=== PATIENT | male | born 1945 | race African-American/Black ===

== ENCOUNTER 2017-05-25 22:52 | Emergency (ER) | payer OTHER ==
[2017-05-25 22:58] VITALS: BMI 34.6
--- NOTE | 2017-05-25 23:25 | PDOC ---
History of Present Illness - General History Source: Patient Exam Limitations: No Limitations - History of Present Illness Initial Comments: 05/26/17 01:00 The patient is a 72 year old male, with significant past medical history of insulin-dependent diabetes mellitus, HLD, HTN, BPH, glaucoma, cataracts, GOUT, who presents today complaining of high blood glucose levels. The patient noticed a change in his blood glucose levels after his doctor switched his insulin from a long lasting (which he was taking for 10 years) to short lasting humalog. Since this change in medication, he becomes very dizzy throughout the day. However, he denies dizziness at this time.His blood glucose is 250 and wants to be under 200 before he is discharged.He denies any pain, abdominal pain , and does not have any other complaints. Denies fever, chills, nausea, vomiting. Allergies: doxazosin, metformin PCP- Dr. Lopez Sales Account Manager: Dr. Estes <Tatum Bell - Last Filed: 05/26/17 01:00> <Leticia Kirkpatrick - Last Filed: 05/26/17 05:34> - General Chief Complaint: Blood Sugar Problem Stated Complaint: BLOOD SUGAR PROBLEM Time Seen by Provider: 05/25/17 23:09 Past History <Tatum Bell - Last Filed: 05/26/17 01:00> - Past Medical History Anemia: No Asthma: No Cancer: No Cardiac Disorders: No COPD: No CHF: No Diabetes: Yes Disorders: Yes (ENLARGED PROSTATE) HTN: Yes Hypercholesterolemia: Yes Thyroid Disease: No - Surgical History Abdominal Surgery: No Appendectomy: No Cardiac Surgery: No Cholecystectomy: No Lung Surgery: No Neurologic Surgery: No Orthopedic Surgery: Yes (TENDON REPAIR LEFT FOREFINGER) - Psycho/Social/Smoking Cessation Hx Suicidal Ideation: No Smoking History: Never smoked Have you smoked in the past 12 months: No Hx Alcohol Use: No Drug/Substance Use Hx: No Substance Use Type: None <Leticia Kirkpatrick - Last Filed: 05/26/17 05:34> - Past Medical History Allergies/Adverse Reactions: Allergies Allergy/AdvReac Type Severity Reaction Status Date / Time doxazosin Allergy Severe Verified 05/26/17 00:17 metformin AdvReac Verified 05/26/17 00:17 Home Medications: Ambulatory Orders Brimonidine Tartrate [Alphagan 0.2% -] 1 drop OU BID 10/19/15 Clonidine HCl [Catapres -] 0.1 tab PO BID 10/19/15 Dorzolamide HCl/Timolol Maleat [Dorzolamide-Timolol Eye Drops] 10 ml OP HS 10/19 Finasteride 5 mg PO DAILY 10/19/15 Insulin NPL/Insulin Lispro [Humalog Mix 50-50 Kwikpen] 0 units SQ DAILY Latanoprost 0.005% Eye Drops [Xalatan 0.005% Eye Drops -] 1 drop OU HS 10/19/15 Mometasone Furoate [Nasonex] 1 - 2 inh NS DAILY 10/19/15 Saxagliptin HCl [Onglyza] 2.5 mg PO DAILY 10/19/15 Tamsulosin HCl [Flomax -] 0.4 mg PO DAILY 10/19/15 Timolol 0.5% [Timoptic 0.5%] 1 drop OU BID 10/19/15 Valsartan 160 mg PO DAILY 10/19/15 Allopurinol 300 mg PO DAILY 10/02/16 Amox-Tr/K Cl [Augmentin - 875Mg Tablet] 1 tab PO BID #20 tablet 10/02/16 Fexofenadine HCl [Anjali Allergy] 180 mg PO DAILY #10 tablet 10/02/16 Linagliptin [Tradjenta] 5 mg PO DAILY 10/02/16 Simvastatin [Zocor -] 40 mg PO HS 10/02/16 Review of Systems - Review of Systems Able to Perform ROS?: Yes Comments:: 05/26/17 01:02 GENERAL/CONSTITUTIONAL: No fever or chills. No weakness. HEAD, EYES, EARS, NOSE AND THROAT: No change in vision. No ear pain or discharge. No sore throat. CARDIOVASCULAR: No chest pain or shortness of breath. RESPIRATORY: No cough, wheezing, or hemoptysis. GASTROINTESTINAL: No nausea, vomiting, diarrhea or constipation. GENITOURINARY: No dysuria, frequency, or change in urination. MUSCULOSKELETAL: No joint or muscle swelling or pain. No neck or back pain. SKIN: No rash NEUROLOGIC: No headache, vertigo, loss of consciousness, or change in strength/ sensation. ENDOCRINE: +high blood glucose. No increased thirst. No abnormal weight change. HEMATOLOGIC/LYMPHATIC: No anemia, easy bleeding, or history of blood clots. ALLERGIC/IMMUNOLOGIC: No hives or skin allergy. <Tatum Bell - Last Filed: 05/26/17 01:00> *Physical Exam - Vital Signs Last Vital Signs Temp Pulse Resp BP Pulse Ox 99.3 F 125 H 18 122/77 98 05/25/17 22:56 05/25/17 22:56 05/25/17 22:56 05/25/17 22:56 05/25/17 23:01 - Physical Exam Comments: 05/26/17 01:02 GENERAL: Awake, alert, and fully oriented, in no acute distress HEAD: No signs of trauma EYES: PERRLA, EOMI, sclera anicteric, conjunctiva clear ENT: Auricles normal inspection, hearing grossly normal, nares patent, oropharynx clear without exudates. Moist mucosa NECK: Normal ROM, supple, no lymphadenopathy, JVD, or masses LUNGS: Breath sounds equal, clear to auscultation bilaterally. No wheezes, and no crackles HEART: Regular rate and rhythm, normal S1 and S2, no murmurs, rubs or gallops ABDOMEN: Soft, nontender, normoactive bowel sounds. No guarding, no rebound. No masses EXTREMITIES: Normal range of motion, no edema. No clubbing or cyanosis. No cords, erythema, or tenderness NEUROLOGICAL: Cranial nerves II through XII grossly intact. Normal speech, normal gait SKIN: Warm, Dry, normal turgor, no rashes or lesions noted. <Tatum Bell - Last Filed: 05/26/17 01:00> - Vital Signs Last Vital Signs Temp Pulse Resp BP Pulse Ox 99.3 F 125 H 18 122/77 98 05/25/17 22:56 05/25/17 22:56 05/25/17 22:56 05/25/17 22:56 05/25/17 23:01 <Leticia Kirkpatrick - Last Filed: 05/26/17 05:34> ED Treatment Course - ADDITIONAL ORDERS Additional order review: Laboratory Results 05/25/17 23:42 POC Glucometer [id number] 05/25/17 23:42 POC Glucometer [id number] - Medications Given in the ED: ED Medications Discontinued Medications Generic Name Dose Route Start Last Admin Trade Name Freq PRCatherine Reason Stop Dose Admin Insulin Human Regular 1 units 05/26/17 00:51 05/26/17 00:56 Novolin R Vial *For Ivpush Or Iv Drip Only* IVPUSH 05/26/17 00:52 1 unit ONCE ONE Administration <Tatum Bell - Last Filed: 05/26/17 01:00> - LABORATORY CBC & Chemistry Diagram: 05/26/17 00:55 05/26/17 00:55 <Leticia Kirkpatrick - Last Filed: 05/26/17 05:34> Medical Decision Making - Medical Decision Making 05/26/17 05:31 Pt comes with higher blood sugars than he is used to. He tells me that he was recently seen at [facility] and the doctors switched his Humumog 50/50 to a different combination of insulin meds, leading him to have poor control of his blood sugar. Pt has no other complaints at this time. 05/26/17 05:33 Pt was treated with a 500 ml of saline as he has ketones in his urine and he was given only 1U of regular insulin, as he wants to resume his usual course of 55Units of humulog in the AM when he gets home and 52Units in the night. <Leticia Kirkpatrick - Last Filed: 05/26/17 05:34> *DC/Admit/Observation/Transfer - Attestations Scribe Attestion: 05/26/17 01:11 Documentation prepared by MARIETTA Gipson, acting as certified medical transcriptionist for Leticia Kirkpatrick MD. <Tatum Bell - Last Filed: 05/26/17 01:00> - Discharge Dispostion Admit: No <Leticia Kirkpatrick - Last Filed: 05/26/17 05:34> Diagnosis at time of Disposition: Diabetes - Discharge Dispostion Disposition: HOME Condition at time of disposition: Stable - Patient Instructions Printed Discharge Instructions: DI for Hyperglycemia -- Adult
[2017-05-26] MEDS ORDERED: INSULIN REGULAR HUMAN 100 UNITS/ML *VIAL IVPUSH ONE (00:51)
[2017-05-26 01:07] LABS: BASOPHIL 0.7 % (0-2.0); EOSINOPHIL 0.7 % (0-4.5); MCH 27.4 pg (25.7-33.7); MCHC 32.6 g/dl (32.0-35.9); MEAN PLT VOLUME 8.5 fl (7.5-11.1); NEUTROPHILS 54.8 % (42.8-82.8); PLATELET COUNT 248 K/MM3 (134-434); RDW 13.6 % (11.9-15.9); WHITE BLOOD COUNT 7.4 K/mm3 (4.0-10.0)
[2017-05-26 01:16] LABS: URINE APPEARANCE CLEAR; URINE BILIRUBIN NEGATIVE (NEGATIVE); URINE BLOOD 1+ (NEGATIVE); URINE COLOR STRAW; URINE GLUCOSE (UA) 3+ (NEGATIVE); URINE KETONE TRACE (NEGATIVE); URINE LEUK ESTERASE NEGATIVE (NEGATIVE); URINE NITRITE NEGATIVE (NEGATIVE); URINE PROTEIN NEGATIVE (NEGATIVE); URINE UROBILINOGEN NEGATIVE mg/dL (0.2-1.0)
[2017-05-26 01:19] LABS: URINE RBC 1 /hpf (0-3); URINE WBC <1 /hpf (3-5)
[2017-05-26 01:23] LABS: INR 1.07 (0.82-1.09); PROTHROMBIN TIME (PATIENT) 11.8 SEC (9.98-11.88)
[2017-05-26 01:44] LABS: ALBUMIN 3.8 g/dl (3.4-5.0); ANION GAP 10 (8-16); BILIRUBIN,TOTAL 0.6 mg/dL (0.2-1.0); CALCIUM 9.6 mg/dL (8.5-10.1); CO2 28 mmol/L (21-32); CREATININE 1.5 mg/dL (0.7-1.3); GLUCOSE,RANDOM 253 mg/dL (74-106); SGOT/AST 19 U/L (15-37); SGPT/ALT 22 U/L (12-78); TOT PROT 7.9 g/dl (6.4-8.2)
[2017-05-26 01:45] LABS: ALK PHOS 79 U/L (45-117)
[2017-05-26] MEDS ORDERED: SODIUM CHLORIDE 0.9% 1000 ML INFUS.BAG IV ONE (02:46)
[2017-05-26 04:23] VITALS: BP 120/78; PULSE 97; TEMP 98.7
== END 2017-05-26 04:33 | disposition home or self-care (01) ==
LOC: JER 22:52
PROC: 3E033VG Introduction of Insulin into Peripheral Vein, Percutaneous Approach (ICD-10-PCS; principal; 2017-05-25)
DX: E11.65 Type 2 diabetes mellitus with hyperglycemia (principal); Z79.4 Long term (current) use of insulin; I10 Essential (primary) hypertension; E78.00 Pure hypercholesterolemia, unspecified; M10.9 Gout, unspecified; N40.0 Benign prostatic hyperplasia without lower urinary tract symptoms
CPT/HCPCS: 36415; 80053; 81003; 81015; 85025; 85610; 99282-25

== ENCOUNTER 2017-11-11 07:13 | Day surgery (SDC) | payer OTHER ==
[2017-11-10 14:55] VITALS: BMI 33.3
[~2017-11-11 07:13] MED LIST: BSS (NA/CA/MG/K) BALANCED SALT SOLUTION OPHTH SOLN 15 ML BOTTLE OD ONE; CHONDROITIN SU A/HYALUR SOD 1 KIT IO ONE; EPINEPHrine/PF 1 MG/1 ML (1:1,000) AMPULE SQ ONE; LIDOCAINE HCL 1% PRESERVATIVE FREE - 30ML VIAL IO ONE; POVIDONE-IODINE 5% OPHTHALMIC PREP 30 ML SOLUTION OD ONE; TETRACAINE 0.5% OPHTH SOLN 2 ML BOTTLE OD ONE; TOBRA 0.3%/DEXAMETH 0.1% OPHTHALMIC SUSP 2.5 ML BTL TP ONE
[2017-11-11] MEDS ORDERED: EPINEPHrine/PF 1 MG/1 ML (1:1,000) AMPULE ONE (07:41)
[2017-11-11] MEDS ORDERED: TETRACAINE 0.5% OPHTH SOLN 2 ML BOTTLE ONE (07:41)
[2017-11-11] MEDS ORDERED: LIDOCAINE HCL/PF 1% SDV 5ML VIAL ONE (07:41)
[2017-11-11] MEDS ORDERED: TOBRA 0.3%/DEXAMETH 0.1% OPHTHALMIC SUSP 2.5 ML BTL ONE (07:41)
[2017-11-11] MEDS ORDERED: BSS (NA/CA/MG/K) BALANCED SALT SOLUTION OPHTH SOLN 15 ML BOTTLE ONE (07:42)
[2017-11-11 07:45] VITALS: TEMP 97.3
[2017-11-11] MEDS: CYCLOPENTOLATE HCL 1% OPHTH SOLN 2 ML BOTTLE OP SCH ×3 (07:55→08:05)
[2017-11-11] MEDS: PHENYLEPHRINE 2.5% OPHTH SOLN 15 ML BOTTLE OP SCH ×3 (07:55→08:05)
[2017-11-11] MEDS: MOXIFLOXACIN HCL 0.5% OPHTHALMIC 3 ML BOTTLE OP SCH ×3 (07:55→08:05)
[2017-11-11] MEDS: TROPICAMIDE 1% OPHTH SOLN 15 ML BOTTLE OP SCH ×3 (07:55→08:05)
[2017-11-11] MEDS ORDERED: MIDAZOLAM HCL 2 MG/2 ML SINGLE DOSE VIAL ONE ×3 (08:41)
--- NOTE | 2017-11-11 08:53 | HP ---
History & Physical Update - History History: No Change - Physical Physical: No Change - Assessment Assessment: No Change - Plan Plan: No Change
[2017-11-11] MEDS ORDERED: TETRACAINE 0.5% OPHTH SOLN 2 ML BOTTLE OD ONE (09:07)
[2017-11-11] MEDS ORDERED: POVIDONE-IODINE 5% OPHTHALMIC PREP 30 ML SOLUTION OD ONE (09:09)
[2017-11-11] MEDS ORDERED: CHONDROITIN SU A/HYALUR SOD 1 KIT IO ONE (09:18)
[2017-11-11] MEDS ORDERED: EPINEPHrine/PF 1 MG/1 ML (1:1,000) AMPULE SQ ONE (09:18)
[2017-11-11] MEDS ORDERED: BSS (NA/CA/MG/K) BALANCED SALT SOLUTION OPHTH SOLN 15 ML BOTTLE OD ONE (09:18)
[2017-11-11] MEDS ORDERED: LIDOCAINE HCL 1% PRESERVATIVE FREE - 30ML VIAL IO ONE (09:18)
[2017-11-11] MEDS ORDERED: ACETYLCHOLINE 1:100 INTRA-OCUL 20 MG/2 ML KIT ONE (09:46)
[2017-11-11] MEDS ORDERED: ACETYLCHOLINE 1:100 INTRA-OCUL 20 MG/2 ML KIT IO ONE (09:50)
[2017-11-11] MEDS ORDERED: TOBRA 0.3%/DEXAMETH 0.1% OPHTHALMIC SUSP 2.5 ML BTL TP ONE (09:53)
[2017-11-11 11:07] VITALS: BP 145/81; PULSE 83
--- NOTE | 2017-11-11 16:53 | OP ---
DATE OF OPERATION: 11/11/2017 SURGEON: Young Nichole MD PREOPERATIVE DIAGNOSIS: Cataract, right eye. OPERATION: Phacoemulsification and intraocular lens implantation, right eye. POSTOPERATIVE DIAGNOSIS: Cataract, right eye. ANESTHESIA: Topical. COMPLICATIONS: None. BLOOD LOSS: None. SPECIMEN: None. BRIEF HISTORY: The patient is a 72-year-old man with a past medical history of diabetes, who presented with decreased vision in the right eye down to 20/70 due to a 2+ nuclear sclerotic lens and a posterior subcapsular cataract. After the risks , benefits, and alternatives to cataract surgery were discussed with the patient including the increased risk due to the poorly dilating pupil, the patient consented to surgery. DESCRIPTION OF PROCEDURE: The patient was brought to the operating room and prepped and draped in the usual sterile fashion, and an eyelid speculum was inserted in the right eye. A paracentesis was made, and the anterior chamber was inflated with nonpreserved lidocaine. This was followed by injection of Viscoat. Due to the poorly dilating pupil, five iris hooks were placed in order to enlarge and stabilize the pupil. This was done without incident. A groove was made in the temporal clear cornea which was tunneled forward with a crescent blade. The anterior chamber was entered with a 2.75 keratome. The cystotome was used to make an incision in the center of the capsule, and a continuous curvilinear capsulorrhexis was created. The lens was hydrodissected until it was found to rotate freely within the capsular bag. Phacoemulsification was then used to remove the lens in its entirety. Irrigation and aspiration were used to remove residual cortical material. The anterior chamber and capsular bag were reinflated with Provisc, and a 22.5-diopter [id number] AcrySof intraocular lens was injected into the capsular bag using the Maryneal injector. The lens was dialed into place using a Sinskey hook. Irrigation and aspiration were used to remove residual Viscoelastic. The wound was stromally hydrated. The five previously placed iris hooks were removed, and Miochol was injected into the eye. The pupil was found to constrict round with no peaking. The wound was found to be watertight, and the eye was at an appropriate pressure. The eyelid speculum was removed from the eye, and TobraDex drops and a clear shield were placed over the right eye. The patient was transferred to the recovery room in stable condition and will follow up tomorrow. Jean Claude [id number] MTDD
== END 2017-11-11 11:07 | disposition home or self-care (01) ==
LOC: JASU-SURG 07:13
PROVIDERS: ATTEND Ophthalmology
PROC: 08RJ3JZ Replacement of Right Lens with Synthetic Substitute, Percutaneous Approach (ICD-10-PCS; principal; 2017-11-11 09:00)
DX: H25.11 Age-related nuclear cataract, right eye (principal)
CPT/HCPCS: 82962

== ENCOUNTER 2018-06-06 12:16 | Emergency (ER) | payer OTHER ==
[2018-06-06 12:32] VITALS: BMI 32.5
--- NOTE | 2018-06-06 12:45 | PDOC ---
History of Present Illness - General Chief Complaint: Rectal Bleed Stated Complaint: RECTAL BLEED Time Seen by Provider: 06/06/18 12:45 History Source: Patient Exam Limitations: No Limitations - History of Present Illness Initial Comments: 06/06/18 13:27 73 year old male with PMH GERD, HTN, HLD, DM, BPH presents to ED today for rectal bleeding. He states after defecating today, without straining and after laxative use, he saw his toilet bowl was bright red. He states he has constipation, and has had one prior episode of rectal bleeding, but had been straining and since laxative use, has not had any other episodes. He denies abdominal pain, nausea, vomiting, diarrhea, weakness, dizziness, lightheadedness , chest pain, shortness of breath, headache, back pain. He denies blood thinner use other than 81 mg ASA daily. He denies iron use, eating beets, nose bleeds, NSAID use, glucocorticoid use, Hx gastric bypass, etoh use. He has never had a colonoscopy before. He states he does not take Omeprazole everyday, only as needed for "indigestion". PCP - Dr. Leon GI - Dr. Luna Allergies - Metformin (upset stomach), doxazosin (chest pain) Past History - Past Medical History Allergies/Adverse Reactions: Allergies Allergy/AdvReac Type Severity Reaction Status Date / Time doxazosin Allergy Severe "CHEST Verified 06/06/18 12:32 PAIN" metformin AdvReac "INDIGESTIO Verified 06/06/18 12:32 N" Home Medications: Ambulatory Orders Brimonidine Tartrate [Alphagan 0.2% -] 1 drop OU BID 10/19/15 Dorzolamide HCl/Timolol Maleat [Dorzolamide-Timolol Eye Drops] 10 ml OP HS 10/19 Finasteride 5 mg PO DAILY 10/19/15 Latanoprost 0.005% Eye Drops [Xalatan 0.005% Eye Drops -] 1 drop OU HS 10/19/15 Tamsulosin HCl [Flomax -] 0.4 mg PO DAILY 10/19/15 Timolol 0.5% [Timoptic 0.5%] 1 drop OU BID 10/19/15 cloNIDine HCL [Catapres -] 0.1 tab PO BID 10/19/15 Linagliptin [Tradjenta] 5 mg PO DAILY 10/02/16 Allopurinol [Zyloprim -] 100 mg PO DAILY 11/10/17 Insulin Lispro Protamin/Lispro [Humalog Mix 50-50 Vial] 50 unit SQ ACHS Insulin Lispro Protamin/Lispro [Humalog Mix 50-50 Vial] 60 unit SQ ACBK Simvastatin 20 mg PO HS 11/10/17 Valsartan/Hydrochlorothiazide [Valsartan-Hctz 320-25 mg Tab] 1 each PO DAILY 06/20 Gabapentin [Neurontin -] 200 mg PO DAILY 06/06/18 Torsemide [Demadex] 20 mg PO DAILY 06/06/18 Anemia: No Asthma: No Cancer: No Cardiac Disorders: No CVA: No COPD: No CHF: No Dementia: No Diabetes: Yes GI Disorders: Yes ("HEARTBURN") Disorders: Yes (ENLARGED PROSTATE) HTN: Yes Hypercholesterolemia: Yes Liver Disease: No Seizures: No Thyroid Disease: No - Surgical History Abdominal Surgery: No Appendectomy: No Cardiac Surgery: No Cholecystectomy: No Lung Surgery: No Neurologic Surgery: No Orthopedic Surgery: Yes (TENDON REPAIR LEFT FOREFINGER) - Suicide/Smoking/Psychosocial Hx Smoking History: Never smoked Have you smoked in the past 12 months: No Hx Alcohol Use: No Drug/Substance Use Hx: No Substance Use Type: None Hx Substance Use Treatment: No Review of Systems - Review of Systems Able to Perform ROS?: Yes Comments:: 06/06/18 13:32 General: denies fever, chills, night sweats, generalized weakness. HEENT: denies sore throat, rhinorrhea, ear pain. Heart: denies chest pain, palpitations, syncope, lower extremity swelling, diaphoresis. Respiratory: denies shortness of breath, cough, sputum production, hematemesis. Abdomen: admits to rectal bleeding. denies abdominal pain, nausea, vomiting, diarrhea, constipation. : denies dysuria, increased urinary frequency, hematuria, urinary incontinence , flank pain. Back: denies back pain, flank pain. Musculoskeletal: denies joint pain, muscle pain, joint swelling. Neurological: denies headache, dizziness, numbness, tingling, weakness. Skin: denies rash, laceration, abrasion. *Physical Exam - Vital Signs Last Vital Signs Temp Pulse Resp BP Pulse Ox 98 F 78 18 131/83 99 06/06/18 12:30 06/06/18 12:30 06/06/18 12:30 06/06/18 12:30 06/06/18 12:30 - Physical Exam Comments: 06/06/18 13:32 Appearance: comfortable. walks unassisted. HEENT: head is normocephalic, atraumatic. EOMI. PERRLA. Neck: supple. Full ROM. Heart: regular rhythm. no murmurs, rubs or gallops. No pericardial friction rub. Lungs: clear to auscultation bilaterally. no crackles, rhonchi or wheezing. no stridor. Abdomen: soft, nontender. hyperactive bowel sounds. no rebound, guarding, masses. Rectal: no external hemorrhoids. Extremities: Peripheral pulses intact and equal. No lower extremity edema. Neurological: Alert. Oriented x3. CN 2-12 grossly intact. Moves all four extremities. Heart Score/ECG Review - ECG Impressions Comment:: 06/06/18 14:43 Rate 71. regular rhythm. left axis. no acute ST changes. ED Treatment Course - LABORATORY CBC & Chemistry Diagram: 06/06/18 17:13 06/06/18 13:18 Medical Decision Making - Medical Decision Making 06/06/18 13:39 73 year old male with PMH GERD, HTN, HLD, DM, BPH presenting for rectal bleeding - red water in toilet bowl today. On ASA 812 mg, denies other blood thinners, iron use, steroid use, NSAID use, beet ingestion, nose bleeds. No abdominal pain, no chest pain, no shortness of breath, no lightheadedness, no fever, no nausea, no vomiting, no diarrhea, no constipation. No external hemorrhoids visualized. Initial Vital Signs Temp Pulse Resp BP Pulse Ox 98 F 78 18 131/83 99 06/06/18 12:30 06/06/18 12:30 06/06/18 12:30 06/06/18 12:30 06/06/18 12:30 Afebrile. No tachycardia. No hypotension. No hypoxia. Pending labs, CXR, stool guiac. 06/06/18 13:42 No anemia on CBC. Stool positive for blood. 06/06/18 13:43 CXR report - congestive changes, fluid in horizontal fissure, possible right base infiltrate, no free air, no pneumothrorax, large heart, unfolded aorta. 06/06/18 15:11 I reassessed the patient, and explained his results and the need for a repeat Hgb at four hours. He has no complaints and agrees with the plan of care. *DC/Admit/Observation/Transfer Diagnosis at time of Disposition: Rectal bleed, Chronic kidney disease - Discharge Dispostion Disposition: HOME Condition at time of disposition: Stable Decision to Admit order: No - Referrals Referrals: Beka Lopez MD [Primary Care Provider] - - Patient Instructions Printed Discharge Instructions: DI for Rectal Bleeding Additional Instructions: You were seen today for rectal bleeding. Your blood work revealed no anemia when you arrived to the Emergency Department. Repeat blood work 5 hours later revealed no change. Your stool testing revealed you have blood in your stool. Your evaluation of your rectal bleeding is not complete, you need to see your director revenue to find the cause of your bleeding. I spoke with Dr. Rodriguez, covering for Dr. Lilly, who states you can make an appointment for next week. Please call your director revenue on Friday to make an appointment, and bring the paperwork given to you today to your appointment. Follow up with your primary care physician within 7 days, and bring the paperwork given to you today with you. Return to the Emergency Department for continued bleeding, lightheadedness, chest pain, shortness of breath, weakness, numbness, loss of consciousness or any other new, worsening or concerning symptoms. - Post Discharge Activity
[2018-06-06 13:35] LABS: BASO % 0.6 % (0-2.0); EOS % 1.4 % (0-4.5); HEMATOCRIT 35.4 % (35.4-49); HEMOGLOBIN 12.2 GM/dL (11.7-16.9); LYMPH % 40.7 % (8-40); MCH 28.5 pg (25.7-33.7); MCHC 34.4 g/dl (32.0-35.9); MEAN PLT VOLUME 7.8 fl (7.5-11.1); MONO % 7.7 % (3.8-10.2); NEUT % 49.6 % (42.8-82.8); PLATELET COUNT 244 K/MM3 (134-434); RBC 4.27 M/mm3 (4.00-5.60); RDW 13.3 % (11.9-15.9); RETICULOCYTES 1.37 % (0.5-1.5); WHITE BLOOD COUNT 6.4 K/mm3 (4.0-10.0)
--- NOTE | 2018-06-06 13:50 | PDOC ---
Attending Attestation - Resident Resident Name: Christine Bush - ED Attending Attestation I have performed the following: I have examined & evaluated the patient, The case was reviewed & discussed with the resident, I agree w/resident's findings & plan, Exceptions are as noted - HPI HPI: 06/06/18 13:48 73y M hx of dm, htn, hl, presents with 1 episode in his toilet after defacating. 1 prior episode of this 1 month ago with straining but non since. Today he had ahard bm, but said it was passed easily, he said it wa s anormal colored stool floating in a pool of blood inthe toilet. he wiped several times using toilet paper and the blood was less each time. pt denies any rectal pain , abd pain, cp, sob, palitations, lightheadedness. Pt follows upith dr Lilly but has never had a colonscopy (was recommended but pt declined). pt on ASA but no other a/c on exam pt well appearing abd soft nontender rectal: no externalhemorroids, brown stool suspect possible hemrroidal bleeding will obtain cbc, cmp, inr, stool guaiac - Physicial Exam PE: 06/06/18 17:53 see above - Medical Decision Making 06/06/18 16:47 labs unremarkble, cbc stable cxr noted for some chgestive changes but pt has no sob, leg swelling or other sypmtoms will obtain repeat CBC if stable will dc with gi fu n ofurther episodes of bleeding here 06/06/18 17:56 repeat hbg sbalel no episodes of bleeding will dc with gi fu for colonscopy return precuations were discussed Heart Score/ECG Review - ECG Impressions Comment:: 06/06/18 18:00 Twelve-lead EKG was performed and reviewed by me. There is normal sinus rhythm with a normal rate. Rate of 71 The axis is normal. The intervals are normal. There is normal R wave progression There are no ST or T wave abnormalities. Impression: Normal twelve-lead EKG
[2018-06-06 14:03] LABS: ALBUMIN 3.8 g/dl (3.4-5.0); ALK PHOS 79 U/L (45-117); ANION GAP 8 (8-16); BILIRUBIN,TOTAL 0.3 mg/dL (0.2-1.0); BLOOD UREA NITROGEN 31 mg/dL (7-18); CALCIUM 9.6 mg/dL (8.5-10.1); CHLORIDE 96 mmol/L (98-107); CO2 33 mmol/L (21-32); CREATININE 1.8 mg/dL (0.7-1.3); GLUCOSE,RANDOM 187 mg/dL (74-106); POTASSIUM 3.5 mmol/L (3.5-5.1); SGOT/AST 26 U/L (15-37); SGPT/ALT 26 U/L (12-78); SODIUM 137 mmol/L (136-145); TOT PROT 7.7 g/dl (6.4-8.2)
[2018-06-06 14:55] LABS: INR 1.03 (0.83-1.09); PROTHROMBIN TIME (PATIENT) 11.6 SEC (9.7-13.0)
[2018-06-06 15:22] VITALS: BP 124/72; PULSE 67; TEMP 98.9
[2018-06-06 17:42] LABS: HEMATOCRIT 35.8 % (35.4-49); HEMOGLOBIN 12.2 GM/dL (11.7-16.9); MCH 28.6 pg (25.7-33.7); MCHC 34.3 g/dl (32.0-35.9); MEAN CELL VOLUME 83.6 fl (80-96); MEAN PLT VOLUME 7.5 fl (7.5-11.1); PLATELET COUNT 255 K/MM3 (134-434); RBC 4.28 M/mm3 (4.00-5.60); RDW 13.1 % (11.9-15.9); WHITE BLOOD COUNT 7.8 K/mm3 (4.0-10.0)
--- NOTE | 2018-06-08 11:51 | EKG ---
Test Reason : Blood Pressure : / mmHG Vent. Rate : 071 BPM Atrial Rate : 071 BPM P-R Int : 156 ms QRS Dur : 102 ms QT Int : 388 ms P-R-T Axes : 045 -04 036 degrees QTc Int : 421 ms NORMAL SINUS RHYTHM NORMAL ECG WHEN COMPARED WITH ECG OF 19-OCT-2015 08:27, NO SIGNIFICANT CHANGE WAS FOUND Confirmed by HUGH GATES MD ([id number]) on 06/08/2018 11:50:51 AM Referred By: Confirmed By:HUGH GATES MD
== END 2018-06-06 18:12 | disposition home or self-care (01) ==
LOC: JER 12:16
DX: K62.5 Hemorrhage of anus and rectum (principal); E11.22 Type 2 diabetes mellitus with diabetic chronic kidney disease; I12.9 Hypertensive chronic kidney disease with stage 1 through stage 4 chronic kidney disease, or unspecified chronic kidney disease; N18.9 Chronic kidney disease, unspecified; Z79.4 Long term (current) use of insulin; R12 Heartburn; I10 Essential (primary) hypertension; E78.00 Pure hypercholesterolemia, unspecified
CPT/HCPCS: 36415; 71046-TC-FY; 80053; 82272; 85025; 85027; 85044; 85610; 86850; 86900; 86901; 93005; 93010; 99284-25

== ENCOUNTER 2019-01-06 12:27 | Emergency (ER) | payer OTHER ==
[2019-01-06 12:47] VITALS: BMI 31.6
--- NOTE | 2019-01-06 13:22 | PDOC ---
History of Present Illness - General Chief Complaint: Pain Stated Complaint: ABD PAIN,BLURRED VISION Time Seen by Provider: 01/06/19 13:21 - History of Present Illness Initial Comments: 01/06/19 13:23 73 year old male, with significant past medical history of insulin-dependent diabetes mellitus, HLD, HTN, BPH, glaucoma, cataracts, GOUT presents to the ED for left eye blurry vision, pain over the left corner of the eye and burning of the left nasal passage for the past 2 weeks. He saw his PCP last week who diagnosed him with sinusitis and prescribed him with cefoxatime which didn't relieve his symptoms. He also said hes been taking pseudoephedrine but doesnt like the side effect. He denies headache, nasal discharge fever, chills, sore throat. Past History - Past Medical History Allergies/Adverse Reactions: Allergies Allergy/AdvReac Type Severity Reaction Status Date / Time doxazosin Allergy Severe "CHEST Verified 01/06/19 12:47 PAIN" metformin AdvReac "INDIGESTIO Verified 01/06/19 12:47 N" Home Medications: Ambulatory Orders Brimonidine Tartrate [Alphagan 0.2% -] 1 drop OU BID 10/19/15 Dorzolamide HCl/Timolol Maleat [Dorzolamide-Timolol Eye Drops] 10 ml OP HS 10/19 Finasteride 5 mg PO DAILY 10/19/15 Latanoprost 0.005% Eye Drops [Xalatan 0.005% Eye Drops -] 1 drop OU HS 10/19/15 Tamsulosin HCl [Flomax -] 0.4 mg PO DAILY 10/19/15 Timolol 0.5% [Timoptic 0.5%] 1 drop OU BID 10/19/15 cloNIDine HCL [Catapres -] 0.1 tab PO BID 10/19/15 Linagliptin [Tradjenta] 5 mg PO DAILY 10/02/16 Allopurinol [Zyloprim -] 100 mg PO DAILY 11/10/17 Insulin Lispro Protamin/Lispro [Humalog Mix 50-50 Vial] 50 unit SQ ACHS Insulin Lispro Protamin/Lispro [Humalog Mix 50-50 Vial] 60 unit SQ ACBK Simvastatin 20 mg PO HS 11/10/17 Valsartan/Hydrochlorothiazide [Valsartan-Hctz 320-25 mg Tab] 1 each PO DAILY 06/20 Gabapentin [Neurontin -] 200 mg PO DAILY 06/06/18 Torsemide [Demadex] 20 mg PO DAILY 06/06/18 Anemia: No Asthma: No Cancer: No Cardiac Disorders: No CVA: No COPD: No CHF: No Dementia: No Diabetes: Yes GI Disorders: Yes ("HEARTBURN") Disorders: Yes (ENLARGED PROSTATE) HTN: Yes Hypercholesterolemia: Yes Liver Disease: No Seizures: No Thyroid Disease: No - Surgical History Abdominal Surgery: No Appendectomy: No Cardiac Surgery: No Cholecystectomy: No Lung Surgery: No Neurologic Surgery: No Orthopedic Surgery: Yes (TENDON REPAIR LEFT FOREFINGER) - Suicide/Smoking/Psychosocial Hx Smoking History: Never smoked Have you smoked in the past 12 months: No Information on smoking cessation initiated: No Hx Alcohol Use: No Drug/Substance Use Hx: No Substance Use Type: None Hx Substance Use Treatment: No Review of Systems - Review of Systems Able to Perform ROS?: Yes Is the patient limited Mauritian proficient: No Constitutional: No: Symptoms Reported HEENTM: Yes: See HPI Respiratory: No: Symptoms reported Cardiac (ROS): No: Symptoms Reported ABD/GI: No: Symptoms Reported : No: Symptoms Reported Musculoskeletal: No: Symptoms Reported Integumentary: No: Symptoms Reported Neurological: No: Symptoms reported All Other Systems: Reviewed and Negative *Physical Exam - Vital Signs Last Vital Signs Temp Pulse Resp BP Pulse Ox 98 F 70 18 154/87 95 01/06/19 12:45 01/06/19 12:45 01/06/19 12:45 01/06/19 12:45 01/06/19 12:45 - Physical Exam General Appearance: Yes: Nourished, Appropriately Dressed. No: Apparent Distress HEENT: positive: Other (arcuate senilis b/l, right beating nystagmus of the left eye on left gaze. Nasal canal drym no drainage or congestion. L eye 20/40,R : 20/30) Respiratory/Chest: positive: Lungs Clear, Normal Breath Sounds. negative: Chest Tender, Respiratory Distress Cardiovascular: positive: Regular Rhythm, Regular Rate, S1, S2 Gastrointestinal/Abdominal: positive: Normal Bowel Sounds, Flat, Soft. negative : Tender Extremity: positive: Normal Capillary Refill, Normal Inspection, Normal Range of Motion Integumentary: positive: Normal Color, Dry, Warm Neurologic: positive: Fully Oriented, Alert, Normal Mood/Affect, Normal Response , Motor Strength 5/5 Moderate Sedation - Procedure Monitoring Vital Signs: Procedure Monitoring Vital Signs Temperature 98 F 01/06/19 12:45 Pulse Rate 70 01/06/19 12:45 Respiratory Rate 18 01/06/19 12:45 Blood Pressure 154/87 01/06/19 12:45 O2 Sat by Pulse Oximetry (%) 95 01/06/19 12:45 Medical Decision Making - Medical Decision Making 01/06/19 14:[address] Sharif, patient's ophtalmologist across the street who will see the patient in his office today. The patient has a vast ophthalmologic history and it would be more prudent to let the patient's ophtalmologist across the street see him immediately. Ok to discharge. *DC/Admit/Observation/Transfer Diagnosis at time of Disposition: Blurry vision, left eye - Discharge Dispostion Disposition: HOME Condition at time of disposition: Good Decision to Admit order: No - Referrals Referrals: Beka Lopez MD [Primary Care Provider] - - Patient Instructions Printed Discharge Instructions: Men's Eyes: How to Prevent Vision Problems Additional Instructions: Please go to Dr. Sharif's office upon discharge as he is expecting you. Come back to the emergency department for any new, worsening or concerning symptom. - Post Discharge Activity
--- NOTE | 2019-01-06 13:48 | PDOC ---
Attending Attestation - HPI HPI: 01/06/19 13:56 The patient is a 73 year old male with a past medical history of glaucoma, cataracts, insulin dependent diabetes, HLD, HTN, and BPH here today for evaluation of blurry vision and facial pain. The patient reports that he has had blurry vision for the past 2 weeks. He also notes pain in the left zygomatic and lacrimal area and notes burning in his left nostril. Patient reports nausea and vomiting since yesterday. Patient denies headache, lightheadedness. Denies fever, chills. Denies chest pain, shortness of breath. Denies diarrhea, abdominal pain. Allergies: doxazosin, metformin PCP: Beka Lopez - Physicial Exam PE: 01/06/19 14:17 GENERAL: The patient is in no acute distress. HEAD: Normal with no signs of trauma. EYES: PERRLA, EOMI, sclera anicteric, conjunctiva clear, extra ocular muscles intact. ENT: Ears normal, nares patent, oropharynx clear without exudates. Moist mucous membranes. NECK: Normal range of motion, supple without lymphadenopathy, JVD, or masses. LUNGS: Breath sounds equal, clear to auscultation bilaterally. No wheezes, and no crackles. HEART:Regular rate and rhythm, normal S1 and S2 without murmur, rub or gallop. ABDOMEN: Soft, nontender, normoactive bowel sounds. No guarding, no rebound. No masses palpable. EXTREMITIES: Normal range of motion, no edema. No clubbing or cyanosis. No erythema, or tenderness. NEUROLOGICAL: Cranial nerves II through XII grossly intact. Normal speech. No focal neurological deficits. MUSCULOSKELETAL: Back non-tender to palpation, no CVA tenderness SKIN: Warm, Dry, normal turgor, no rashes or lesions noted. - Medical Decision Making 01/06/19 13:56 Documentation prepared by MARIETTA Merchant, acting as certified medical technician for Sonia Mas MD. <Fabiano Salazar - Last Filed: 01/06/19 14:17> - Resident Resident Name: Young Avila - ED Attending Attestation I have performed the following: I have examined & evaluated the patient, The case was reviewed & discussed with the resident, I agree w/resident's findings & plan, Exceptions are as noted - Medical Decision Making 01/07/19 14:15 73 yo M presenting with a complaint of left eye visual changes particularly when he looks to the left No trauma No headache Pt has discomfort left face No prior episodes like this visual acquity 20/40 Left eye call placed to patient's tobacco wetter requests that patient be sent over for evaluation (apparently, pt had a prior intraoccular injection) clinical impression: visual changes, initial presentation <Sonia Mas - Last Filed: 01/07/19 14:19>
[2019-01-06 14:42] VITALS: BP 150/64; PULSE 80; TEMP 98.1
== END 2019-01-06 14:40 | disposition home or self-care (01) ==
LOC: JER 12:27
DX: H53.8 Other visual disturbances (principal); E11.9 Type 2 diabetes mellitus without complications; I10 Essential (primary) hypertension; E78.00 Pure hypercholesterolemia, unspecified; N40.0 Benign prostatic hyperplasia without lower urinary tract symptoms; R12 Heartburn
CPT/HCPCS: 99282-25

== ENCOUNTER 2019-02-11 10:14 | Day surgery (SDC) | payer OTHER ==
[2019-02-11 11:53] VITALS: BMI 31.2
[2019-02-11] MEDS ORDERED: ceFAZolin SODIUM 1 GM VIAL IVPB ONE (13:18)
[2019-02-11] MEDS ORDERED: LIDOCAINE HCL 1%, 10 MG/ML (50 mL VIAL) IJ ONE ×2 (13:32)
[2019-02-11] MEDS ORDERED: oxyCODONE HCL 5 MG TABLET PO PRN (14:11)
--- NOTE | 2019-02-11 14:15 | HP ---
Admitting History and Physical - Admission Chief Complaint: left sided headaches, wiht blurry vision. Here for temporal artery biopsy Limitations to Obtaining History: No Limitations - Smoking History Smoking history: Never smoked Have you smoked in the past 12 months: No - Alcohol/Substance Use Hx Alcohol Use: No Home Medications - Allergies Allergies/Adverse Reactions: Allergies Allergy/AdvReac Type Severity Reaction Status Date / Time doxazosin Allergy Severe "CHEST Verified 01/06/19 12:47 PAIN" metformin AdvReac "INDIGESTIO Verified 01/06/19 12:47 N" - Home Medications Home Medications: Ambulatory Orders Brimonidine Tartrate [Alphagan 0.2% -] 1 drop OU BID 10/19/15 Dorzolamide HCl/Timolol Maleat [Dorzolamide-Timolol Eye Drops] 10 ml OP HS 10/19 Finasteride 5 mg PO DAILY 10/19/15 Latanoprost 0.005% Eye Drops [Xalatan 0.005% Eye Drops -] 1 drop OU HS 10/19/15 Tamsulosin HCl [Flomax -] 0.4 mg PO DAILY 10/19/15 Timolol 0.5% [Timoptic 0.5%] 1 drop OU BID 10/19/15 cloNIDine HCL [Catapres -] 0.1 tab PO DAILY 10/19/15 Linagliptin [Tradjenta] 5 mg PO DAILY 10/02/16 Allopurinol [Zyloprim -] 100 mg PO DAILY 11/10/17 Insulin Lispro Protamin/Lispro [Humalog Mix 50-50 Vial] 50 unit SQ ACHS Insulin Lispro Protamin/Lispro [Humalog Mix 50-50 Vial] 60 unit SQ ACBK Simvastatin 20 mg PO HS 11/10/17 Valsartan/Hydrochlorothiazide [Valsartan-Hctz 320-25 mg Tab] 1 each PO DAILY 06/20 Gabapentin [Neurontin -] 200 mg PO PRN PRN 06/06/18 Torsemide [Demadex] 20 mg PO DAILY 06/06/18 Aspirin [ASA -] 1 tab PO DAILY 02/05/19 Bisacodyl [Laxative] 5 mg PO DAILY 02/11/19 Fluticasone Prop 0.05% Nasal [Flonase -] 2 spray NS DAILY 02/11/19 Prednisolone 1% Ophthalmic [Pred Forte 1% -] 1 drop OS BID 02/11/19 Review of Systems - Review of Systems Constitutional: reports: No Symptoms Eyes: reports: No Symptoms HENT: reports: No Symptoms Neck: reports: No Symptoms Cardiovascular: reports: No Symptoms Respiratory: reports: No Symptoms Gastrointestinal: reports: No Symptoms Genitourinary: reports: No Symptoms Musculoskeletal: reports: No Symptoms Integumentary: reports: No Symptoms Neurological: reports: No Symptoms Hematology/Lymphatic: reports: No Symptoms Psychiatric: reports: No Symptoms Physical Examination Constitutional: Yes: Well Nourished, No Distress, Calm Eyes: Yes: WNL, Conjunctiva Clear, EOM Intact HENT: Yes: WNL, Atraumatic, Normocephalic Neck: Yes: WNL, Supple, Trachea Midline Cardiovascular: Yes: WNL, Regular Rate and Rhythm Respiratory: Yes: WNL, Regular, CTA Bilaterally Gastrointestinal: Yes: WNL, Normal Bowel Sounds Musculoskeletal: Yes: WNL Extremities: Yes: WNL Edema: No Integumentary: Yes: WNL Neurological: Yes: WNL, Alert, Oriented ...Motor Strength: WNL Psychiatric: Yes: WNL Problem List - Problems (1) Blurry vision, left eye Assessment/Plan: for Left temporal artery biopsy Code(s): H53.8 - OTHER VISUAL DISTURBANCES (2) Temporal arteritis Code(s): M31.6 - OTHER GIANT CELL ARTERITIS
--- NOTE | 2019-02-11 14:18 | OP ---
Operative Note - Note: Operative Date: 02/11/19 Pre-Operative Diagnosis: Rule out temporal ateritis left side Operation: Left temporal artery biopsy Post-Operative Diagnosis: Same as Pre-op Surgeon: Margarito Singer Anesthesia: Fractional Estimated Blood Loss (mls): 10 Operative Report Dictated: Yes
[2019-02-11 14:32] VITALS: TEMP 98
--- NOTE | 2019-02-11 14:58 | OP ---
DATE OF OPERATION: 02/11/2019 PREOPERATIVE DIAGNOSIS: Rule out left temporal arteritis. POSTOPERATIVE DIAGNOSIS: Rule out left temporal arteritis. PROCEDURE: Left temporal artery biopsy. SURGEON: Margarito Ruiz MD ANESTHESIA: Fractional. BLOOD LOSS: 10 mL. INDICATIONS: The patient is a 73-year-old male who has left-sided headaches for over 3 months with blurry vision. Medical team worked him up and patient had high ESR and CRP, and they want to rule out temporal arteritis. Patient came into ambulatory surgery. Patient was consented for the procedure understanding all risks, benefits, and alternatives. He was then taken to the operating room. DESCRIPTION OF PROCEDURE: Once in the operating suite, he was placed on the operating table in the supine manner, and the area of the left temporal region was prepped and draped in the sterile surgical manner. We then took a skin marker and toro a 3-cm incision over the R pulse. We then went ahead and injected 10 mL lidocaine 1% along our incision. We then took a No. 15 blade and made a 3-cm incision. Bovie electrocautery then used to control all hemostasis. We then were able to get down through the fascia and get to the temporal artery. Temporal artery was dissected anteriorly and posteriorly, and we were able to dissect out a length of at least 2.5 cm. We then went ahead and used a Doppler, and we were able to Doppler the pulse in the temporal artery. We then went ahead and took a 4-0 Biosyn. We then took a 4-0 silk and we were able to tie the artery proximally and distally. We then went ahead and took our Metzenbaum scissors and excised the artery and sent it down to Pathology. Wound was then well irrigated. Vicryl 3-0 was used in the subcutaneous tissue, which was approximated in an interrupted manner, and 4-0 Biosyn was used in a subcuticular running stich placed to close the skin. Once completed, 2 Steri-Strips were placed. The patient tolerated the procedure with no complications. Patient transferred to PACU in stable condition. MARGARITO RUIZ DO [id number]
[2019-02-11 17:23] VITALS: BP 120/70; PULSE 64
--- NOTE | 2019-02-15 18:42 | PATH ---
Surgical Pathology Report Patient Name: RANJIT PINON Med. Rec. #: [id number] /Age/Gender: 1945 (Age: 73) / M Account: [id number] Location: [facility] Taken: 02/11/2019 Received: 02/12/2019 Reported: 02/15/2019 Physicians: Margarito Singer Specimen(s) Received PORTION OF LEFT TEMPORAL ARTERY Clinical History Rule out left temporal arteritis Final Diagnosis TEMPORAL ARTERY, LEFT, BIOPSY: MUSCULAR ARTERY WITH NO EVIDENCE OF ARTERITIS. MULTIPLE LEVELS EXAMINED. Electronically Signed Lyssa Alexis M.D. Gross Description Received in formalin labeled "portion of left temporal artery," is a 0.9 cm in length tubular structure, consistent with a temporal artery biopsy. The specimen is trisected and entirely submitted in one cassette. /02/13/2019 saudi02/13/2019
== END 2019-02-11 16:30 | disposition home or self-care (01) ==
LOC: JASU-SURG 10:14
PROVIDERS: ATTEND Surgery Vascular Surgery
PROC: 03BT0ZX Excision of Left Temporal Artery, Open Approach, Diagnostic (ICD-10-PCS; principal; 2019-02-11 12:00)
DX: M31.6 Other giant cell arteritis (principal)
CPT/HCPCS: 88305-TC; 94760

== ENCOUNTER 2020-05-27 13:19 | Inpatient (IN) | payer OTHER ==
--- NOTE | 2020-05-27 13:33 | PDOC ---
Rapid Medical Evaluation Time Seen by Provider: 05/27/20 13:26 Medical Evaluation: Allergies Allergy/AdvReac Type Severity Reaction Status Date / Time doxazosin Allergy Severe "CHEST Verified 03/25/20 03:54 PAIN" metformin AdvReac "INDIGESTIO Verified 03/25/20 03:54 N" 05/27/20 13:27 I performed a brief in-person evaluation of this patient. Pt is a 75 y/o male who presents to the ED with complaint of elevated blood sugar in the 200s mg/dL this morning. The patient states he feels as if the room is spinning for the last 2 hours. The patient states that he did not know how much insulin to take. The patient admits to feeling very confused. Pertinent physical exam findings: Pt speaking in full sentences but not always answering questions appropriately. No respiratory distress. Pt unable to walk for the last 4 months. I have ordered the following: Stroke work up, labs, fingerstick, ct head Patient to proceed to ED for further evaluation. Discharge Disposition - Diagnosis Confusion - Referrals - Patient Instructions - Post Discharge Activity
[2020-05-27] MEDS ORDERED: SODIUM CHLORIDE 1,000 ML IV SCH ×3 (13:45→23:00)
[2020-05-27 14:15] LABS: BASO % 0.3 % (0-2.0); EOS % 0.9 % (0-4.5); HEMATOCRIT 34.9 % (35.4-49); HEMOGLOBIN 11.7 GM/dL (11.7-16.9); LYMPH % 22.1 % (8-40); MCH 28.3 pg (25.7-33.7); MCHC 33.4 g/dl (32.0-35.9); MEAN CELL VOLUME 84.5 fl (80-96); MEAN PLT VOLUME 7.1 fl (7.5-11.1); MONO % 11.6 % (3.8-10.2); NEUT % 65.1 % (42.8-82.8); PLATELET COUNT 332 K/MM3 (134-434); RBC 4.13 M/mm3 (4.00-5.60); RDW 13.8 % (11.9-15.9); WHITE BLOOD COUNT 6.4 K/mm3 (4.0-10.0)
--- NOTE | 2020-05-27 14:34 | PDOC ---
History of Present Illness - General Chief Complaint: Lightheaded Stated Complaint: BLOOD SUGARB PROBLEM Time Seen by Provider: 05/27/20 13:26 History Source: Patient, Family - History of Present Illness Initial Comments: 05/27/20 14:24 75M PMH HTN, HLD, poorly controlled DM, BPH p/w AMS. Per family, they called EMS because he was confused and not acting himself this morning. Patient states he come because of high blood sugar in the 200s, generalized weakness, and confusion. Denies lightheadedness or dizziness. States he took his normal insulin dose this morning and none since, which was verified by family. Denies nausea, but vomited on the way from CT scan. States he has been having difficulty making urine and has a prostate problem. His family states he has an enlarged prostate and is getting a biopsy in one week. Recent admission for AMS/hypoglycemia. GENERAL/CONSTITUTIONAL: No fever or chills. +weakness. HEAD, EYES, EARS, NOSE AND THROAT: No change in vision. No ear pain or discharge. No sore throat. CARDIOVASCULAR: No chest pain or shortness of breath RESPIRATORY: No cough, wheezing, or hemoptysis. GASTROINTESTINAL: No nausea, +vomiting, no diarrhea or constipation. GENITOURINARY: +dsyuria, no hematuria MUSCULOSKELETAL: No joint or muscle swelling or pain. No neck or back pain. SKIN: No rash NEUROLOGIC: No headache, vertigo, loss of consciousness, or change in strength/sensation. ENDOCRINE: No increased thirst. No abnormal weight change HEMATOLOGIC/LYMPHATIC: No anemia, easy bleeding, or history of blood clots. ALLERGIC/IMMUNOLOGIC: No hives or skin allergy. Vital Signs Period Temp Pulse Resp BP Sys/Loredo Pulse Ox Last 24 Hr 98.1 F 107 20 121/81 100-100 PE GENERAL: Awake, alert, and fully oriented, in no acute distress. Delayed answers, hard of hearing HEAD: No signs of trauma, normocephalic, atraumatic EYES: PERRLA, EOMI, sclera anicteric, conjunctiva clear ENT: Auricles normal inspection, nares patent, oropharynx clear without exudates. Moist mucosa NECK: Normal ROM, supple, no lymphadenopathy, JVD, or masses LUNGS: No distress, speaks full sentences, clear to auscultation bilaterally HEART: Regular rate and rhythm, normal S1 and S2, no murmurs, rubs or gallops, peripheral pulses normal and equal bilaterally. ABDOMEN: Soft, nontender, normoactive bowel sounds. No guarding, no rebound. No masses EXTREMITIES : Normal inspection, Normal range of motion, no edema. No clubbing or cyanosis. NEUROLOGICAL: Cranial nerves II through XII grossly intact. Normal finger to nose and heel to arriola. Difficulty replicating alternating hand motions. Normal speech, no focal sensorimotor deficits SKIN: Warm, Dry, normal turgor, no rashes or lesions noted Assessment and Plan 75M PMH HTN, HLD, poorly controlled DM, BPH p/w AMS. Per family, they called EMS because he was confused and not acting himself this morning. -EKG, head CT, labs -fluids -CT AP Reassess: Labs notable for MIRACLE, hypercalcemia, EKG: NSR w/o ischemic changes CT Head: chronic small vessel disease CT AP: 1. Lung findings consistent with Covid. 2. Retroperitoneal lymphadenopathy involving left psoas musculature, possibly lymphoma. 3. Moderate left hydronephrosis due to obstructing mass. 4 Left pelvic/inguinal lymphadenopathy. 5. Enlarged prostate Reed placed and required suprapubic pressure to drain bladder. Given additional liter of NS, zolendronic acid, and calcitonin for hypercalcemia. 05/27/20 16:[address] Garibay, who stated that he switched PCP to [facility] Spoke with family ([phone]) who state new PCP is Beverly Schofield. 05/27/20 17:22 Endorsed patient to admitting attending Dr. Tijerina 05/27/20 17:27 Past History - Medical History Allergies/Adverse Reactions: Allergies Allergy/AdvReac Type Severity Reaction Status Date / Time doxazosin Allergy Severe "CHEST Verified 05/27/20 13:36 PAIN" metformin AdvReac "INDIGESTIO Verified 05/27/20 13:36 N" Home Medications: Ambulatory Orders Brimonidine Tartrate [Alphagan 0.2% -] 1 drop OU BID 10/19/15 Latanoprost 0.005% Eye Drops [Xalatan 0.005% Eye Drops -] 1 drop OU HS 10/19/15 Tamsulosin HCl [Flomax -] 0.4 mg PO DAILY 10/19/15 Timolol 0.5% [Timoptic 0.5%] 1 drop OU BID 10/19/15 cloNIDine HCL [Catapres -] 0.1 tab PO DAILY 10/19/15 Allopurinol [Zyloprim -] 100 mg PO DAILY 11/10/17 Valsartan/Hydrochlorothiazide [Valsartan-Hctz 320-25 mg Tab] 1 each PO DAILY 11/10/17 Torsemide [Demadex -] 20 mg PO DAILY 06/06/18 Aspirin [ASA -] 1 tab PO DAILY 02/05/19 Fluticasone Prop 0.05% Nasal [Flonase -] 2 spray NS DAILY 02/11/19 Cromolyn Sodium [Crolom -] 1 drop OU ASDIR 02/20/20 Docusate Sodium [Dulcolax Stool Softener] 100 mg PO DAILY PRN 02/20/20 Acetaminophen [Tylenol .Regular Strength -] 650 mg PO Q6H PRN tablet 03/28/20 Aspirin Coated [Ecotrin -] 81 mg PO DAILY tablet.ec 03/28/20 Atorvastatin Ca [Lipitor] 10 mg PO HS #30 tablet 03/28/20 Cephalexin Monohydrate [Keflex -] 500 mg PO BID #10 capsule 03/28/20 Insulin (Levemir) [Levemir Vial] 10 units SQ HS #30 vial 03/28/20 Insulin Lispro Protamin/Lispro [Humalog Mix 50-50 Vial] 10 unit SQ HS #30 vial 03/28/20 Insulin Sliding Scale [Novolog Vial Sliding Scale -] 1 vial SQ TIDAC units 03/28/20 Polyethylene Glycol 3350 [Miralax 119 gm Btl -] 17 gm PO DAILY bottle 03/28/20 Anemia: No Asthma: No Cancer: No Cardiac Disorders: No CVA: No COPD: No CHF: No Dementia: No Diabetes: Yes GI Disorders: Yes ("HEARTBURN") Disorders: Yes (ENLARGED PROSTATE) HTN: Yes Hypercholesterolemia: Yes Liver Disease: No Seizures: No Thyroid Disease: No - Surgical History Abdominal Surgery: No Appendectomy: No Cardiac Surgery: No Cholecystectomy: No Lung Surgery: No Neurologic Surgery: No Orthopedic Surgery: Yes (TENDON REPAIR LEFT FOREFINGER) - Immunization History Immunization Up to Date: Yes - Psycho-Social/Smoking History Smoking History: Never smoked Have you smoked in the past 12 months: No - Substance Abuse Hx (Audit-C & DAST Scrn) How often the patient has a drink containing alcohol: Never Score: In Men: 4 or > Positive; In Women: 3 or > Positive: 0 Screen Result (Pos requires Nsg. Audit-10AR): Negative *Physical Exam - Vital Signs Last Vital Signs Temp Pulse Resp BP Pulse Ox 98.1 F 107 H 20 121/81 100 05/27/20 13:34 05/27/20 13:34 05/27/20 13:34 05/27/20 13:34 05/27/20 13:34 ED Treatment Course - LABORATORY CBC & Chemistry Diagram: 05/27/20 14:03 05/27/20 14:03 - ADDITIONAL ORDERS Additional order review: Laboratory Results 05/27/20 13:59 POC Glucometer 183 05/27/20 05/27/20 14:03 13:59 RBC 4.13 MCV 84.5 MCHC 33.4 RDW 13.8 D MPV 7.1 L Neutrophils % 65.1 Lymphocytes % 22.1 D Monocytes % 11.6 H Eosinophils % 0.9 Basophils % 0.3 POC Glucometer 183 Discharge - Discharge Information Problems reviewed: Yes Clinical Impression/Diagnosis: Confusion, MIRACLE (acute kidney injury), Hypercalcemia, Retroperitoneal mass, Urinary retention due to benign prostatic hyperplasia Hydronephrosis Qualifiers: Hydronephrosis type: with other ureteral stricture Qualified Code(s): N13.1 - Hydronephrosis with ureteral stricture, not elsewhere classified - Admission Yes - Follow up/Referral - Patient Discharge Instructions - Post Discharge Activity
[2020-05-27 14:43] LABS: INR 1.03 (0.83-1.09); PROTHROMBIN TIME (PATIENT) 12.1 SEC (9.7-13.0)
[2020-05-27 14:45] LABS: ACTIVATED PTT 36.4 SECONDS (25.2-36.5)
[2020-05-27 14:49] LABS: ALBUMIN 3.2 g/dl (3.4-5.0); ALK PHOS 61 U/L (45-117); ANION GAP 12 MMOL/L (8-16); BILIRUBIN,TOTAL 0.6 mg/dL (0.2-1); BLOOD UREA NITROGEN 30.4 mg/dL (7-18); CHLORIDE 93 mmol/L (98-107); CHOLESTEROL 161 mg/dL (50-200); CO2 27 mmol/L (21-32); CREATININE 2.9 mg/dL (0.55-1.3); GLUCOSE,RANDOM 167 mg/dL (74-106); HDL CHOLESTEROL 37 mg/dL (40-60); LDL CHOLESTEROL (ONLY SJRH) 86 mg/dL (5-100); POTASSIUM 3.9 mmol/L (3.5-5.1); SGOT/AST 27 U/L (15-37); SGPT/ALT 18 U/L (13-61); SODIUM 132 mmol/L (136-145); TOT PROT 7.1 g/dl (6.4-8.2); TRIGLYCERIDES 166 mg/dL (0-150)
[2020-05-27 14:59] LABS: CALCIUM 14.6 mg/dL (8.5-10.1)
[2020-05-27 15:42] LABS: EPI CELLS >36 /uL (0-25.1); HYALINE CASTS 2 /uL (0-3.1); PH,URINE 6.5 (5.0-8.0); URINE APPEARANCE CLEAR; URINE BACTERIA 10 /uL (0-1359); URINE BILIRUBIN NEGATIVE (NEGATIVE); URINE COLOR YELLOW; URINE GLUCOSE (UA) NEGATIVE (NEGATIVE); URINE KETONE NEGATIVE (NEGATIVE); URINE LEUK ESTERASE TRACE (NEGATIVE); URINE NITRITE NEGATIVE (NEGATIVE); URINE PROTEIN 1+ (NEGATIVE); URINE RBC 129 /uL (0-23.9); URINE UROBILINOGEN 0.2 mg/dL (0.2-1.0); URINE WBC 25 /uL (0-25.8)
--- NOTE | 2020-05-27 15:49 | PDOC ---
Documentation entered by Trey Guevara SCRIBE, acting as scribe for Barbara Donato MD. Barbara Donato MD: This documentation has been prepared by the Paola chapin Aaron, SCRIBE, under my direction and personally reviewed by me in its entirety. I confirm that the documentation accurately reflects all work, treatment, procedures, and medical decision making performed by me. Attending Attestation - Resident Resident Name: Edis Nunes - ED Attending Attestation I have performed the following: I have examined & evaluated the patient, The case was reviewed & discussed with the resident, I agree w/resident's findings & plan, Exceptions are as noted - HPI HPI: 05/27/20 14:32 The patient is a 74 year old male with a significant PMH of DM, HTN, HLD of who presents to the emergency department BIBA for elevated blood sugar and confusion. Pt states his sugar was in the 200s since this morning (last 287) accompanied by room spinning and confusion for the last 2 hours. Patient describes feeling sick all over with generalized weakness which he claims usually only occurs when his blood sugar is high. Patient notes having no appetite and difficulty urinating. Patient began 1 episode of emesis while in ED. The patient denies abdominal pain, nausea, and dizziness (after emesis). Patient denies any other symptoms. Allergies: Doxazosin, Metformin Past surgical history: L hip replacement Social History: Lives with , daughter, and son in law PCP: Dr. Beverly Schofield - Physicial Exam PE: 05/27/20 15:45 General: non-toxic appearing HEENT: NCAT, no nystagmus Abdomen: soft, nt nd no rebound, no guarding Neuro: Aox3, follows commands, repsonds to questions appropriately, finger to nose intact and symmetric b/l, strength preserved, no focal deficits - Medical Decision Making 05/27/20 15:47 75 yo M here with AMS, no focal deficits on exam so less likely stroke, possible infectious etiology such as PNA or UTI, given episode of vomiting also possible intraabdominal patholology such as obstruction or biliary disease or appy or colitis/enteritis (although no diarrhea). FS 180's in ED so not likely DKA. Plan: -labs -cxr -CT head -CT a/p -IVF -urine -admit This clinical encounter is taking place during a federal and state health care emergency attributable to the novel Huang Virus pandemic. The [employer]er of the Department of Health and Human Services has declared, pursuant to the Public Health Service Act 319F-3 (42 U.S.C. 247d-6d), that a covered persons activities related to medical countermeasures against COVID-19 will be immune from liability under Federal and State law. Discharge - Discharge Information Problems reviewed: Yes Clinical Impression/Diagnosis: Confusion, MIRACLE (acute kidney injury), Hypercalcemia, Retroperitoneal mass, Urinary retention due to benign prostatic hyperplasia Hydronephrosis Qualifiers: Hydronephrosis type: with other ureteral stricture Qualified Code(s): N13.1 - Hydronephrosis with ureteral stricture, not elsewhere classified Condition: Stable Disposition: TRANSFER ACUTE CARE/OTHER HOSP - Follow up/Referral - Patient Discharge Instructions - Post Discharge Activity
[2020-05-27] MEDS ORDERED: SODIUM CHLORIDE 0.9% 500 ML INFUS.BAG IV ONE (16:05)
[2020-05-27] MEDS ORDERED: ZOLEDRONIC ACID 4 MG in SODIUM CHLORIDE 100 ML IVPB ONE (17:04)
[2020-05-27] MEDS ORDERED: CALCITONIN - SALMON SYNTHETIC 400 UNIT/2 ML VIAL SQ ONE (17:45)
[2020-05-27] MEDS ORDERED: CROMOLYN SODIUM 4% OPHTH DROPS 10 ML BOTTLE OU SCH (17:45)
--- NOTE | 2020-05-27 18:07 | HP ---
CHIEF COMPLAINT: confusion PCP: Beverly Schofield HISTORY OF PRESENT ILLNESS: 75M PMH HTN, HLD, poorly controlled DM, BPH p/w AMS. Per family in ED note, they called EMS because he was confused and not acting himself this morning. Patient is confused currently and not sure exactly why he came to the hospital. He does report vomiting yesterday, saying his stomach has been hurting and he doesnt eat much due to loss of appetite and stomach pains with food intake. Pt denies any chest pain, shortness of breath, denies any blood in his urine but does report sometimes being difficult to urinate. Much of history obtained thru chart as pt unable to give detailed history currently ER course was notable for: (1) cr at 2.9 (2) calcium at 14.6 (3) RP mass on CT Recent Travel: denies PAST MEDICAL HISTORY: as above, gout, glaucoma PAST SURGICAL HISTORY: cataract, left forefinger tendon repair Social History: Smoking: denies Alcohol: denies Drugs: denies Allergies doxazosin Allergy (Severe, Verified 05/27/20 13:36) "CHEST PAIN" chest pain metformin Adverse Reaction (Verified 05/27/20 13:36) "INDIGESTION" HOME MEDICATIONS: Home Medications Medication Instructions Recorded Brimonidine Tartrate [Alphagan 1 drop OU BID 10/19/15 0.2% -] Latanoprost 0.005% Eye Drops 1 drop OU HS 10/19/15 [Xalatan 0.005% Eye Drops -] Tamsulosin HCl [Flomax -] 0.4 mg PO DAILY 10/19/15 Timolol 0.5% [Timoptic 0.5%] 1 drop OU BID 10/19/15 cloNIDine HCL [Catapres -] 0.1 tab PO DAILY 10/19/15 Allopurinol [Zyloprim -] 100 mg PO DAILY 11/10/17 Valsartan/Hydrochlorothiazide 1 each PO DAILY 11/10/17 [Valsartan-Hctz 320-25 mg Tab] Torsemide [Demadex -] 20 mg PO DAILY 06/06/18 Aspirin [ASA -] 1 tab PO DAILY 02/05/19 Fluticasone Prop 0.05% Nasal 2 spray NS DAILY 02/11/19 [Flonase -] Cromolyn Sodium [Crolom -] 1 drop OU ASDIR 02/20/20 Docusate Sodium [Dulcolax Stool 100 mg PO DAILY PRN 02/20/20 Softener] Acetaminophen [Tylenol .Regular 650 mg PO Q6H PRN tablet 03/28/20 Strength -] Aspirin Coated [Ecotrin -] 81 mg PO DAILY tablet.ec 03/28/20 Atorvastatin Ca [Lipitor] 10 mg PO HS #30 tablet 03/28/20 Cephalexin Monohydrate [Keflex -] 500 mg PO BID #10 capsule 03/28/20 Insulin (Levemir) [Levemir Vial] 10 units SQ HS #30 vial 03/28/20 Insulin Lispro Protamin/Lispro 10 unit SQ HS #30 vial 03/28/20 [Humalog Mix 50-50 Vial] Insulin Sliding Scale [Novolog 1 vial SQ TIDAC units 03/28/20 Vial Sliding Scale -] Polyethylene Glycol 3350 [Miralax 17 gm PO DAILY bottle 03/28/20 119 gm Btl -] REVIEW OF SYSTEMS CONSTITUTIONAL: Absent: fever, chills, diaphoresis, generalized weakness, malaise, POS loss of appetite, DENIES weight change HEENT: Absent: rhinorrhea, nasal congestion, throat pain, throat swelling, difficulty swallowing, mouth swelling, ear pain, eye pain, visual changes CARDIOVASCULAR: Absent: chest pain, syncope, palpitations, irregular heart rate, lightheadedness, peripheral edema RESPIRATORY: Absent: cough, shortness of breath, dyspnea with exertion, orthopnea, wheezing, stridor, hemoptysis GASTROINTESTINAL: POS GEN abdominal pain, abdominal distension, POS NON BLOODY nausea, vomiting, DENIES diarrhea, constipation, melena, hematochezia GENITOURINARY: Absent: dysuria, frequency, urgency, POS hesitancy, DENIES hematuria, flank pain, genital pain MUSCULOSKELETAL: Absent: myalgia, arthralgia, joint swelling, back pain, neck pain SKIN: Absent: rash, itching, pallor HEMATOLOGIC/IMMUNOLOGIC: Absent: easy bleeding, easy bruising, lymphadenopathy, frequent infections ENDOCRINE: Absent: unexplained weight gain, unexplained weight loss, heat intolerance, cold intolerance NEUROLOGIC: Absent: headache, focal weakness or paresthesias, dizziness, unsteady gait, seizure, mental status changes, bladder or bowel incontinence PSYCHIATRIC: Absent: anxiety, depression, suicidal or homicidal ideation, hallucinations. PHYSICAL EXAMINATION Vital Signs - 24 hr 05/27/20 05/27/20 05/27/20 13:34 14:35 16:56 Temperature 98.1 F 98.1 F Pulse Rate 107 H Pulse Rate [ 87 Apical] Respiratory 20 20 Rate Blood Pressure 121/81 Blood Pressure 135/78 [Right Arm] O2 Sat by Pulse 100 100 98 Oximetry (%) GENERAL: Awake, alert, and CONFUSED, in no acute distress. HEAD: Normal with no signs of trauma. EYES: extraocular movements intact, sclera anicteric, conjunctiva clear. No lid lag. EARS, NOSE, THROAT: Ears normal, nares patent, oropharynx clear without exudates. DRY mucous membranes. NECK: Normal range of motion, supple JVD, or masses. LUNGS: Breath sounds equal, clear to auscultation bilaterally. No wheezes, and no crackles. No accessory muscle use. DECREASED BS KRISTY HEART: Regular rate and rhythm, normal S1 and S2 without murmur, rub or gallop. ABDOMEN: Soft, MILD GENERALIZED TENDERNESS TO DEEP PALPATION, NO ERBOUND NO GUARDING, SOFTLY DISTENDED ADBOMEN, SOME SUPRAPUBIC TENDERNESS, normoactive bowel sounds, No hepatomegaly or splenomegaly. MUSCULOSKELETAL: Normal range of motion at all joints. No bony deformities or tenderness. No CVA tenderness. UPPER EXTREMITIES: 2+ pulses, warm, well-perfused. No cyanosis. No clubbing. No peripheral edema. LOWER EXTREMITIES: 2+ pulses, warm, well-perfused. No calf tenderness. No peripheral edema. NEUROLOGICAL: Cranial nerves II-XII intact. Normal speech. PSYCHIATRIC: Cooperative. Good eye contact. Appropriate mood and affect. BUT CONFUSED SKIN: Warm, dry, normal turgor, no rashes or lesions noted, normal capillary refill. Laboratory Results - last 24 hr 05/27/20 05/27/20 05/27/20 13:59 14:03 14:03 WBC 6.4 RBC 4.13 Hgb 11.7 Hct 34.9 L MCV 84.5 MCH 28.3 MCHC 33.4 RDW 13.8 D Plt Count 332 MPV 7.1 L Absolute Neuts (auto) 4.2 Neutrophils % 65.1 Lymphocytes % 22.1 D Monocytes % 11.6 H Eosinophils % 0.9 Basophils % 0.3 Nucleated RBC % 0 PT with INR 12.10 INR 1.03 PTT (Actin FS) 36.4 Sodium Potassium Chloride Carbon Dioxide Anion Gap BUN Creatinine Est GFR (CKD-EPI)AfAm Est GFR (CKD-EPI)NonAf POC Glucometer 183 Random Glucose Calcium Total Bilirubin AST ALT Alkaline Phosphatase Creatine Kinase Troponin I Total Protein Albumin Triglycerides Cholesterol Total LDL Cholesterol HDL Cholesterol Urine Color Urine Appearance Urine pH Ur Specific Moose Urine Protein Urine Glucose (UA) Urine Ketones Urine Blood Urine Nitrite Urine Bilirubin Urine Urobilinogen Ur Leukocyte Esterase Urine WBC (Auto) Urine RBC (Auto) Urine Casts (Auto) U Epithel Cells (Auto) U Sm Round Cell (Auto) Urine Bacteria (Auto) 05/27/20 05/27/20 14:03 15:15 WBC RBC Hgb Hct MCV MCH MCHC RDW Plt Count MPV Absolute Neuts (auto) Neutrophils % Lymphocytes % Monocytes % Eosinophils % Basophils % Nucleated RBC % PT with INR INR PTT (Actin FS) Sodium 132 L Potassium 3.9 Chloride 93 L Carbon Dioxide 27 Anion Gap 12 BUN 30.4 H Creatinine 2.9 H Est GFR (CKD-EPI)AfAm 23.29 Est GFR (CKD-EPI)NonAf 20.09 POC Glucometer Random Glucose 167 H Calcium 14.6 H* Total Bilirubin 0.6 AST 27 ALT 18 Alkaline Phosphatase 61 Creatine Kinase 112 Troponin I < 0.02 Total Protein 7.1 Albumin 3.2 L Triglycerides 166 H Cholesterol 161 Total LDL Cholesterol 86 HDL Cholesterol 37 L Urine Color Yellow Urine Appearance Clear Urine pH 6.5 Ur Specific Moose 1.012 Urine Protein 1+ H Urine Glucose (UA) Negative Urine Ketones Negative Urine Blood 2+ H Urine Nitrite Negative Urine Bilirubin Negative Urine Urobilinogen 0.2 Ur Leukocyte Esterase Trace Urine WBC (Auto) 25 Urine RBC (Auto) 129 Urine Casts (Auto) 2 U Epithel Cells (Auto) >36 U Sm Round Cell (Auto) None Urine Bacteria (Auto) 10 EKG: NSR@ 74BPM CT ABD/PELVIS: GROUNDGLASS OPACITIES IN LUNGS POS RETROPERITONEAL MASS, POS RETROPERITONEAL LYMPHADENOPATHY, POS LEFT HYDRONEPHROSIS ENLARGED PROSTATE ASSESSMENT/PLAN: 75 Y/O MALE WITH THE ABOVE MED HX ADMITTED WITH AMS, MIRACLE, HYPERCALCEMIA AND RETROPERITONEAL MASS *AMS - LIKELY DUE TO HYPERCALCEMIA CHECK URINE CULTURE TO RULE OUT INFECTION CT WITH COVID FINDINGS -- WILL RULE OUT, PLACE ON ISOLATION UNTIL RULED OUT *MIRACLE - COMBINATION OF PRERENAL/ OBSTRUCTION DUE TO MASS HOLD ARB UNTIL CR IMPROVED, HOLD DIURETICS WHILE HYDRATING IVF MONITOR RENAL FN RENAL EVAL/uro eval -- has left hydronephrosis *HYPERCALCEMIA - LIKELY DUE TO MALIGNANCY HYDRATE - S/P 2 LITERS IN ED, WILL CONT IVF S/P CALCITONIN UNABLE TO GIVE BISPHOSPHONATE DUE TO LOW GFR LUNG? LYMPHOMA? CHECK TUMOR MARKERS, HEME/ONC EVAL RECHECK CALCIUM LEVELS IN FEW HOURS TO ENSURE NOT RISING CHECK DEDICATED CT CHEST FOR FURTHER EVAL *HYPONATREMIA/HYPOCHLOREMIA - FROM VOLUME CONTRACTION HOLD DIURETICS AND HYDRATE *DM - CONT LEVEMIR AND WILL PLACE ON ISS CHECK BGMS QAC AND QHS *URINARY RETENTION - PT REQUIRED STRAIGHT CATH IN THE ED PROSTATE ENLARGEMENT ON CT CONT FLOMAX MAY REQUIRE FURTHER STRAIGHT CATH, WILL REPEAT BLADDER SCAN IN 6-8 HOURS IF REQUIRES MORE THAN 2 [address] CATHS, PLACE VALADEZ *DVT PROPHY - SQ HEPARIN Problem List - Problem (1) MIRACLE (acute kidney injury) Code(s): N17.9 - ACUTE KIDNEY FAILURE, UNSPECIFIED (2) Confusion Code(s): R41.0 - DISORIENTATION, UNSPECIFIED (3) Hypercalcemia Code(s): E83.52 - HYPERCALCEMIA (4) Retroperitoneal mass Code(s): R19.00 - INTRA-ABD AND PELVIC SWELLING, MASS AND LUMP, UNSP SITE (5) Hydronephrosis Code(s): N13.30 - UNSPECIFIED HYDRONEPHROSIS Qualifiers: Hydronephrosis type: with other ureteral stricture Qualified Code(s): N13.1 - Hydronephrosis with ureteral stricture, not elsewhere classified (6) Urinary retention due to benign prostatic hyperplasia Code(s): N40.1 - BENIGN PROSTATIC HYPERPLASIA WITH LOWER URINARY TRACT SYMP; R33.8 - OTHER RETENTION OF URINE Visit type - Medication Review Med list reviewed for High Risk Meds patients 65 and older: No (REVIEWED BY ED, PT UNABLE TO VERIFY MEDS WITH ME) - Emergency Visit Emergency Visit: Yes ED Registration Date: 05/27/20 Care time: The patient presented to the Emergency Department on the above date and was hospitalized for further evaluation of their emergent condition. - New Patient This patient is new to me today: Yes Date on this admission: 05/27/20 - Critical Care Critical Care patient: No
[2020-05-27] MEDS ORDERED: TAMSULOSIN HCL 0.4 MG CAP ONE (18:23)
[2020-05-27] MEDS ORDERED: cloNIDine HCL 0.1 MG TABLET ONE (18:23)
[2020-05-27] MEDS: TAMSULOSIN HCL 0.4 MG CAP PO SCH (18:24)
[2020-05-27] MEDS: cloNIDine HCL 0.1 MG TABLET PO SCH (18:24)
[2020-05-27 18:43] LABS: CREATININE 2.8 mg/dL (0.55-1.3); POTASSIUM 4.4 mmol/L (3.5-5.1)
[2020-05-27] MEDS: ATORVASTATIN CA 10 MG TABLET (FP) PO SCH (22:50)
[2020-05-27] MEDS: BRIMONIDINE TARTRATE 0.2% OPHTHALMIC 5 ML BOTTLE OU SCH (22:50)
[2020-05-27] MEDS: HEPARIN NA (PORCINE) 5,000 UNITS/ML 1ML VIAL SQ SCH (22:50)
[2020-05-27] MEDS: INSULIN SLIDING SCALE (NOVOLOG) 1 VIAL SQ SCH (22:51)
[2020-05-27] MEDS: INSULIN (LEVEMIR) 100 UNITS/ML UNITS SQ SCH (22:51)
[2020-05-27] MEDS: TIMOLOL 0.5% OPHTHALMIC SOL 5 ML BOTTLE OU SCH (22:52)
[2020-05-27] MEDS: LATANOPROST 0.005% OPHTH SOLN 2.5ML BOTTLE OU SCH (22:52)
[2020-05-28 02:03] VITALS: BMI 27.1
[2020-05-28] MEDS: INSULIN SLIDING SCALE (NOVOLOG) 1 VIAL SQ SCH ×4 (06:29→22:08)
[2020-05-28 07:51] LABS: BASO % 0.2 % (0-2.0); EOS % 0.4 % (0-4.5); HEMATOCRIT 34.1 % (35.4-49); HEMOGLOBIN 11.2 GM/dL (11.7-16.9); LYMPH % 17.6 % (8-40); MCHC 32.9 g/dl (32.0-35.9); MEAN CELL VOLUME 84.9 fl (80-96); MEAN PLT VOLUME 7.9 fl (7.5-11.1); MONO % 8.9 % (3.8-10.2); NEUT % 72.9 % (42.8-82.8); PLATELET COUNT 326 K/MM3 (134-434); RBC 4.02 M/mm3 (4.00-5.60); RDW 13.9 % (11.9-15.9); WHITE BLOOD COUNT 7.1 K/mm3 (4.0-10.0)
[2020-05-28 08:10] LABS: BLOOD UREA NITROGEN 31.3 mg/dL (7-18); CALCIUM 12.7 mg/dL (8.5-10.1); CREATININE 2.8 mg/dL (0.55-1.3); MAGNESIUM 1.4 mg/dL (1.8-2.4); PHOSPHOROUS 3.7 mg/dL (2.5-4.9); POTASSIUM 4.2 mmol/L (3.5-5.1)
[2020-05-28] MEDS ORDERED: SODIUM CHLORIDE 1,000 ML IV SCH ×2 (08:18→08:23)
[2020-05-28] MEDS ORDERED: MAGNESIUM 1GM/D5W - 1 GM/100 ML IVPB IVPB ONE (09:00)
[2020-05-28] MEDS ORDERED: MAGNESIUM OXIDE 400 MG TABLET (FP) PO ONE (09:02)
[2020-05-28] MEDS: POLYETHYLENE GLYCOL 3350 119 GM BTL PO SCH (10:04)
[2020-05-28] MEDS: cloNIDine HCL 0.1 MG TABLET PO SCH (10:04)
[2020-05-28] MEDS: ASPIRIN 81 MG CHEWABLE TABLETS PO SCH (10:04)
[2020-05-28] MEDS: ALLOPURINOL 100 MG TABLET (FP) PO SCH (10:04)
[2020-05-28] MEDS: TAMSULOSIN HCL 0.4 MG CAP PO SCH (10:04)
[2020-05-28] MEDS ORDERED: PT OWN MED DRAWER 7, Y5N ONE ×2 (10:07→21:18)
[2020-05-28] MEDS: HEPARIN NA (PORCINE) 5,000 UNITS/ML 1ML VIAL SQ SCH (10:20)
[2020-05-28] MEDS: TIMOLOL 0.5% OPHTHALMIC SOL 5 ML BOTTLE OU SCH ×3 (10:21→21:30)
[2020-05-28] MEDS: BRIMONIDINE TARTRATE 0.2% OPHTHALMIC 5 ML BOTTLE OU SCH ×2 (10:21→22:09)
[2020-05-28] MEDS ORDERED: CALCITONIN - SALMON SYNTHETIC 400 UNIT/2 ML VIAL SQ ONE ×2 (10:30→17:01)
--- NOTE | 2020-05-28 12:59 | PN ---
Teaching Attending Note Name of Resident: Faisal Rodriguez ATTENDING PHYSICIAN STATEMENT I saw and evaluated the patient. I reviewed the resident's note and discussed the case with the resident. I agree with the resident's findings and plan as documented. SUBJECTIVE: Seen and examined at bedside. Patient is alert and oriented x3 but is highly d istractible and appears confused. Calcium levels have gone down with calcitonin but are still high. Pending urology consult fluids increased to 200 mL's per hour. Pending urology consult for left hydronephrosis in the setting of tumor compression. OBJECTIVE: Last Vital Signs Temp Pulse Resp BP Pulse Ox 98.1 F 81 20 129/80 92 L 05/28/20 08:12 05/28/20 08:12 05/28/20 08:16 05/28/20 08:12 05/28/20 08:16 PE: Per resident note Labs/Imaging: reviewed ASSESSMENT AND PLAN: 75-year-old male past medical history of hypertension, hyperlipidemia, diabetes mellitus presents with AMS and found to have symptomatic hypercalcemia with left psoas mass concerning for malignancy and compression of the left ureter resulting in hydronephrosis. #Severe hypercalcemia Likely in the setting of malignancy. Patient has enlarged prostate, possibly prostate cancer versus lymphoma? Patient on calcitonin 4 mg/kg twice daily Fluids 200 mL/h Need to decrease creatinine in order to safely use bisphosphonate Nephrology on board: Appreciate recommendations Follow-up hypercalcemia work-up #MIRACLE Likely component of prerenal MIRACLE in the setting of dehydration from hypercalcemia and post renal due to compression of left ureter from mass Nephrology on board: Recommendations pending Urology consulted: Pending evaluation Fluids at 200 mL/h Reed placed Hold home torsemide Hold Hyzaar #Mass and presumed malignancy Likely has hematologic or prostate CA CT of the chest May need bone scans to evaluate for lytic lesions We will consult IR tomorrow for possible biopsy Dr. Turpin consulted: Pending evaluation #BPH Continue home tamsulosin #Hypertension Continue home clonidine Hold Hyzaar #Uncontrolled diabetes mellitus A1c 8.3 Continue home Levemir 10 units nightly ISS #DVT PP X: Renally dosed Lovenox
--- NOTE | 2020-05-28 13:36 | CONSULT ---
Consult Consult Specialty:: Hematology Referred by:: Medicine Reason for Consultation:: Hpercalcemia, retroperitonel adenopathy. - History of Present Illness Chief Complaint: Brought in to ER with change in mental status. History of Present Illness: Patient with history of HTN, HLD, poorly controlled DM, BPH, noted by family to have acute change in mental status, and brought to ER. Found to be hypercalcemic, and uremic. Ct scan revealed bulky retroperitoneal lymphadenopathy involving the psoas muscle. Patient is confused, and was unable to provide a coherent history. - History Source History Provided By: Patient, Medical Record Limitations to Obtaining History: Clinical Condition - Past Medical History Cardio/Vascular: Yes: HTN Renal/: Yes: Renal Inusuff - Alcohol/Substance Use Hx Alcohol Use: No History of Substance Use: reports: None - Smoking History Smoking history: Never smoked Have you smoked in the past 12 months: No - Social History ADL: Independent History of Recent Travel: No Home Medications - Allergies Allergies/Adverse Reactions: Allergies Allergy/AdvReac Type Severity Reaction Status Date / Time doxazosin Allergy Severe "CHEST Verified 05/27/20 13:36 PAIN" metformin AdvReac "INDIGESTIO Verified 05/27/20 13:36 N" - Home Medications Home Medications: Ambulatory Orders Brimonidine Tartrate [Alphagan 0.2% -] 1 drop OU BID 10/19/15 Latanoprost 0.005% Eye Drops [Xalatan 0.005% Eye Drops -] 1 drop OU HS 10/19/15 Tamsulosin HCl [Flomax -] 0.4 mg PO DAILY 10/19/15 Timolol 0.5% [Timoptic 0.5%] 1 drop OU BID 10/19/15 cloNIDine HCL [Catapres -] 0.1 tab PO DAILY 10/19/15 Allopurinol [Zyloprim -] 100 mg PO DAILY 11/10/17 Valsartan/Hydrochlorothiazide [Valsartan-Hctz 320-25 mg Tab] 1 each PO DAILY 11/10/17 Torsemide [Demadex -] 20 mg PO DAILY 06/06/18 Aspirin [ASA -] 1 tab PO DAILY 02/05/19 Fluticasone Prop 0.05% Nasal [Flonase -] 2 spray NS DAILY 02/11/19 Cromolyn Sodium [Crolom -] 1 drop OU ASDIR 02/20/20 Docusate Sodium [Dulcolax Stool Softener] 100 mg PO DAILY PRN 02/20/20 Acetaminophen [Tylenol .Regular Strength -] 650 mg PO Q6H PRN tablet 03/28/20 Aspirin Coated [Ecotrin -] 81 mg PO DAILY tablet.ec 03/28/20 Atorvastatin Ca [Lipitor] 10 mg PO HS #30 tablet 03/28/20 Cephalexin Monohydrate [Keflex -] 500 mg PO BID #10 capsule 03/28/20 Insulin (Levemir) [Levemir Vial] 10 units SQ HS #30 vial 03/28/20 Insulin Lispro Protamin/Lispro [Humalog Mix 50-50 Vial] 10 unit SQ HS #30 vial 03/28/20 Insulin Sliding Scale [Novolog Vial Sliding Scale -] 1 vial SQ TIDAC units 03/28/20 Polyethylene Glycol 3350 [Miralax 119 gm Btl -] 17 gm PO DAILY bottle 03/28/20 Review of Systems - Review of Systems Constitutional: reports: Loss of Appetite (Unable to determine chronicity - but reports poor appetite presently.) Eyes: reports: No Symptoms HENT: reports: No Symptoms Neck: reports: No Symptoms Cardiovascular: reports: No Symptoms Respiratory: reports: No Symptoms Gastrointestinal: reports: No Symptoms Genitourinary: reports: No Symptoms Musculoskeletal: reports: No Symptoms Integumentary: reports: No Symptoms Endocrine: reports: No Symptoms Hematology/Lymphatic: reports: No Symptoms Physical Exam Vital Signs: Vital Signs Temperature 98.1 F 05/28/20 08:12 Pulse Rate 68 05/28/20 13:18 Respiratory Rate 20 05/28/20 13:18 Blood Pressure 130/77 05/28/20 13:18 O2 Sat by Pulse Oximetry (%) 99 05/28/20 13:18 Constitutional: Yes: Well Nourished, No Distress, Calm Eyes: Yes: Conjunctiva Clear. No: Sclera Icterus Neck: Yes: Supple, Trachea Midline. No: Lymphadenopathy Cardiovascular: Yes: Regular Rate and Rhythm, S1, S2. No: Gallop, Murmur Respiratory: Yes: Regular, CTA Bilaterally Gastrointestinal: Yes: Normal Bowel Sounds, Soft. No: Hepatomegaly, Splenomegaly, Tenderness Edema: No Peripheral Pulses WNL: Yes Neurological: Yes: Alert, Confusion, Cran Nerves II-XII Intact. No: Dysarthria, Facial Droop ...Motor Strength: WNL Psychiatric: Yes: Alert Labs: CBC, BMP 05/28/20 05:30 05/28/20 05:30 Assessment/Plan Acute hypercalcemia, with newly discovered retroperitoneal adenopathy. 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 Control calcium, as per nephrology. Will require CT-guided biopsy of retroperitonal lesion. HTLV-1 serology
--- NOTE | 2020-05-28 14:35 | CONSULT ---
Consult Consult Specialty:: Nephrology Reason for Consultation:: hypercalcemia and miracle - History of Present Illness Chief Complaint: confusion History of Present Illness: Pti s a 75 year old male with pmhx of htn, hld, dm, bph who presents to the ER with altered mental status. He was found to have hypercalcemia and miracle. I was called to evaluate him. He is a poor historian. He denies weight loss. He denies shortness of breath. He denies supplements use. He does not know why he is in the hospital. He says he has had abdominal discomfort. He did have an episode of vomiting. He denies chest pain or shortness of breath. He denies fever or chills. He denies dysuria or hematuria. He denies nsaid use. He denies history of CKD. - History Source History Provided By: Patient, Medical Record - Past Medical History Cardio/Vascular: Yes: HTN Renal/: Yes: Renal Inusuff Endocrine: Yes: Diabetes Mellitus - Alcohol/Substance Use Hx Alcohol Use: No History of Substance Use: reports: None - Smoking History Smoking history: Never smoked Have you smoked in the past 12 months: No - Social History ADL: Independent History of Recent Travel: No Home Medications - Allergies Allergies/Adverse Reactions: Allergies Allergy/AdvReac Type Severity Reaction Status Date / Time doxazosin Allergy Severe "CHEST Verified 05/27/20 13:36 PAIN" metformin AdvReac "INDIGESTIO Verified 05/27/20 13:36 N" - Home Medications Home Medications: Ambulatory Orders Brimonidine Tartrate [Alphagan 0.2% -] 1 drop OU BID 10/19/15 Latanoprost 0.005% Eye Drops [Xalatan 0.005% Eye Drops -] 1 drop OU HS 10/19/15 Tamsulosin HCl [Flomax -] 0.4 mg PO DAILY 10/19/15 Timolol 0.5% [Timoptic 0.5%] 1 drop OU BID 10/19/15 cloNIDine HCL [Catapres -] 0.1 tab PO DAILY 10/19/15 Allopurinol [Zyloprim -] 100 mg PO DAILY 11/10/17 Valsartan/Hydrochlorothiazide [Valsartan-Hctz 320-25 mg Tab] 1 each PO DAILY 11/10/17 Torsemide [Demadex -] 20 mg PO DAILY 06/06/18 Aspirin [ASA -] 1 tab PO DAILY 02/05/19 Fluticasone Prop 0.05% Nasal [Flonase -] 2 spray NS DAILY 02/11/19 Cromolyn Sodium [Crolom -] 1 drop OU ASDIR 02/20/20 Docusate Sodium [Dulcolax Stool Softener] 100 mg PO DAILY PRN 02/20/20 Acetaminophen [Tylenol .Regular Strength -] 650 mg PO Q6H PRN tablet 03/28/20 Aspirin Coated [Ecotrin -] 81 mg PO DAILY tablet.ec 03/28/20 Atorvastatin Ca [Lipitor] 10 mg PO HS #30 tablet 03/28/20 Cephalexin Monohydrate [Keflex -] 500 mg PO BID #10 capsule 03/28/20 Insulin (Levemir) [Levemir Vial] 10 units SQ HS #30 vial 03/28/20 Insulin Lispro Protamin/Lispro [Humalog Mix 50-50 Vial] 10 unit SQ HS #30 vial 03/28/20 Insulin Sliding Scale [Novolog Vial Sliding Scale -] 1 vial SQ TIDAC units 03/28/20 Polyethylene Glycol 3350 [Miralax 119 gm Btl -] 17 gm PO DAILY bottle 03/28/20 Family Medical History Family History: Denies Review of Systems - Review of Systems Constitutional: reports: Malaise Eyes: reports: No Symptoms HENT: reports: No Symptoms Neck: reports: No Symptoms Cardiovascular: reports: No Symptoms Respiratory: reports: No Symptoms Gastrointestinal: reports: No Symptoms Genitourinary: reports: No Symptoms Musculoskeletal: reports: No Symptoms Integumentary: reports: No Symptoms Neurological: reports: Confusion Endocrine: reports: No Symptoms Hematology/Lymphatic: reports: No Symptoms Psychiatric: reports: No Symptoms Physical Exam Vital Signs: Vital Signs Temperature 98.1 F 05/28/20 08:12 Pulse Rate 68 05/28/20 13:18 Respiratory Rate 20 05/28/20 13:18 Blood Pressure 130/77 05/28/20 13:18 O2 Sat by Pulse Oximetry (%) 99 05/28/20 13:18 Constitutional: Yes: Calm Eyes: Yes: Conjunctiva Clear HENT: Yes: Atraumatic Neck: Yes: Supple Cardiovascular: Yes: S1, S2 Respiratory: Yes: CTA Bilaterally Gastrointestinal: Yes: Normal Bowel Sounds, Soft Renal/: Yes: WNL Musculoskeletal: Yes: WNL Edema: No Neurological: Yes: Confusion Labs: CBC, BMP 05/28/20 05:30 05/28/20 05:30 Laboratory Tests 02/20/20 02/21/20 03/25/20 09:24 08:50 04:00 Creatinine 1.5 H 1.6 H 1.6 H Calcium Albumin PTH Intact Urine Protein Urine Blood WONG M-Rigoberto COVID-19 ([facility]) 03/25/20 03/26/20 05/27/20 07:48 13:30 14:03 Creatinine 1.5 H 1.8 H 2.9 H Calcium 14.6 H* Albumin 3.2 L PTH Intact Urine Protein Urine Blood WONG M-Rigoberto COVID-19 ([facility]) 05/27/20 05/27/20 05/27/20 14:03 15:15 18:00 Creatinine 2.8 H Calcium 14.0 H Albumin PTH Intact Pending Urine Protein 1+ H Urine Blood 2+ H WONG M-Rigoberto COVID-19 ([facility]) 05/27/20 05/28/20 05/28/20 18:00 05:30 05:30 Creatinine 2.8 H Calcium 12.7 H Albumin PTH Intact Urine Protein Urine Blood WONG M-Rigoberto Pending COVID-19 ([facility]) Pending Imaging - Results Chest X-ray: Report Reviewed Cat Scan: Report Reviewed Problem List - Problems (1) MIRACLE (acute kidney injury) Code(s): N17.9 - ACUTE KIDNEY FAILURE, UNSPECIFIED (2) Confusion Code(s): R41.0 - DISORIENTATION, UNSPECIFIED (3) Hydronephrosis Code(s): N13.30 - UNSPECIFIED HYDRONEPHROSIS Qualifiers: Hydronephrosis type: with other ureteral stricture Qualified Code(s): N13.1 - Hydronephrosis with ureteral stricture, not elsewhere classified (4) Hypercalcemia Code(s): E83.52 - HYPERCALCEMIA (5) Retroperitoneal mass Code(s): R19.00 - INTRA-ABD AND PELVIC SWELLING, MASS AND LUMP, UNSP SITE Assessment/Plan Current Medications Generic Name Dose Route Start Last Admin Trade Name Freq PRN Reason Stop Dose Admin Allopurinol 100 mg 05/28/20 10:00 05/28/20 10:04 Zyloprim - PO 100 mg DAILY [facility] Administration Aspirin 81 mg 05/28/20 10:00 05/28/20 10:04 Asa - PO 81 mg DAILY T[facility]OR Administration Atorvastatin Calcium 10 mg 05/27/20 22:00 05/27/20 22:50 Lipitor - PO 10 mg HS T[facility]OR Administration Brimonidine Tartrate 1 drop 05/27/20 22:00 05/28/20 10:21 Alphagan 0.2% - OU Not Given BID [facility] Calcitonin 310 unit 05/28/20 08:30 Miacalcin Injection - SQ Q12H [facility] Clonidine 0.01 mg 05/27/20 17:45 05/28/20 10:04 Catapres - PO 0.01 mg DAILY T[facility] Administration Enoxaparin Sodium 30 mg 05/29/20 10:00 Lovenox - SQ DAILY [facility] Sodium Chloride 1,000 mls @ 200 mls/hr 05/28/20 08:23 05/28/20 10:05 Normal Saline - IV 200 mls/hr ASDIR [facility] Administration Insulin Aspart 1 vial 05/27/20 22:00 05/28/20 11:43 Novolog Vial Sliding Scale - SQ Not Given ACHS [facility] Protocol Insulin Detemir 10 units 05/27/20 22:00 05/27/20 22:51 Levemir Vial SQ 10 units HS [facility] Administration Latanoprost 1 drop 05/27/20 22:00 05/27/20 22:52 Xalatan 0.005% Eye Drops - OU Not Given HS [facility] Polyethylene Glycol 17 gm 05/28/20 10:00 05/28/20 10:04 Miralax (For Daily Use) - PO 17 grams DAILY [facility] Administration Tamsulosin HCl 0.4 mg 05/27/20 17:45 05/28/20 10:04 Flomax - PO 0.4 mg DAILY [facility] Administration Timolol Maleate 1 drop 05/27/20 22:00 05/28/20 11:21 Timoptic 0.5% OU 1 drop BID [facility] Administration Impression 1. CKD 2. MIRACLE 3. hypercalcemia 4. htn 5. dm 6. retroperitoneal lymphadenopathy 7. prostate enlargement 8. left hydro 9. left retroperitoneal mass Plan - cont saline - lasix of he developes overload - cont calcitonin - calcium improving - will give zometa if his renal function improves - repeat labs in am - urology follow up - called and spoke to pharmacy about calcitonin, doses ordered - stop diovan and thiazide - will order a dose of lasix for later today
--- NOTE | 2020-05-28 17:12 | PN ---
Physical Exam: SUBJECTIVE: Patient seen and examined at bedside. The patient was A&Ox3 and resting comfortably, but confused, talking about eating soup and similar irrelevant topics when asked questions. Review of systems was unable to be obtained, although the patient was able to answer questions about his name, location, and year. OBJECTIVE: Vital Signs Period Temp Pulse Resp BP Sys/Loredo Pulse Ox Last 24 Hr 98.1 F-98.3 F 68-87 16-23 127-135/74-86 92-100 GENERAL: The patient is A&Ox3 but confused, in no acute distress. HEAD: Normal with no signs of trauma. EYES: Extraocular movements intact. No ptosis. ENT: Ears normal, nares patent, oropharynx clear without exudates, moist mucous membranes. NECK: Trachea midline, full range of motion, supple. LUNGS: Decreased breath sounds bilaterally. HEART: Regular rate and rhythm, S1, S2 without murmur, rub or gallop. ABDOMEN: Soft, nontender, nondistended, normoactive bowel sounds, no guarding, no rebound, no masses. EXTREMITIES: 2+ pulses, warm, well-perfused, no edema. NEUROLOGICAL: Normal speech, gait not observed. PSYCH: Normal mood, normal affect. Confused. SKIN: Warm, dry, normal turgor, no rashes or lesions noted Laboratory Results - last 24 hr 05/27/20 05/27/20 05/28/20 18:00 22:49 05:03 WBC RBC Hgb Hct MCV MCH MCHC RDW Plt Count MPV Absolute Neuts (auto) Neutrophils % Lymphocytes % Monocytes % Eosinophils % Basophils % Nucleated RBC % Sodium 135 L Potassium 4.4 Chloride 97 L Carbon Dioxide 29 Anion Gap 8 BUN 31.0 H Creatinine 2.8 H Est GFR (CKD-EPI)AfAm 24.29 Est GFR (CKD-EPI)NonAf 20.96 POC Glucometer 217 103 Random Glucose 143 H Hemoglobin A1c % Calcium 14.0 H Phosphorus Magnesium Ferritin 270.7 LD Total 309 H C-Reactive Protein 3.0 H TSH Blood Type Antibody Screen 05/28/20 05/28/20 05/28/20 05:30 05:30 05:30 WBC 7.1 RBC 4.02 Hgb 11.2 L Hct 34.1 L MCV 84.9 MCH 28.0 MCHC 32.9 RDW 13.9 Plt Count 326 MPV 7.9 D Absolute Neuts (auto) 5.2 Neutrophils % 72.9 Lymphocytes % 17.6 D Monocytes % 8.9 Eosinophils % 0.4 Basophils % 0.2 Nucleated RBC % 0 Sodium 136 Potassium 4.2 Chloride 98 Carbon Dioxide 29 Anion Gap 8 BUN 31.3 H Creatinine 2.8 H Est GFR (CKD-EPI)AfAm 24.29 Est GFR (CKD-EPI)NonAf 20.96 POC Glucometer Random Glucose 99 Hemoglobin A1c % 8.3 H Calcium 12.7 H Phosphorus 3.7 Magnesium 1.4 L Ferritin LD Total C-Reactive Protein TSH 1.06 D Blood Type Antibody Screen 05/28/20 05/28/20 09:05 11:24 WBC RBC Hgb Hct MCV MCH MCHC RDW Plt Count MPV Absolute Neuts (auto) Neutrophils % Lymphocytes % Monocytes % Eosinophils % Basophils % Nucleated RBC % Sodium Potassium Chloride Carbon Dioxide Anion Gap BUN Creatinine Est GFR (CKD-EPI)AfAm Est GFR (CKD-EPI)NonAf POC Glucometer 127 Random Glucose Hemoglobin A1c % Calcium Phosphorus Magnesium Ferritin LD Total C-Reactive Protein TSH Blood Type O POSITIVE Antibody Screen Negative Active Medications Generic Name Dose Route Start Last Admin Trade Name Freq PRN Reason Stop Dose Admin Allopurinol 100 mg 05/28/20 10:00 05/28/20 10:04 Zyloprim - PO 100 mg DAILY [facility] Administration Aspirin 81 mg 05/28/20 10:00 05/28/20 10:04 Asa - PO 81 mg DAILY [facility] Administration Atorvastatin Calcium 10 mg 05/27/20 22:00 05/27/20 22:50 Lipitor - PO 10 mg HS [facility] Administration Brimonidine Tartrate 1 drop 05/27/20 22:00 05/28/20 10:21 Alphagan 0.2% - OU Not Given BID [facility] Calcitonin 300 unit 05/28/20 22:00 Miacalcin Injection - SQ 05/29/20 10:01 Q12H [facility] Clonidine 0.01 mg 05/27/20 17:45 05/28/20 10:04 Catapres - PO 0.01 mg DAILY [facility] Administration Enoxaparin Sodium 30 mg 05/29/20 10:00 Lovenox - SQ DAILY [facility] Furosemide 40 mg 05/28/20 20:00 Lasix Injection - IVPUSH 05/28/20 20:01 ONCE ONE Sodium Chloride 1,000 mls @ 200 mls/hr 05/28/20 08:23 05/28/20 10:05 Normal Saline - IV 200 mls/hr ASDIR [facility] Administration Insulin Aspart 1 vial 05/27/20 22:00 05/28/20 16:42 Novolog Vial Sliding Scale - SQ Not Given ACHS [facility] Protocol Insulin Detemir 10 units 05/27/20 22:00 05/27/20 22:51 Levemir Vial SQ 10 units HS [facility] Administration Latanoprost 1 drop 05/27/20 22:00 05/27/20 22:52 Xalatan 0.005% Eye Drops - OU Not Given HS [facility] Polyethylene Glycol 17 gm 05/28/20 10:00 05/28/20 10:04 Miralax (For Daily Use) - PO 17 grams DAILY [facility] Administration Tamsulosin HCl 0.4 mg 05/27/20 17:45 05/28/20 10:04 Flomax - PO 0.4 mg DAILY [facility] Administration Timolol Maleate 1 drop 05/27/20 22:00 05/28/20 11:21 Timoptic 0.5% OU 1 drop BID [facility] Administration ASSESSMENT/PLAN: 75 year old male patient with past medical history that includes BPH, gout, glaucoma, HTN, HLD, DM, who presented to the emergency room with acute encephalopathy with hypercalcemia, a retroperitoneal mass, and acute renal failure. 1. Acute encephalopathy likely secondary to hypercalcemia - The patient is A&Ox3 but confused - Calcium was very high at 14.6 yesterday, now at 12.7 - The patient is receiving Normal Saline at 200mls/hr - The patient is receiving Calcitonin - The patient will receive Zometa if his renal function improves per Nephrology 2. Acute renal failure likely secondary to both dehydration and left hydronephrosis - Nephrology consulted - Urology consulted - Creatinine 2.8 - Moderate left hydronephrosis on CT A/P - Enlarged prostate - The patient is receiving Normal Saline at 200mls/hr - Monitoring the creatinine 3. Retroperitoneal mass possibly lymphoma - IR consulted - Oncology consulted 4. BPH - Enlarged prostate - The patient has a weinberg catheter 5. HTN - Recent blood pressure is 127/79 - The patient is receiving Catapres and Furosemide 6. HLD - The patient is receiving Atorvastatin 7. DM - Novolog Sliding Scale # FEN - Normal Saline at 200mls/hr, Monitoring electrolytes, Diabetic Diet DVT PPx - Lovenox SQ Visit type - Emergency Visit Emergency Visit: Yes ED Registration Date: 05/27/20 Care time: The patient presented to the Emergency Department on the above date and was hospitalized for further evaluation of their emergent condition. - New Patient This patient is new to me today: Yes Date on this admission: 05/28/20 - Critical Care Critical Care patient: No - Discharge Referral Referred to [facility] Med P.C.: No - Medication Review Med list reviewed for High Risk Meds patients 65 and older: Yes ATTENDING PHYSICIAN STATEMENT I saw and evaluated the patient. I reviewed the resident's note and discussed the case with the resident. I agree with the resident's findings and plan as documented. SUBJECTIVE: OBJECTIVE: ASSESSMENT AND PLAN:
--- NOTE | 2020-05-28 17:27 | EKG ---
Test Reason : Blood Pressure : / mmHG Vent. Rate : 094 BPM Atrial Rate : 094 BPM P-R Int : 148 ms QRS Dur : 088 ms QT Int : 334 ms P-R-T Axes : 056 -23 044 degrees QTc Int : 417 ms NORMAL SINUS RHYTHM NORMAL ECG WHEN COMPARED WITH ECG OF 25-MAR-2020 04:09, PREMATURE ATRIAL COMPLEXES ARE NO LONGER PRESENT Confirmed by MD Germain, Ben ([id number]) on 05/28/2020 5:27:20 PM Referred By: Confirmed By:Ben Groves MD
[2020-05-28] MEDS: SODIUM CHLORIDE 1,000 ML IV SCH (18:37)
[2020-05-28] MEDS ORDERED: FUROSEMIDE 40 MG/4 ML INJECTABLE VIAL IVPUSH ONE (20:00)
[2020-05-28 20:45] LABS: CALCIUM 11.7 mg/dL (8.5-10.1); CREATININE 2.6 mg/dL (0.55-1.3); POTASSIUM 3.9 mmol/L (3.5-5.1)
--- NOTE | 2020-05-28 21:31 | PN ---
Progress Note (short form) - Note Progress Note: UROLOGY Consult DICTATED. Patient with prostatism, left hydronephrosis and extensive retroperitoneal lymphadenopathy. Will need cysto left jj stent when medically stable. Will follow.
[2020-05-28] MEDS: CALCITONIN - SALMON SYNTHETIC 400 UNIT/2 ML VIAL SQ SCH (22:07)
[2020-05-28] MEDS: ATORVASTATIN CA 10 MG TABLET (FP) PO SCH (22:09)
[2020-05-28] MEDS: LATANOPROST 0.005% OPHTH SOLN 2.5ML BOTTLE OU SCH (22:09)
[2020-05-28] MEDS: INSULIN (LEVEMIR) 100 UNITS/ML UNITS SQ SCH (22:10)
[2020-05-28] MEDS ORDERED: PANTOPRAZOLE 40 MG TABLET PO ONE (22:36)
[2020-05-29] MEDS ORDERED: ONDANSETRON 4 MG/2 ML VIAL IVPUSH ONE (03:15)
[2020-05-29] MEDS: INSULIN SLIDING SCALE (NOVOLOG) 1 VIAL SQ SCH ×4 (06:24→22:06)
--- NOTE | 2020-05-29 08:40 | CONS ---
DATE OF CONSULTATION: DATE OF DICTATION: 05/28/2020 HISTORY: Patient is a 75-year-old male admitted to the hospital on May 27, 2020, with poorly controlled diabetes, benign prostatic hypertrophy, altered mental status. Family called EMS due to altered mental status. Patient states that he came to the hospital because of high blood sugar in the 200s. He has also got confusion and generalized weakness. A CT scan of the abdomen revealed a moderate left hydroureteronephrosis with large amount of retroperitoneal lymphadenopathy. There were also ground-glass opacifications of the lung oquendo. A COVID-19 pneumonitis should be considered. The lymphadenopathy involved the left psoas muscle. The possibility of lymphoma should be considered. There was also left pelvic and inguinal lymphadenopathy. The prostate was markedly enlarged. A Reed catheter was placed in the patient and clear urine was drained. Presently the patient's lab data reveals a white count of 7.1, hemoglobin of 11.2 and hematocrit 34.1. BUN is 31 and creatinine 2.6. Random glucose is 125. A urine culture is pending. Patient's vital signs were stable at a T-max of 98.3 and a blood pressure of 156/53. His O2 saturation is 99. ALLERGIES: DOXAZOSIN and METFORMIN. PAST SURGICAL HISTORY: He has also undergone left hip replacement. PHYSICAL EXAMINATION: General: An elderly male who is confused and unable to answer questions adequately. Abdomen: Soft. There is no tenderness. Genitourinary: Reed catheter is patent. Urine is clear. IMPRESSION AT PRESENT: Left hydronephrosis secondary to retroperitoneal lymphadenopathy. Will recommend a cystoscopy with placement of a left double J stent. Will also recommend a workup for his lymphadenopathy including a possible retroperitoneal lymph node biopsy by Interventional Radiology. Will follow with you. Jean Claude [id number]
[2020-05-29] MEDS ORDERED: PT OWN MED DRAWER 7, Y5N ONE (09:07)
[2020-05-29 09:09] LABS: HEMATOCRIT 34.2 % (35.4-49); HEMOGLOBIN 11.5 GM/dL (11.7-16.9); MCH 28.2 pg (25.7-33.7); MCHC 33.6 g/dl (32.0-35.9); MEAN CELL VOLUME 83.9 fl (80-96); MEAN PLT VOLUME 7.6 fl (7.5-11.1); PLATELET COUNT 344 K/MM3 (134-434); RBC 4.07 M/mm3 (4.00-5.60); RDW 13.9 % (11.9-15.9); WHITE BLOOD COUNT 9.5 K/mm3 (4.0-10.0)
[2020-05-29] MEDS: ASPIRIN 81 MG CHEWABLE TABLETS PO SCH (09:35)
[2020-05-29] MEDS: TAMSULOSIN HCL 0.4 MG CAP PO SCH (09:35)
[2020-05-29] MEDS: cloNIDine HCL 0.1 MG TABLET PO SCH (09:35)
[2020-05-29] MEDS: ALLOPURINOL 100 MG TABLET (FP) PO SCH (09:35)
[2020-05-29 09:40] LABS: BLOOD UREA NITROGEN 32.5 mg/dL (7-18); CALCIUM 11.7 mg/dL (8.5-10.1); CREATININE 2.8 mg/dL (0.55-1.3); MAGNESIUM 1.5 mg/dL (1.8-2.4); PHOSPHOROUS 3.2 mg/dL (2.5-4.9)
[2020-05-29] MEDS: BRIMONIDINE TARTRATE 0.2% OPHTHALMIC 5 ML BOTTLE OU SCH ×2 (09:45→22:11)
[2020-05-29] MEDS: TIMOLOL 0.5% OPHTHALMIC SOL 5 ML BOTTLE OU SCH ×2 (09:45→22:11)
[2020-05-29] MEDS: POLYETHYLENE GLYCOL 3350 119 GM BTL PO SCH (09:45)
[2020-05-29] MEDS ORDERED: ENOXAPARIN NA (PORCINE) 30 MG/0.3 ML DISP.SYRIN SQ SCH (10:00)
[2020-05-29 10:07] LABS: POTASSIUM 3.9 mmol/L (3.5-5.1)
[2020-05-29] MEDS ORDERED: MAGNESIUM SULF 50% (8.12 MEQ/2 ML-1 GM VIAL) IVPB ONE (10:41)
[2020-05-29] MEDS ORDERED: MAGNESIUM SULFATE IN WATER 2 GM/50 ML IVPB IVPB ONE (10:45)
--- NOTE | 2020-05-29 12:01 | PN ---
Teaching Attending Note Name of Resident: [place] Woo ATTENDING PHYSICIAN STATEMENT I saw and evaluated the patient. I reviewed the resident's note and discussed the case with the resident. I agree with the resident's findings and plan as documented. SUBJECTIVE: Still alert and oriented x3 but distractible and somewhat confused. Calcium down to 11.7, creatinine has increased back to 2.8. Pending cystoscopy for insertion of double-J stent to remove obstruction. IR consulted for lymph node biopsy. OBJECTIVE: Last Vital Signs Temp Pulse Resp BP Pulse Ox 98.2 F 88 22 H 152/90 99 05/29/20 09:00 05/29/20 09:00 05/29/20 09:00 05/29/20 09:00 05/29/20 09:00 PE: Per resident note Labs/Imaging: reviewed ASSESSMENT AND PLAN: 75-year-old male past medical history of hypertension, hyperlipidemia, diabetes mellitus presents with AMS and found to have symptomatic hypercalcemia with left psoas mass concerning for malignancy and compression of the left ureter resulting in hydronephrosis. #Severe hypercalcemia Likely in the setting of malignancy. Patient has enlarged prostate, possibly prostate cancer versus lymphoma? Patient on calcitonin 4 mg/kg twice daily Fluids 125 mL/h Need to decrease creatinine in order to safely use bisphosphonate Nephrology on board: Appreciate recommendations Follow-up hypercalcemia work-up #MIRACLE Likely component of prerenal MIRACLE in the setting of dehydration from hypercalcemia and post renal due to compression of left ureter from mass Nephrology on board: Recommendations pending Urology consulted: pending cystoscopy with stent placement Fluids at 200 mL/h Reed placed Hold home torsemide Hold Hyzaar #Mass and presumed malignancy Likely has hematologic or prostate CA CT of the chest May need bone scans to evaluate for lytic lesions We will consult IR tomorrow for possible biopsy Dr. Turpin consulted: recommendations appreciated #BPH Continue home tamsulosin #Hypertension Continue home clonidine Hold Hyzaar #Uncontrolled diabetes mellitus A1c 8.3 Continue home Levemir 10 units nightly ISS #DVT PP X: Renally dosed Lovenox
--- NOTE | 2020-05-29 14:24 | PN ---
Physical Exam: SUBJECTIVE: Pt was nauesous and given protonix & zofran. Patient seen and examined OBJECTIVE: Vital Signs Period Temp Pulse Resp BP Sys/Loredo Pulse Ox Last 24 Hr 98.2 F-98.9 F 70-88 16-22 127-156/76-90 97-99 GENERAL: The patient is awake, easily distracted, Oriented to name, month, year. HEENT: NT/NC. No ptosis. MMM LUNGS: Breath sounds equal, clear to auscultation bilaterally, no wheezes, no crackles, no accessory muscle use. HEART: Regular rate and rhythm, S1, S2 without murmur, rub or gallop. ABDOMEN: Soft, nontender, nondistended, normoactive bowel sounds EXTREMITIES: 2+ pulses, warm, well-perfused, no edema. NEUROLOGICAL: Normal speech, gait not observed. PSYCH: Normal mood, normal affect. Laboratory Results - last 24 hr 05/27/20 05/28/20 05/28/20 18:00 19:35 20:10 WBC RBC Hgb Hct MCV MCH MCHC RDW Plt Count MPV Sodium 138 Potassium 3.9 Chloride 102 Carbon Dioxide 28 Anion Gap 9 BUN 31.0 H Creatinine 2.6 H Est GFR (CKD-EPI)AfAm 26.57 Est GFR (CKD-EPI)NonAf 22.93 POC Glucometer 118 Random Glucose 125 H Calcium 11.7 H Phosphorus Magnesium COVID-19 ([facility]) Not detected 05/29/20 05/29/20 05/29/20 05:29 08:13 08:13 WBC 9.5 RBC 4.07 Hgb 11.5 L Hct 34.2 L MCV 83.9 MCH 28.2 MCHC 33.6 RDW 13.9 Plt Count 344 MPV 7.6 Sodium 136 Potassium 3.9 Chloride 101 Carbon Dioxide 29 Anion Gap 7 L BUN 32.5 H Creatinine 2.8 H Est GFR (CKD-EPI)AfAm 24.29 Est GFR (CKD-EPI)NonAf 20.96 POC Glucometer 136 Random Glucose 142 H Calcium 11.7 H Phosphorus 3.2 Magnesium 1.5 L COVID-19 ([facility]) 05/29/20 12:09 WBC RBC Hgb Hct MCV MCH MCHC RDW Plt Count MPV Sodium Potassium Chloride Carbon Dioxide Anion Gap BUN Creatinine Est GFR (CKD-EPI)AfAm Est GFR (CKD-EPI)NonAf POC Glucometer 138 Random Glucose Calcium Phosphorus Magnesium COVID-19 ([facility]) Active Medications Generic Name Dose Route Start Last Admin Trade Name [place] PRN Reason Stop Dose Admin Allopurinol 100 mg 05/28/20 10:00 05/29/20 09:35 Zyloprim - PO 100 mg DAILY [facility] Administration Aspirin 81 mg 05/28/20 10:00 05/29/20 09:35 Asa - PO 81 mg DAILY [facility] Administration Atorvastatin Calcium 10 mg 05/27/20 22:00 05/28/20 22:09 Lipitor - PO 10 mg HS [facility] Administration Brimonidine Tartrate 1 drop 05/27/20 22:00 05/29/20 09:45 Alphagan 0.2% - OU 1 drop BID [facility] Administration Clonidine 0.01 mg 05/27/20 17:45 05/29/20 09:35 Catapres - PO 0.01 mg DAILY [facility] Administration Enoxaparin Sodium 30 mg 05/29/20 10:00 05/29/20 09:35 Lovenox - SQ 30 mg DAILY [facility] Administration Sodium Chloride 1,000 mls @ 125 mls/hr 05/28/20 18:19 05/28/20 18:37 Normal Saline - IV 125 mls/hr ASDIR [facility] Administration Insulin Aspart 1 vial 05/27/20 22:00 05/29/20 12:39 Novolog Vial Sliding Scale - SQ Not Given ACHS [facility] Protocol Insulin Detemir 10 units 05/27/20 22:00 05/28/20 22:10 Levemir Vial SQ Not Given HS [facility] Latanoprost 1 drop 05/27/20 22:00 05/28/20 22:09 Xalatan 0.005% Eye Drops - OU 1 drop HS [facility] Administration Polyethylene Glycol 17 gm 05/28/20 10:00 05/29/20 09:45 Miralax (For Daily Use) - PO 17 grams DAILY [facility] Administration Tamsulosin HCl 0.4 mg 05/27/20 17:45 05/29/20 09:35 Flomax - PO 0.4 mg DAILY [facility] Administration Timolol Maleate 1 drop 05/27/20 22:00 05/29/20 09:45 Timoptic 0.5% OU 1 drop BID T[facility]OR Administration COVID negative ASSESSMENT/PLAN: 75 YO M PMH DM, HLD, HTN, GERD, gout, BPH p/w AMS. Admitted for hypercalcemia, and being managed for retroperitoneal mass, and hydronephrosis 2/2 this mass. #ACute metabolic encephalophathy 2/2 Hypercalcemia -Alert, Awake, Oriented to name, month, year #Hypercalcemia 2/2 malignancy -2/2 lymphoma (mass involving L psoas mass on CTAP) vs prostate cancer (markedly enlarged prostate). -c/w calcitonin 4 mg/kg BID. Calcitonin effectiveness: 48 hrs -renal c/s appreciated. Monitor Cr level b/f giving zometa (bisphosphonate) -monitor Ca2+ #MIRACLE -prerenal MIRACLE 2/2 dehydration, which improved. retroperitoneal mass compressing L ureter causing hydronephrosis. post-renal MIRACLE. -called urology service. d/w Dr. Baker on phone. Laser & Stent insertion will be performed tomorrow. -fluids changed from 200 ml/hr to 125 ml/hr -c/w weinberg Hold home Hyzaar (losartan/hydrochlorothiazide) & torsemide #Malignancy -possibly evaluate for lytic lesion w/ bone scan -CTAP w/ IV contrast & PT/INR before lymph node biopsy #BPH c/w tamsulosin (home dose) #HTN C/w clonidine (home dose) Hold Hyzaar because of MIRACLE #DM HgbA1c 8.3 ISS -BGM -c/w Levemir 10 units at night (home dose) #DVT PPX -c/w Lovenox #FEN NS monitor lytes diabetic diet #DISPO maintain Tele Visit type - Emergency Visit Emergency Visit: Yes ED Registration Date: 05/27/20 Care time: The patient presented to the Emergency Department on the above date and was hospitalized for further evaluation of their emergent condition. - New Patient This patient is new to me today: Yes Date on this admission: 05/29/20 - Critical Care Critical Care patient: No - Medication Review Med list reviewed for High Risk Meds patients 65 and older: Yes ATTENDING PHYSICIAN STATEMENT I saw and evaluated the patient. I reviewed the resident's note and discussed the case with the resident. I agree with the resident's findings and plan as documented. SUBJECTIVE: OBJECTIVE: ASSESSMENT AND PLAN:
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
[2020-05-29] MEDS: CALCITONIN - SALMON SYNTHETIC 400 UNIT/2 ML VIAL SQ SCH (15:13)
--- NOTE | 2020-05-29 16:08 | PN ---
Progress Note, Physician History of Present Illness: Pt seen and examined at bedside. He is awake and appears comfortable. He denies shortness of breath. - Current Medication List Current Medications: Active Medications Allopurinol (Zyloprim -) 100 mg PO DAILY [facility] Last Admin: 05/29/20 09:35 Dose: 100 mg Documented by: Aspirin (Asa -) 81 mg PO DAILY [facility] Last Admin: 05/29/20 09:35 Dose: 81 mg Documented by: Atorvastatin Calcium (Lipitor -) 10 mg PO [facility] Last Admin: 05/28/20 22:09 Dose: 10 mg Documented by: Brimonidine Tartrate (Alphagan 0.2% -) 1 drop OU BID [facility] Last Admin: 05/29/20 09:45 Dose: 1 drop Documented by: Clonidine (Catapres -) 0.01 mg PO DAILY [facility] Last Admin: 05/29/20 09:35 Dose: 0.01 mg Documented by: Enoxaparin Sodium (Lovenox -) 30 mg SQ DAILY [facility] Last Admin: 05/29/20 09:35 Dose: 30 mg Documented by: Sodium Chloride (Normal Saline -) 1,000 mls @ 125 mls/hr IV ASDIR [facility] Last Admin: 05/28/20 18:37 Dose: 125 mls/hr Documented by: Insulin Aspart (Novolog Vial Sliding Scale -) 1 vial SQ [facility]; Protocol Last Admin: 05/29/20 12:39 Dose: Not Given Documented by: Insulin Detemir (Levemir Vial) 10 units SQ [facility] Last Admin: 05/28/20 22:10 Dose: Not Given Documented by: Latanoprost (Xalatan 0.005% Eye Drops -) 1 drop OU [facility] Last Admin: 05/28/20 22:09 Dose: 1 drop Documented by: Polyethylene Glycol (Miralax (For Daily Use) -) 17 gm PO DAILY [facility] Last Admin: 05/29/20 09:45 Dose: 17 grams Documented by: Tamsulosin HCl (Flomax -) 0.4 mg PO DAILY [facility] Last Admin: 05/29/20 09:35 Dose: 0.4 mg Documented by: Timolol Maleate (Timoptic 0.5%) 1 drop OU BID [facility] Last Admin: 05/29/20 09:45 Dose: 1 drop Documented by: - Objective Vital Signs: Vital Signs Temperature 97.7 F 05/29/20 14:30 Pulse Rate 82 05/29/20 14:30 Respiratory Rate 20 05/29/20 14:30 Blood Pressure 133/73 05/29/20 14:30 O2 Sat by Pulse Oximetry (%) 99 05/29/20 09:00 Constitutional: Yes: Calm Eyes: Yes: Conjunctiva Clear HENT: Yes: Atraumatic Neck: Yes: Supple Cardiovascular: Yes: S1, S2 Respiratory: Yes: CTA Bilaterally Gastrointestinal: Yes: Soft Genitourinary: Yes: Reed Present Musculoskeletal: Yes: WNL Edema: No Neurological: Yes: Oriented Labs: CBC, BMP 05/29/20 08:13 05/29/20 08:13 INR, PTT INR 1.03 (0.83-1.09) 05/27/20 14:03 Problem List - Problems (1) MIRACLE (acute kidney injury) Code(s): N17.9 - ACUTE KIDNEY FAILURE, UNSPECIFIED (2) Confusion Code(s): R41.0 - DISORIENTATION, UNSPECIFIED (3) Hydronephrosis Code(s): N13.30 - UNSPECIFIED HYDRONEPHROSIS Qualifiers: Hydronephrosis type: with other ureteral stricture Qualified Code(s): N13.1 - Hydronephrosis with ureteral stricture, not elsewhere classified (4) Hypercalcemia Code(s): E83.52 - HYPERCALCEMIA (5) Retroperitoneal mass Code(s): R19.00 - INTRA-ABD AND PELVIC SWELLING, MASS AND LUMP, UNSP SITE Assessment/Plan Current Medications Generic Name Dose Route Start Last Admin Trade Name [place] PRN Reason Stop Dose Admin Allopurinol 100 mg 05/28/20 10:00 05/29/20 09:35 Zyloprim - PO 100 mg DAILY [facility] Administration Aspirin 81 mg 05/28/20 10:00 05/29/20 09:35 Asa - PO 81 mg DAILY [facility] Administration Atorvastatin Calcium 10 mg 05/27/20 22:00 05/28/20 22:09 Lipitor - PO 10 mg HS [facility] Administration Brimonidine Tartrate 1 drop 05/27/20 22:00 05/29/20 09:45 Alphagan 0.2% - OU 1 drop BID [facility] Administration Clonidine 0.01 mg 05/27/20 17:45 05/29/20 09:35 Catapres - PO 0.01 mg DAILY [facility] Administration Enoxaparin Sodium 30 mg 05/29/20 10:00 05/29/20 09:35 Lovenox - SQ 30 mg DAILY [facility] Administration Sodium Chloride 1,000 mls @ 125 mls/hr 05/28/20 18:19 05/28/20 18:37 Normal Saline - IV 125 mls/hr ASDIR [facility] Administration Insulin Aspart 1 vial 05/27/20 22:00 05/29/20 12:39 Novolog Vial Sliding Scale - SQ Not Given ACHS [facility] Protocol Insulin Detemir 10 units 05/27/20 22:00 05/28/20 22:10 Levemir Vial SQ Not Given HS [facility] Latanoprost 1 drop 05/27/20 22:00 05/28/20 22:09 Xalatan 0.005% Eye Drops - OU 1 drop HS [facility] Administration Polyethylene Glycol 17 gm 05/28/20 10:00 05/29/20 09:45 Miralax (For Daily Use) - PO 17 grams DAILY [facility] Administration Tamsulosin HCl 0.4 mg 05/27/20 17:45 05/29/20 09:35 Flomax - PO 0.4 mg DAILY [facility] Administration Timolol Maleate 1 drop 05/27/20 22:00 05/29/20 09:45 Timoptic 0.5% OU 1 drop BID [facility] Administration Laboratory Tests 05/27/20 18:00 COVID-19 ([facility]) Not detected Impression 1. CKD 2. MIRACLE 3. hypercalcemia 4. htn 5. dm 6. retroperitoneal lymphadenopathy 7. prostate enlargement 8. left hydro 9. left retroperitoneal mass Plan - cont with saline - no signs of overload - can give lasix if he develops overload - cont calcitonin - hold off zometa until clearance is greater than 30 - repeat labs in am - monitor calcium - urology follow up
[2020-05-29] MEDS ORDERED: ALLOPURINOL 100 MG TABLET (FP) PO SCH (16:41)
[2020-05-29] MEDS: SODIUM CHLORIDE 1,000 ML IV SCH (18:40)
[2020-05-29] MEDS ORDERED: CALCITONIN - SALMON SYNTHETIC 400 UNIT/2 ML VIAL SQ SCH (22:00)
[2020-05-29] MEDS: ATORVASTATIN CA 10 MG TABLET (FP) PO SCH (22:04)
[2020-05-29] MEDS: INSULIN (LEVEMIR) 100 UNITS/ML UNITS SQ SCH (22:06)
[2020-05-29] MEDS: LATANOPROST 0.005% OPHTH SOLN 2.5ML BOTTLE OU SCH (22:11)
--- NOTE | 2020-05-30 06:23 | PN.HO ---
Progress Note (short form) - Note Progress Note: Patient seen and examined Oriented in place nad person. answering simple questions but still confused c/o abdominal bloating/hiccups Last Vital Signs Temp Pulse Resp BP Pulse Ox 99.2 F 90 20 152/76 96 05/30/20 05:52 05/30/20 05:52 05/30/20 05:52 05/30/20 05:52 05/30/20 05:52 AFVSS Cor: RSR, No murmurs, No gallops Lungs: Clear to P&A Abd: Soft, Normal bowel sounds, No organomegaly Ext:No significant edema Abnormal Lab Results 05/28/20 05/29/20 05/29/20 05:30 08:13 08:13 Hgb 11.5 L Hct 34.2 L Anion Gap 7 L BUN 32.5 H Creatinine 2.8 H Random Glucose 142 H Calcium 11.7 H Magnesium 1.5 L Prostate Specific Ag 5.70 H Active Medications Generic Name Dose Route Start Last Admin Trade Name Freq PRN Reason Stop Dose Admin Allopurinol 150 mg 05/29/20 16:41 Zyloprim - PO DAILY [facility] Aspirin 81 mg 05/28/20 10:00 05/29/20 09:35 Asa - PO 81 mg DAILY [facility] Administration Atorvastatin Calcium 10 mg 05/27/20 22:00 05/29/20 22:04 Lipitor - PO 10 mg HS [facility] Administration Brimonidine Tartrate 1 drop 05/27/20 22:00 05/29/20 22:11 Alphagan 0.2% - OU 1 drop BID [facility] Administration Clonidine 0.01 mg 05/27/20 17:45 05/29/20 09:35 Catapres - PO 0.01 mg DAILY [facility] Administration Enoxaparin Sodium 30 mg 05/29/20 10:00 05/29/20 09:35 Lovenox - SQ 30 mg DAILY [facility] Administration Sodium Chloride 1,000 mls @ 125 mls/hr 05/28/20 18:19 05/29/20 18:40 Normal Saline - IV 125 mls/hr ASDIR [facility] Administration Insulin Aspart 1 vial 05/27/20 22:00 05/29/20 22:06 Novolog Vial Sliding Scale - SQ Not Given ACHS [facility] Protocol Insulin Detemir 10 units 05/27/20 22:00 07/27/20 22:06 Levemir Vial SQ Not Given HS [facility] Latanoprost 1 drop 05/27/20 22:00 05/29/20 22:11 Xalatan 0.005% Eye Drops - OU 1 drop HS [facility] Administration Pantoprazole Sodium 40 mg 05/30/20 10:00 Protonix Iv IVPB DAILY [facility] Polyethylene Glycol 17 gm 05/28/20 10:00 05/29/20 09:45 Miralax (For Daily Use) - PO 17 grams DAILY [facility] Administration Tamsulosin HCl 0.4 mg 05/27/20 17:45 05/29/20 09:35 Flomax - PO 0.4 mg DAILY [facility] Administration Timolol Maleate 1 drop 05/27/20 22:00 05/29/20 22:11 Timoptic 0.5% OU 1 drop BID [facility] Administration A/P 75 y/o patient with hypercalcemia/ retroperitoeal adenopathy Concern for ATLL HTLV serology/ peripheral flow pending Monitor LDH /uric aacid increase allopurinol to 150mg daily continue iv hydration add protonix will chck U/S neck/axilla/inguina arreas --noobvious adenopathy on exam will need biopsy of retroperitoneal mass will need complete staging w/u including BMBX hypercalcemia -- s/p calcitonin on iv fluids zometa once renal function improves further Lt. hydronephrosis due to retroperitnoneal adenopathy/enlarged prostate -- for cystoscopy/stent check PSA f/u cultures Discussed in detail with patients daughters about our findings/concerns Will initiate transfer to [facility] in AM
[2020-05-30] MEDS ORDERED: SODIUM CHLORIDE 1,000 ML IV SCH (06:26)
[2020-05-30] MEDS: INSULIN SLIDING SCALE (NOVOLOG) 1 VIAL SQ SCH ×3 (06:37→21:55)
[2020-05-30 08:19] LABS: BASO % 0.1 % (0-2.0); EOS % 0.1 % (0-4.5); HEMATOCRIT 33.1 % (35.4-49); HEMOGLOBIN 10.8 GM/dL (11.7-16.9); LYMPH % 8.1 % (8-40); MCH 27.7 pg (25.7-33.7); MCHC 32.7 g/dl (32.0-35.9); MEAN CELL VOLUME 84.7 fl (80-96); MEAN PLT VOLUME 7.6 fl (7.5-11.1); MONO % 6.6 % (3.8-10.2); NEUT % 85.1 % (42.8-82.8); PLATELET COUNT 311 K/MM3 (134-434); RBC 3.91 M/mm3 (4.00-5.60); WHITE BLOOD COUNT 11.7 K/mm3 (4.0-10.0)
[2020-05-30 08:31] LABS: ALBUMIN 2.7 g/dl (3.4-5.0); BILIRUBIN,TOTAL 0.6 mg/dL (0.2-1); BLOOD UREA NITROGEN 32.8 mg/dL (7-18); CALCIUM 10.6 mg/dL (8.5-10.1); CREATININE 2.6 mg/dL (0.55-1.3); MAGNESIUM 1.8 mg/dL (1.8-2.4); PHOSPHOROUS 2.7 mg/dL (2.5-4.9); POTASSIUM 3.8 mmol/L (3.5-5.1); TOT PROT 6.2 g/dl (6.4-8.2); URIC ACID 9.8 mg/dL (2.6-7.2)
[2020-05-30] MEDS ORDERED: ONDANSETRON 4 MG/2 ML VIAL IVPUSH PRN ×2 (09:37→15:35)
[2020-05-30] MEDS ORDERED: PROMETHAZINE HCL 25 MG/1 ML VIAL IVPUSH PRN ×2 (09:37→16:48)
[2020-05-30] MEDS ORDERED: MIDAZOLAM HCL 2 MG/2 ML SINGLE DOSE VIAL ONE (09:43)
[2020-05-30] MEDS ORDERED: LACTATED RINGERS SOLUTION 1,000 ML IV SCH (09:45)
[2020-05-30] MEDS ORDERED: PROMETHAZINE HCL 25 MG/1 ML VIAL IVPB PRN (09:46)
[2020-05-30] MEDS ORDERED: ceFAZolin SODIUM 1 GM VIAL ONE (09:50)
[2020-05-30] MEDS ORDERED: SODIUM CHLORIDE 0.9% P/F 10 ML VIAL IJ ONE (09:50)
[2020-05-30] MEDS ORDERED: PANTOPRAZOLE SODIUM 40 MG VIAL IVPB SCH (10:00)
[2020-05-30] MEDS ORDERED: ceFAZolin 2 GRAM PREMIX BAG IVPB ONE (10:03)
[2020-05-30] MEDS ORDERED: IOHEXOL 300 MG/ML INFUS..BTL IV ONE (10:32)
--- NOTE | 2020-05-30 11:17 | OP ---
Operative Note - Note: Operative Date: 05/30/20 Pre-Operative Diagnosis: lt. hydro, bph with obs. and luts Operation: cysto, lt. retro, lt ureteroscopy lt. jj stent and turp/tuvp Findings: lt. hydro, bph with obstruiction Post-Operative Diagnosis: Same as Pre-op Surgeon: Sin Chambers Anesthesia: Spinal Specimens Removed: prostate chips Estimated Blood Loss (mls): 0 Instrument used (Debridements only): 0 Drains & Tubes with Location: 24f 3-way=30cc weinberg with cbi Drains, Volume Out (mls): 0 Blood Volume Replaced (mls): 0 Fluid Volume Replaced (mls): 0 Operative Report Dictated: Yes
[2020-05-30] MEDS ORDERED: HYDROmorphone HCl 2 MG/ML VIAL IM ONE (11:23)
[2020-05-30] MEDS ORDERED: DOCUSATE SODIUM 100 MG CAPSULE (FP) PO PRN (11:23)
--- NOTE | 2020-05-30 16:44 | PN ---
Progress Note, Physician History of Present Illness: Pt seen and examined at bedside. He is s/p cysto with stent. - Current Medication List Current Medications: Active Medications Acetaminophen (Tylenol -) 650 mg PO Q6H PRN PRN Reason: PAIN 4-6 Aspirin (Asa -) 81 mg PO DAILY [facility] Atorvastatin Calcium (Lipitor -) 10 mg PO HS [facility] Brimonidine Tartrate (Alphagan 0.2% -) 1 drop OU BID [facility] Docusate Sodium (Colace -) 100 mg PO Q8H PRN PRN Reason: CONSTIPATION Enoxaparin Sodium (Lovenox -) 30 mg SQ DAILY [facility] Fentanyl (Sublimaze Injection -) 50 mcg IVPUSH [id number] PRN PRN Reason: PAIN-PACU ORDER X 4 DOSES ONLY Stop: 05/31/20 09:36 Sodium Chloride (Normal Saline -) 1,000 mls @ 100 mls/hr IV ASDIR [facility] Insulin Aspart (Novolog Vial Sliding Scale -) 1 vial SQ ACHS [facility]; Protocol Latanoprost (Xalatan 0.005% Eye Drops -) 1 drop OU HS [facility] Ondansetron HCl (Zofran Injection) 4 mg IVPUSH Q6H PRN PRN Reason: NAUSEA Pantoprazole Sodium (Protonix Iv) 40 mg IVPUSH DAILY [facility] - Objective Vital Signs: Vital Signs Temperature 99.5 F 05/30/20 14:25 Pulse Rate 107 H 05/30/20 14:25 Respiratory Rate 20 05/30/20 14:25 Blood Pressure 148/87 05/30/20 14:25 O2 Sat by Pulse Oximetry (%) 99 05/30/20 13:45 Constitutional: Yes: Calm Eyes: Yes: Conjunctiva Clear HENT: Yes: Atraumatic Cardiovascular: Yes: S1, S2 Respiratory: Yes: CTA Bilaterally Gastrointestinal: Yes: Soft Genitourinary: Yes: Reed Present, Hematuria Musculoskeletal: Yes: WNL Edema: No Integumentary: Yes: WNL Neurological: Yes: Oriented Psychiatric: Yes: Oriented Labs: CBC, BMP 05/30/20 06:38 05/30/20 06:38 INR, PTT INR 1.03 (0.83-1.09) 05/27/20 14:03 Problem List - Problems (1) MIRACLE (acute kidney injury) Code(s): N17.9 - ACUTE KIDNEY FAILURE, UNSPECIFIED (2) Confusion Code(s): R41.0 - DISORIENTATION, UNSPECIFIED (3) Hydronephrosis Code(s): N13.30 - UNSPECIFIED HYDRONEPHROSIS Qualifiers: Hydronephrosis type: with other ureteral stricture Qualified Code(s): N13.1 - Hydronephrosis with ureteral stricture, not elsewhere classified (4) Hypercalcemia Code(s): E83.52 - HYPERCALCEMIA (5) Retroperitoneal mass Code(s): R19.00 - INTRA-ABD AND PELVIC SWELLING, MASS AND LUMP, UNSP SITE Assessment/Plan Current Medications Generic Name Dose Route Start Last Admin Trade Name Freq PRN Reason Stop Dose Admin Acetaminophen 650 mg 05/30/20 11:23 Tylenol - PO Q6H PRN PAIN 4-6 Aspirin 81 mg 05/30/20 15:45 Asa - PO DAILY [facility] Atorvastatin Calcium 10 mg 05/30/20 22:00 Lipitor - PO HS [facility] Brimonidine Tartrate 1 drop 05/30/20 22:00 Alphagan 0.2% - OU BID [facility] Docusate Sodium 100 mg 05/30/20 11:23 Colace - PO Q8H PRN CONSTIPATION Enoxaparin Sodium 30 mg 05/31/20 10:00 Lovenox - SQ DAILY [facility] Fentanyl 50 mcg 05/30/20 12:24 Sublimaze Injection - IVPUSH 05/31/20 09:36 [id number] PRN PAIN-PACU ORDER X 4 DOSES ONLY Sodium Chloride 1,000 mls @ 100 mls/hr 05/30/20 16:00 Normal Saline - IV ASDIR [facility] Insulin Aspart 1 vial 05/30/20 16:30 Novolog Vial Sliding Scale - SQ ACHS [facility] Protocol Insulin Detemir 10 units 05/30/20 22:00 Levemir Vial SQ HS [facility] Latanoprost 1 drop 05/30/20 22:00 Xalatan 0.005% Eye Drops - OU HS [facility] Ondansetron HCl 4 mg 05/30/20 15:35 Zofran Injection IVPUSH Q6H PRN NAUSEA Pantoprazole Sodium 40 mg 05/30/20 15:45 Protonix Iv IVPUSH DAILY [facility] Impression 1. CKD 2. MIRACLE 3. hypercalcemia 4. htn 5. dm 6. retroperitoneal lymphadenopathy 7. prostate enlargement 8. left hydro 9. left retroperitoneal mass Plan - cont saline - monitor output - monitor for post obstructive diuresis - calcium improving - hold off zometa until clearance is greater than 30 - oncology input appreciated - discussed with medical team
--- NOTE | 2020-05-30 17:12 | PN ---
Teaching Attending Note Name of Resident: Joel Ritchie ATTENDING PHYSICIAN STATEMENT I saw and evaluated the patient. I reviewed the resident's note and discussed the case with the resident. I agree with the resident's findings and plan as documented. SUBJECTIVE: Feels well post-op. No complaints. OBJECTIVE: Afebrile, Hemodynamically Stable. Last Vital Signs Temp Pulse Resp BP Pulse Ox 99.5 F 107 H 20 148/87 99 05/30/20 14:25 05/30/20 14:25 05/30/20 14:05/30/20 14:05/30/20 13:45 HEENT - Atraumatic, normocpehalic. Heart - S1, S2, RRR Lungs - clear to auscultation Abdomen - soft, non-tender. Bowel Sounds normal. - Reed in situ with bloody urine. Extremities - No edema, no calf tenderness. Neuro - AAO x 3. Tone/Power normal all extremities. Laboratory Results - last 24 hr 05/27/20 05/28/20 05/28/20 14:03 05:30 09:05 WBC RBC Hgb Hct MCV MCH MCHC RDW Plt Count MPV Absolute Neuts (auto) Neutrophils % Lymphocytes % Monocytes % Eosinophils % Basophils % Nucleated RBC % Sodium Potassium Chloride Carbon Dioxide Anion Gap BUN Creatinine Est GFR (CKD-EPI)AfAm Est GFR (CKD-EPI)NonAf POC Glucometer Random Glucose Uric Acid Calcium Phosphorus Magnesium Total Bilirubin AST ALT Alkaline Phosphatase LD Total Total Protein Albumin Ulrw-7-Hmxsdugfmwjhw 4.9 H Prostate Specific Ag 5.70 H PTH Intact 10 L 05/29/20 05/29/20 05/30/20 17:35 22:05 05:45 WBC RBC Hgb Hct MCV MCH MCHC RDW Plt Count MPV Absolute Neuts (auto) Neutrophils % Lymphocytes % Monocytes % Eosinophils % Basophils % Nucleated RBC % Sodium Potassium Chloride Carbon Dioxide Anion Gap BUN Creatinine Est GFR (CKD-EPI)AfAm Est GFR (CKD-EPI)NonAf POC Glucometer 134 148 123 Random Glucose Uric Acid Calcium Phosphorus Magnesium Total Bilirubin AST ALT Alkaline Phosphatase LD Total Total Protein Albumin Nzib-5-Hasrqhldjaixa Prostate Specific Ag PTH Intact 05/30/20 05/30/20 05/30/20 06:38 06:38 12:28 WBC 11.7 H RBC 3.91 L Hgb 10.8 L Hct 33.1 L MCV 84.7 MCH 27.7 MCHC 32.7 RDW 14.0 Plt Count 311 MPV 7.6 Absolute Neuts (auto) 10.0 H Neutrophils % 85.1 H Lymphocytes % 8.1 D Monocytes % 6.6 Eosinophils % 0.1 Basophils % 0.1 Nucleated RBC % 0 Sodium 138 Potassium 3.8 Chloride 103 Carbon Dioxide 23 Anion Gap 12 BUN 32.8 H Creatinine 2.6 H Est GFR (CKD-EPI)AfAm 26.57 Est GFR (CKD-EPI)NonAf 22.93 POC Glucometer 117 Random Glucose 125 H Uric Acid 9.8 H Calcium 10.6 H Phosphorus 2.7 Magnesium 1.8 Total Bilirubin 0.6 AST 25 ALT 13 Alkaline Phosphatase 58 LD Total 254 H Total Protein 6.2 L Albumin 2.7 L Skya-7-Njcmqfqsfwxyp Prostate Specific Ag PTH Intact Current Medications Generic Name Dose Route Start Last Admin Trade Name Freq PRN Reason Stop Dose Admin Acetaminophen 650 mg 05/30/20 11:23 Tylenol - PO Q6H PRN PAIN 4-6 Allopurinol 100 mg 05/31/20 10:00 Zyloprim - PO DAILY [facility] Aspirin 81 mg 05/30/20 15:45 Asa - PO DAILY [facility] Atorvastatin Calcium 10 mg 05/30/20 22:00 Lipitor - PO HS [facility] Brimonidine Tartrate 1 drop 05/30/20 22:00 Alphagan 0.2% - OU BID [facility] Clonidine 0.1 mg 05/30/20 17:00 Catapres - PO DAILY [facility] Docusate Sodium 100 mg 05/30/20 11:23 Colace - PO Q8H PRN CONSTIPATION Fentanyl 50 mcg 05/30/20 12:24 Sublimaze Injection - IVPUSH 05/31/20 09:36 [id number] PRN PAIN-PACU ORDER X 4 DOSES ONLY Heparin Sodium (Porcine) 5,000 unit 05/30/20 22:00 Heparin - SQ TID [facility] Sodium Chloride 1,000 mls @ 100 mls/hr 05/30/20 16:00 Normal Saline - IV ASDIR [facility] Insulin Aspart 1 vial 05/30/20 16:30 Novolog Vial Sliding Scale - SQ ACHS [facility] Protocol Insulin Detemir 10 units 05/30/20 22:00 Levemir Vial SQ HS [facility] Latanoprost 1 drop 05/30/20 22:00 Xalatan 0.005% Eye Drops - OU HS [facility] Pantoprazole Sodium 40 mg 05/30/20 15:45 Protonix Iv IVPUSH DAILY [facility] Promethazine HCl 12.5 mg 05/30/20 16:48 Phenergan Injection - IVPUSH Q6H PRN NAUSEA AND/OR VOMITING Tamsulosin HCl 0.4 mg 05/31/20 08:30 Flomax - PO DAILY@0830 [facility] Home Medications Medication Instructions Recorded Brimonidine Tartrate [Alphagan 1 drop OU BID 10/19/15 0.2% -] Latanoprost 0.005% Eye Drops 1 drop OU HS 10/19/15 [Xalatan 0.005% Eye Drops -] Tamsulosin HCl [Flomax -] 0.4 mg PO DAILY 10/19/15 Timolol 0.5% [Timoptic 0.5%] 1 drop OU BID 10/19/15 cloNIDine HCL [Catapres -] 0.1 tab PO DAILY 10/19/15 Allopurinol [Zyloprim -] 100 mg PO DAILY 11/10/17 Valsartan/Hydrochlorothiazide 1 each PO DAILY 11/10/17 [Valsartan-Hctz 320-25 mg Tab] Torsemide [Demadex -] 20 mg PO DAILY 06/06/18 Aspirin [ASA -] 1 tab PO DAILY 02/05/19 Fluticasone Prop 0.05% Nasal 2 spray NS DAILY 02/11/19 [Flonase -] Cromolyn Sodium [Crolom -] 1 drop OU ASDIR 02/20/20 Docusate Sodium [Dulcolax Stool 100 mg PO DAILY PRN 02/20/20 Softener] Acetaminophen [Tylenol .Regular 650 mg PO Q6H PRN tablet 03/28/20 Strength -] Aspirin Coated [Ecotrin -] 81 mg PO DAILY tablet.ec 03/28/20 Atorvastatin Ca [Lipitor] 10 mg PO HS #30 tablet 03/28/20 Cephalexin Monohydrate [Keflex -] 500 mg PO BID #10 capsule 03/28/20 Insulin (Levemir) [Levemir Vial] 10 units SQ HS #30 vial 03/28/20 Insulin Lispro Protamin/Lispro 10 unit SQ HS #30 vial 03/28/20 [Humalog Mix 50-50 Vial] Insulin Sliding Scale [Novolog 1 vial SQ TIDAC units 03/28/20 Vial Sliding Scale -] Polyethylene Glycol 3350 [Miralax 17 gm PO DAILY bottle 03/28/20 119 gm Btl -] ASSESSMENT AND PLAN: 75 year old male with past medical history of hypertension, hyperlipidemia, DM 2 presents with AMS, and found to have hypercalcemia with left psoas/Retroperitoneal mass concerning for LAD/malignancy and compression of the left ureter resulting in hydronephrosis. CT A/P Large prostate, mild L hydro, groundglass opacities at bases, retroperitoneal LAD. 1. Acute Metabolic Encephalopathy secondary to Hypercalcemia - improving. s/p Calcitonin. IV hydration ongoing Bisphosphonates held due to MIRACLE Nephrology following. 2. MIRACLE on CKD 3 sec to obstruction Creat up to 2.3, baseline 1.8 s/p Cystoscopy/JJ Stent placement by Urology Torsemide and Hyzaar held. Continue IV hydration 3. Retroperitoneal Mass/Lymphadenopathy ?Lymphoma IR consulted for biopsy Hypercalcemia being managed Elevated Uric Acid - placed on Allopurinol May need Bone Marrow Bx. Oncology following - recommend transferring to [facility] for further diagnostic work-up and treatment once cleared by Urology. 4. BPH - on Tamsulosin 5. HTN - Continue Clonidine. Hold Hyzaar. 6. DM 2 - A1C 8.3. Continue Levemir and Novolog sliding scale. 7. R Thyromegaly on CT Chest with mildly enlarged precarinal LNs - will need further imaging and possible Bx Will defer to Oncology re: further Ix DVT Px - Heparin SQ
[2020-05-30] MEDS: ASPIRIN 81 MG CHEWABLE TABLETS PO SCH (17:23)
[2020-05-30] MEDS: PANTOPRAZOLE SODIUM 40 MG VIAL IVPUSH SCH (17:23)
[2020-05-30] MEDS: SODIUM CHLORIDE 1,000 ML IV SCH (17:23)
[2020-05-30] MEDS: cloNIDine HCL 0.1 MG TABLET PO SCH (17:26)
--- NOTE | 2020-05-30 19:28 | PN ---
DATE OF VISIT: DATE OF DICTATION: 05/29/2020 Patient is a 75-year-old male with severe left hydroureteronephrosis secondary to retroperitoneal lymphadenopathy. He also has history of high blood pressure, diabetes. He was found to have symptomatic hypercalcemia with multiple retroperitoneal lymph nodes encroaching on the left lower ureter and causing a moderate left hydroureteronephrosis. The patient also had prostatism and was an overflow incontinence. A Reed catheter was placed. His urine is clear. The patient has been placed on Flomax. His latest lab data reveals a white count of 9.5, hemoglobin and hematocrit 11.5/34.2, BUN and creatinine are 35/2.8. A urine culture reveals no growth. Patient's T-max is 98.6, his blood pressure is 135/67. IMPRESSION: At present is prostatism with overflow incontinence, left hydroureteronephrosis secondary to retroperitoneal lymphadenopathy. Will recommend a cystoscopy, left retrograde pyelogram, and placement of a left JJ stent. This will be done on Friday if medically stable. Will follow with you. HEVER GARCIA M.D. [id number]
--- NOTE | 2020-05-30 20:45 | PN ---
Physical Exam: SUBJECTIVE: No overnight events. Patient seen and examined. C/o weinberg pain. Appears more confused today. OBJECTIVE: Vital Signs Period Temp Pulse Resp BP Sys/Loredo Pulse Ox Last 24 Hr 97.7 F-99.5 F 60-122 17-21 123-162/51-90 95-100 GENERAL: The patient is awake, easily distracted, Oriented only to name. more confused today. HEENT: NT/NC. No ptosis. MMM LUNGS: Breath sounds equal, clear to auscultation bilaterally, no wheezes, no crackles, no accessory muscle use. HEART: Regular rate and rhythm, S1, S2 without murmur, rub or gallop. ABDOMEN: Soft, nontender, nondistended, normoactive bowel sounds EXTREMITIES: 2+ pulses, warm, well-perfused, no edema. NEUROLOGICAL: Normal speech, gait not observed. PSYCH: Normal mood, normal affect. Laboratory Results - last 24 hr 05/27/20 05/28/20 05/28/20 14:03 05:30 09:05 WBC RBC Hgb Hct MCV MCH MCHC RDW Plt Count MPV Absolute Neuts (auto) Neutrophils % Lymphocytes % Monocytes % Eosinophils % Basophils % Nucleated RBC % Sodium Potassium Chloride Carbon Dioxide Anion Gap BUN Creatinine Est GFR (CKD-EPI)AfAm Est GFR (CKD-EPI)NonAf POC Glucometer Random Glucose Uric Acid Calcium Phosphorus Magnesium Total Bilirubin AST ALT Alkaline Phosphatase LD Total Total Protein Albumin Pwfa-9-Yctgfkjzqfuft 4.9 H Prostate Specific Ag 5.70 H PTH Intact 10 L HTLV I/II Antibody 05/29/20 05/29/20 05/30/20 08:13 22:05 05:45 WBC RBC Hgb Hct MCV MCH MCHC RDW Plt Count MPV Absolute Neuts (auto) Neutrophils % Lymphocytes % Monocytes % Eosinophils % Basophils % Nucleated RBC % Sodium Potassium Chloride Carbon Dioxide Anion Gap BUN Creatinine Est GFR (CKD-EPI)AfAm Est GFR (CKD-EPI)NonAf POC Glucometer 148 123 Random Glucose Uric Acid Calcium Phosphorus Magnesium Total Bilirubin AST ALT Alkaline Phosphatase LD Total Total Protein Albumin Gavk-2-Fqcbiqlirujtt Prostate Specific Ag PTH Intact HTLV I/II Antibody Negative 05/30/20 05/30/20 05/30/20 06:38 06:38 12:28 WBC 11.7 H RBC 3.91 L Hgb 10.8 L Hct 33.1 L MCV 84.7 MCH 27.7 MCHC 32.7 RDW 14.0 Plt Count 311 MPV 7.6 Absolute Neuts (auto) 10.0 H Neutrophils % 85.1 H Lymphocytes % 8.1 D Monocytes % 6.6 Eosinophils % 0.1 Basophils % 0.1 Nucleated RBC % 0 Sodium 138 Potassium 3.8 Chloride 103 Carbon Dioxide 23 Anion Gap 12 BUN 32.8 H Creatinine 2.6 H Est GFR (CKD-EPI)AfAm 26.57 Est GFR (CKD-EPI)NonAf 22.93 POC Glucometer 117 Random Glucose 125 H Uric Acid 9.8 H Calcium 10.6 H Phosphorus 2.7 Magnesium 1.8 Total Bilirubin 0.6 AST 25 ALT 13 Alkaline Phosphatase 58 LD Total 254 H Total Protein 6.2 L Albumin 2.7 L Joje-3-Cljjwbfovopht Prostate Specific Ag PTH Intact HTLV I/II Antibody 05/30/20 17:16 WBC RBC Hgb Hct MCV MCH MCHC RDW Plt Count MPV Absolute Neuts (auto) Neutrophils % Lymphocytes % Monocytes % Eosinophils % Basophils % Nucleated RBC % Sodium Potassium Chloride Carbon Dioxide Anion Gap BUN Creatinine Est GFR (CKD-EPI)AfAm Est GFR (CKD-EPI)NonAf POC Glucometer 180 Random Glucose Uric Acid Calcium Phosphorus Magnesium Total Bilirubin AST ALT Alkaline Phosphatase LD Total Total Protein Albumin Drri-4-Fprrhpjkaoohl Prostate Specific Ag PTH Intact HTLV I/II Antibody Active Medications Generic Name Dose Route Start Last Admin Trade Name Freq PRN Reason Stop Dose Admin Acetaminophen 650 mg 05/30/20 11:23 Tylenol - PO Q6H PRN PAIN 4-6 Allopurinol 100 mg 05/31/20 10:00 Zyloprim - PO DAILY [facility] Aspirin 81 mg 05/30/20 15:45 05/30/20 17:23 Asa - PO 81 mg DAILY [facility] Administration Atorvastatin Calcium 10 mg 05/30/20 22:00 Lipitor - PO HS [facility] Brimonidine Tartrate 1 drop 05/30/20 22:00 Alphagan 0.2% - OU BID [facility] Clonidine 0.1 mg 05/30/20 17:00 05/30/20 17:26 Catapres - PO 0.1 mg DAILY [facility] Administration Docusate Sodium 100 mg 05/30/20 11:23 Colace - PO Q8H PRN CONSTIPATION Fentanyl 50 mcg 05/30/20 12:24 Sublimaze Injection - IVPUSH 05/31/20 09:36 [id number] PRN PAIN-PACU ORDER X 4 DOSES ONLY Heparin Sodium (Porcine) 5,000 unit 05/30/20 22:00 Heparin - SQ TID [facility] Sodium Chloride 1,000 mls @ 100 mls/hr 05/30/20 16:00 05/30/20 17:23 Normal Saline - IV 100 mls/hr ASDIR [facility] Administration Insulin Aspart 1 vial 05/30/20 16:30 05/30/20 17:24 Novolog Vial Sliding Scale - SQ 2 units ACHS [facility] Administration Protocol Insulin Detemir 10 units 05/30/20 22:00 Levemir Vial SQ HS [facility] Latanoprost 1 drop 05/30/20 22:00 Xalatan 0.005% Eye Drops - OU HS [facility] Pantoprazole Sodium 40 mg 05/30/20 15:45 05/30/20 17:23 Protonix Iv IVPUSH 40 mg DAILY [facility] Administration Promethazine HCl 12.5 mg 05/30/20 16:48 Phenergan Injection - IVPUSH Q6H PRN NAUSEA AND/OR VOMITING Tamsulosin HCl 0.4 mg 05/31/20 08:30 Flomax - PO DAILY@0830 [facility] COVID negative R inguinal ultrasound: oval shaped hypoechoic mass-like density compatible w/ lymph node measuring 3.2 X 1.4 cm w/ distorted architecture. L inguinal ultrasound: large oval shaped mass 3.8X2.2 cm likelya lymph node w/ distorted architecture. 3 adjacent hypoechoic densities/lymph nodes measuring 1.9X1.4, 2X1.2, 2.2 X 2.1 cm. ASSESSMENT/PLAN: 75 YO M PMH DM, HLD, HTN, GERD, gout, BPH p/w AMS. Admitted for hypercalcemia, and being managed for retroperitoneal mass, and hydronephrosis 2/2 this mass. #ACute metabolic encephalophathy 2/2 Hypercalcemia -Alert, Awake, Oriented to name #Hypercalcemia 2/2 malignancy -2/2 lymphoma (mass involving L psoas mass on CTAP) vs prostate cancer (markedly enlarged prostate). -renal c/s appreciated. Can consider zometa (bisphosphonate) if Cr clearance > 30 -Calcium improving. monitor Ca2+ #MIRACLE on CKD -Baseline Cr 1.8. prerenal MIRACLE 2/2 dehydration, which improved. retroperitoneal mass compressing L ureter causing hydronephrosis. post-renal MIRACLE. -s/p cystoscopy. L ureteroscopy. jj stent and turp/tuvp. -c/w NS @ 100 ml/hr -Hold home Hyzaar (losartan/hydrochlorothiazide) & torsemide #Malignancy -possibly evaluate for lytic lesion w/ bone scan -CTAP w/ IV contrast & PT/INR before lymph node biopsy -allopurinol for increased uric acid #BPH c/w tamsulosin (home dose) #HTN C/w clonidine (home dose) Hold Hyzaar because of MIRACLE #DM HgbA1c 8.3 ISS -BGM -c/w Levemir 10 units at night (home dose) #DVT PPX -c/w Lovenox #FEN NS monitor lytes diabetic/Na controlled diet #DISPO maintain Tele Visit type - Emergency Visit Emergency Visit: Yes ED Registration Date: 05/27/20 Care time: The patient presented to the Emergency Department on the above date and was hospitalized for further evaluation of their emergent condition. - New Patient This patient is new to me today: No - Critical Care Critical Care patient: No - Medication Review Med list reviewed for High Risk Meds patients 65 and older: Yes ATTENDING PHYSICIAN STATEMENT I saw and evaluated the patient. I reviewed the resident's note and discussed the case with the resident. I agree with the resident's findings and plan as documented. SUBJECTIVE: OBJECTIVE: ASSESSMENT AND PLAN:
[2020-05-30] MEDS: HEPARIN NA (PORCINE) 5,000 UNITS/ML 1ML VIAL SQ SCH (21:50)
[2020-05-30] MEDS: LATANOPROST 0.005% OPHTH SOLN 2.5ML BOTTLE OU SCH (21:50)
[2020-05-30] MEDS: BRIMONIDINE TARTRATE 0.2% OPHTHALMIC 5 ML BOTTLE OU SCH (21:50)
[2020-05-30] MEDS: ATORVASTATIN CA 10 MG TABLET (FP) PO SCH (21:50)
[2020-05-30] MEDS: INSULIN (LEVEMIR) 100 UNITS/ML UNITS SQ SCH (21:56)
[2020-05-31] MEDS: INSULIN SLIDING SCALE (NOVOLOG) 1 VIAL SQ SCH ×4 (06:31→21:48)
[2020-05-31] MEDS: HEPARIN NA (PORCINE) 5,000 UNITS/ML 1ML VIAL SQ SCH ×2 (06:31→13:06)
[2020-05-31] MEDS: ACETAMINOPHEN 325 MG TABLET (FP) PO PRN ×2 (06:32→23:36)
[2020-05-31 08:07] LABS: BASO % 0.4 % (0-2.0); EOS % 0.3 % (0-4.5); HEMATOCRIT 28.9 % (35.4-49); HEMOGLOBIN 9.7 GM/dL (11.7-16.9); LYMPH % 9.1 % (8-40); MCH 28.6 pg (25.7-33.7); MCHC 33.7 g/dl (32.0-35.9); MEAN CELL VOLUME 85.1 fl (80-96); MEAN PLT VOLUME 7.8 fl (7.5-11.1); MONO % 6.7 % (3.8-10.2); NEUT % 83.5 % (42.8-82.8); PLATELET COUNT 273 K/MM3 (134-434); RDW 14.2 % (11.9-15.9); WHITE BLOOD COUNT 9.3 K/mm3 (4.0-10.0)
[2020-05-31 08:27] LABS: ALBUMIN 2.3 g/dl (3.4-5.0); BLOOD UREA NITROGEN 33.4 mg/dL (7-18); CALCIUM 10.7 mg/dL (8.5-10.1); CREATININE 2.2 mg/dL (0.55-1.3); MAGNESIUM 1.6 mg/dL (1.8-2.4); PHOSPHOROUS 2.5 mg/dL (2.5-4.9); POTASSIUM 3.4 mmol/L (3.5-5.1)
[2020-05-31 08:29] LABS: BILIRUBIN,TOTAL 0.8 mg/dL (0.2-1); TOT PROT 5.7 g/dl (6.4-8.2)
[2020-05-31] MEDS ORDERED: POTASSIUM CHLORIDE TABS 10 MEQ TABLET.ER (FP) PO ONE (08:41)
[2020-05-31] MEDS ORDERED: MAGNESIUM SULF 50% (8.12 MEQ/2 ML-1 GM VIAL) IVPB ONE ×3 (08:42→11:42)
[2020-05-31] MEDS ORDERED: MAGNESIUM 1GM/D5W - 1 GM/100 ML IVPB IVPB ONE (08:45)
[2020-05-31] MEDS ORDERED: POTASSIUM CHLORIDE TABS 20 MEQ TABLET.ER (FP) PO ONE (08:54)
[2020-05-31] MEDS ORDERED: MAGNESIUM SULFATE IN WATER 2 GM/50 ML IVPB IVPB ONE (09:00)
[2020-05-31] MEDS: cloNIDine HCL 0.1 MG TABLET PO SCH (09:48)
[2020-05-31] MEDS: ASPIRIN 81 MG CHEWABLE TABLETS PO SCH (09:48)
[2020-05-31] MEDS: PANTOPRAZOLE SODIUM 40 MG VIAL IVPUSH SCH (09:48)
[2020-05-31] MEDS: TAMSULOSIN HCL 0.4 MG CAP PO SCH (09:50)
[2020-05-31] MEDS ORDERED: ALLOPURINOL 100 MG TABLET (FP) PO SCH ×2 (10:00→18:40)
[2020-05-31] MEDS ORDERED: ENOXAPARIN NA (PORCINE) 30 MG/0.3 ML DISP.SYRIN SQ SCH (10:00)
[2020-05-31] MEDS: BRIMONIDINE TARTRATE 0.2% OPHTHALMIC 5 ML BOTTLE OU SCH (10:08)
--- NOTE | 2020-05-31 11:10 | PN ---
DATE OF VISIT: DATE OF DICTATION: 05/30/2020 Patient is a 75-year-old male undergoing a workup for extensive retroperitoneal lymphadenopathy. A CT scan had revealed moderate left hydroureterocele secondary to external compression from lymph nodes. The patient also had a large prostate requiring a Reed catheter. His last BUN was 32 and creatinine 2.6. His white count is 11.7, hemoglobin 10.8, hematocrit 33.1. His coagulation studies reveal a PT of 12.1, and INR of 1.03. Patient will undergo a cystoscopy, left retrograde pyelogram, insertion of a left JJ stent and possibly vaporization of the prostate. This was explained in detail, and the patient agrees. Jean Claude [id number]
--- NOTE | 2020-05-31 11:48 | PN ---
Progress Note, Physician History of Present Illness: Pt seen and examined at bedside. He is awake and alert. He denies shortness of breath. - Current Medication List Current Medications: Active Medications Acetaminophen (Tylenol -) 650 mg PO Q6H PRN PRN Reason: PAIN 4-6 Last Admin: 05/31/20 06:32 Dose: 650 mg Documented by: Allopurinol (Zyloprim -) 100 mg PO DAILY [facility] Last Admin: 05/31/20 09:49 Dose: 100 mg Documented by: Aspirin (Asa -) 81 mg PO DAILY [facility] Last Admin: 05/31/20 09:48 Dose: 81 mg Documented by: Atorvastatin Calcium (Lipitor -) 10 mg PO HS [facility] Last Admin: 05/30/20 21:50 Dose: 10 mg Documented by: Brimonidine Tartrate (Alphagan 0.2% -) 1 drop OU BID [facility] Last Admin: 05/31/20 10:08 Dose: 1 drop Documented by: Clonidine (Catapres -) 0.1 mg PO DAILY [facility] Last Admin: 05/31/20 09:48 Dose: 0.1 mg Documented by: Docusate Sodium (Colace -) 100 mg PO Q8H PRN PRN Reason: CONSTIPATION Heparin Sodium (Porcine) (Heparin -) 5,000 unit SQ TID [facility] Last Admin: 05/31/20 06:31 Dose: 5,000 unit Documented by: Sodium Chloride (Normal Saline -) 1,000 mls @ 100 mls/hr IV ASDIR [facility] Last Admin: 05/30/20 17:23 Dose: 100 mls/hr Documented by: Zoledronic Acid 3 mg/ Sodium (Chloride) 103.75 mls @ 100 mls/hr IVPB ONCE ONE Stop: 05/31/20 12:45 Insulin Aspart (Novolog Vial Sliding Scale -) 1 vial SQ [facility]; Protocol Last Admin: 05/31/20 11:27 Dose: 4 units Documented by: Insulin Detemir (Levemir Vial) 10 units SQ [facility] Last Admin: 05/30/20 21:56 Dose: Not Given Documented by: Latanoprost (Xalatan 0.005% Eye Drops -) 1 drop OU HS [facility] Last Admin: 05/30/20 21:50 Dose: 1 drop Documented by: Magnesium Sulfate (Magnesium Sulfate) 2 gm IVPB ONCE ONE Stop: 05/31/20 11:43 Pantoprazole Sodium (Protonix Iv) 40 mg IVPUSH DAILY [facility] Last Admin: 05/31/20 09:48 Dose: 40 mg Documented by: Promethazine HCl (Phenergan Injection -) 12.5 mg IVPUSH Q6H PRN PRN Reason: NAUSEA AND/OR VOMITING Tamsulosin HCl (Flomax -) 0.4 mg PO DAILY@0830 [facility] Last Admin: 05/31/20 09:50 Dose: 0.4 mg Documented by: - Objective Vital Signs: Vital Signs Temperature 98.5 F 05/31/20 09:00 Pulse Rate 85 05/31/20 09:00 Respiratory Rate 18 05/31/20 09:00 Blood Pressure 124/65 05/31/20 09:00 O2 Sat by Pulse Oximetry (%) 97 05/31/20 09:00 Constitutional: Yes: Calm Eyes: Yes: Conjunctiva Clear HENT: Yes: Atraumatic Neck: Yes: Supple Cardiovascular: Yes: S1, S2 Respiratory: Yes: CTA Bilaterally Gastrointestinal: Yes: Normal Bowel Sounds, Soft Genitourinary: Yes: Reed Present, Hematuria Musculoskeletal: Yes: WNL Edema: No Neurological: Yes: Oriented Psychiatric: Yes: Oriented Labs: CBC, BMP 05/31/20 06:50 05/31/20 06:50 INR, PTT INR 1.03 (0.83-1.09) 05/27/20 14:03 Problem List - Problems (1) MIRACLE (acute kidney injury) Code(s): N17.9 - ACUTE KIDNEY FAILURE, UNSPECIFIED (2) Confusion Code(s): R41.0 - DISORIENTATION, UNSPECIFIED (3) Hydronephrosis Code(s): N13.30 - UNSPECIFIED HYDRONEPHROSIS Qualifiers: Hydronephrosis type: with other ureteral stricture Qualified Code(s): N13.1 - Hydronephrosis with ureteral stricture, not elsewhere classified (4) Hypercalcemia Code(s): E83.52 - HYPERCALCEMIA (5) Retroperitoneal mass Code(s): R19.00 - INTRA-ABD AND PELVIC SWELLING, MASS AND LUMP, UNSP SITE Assessment/Plan Current Medications Generic Name Dose Route Start Last Admin Trade Name Freq PRN Reason Stop Dose Admin Acetaminophen 650 mg 05/30/20 11:23 05/31/20 06:32 Tylenol - PO 650 mg Q6H PRN Administration PAIN 4-6 Allopurinol 100 mg 05/31/20 10:00 05/31/20 09:49 Zyloprim - PO 100 mg DAILY [facility] Administration Aspirin 81 mg 05/30/20 15:45 05/31/20 09:48 Asa - PO 81 mg DAILY [facility] Administration Atorvastatin Calcium 10 mg 05/30/20 22:00 05/30/20 21:50 Lipitor - PO 10 mg HS [facility] Administration Brimonidine Tartrate 1 drop 05/30/20 22:00 05/31/20 10:08 Alphagan 0.2% - OU 1 drop BID [facility] Administration Clonidine 0.1 mg 05/30/20 17:00 05/31/20 09:48 Catapres - PO 0.1 mg DAILY [facility] Administration Docusate Sodium 100 mg 05/30/20 11:23 Colace - PO Q8H PRN CONSTIPATION Heparin Sodium (Porcine) 5,000 unit 05/30/20 22:00 05/31/20 06:31 Heparin - SQ 5,000 unit TID [facility] Administration Sodium Chloride 1,000 mls @ 100 mls/hr 05/30/20 16:00 05/30/20 17:23 Normal Saline - IV 100 mls/hr ASDIR [facility] Administration Zoledronic Acid 3 mg/ Sodium 103.75 mls @ 100 mls/hr 05/31/20 11:43 Chloride IVPB 05/31/20 12:45 ONCE ONE Insulin Aspart 1 vial 05/30/20 16:30 05/31/20 11:27 Novolog Vial Sliding Scale - SQ 4 units ACHS [facility] Administration Protocol Insulin Detemir 10 units 05/30/20 22:00 05/30/20 21:56 Levemir Vial SQ Not Given HS [facility] Latanoprost 1 drop 05/30/20 22:00 05/30/20 21:50 Xalatan 0.005% Eye Drops - OU 1 drop HS [facility] Administration Magnesium Sulfate 2 gm 05/31/20 11:42 Magnesium Sulfate IVPB 05/31/20 11:43 ONCE ONE Pantoprazole Sodium 40 mg 05/30/20 15:45 05/31/20 09:48 Protonix Iv IVPUSH 40 mg DAILY [facility] Administration Promethazine HCl 12.5 mg 05/30/20 16:48 Phenergan Injection - IVPUSH Q6H PRN NAUSEA AND/OR VOMITING Tamsulosin HCl 0.4 mg 05/31/20 08:30 05/31/20 09:50 Flomax - PO 0.4 mg DAILY@0830 [facility] Administration Impression 1. CKD 2. MIRACLE 3. hypercalcemia 4. htn 5. dm 6. retroperitoneal lymphadenopathy 7. prostate enlargement 8. left hydro 9. left retroperitoneal mass Plan - renal function improving - calcium remains elevated - will give a dose of zometa - will need biopsy of mass - cont to monitor lytes
--- NOTE | 2020-05-31 11:58 | ECHO ---
Name: RANJIT PINON Exam:Adult Echocardiogram Study Date: 05/31/2020 10:23 AM Age: 75 yrs Reason For Study: SOB MMode/2D Measurements & Calculations IVSd: 1.4 cm Ao root diam: 4.3 cm LVIDd: 3.6 cm LA dimension: 3.0 cm LVIDs: 2.1 cm ACS: 2.3 cm LVPWd: 0.78 cm LVPWs: 0.91 cm EDV(Teich): 53.3 ml ESV(Teich): 14.2 ml LVOT diam: 2.3 cm TAPSE: 1.5 cm RV S Vijay: 13.4 cm/sec Doppler Measurements & Calculations MV V2 max: 103.2 cm/sec MV E max vijay: 77.0 cm/sec MV max P.3 mmHg MV A max vijay: 74.0 cm/sec MV V2 mean: 60.3 cm/sec MV E/A: 1.0 MV mean P.8 mmHg MV dec time: 0.23 sec MV V2 VTI: 28.2 cm Ao V2 max: 129.0 cm/sec LV V1 max P.2 mmHg Ao max P.7 mmHg LV V1 max: 113.5 cm/sec CRESCENCIO(V,D): 3.6 cm2 TR max vijay: 289.1 cm/sec PA V2 max: 111.5 cm/sec TR max P.4 mmHg PA max P.0 mmHg PI end-d vijay: 182.8 cm/sec Med Peak E' Vijay: 6.6 cm/sec Med E/e': 11.6 Lat Peak E' Vijay: 8.9 cm/sec Lat E/e': 8.7 Left Ventricle There is mild asymmetric left ventricular hypertrophy. Left ventricular systolic function is normal. Ejection Fraction = 70%. The transmitral spectral Doppler flow pattern is suggestive of impaired LV relaxation . The left ventricular wall motion is normal. Right Ventricle The right ventricle is normal in size and function. Atria Normal left and right atrial size and function. Mitral Valve There is mild mitral valve thickening. There is trace mitral regurgitation. Tricuspid Valve The tricuspid valve is not well visualized, but is grossly normal. There was insufficient TR detected to calculate RV systolic pressure. Aortic Valve There is mild aortic sclerosis.;. No hemodynamically significant valvular aortic stenosis. Pulmonic Valve The pulmonic valve is not well seen, but is grossly normal. Mild pulmonic valvular regurgitation. Great Vessels The aortic root is normal size. Pericardium/Pleura There is no pericardial effusion. Interpretation Summary There is mild asymmetric left ventricular hypertrophy. Left ventricular systolic function is normal. Ejection Fraction = 70%. The right ventricle is normal in size and function. Normal left and right atrial size and function. There is mild aortic sclerosis.; No hemodynamically significant valvular aortic stenosis. There is mild mitral valve thickening. There is trace mitral regurgitation. MD Germania Allen 05/31/2020 11:57 AM
[2020-05-31] MEDS ORDERED: ZOLEDRONIC ACID 3 MG in SODIUM CHLORIDE 100 ML IVPB ONE (12:00)
--- NOTE | 2020-05-31 12:32 | OP ---
DATE OF OPERATION: 05/30/2020 PREOPERATIVE DIAGNOSES: Left hydroureteronephrosis, urinary retention with prostatism. POSTOPERATIVE DIAGNOSES: Left hydroureteronephrosis, urinary retention with prostatism. OPERATIVE PROCEDURE: Cystourethroscopy, a left retrograde pyelogram, a left ureteroscopy, placement of left JJ stent, transurethral resection of the prostate, and transurethral electrovaporization of the prostate. ANESTHESIA: General, spinal. SURGEON: Hever Garcia MD DESCRIPTION OF PROCEDURE: Under above-stated anesthesia, patient is prepped and draped in the usual sterile manner. He is placed in the dorsal lithotomy position. Cystoscopy revealed a normal anterior urethra. Prostatic urethra revealed trilobar hypertrophy of the prostate. There was lateral lobe kissing. The bladder revealed a grade 2 trabeculation. Ureteral orifices were within normal limits. Efflux of clear urine was noted from the right; none was seen from the left. Left retrograde pyelogram was performed. This revealed complete obstruction of the mid-ureter with proximal severe hydroureteronephrosis. A glidewire was attempted to pass, but this was unsuccessful. Therefore, ureteroscopy was performed. This revealed a kinking of the mid-ureter. Under direct vision, a glidewire was passed into the renal pelvis. The ureteroscope was removed. The wire was back loaded into the cystoscope, and a 24-cm 6-Congolese left JJ stent was placed in the proper place. X-rays confirmed good position of the stent. The prostate was then resected with bipolar resectoscope. Prostate chips were evacuated with an Ellik evacuator. Excess tissue was vaporized with the bipolar button. No active bleeding was noted. The bladder was emptied. The 24-Congolese 3-way 30-mL Reed was inserted. This was connected to a drainage bag. Patient tolerated the procedure well. He returned to the recovery room in good condition. HEVER GARCIA M.D. [id number]
--- NOTE | 2020-05-31 13:54 | PN ---
Progress Note (short form) - Note Progress Note: x urology note- s/p turp/tuvp, vss, weinberg with cbi-blood tinged, no clots, abd.=soft, n/t plan- d/c cbi in am and attach weinberg to leg bag. ok for transfer to [facility].
--- NOTE | 2020-05-31 14:25 | PN ---
Teaching Attending Note Name of Resident: Joel Ritchie ATTENDING PHYSICIAN STATEMENT I saw and evaluated the patient. I reviewed the resident's note and discussed the case with the resident. I agree with the resident's findings and plan as documented. SUBJECTIVE: Feels well . No abdominal pain. No fevers/chills. OBJECTIVE: Afebrile, Hemodynamically Stable. Last Vital Signs Temp Pulse Resp BP Pulse Ox 98.0 F 77 18 124/66 97 05/31/20 13:53 05/31/20 13:53 05/31/20 13:53 05/31/20 13:53 05/31/20 09:00 Heart - S1, S2, RRR Lungs - clear to auscultation Abdomen - soft, non-tender. Bowel Sounds normal. - Reed in situ with CBI and blood tinged urine. Extremities - No edema, no calf tenderness. Neuro - AAO x 3. Tone/Power normal all extremities. Laboratory Results - last 24 hr 05/28/20 05/28/20 05/29/20 05:30 09:05 08:13 WBC RBC Hgb Hct MCV MCH MCHC RDW Plt Count MPV Absolute Neuts (auto) Neutrophils % Lymphocytes % Monocytes % Eosinophils % Basophils % Nucleated RBC % Sodium Potassium Chloride Carbon Dioxide Anion Gap BUN Creatinine Est GFR (CKD-EPI)AfAm Est GFR (CKD-EPI)NonAf POC Glucometer Random Glucose Calcium Phosphorus Magnesium Total Bilirubin AST ALT Alkaline Phosphatase Total Protein Total Protein (PEP) 6.3 Albumin Albumin (PEP) 2.9 Globulin 3.4 Albumin/Globulin Ratio 0.9 Beta Globulins 0.9 Zimv-1-Qrdcvcrqrjljg 4.9 H WONG M-Rigoberto Not observed HTLV I/II Antibody Negative 05/30/20 05/30/20 05/31/20 17:16 21:53 06:04 WBC RBC Hgb Hct MCV MCH MCHC RDW Plt Count MPV Absolute Neuts (auto) Neutrophils % Lymphocytes % Monocytes % Eosinophils % Basophils % Nucleated RBC % Sodium Potassium Chloride Carbon Dioxide Anion Gap BUN Creatinine Est GFR (CKD-EPI)AfAm Est GFR (CKD-EPI)NonAf POC Glucometer 180 144 121 Random Glucose Calcium Phosphorus Magnesium Total Bilirubin AST ALT Alkaline Phosphatase Total Protein Total Protein (PEP) Albumin Albumin (PEP) Globulin Albumin/Globulin Ratio Beta Globulins Hgla-8-Nvlejtwiqicii WONG M-Rigoberto HTLV I/II Antibody 05/31/20 05/31/20 05/31/20 06:50 06:50 11:04 WBC 9.3 RBC 3.40 L Hgb 9.7 L Hct 28.9 L MCV 85.1 MCH 28.6 MCHC 33.7 RDW 14.2 Plt Count 273 MPV 7.8 Absolute Neuts (auto) 7.8 Neutrophils % 83.5 H Lymphocytes % 9.1 Monocytes % 6.7 Eosinophils % 0.3 D Basophils % 0.4 D Nucleated RBC % 0 Sodium 141 Potassium 3.4 L Chloride 107 Carbon Dioxide 24 Anion Gap 10 BUN 33.4 H Creatinine 2.2 H Est GFR (CKD-EPI)AfAm 32.52 Est GFR (CKD-EPI)NonAf 28.06 POC Glucometer 208 Random Glucose 127 H Calcium 10.7 H Phosphorus 2.5 Magnesium 1.6 L Total Bilirubin 0.8 AST 23 ALT 10 L Alkaline Phosphatase 58 Total Protein 5.7 L Total Protein (PEP) Albumin 2.3 L Albumin (PEP) Globulin Albumin/Globulin Ratio Beta Globulins Pvpu-1-Cvvocnygaaqgx WONG M-Rigoberto HTLV I/II Antibody Current Medications Generic Name Dose Route Start Last Admin Trade Name Freq PRN Reason Stop Dose Admin Acetaminophen 650 mg 05/30/20 11:23 05/31/20 06:32 Tylenol - PO 650 mg Q6H PRN Administration PAIN 4-6 Allopurinol 100 mg 05/31/20 10:00 05/31/20 09:49 Zyloprim - PO 100 mg DAILY TAYLOR Administration Aspirin 81 mg 05/30/20 15:45 05/31/20 09:48 Asa - PO 81 mg DAILY TAYLOR Administration Atorvastatin Calcium 10 mg 05/30/20 22:00 05/30/20 21:50 Lipitor - PO 10 mg HS TAYLOR Administration Brimonidine Tartrate 1 drop 05/30/20 22:00 05/31/20 10:08 Alphagan 0.2% - OU 1 drop BID TAYLOR Administration Clonidine 0.1 mg 05/30/20 17:00 05/31/20 09:48 Catapres - PO 0.1 mg DAILY TAYLOR Administration Docusate Sodium 100 mg 05/30/20 11:23 Colace - PO Q8H PRN CONSTIPATION Heparin Sodium (Porcine) 5,000 unit 05/30/20 22:00 05/31/20 13:06 Heparin - SQ 5,000 unit TID TAYLOR Administration Sodium Chloride 1,000 mls @ 100 mls/hr 05/30/20 16:00 05/30/20 17:23 Normal Saline - IV 100 mls/hr ASDIR TAYLOR Administration Insulin Aspart 1 vial 05/30/20 16:30 05/31/20 11:27 Novolog Vial Sliding Scale - SQ 4 units ACHS TAYLOR Administration Protocol Insulin Detemir 10 units 05/30/20 22:00 05/30/20 21:56 Levemir Vial SQ Not Given HS TAYLOR Latanoprost 1 drop 05/30/20 22:00 05/30/20 21:50 Xalatan 0.005% Eye Drops - OU 1 drop HS TAYLOR Administration Pantoprazole Sodium 40 mg 05/30/20 15:45 05/31/20 09:48 Protonix Iv IVPUSH 40 mg DAILY TAYLOR Administration Promethazine HCl 12.5 mg 05/30/20 16:48 Phenergan Injection - IVPUSH Q6H PRN NAUSEA AND/OR VOMITING Tamsulosin HCl 0.4 mg 05/31/20 08:30 05/31/20 09:50 Flomax - PO 0.4 mg DAILY@0830 TAYLOR Administration Home Medications Medication Instructions Recorded Brimonidine Tartrate [Alphagan 1 drop OU BID 10/19/15 0.2% -] Latanoprost 0.005% Eye Drops 1 drop OU HS 10/19/15 [Xalatan 0.005% Eye Drops -] Tamsulosin HCl [Flomax -] 0.4 mg PO DAILY 10/19/15 Timolol 0.5% [Timoptic 0.5%] 1 drop OU BID 10/19/15 cloNIDine HCL [Catapres -] 0.1 tab PO DAILY 10/19/15 Allopurinol [Zyloprim -] 100 mg PO DAILY 11/10/17 Valsartan/Hydrochlorothiazide 1 each PO DAILY 11/10/17 [Valsartan-Hctz 320-25 mg Tab] Torsemide [Demadex -] 20 mg PO DAILY 06/06/18 Aspirin [ASA -] 1 tab PO DAILY 02/05/19 Fluticasone Prop 0.05% Nasal 2 spray NS DAILY 02/11/19 [Flonase -] Cromolyn Sodium [Crolom -] 1 drop OU ASDIR 02/20/20 Docusate Sodium [Dulcolax Stool 100 mg PO DAILY PRN 02/20/20 Softener] Acetaminophen [Tylenol .Regular 650 mg PO Q6H PRN tablet 03/28/20 Strength -] Aspirin Coated [Ecotrin -] 81 mg PO DAILY tablet.ec 03/28/20 Atorvastatin Ca [Lipitor] 10 mg PO HS #30 tablet 03/28/20 Cephalexin Monohydrate [Keflex -] 500 mg PO BID #10 capsule 03/28/20 Insulin (Levemir) [Levemir Vial] 10 units SQ HS #30 vial 03/28/20 Insulin Lispro Protamin/Lispro 10 unit SQ HS #30 vial 03/28/20 [Humalog Mix 50-50 Vial] Insulin Sliding Scale [Novolog 1 vial SQ TIDAC units 03/28/20 Vial Sliding Scale -] Polyethylene Glycol 3350 [Miralax 17 gm PO DAILY bottle 03/28/20 119 gm Btl -] ASSESSMENT AND PLAN: 75 year old male with past medical history of hypertension, hyperlipidemia, DM 2 presents with AMS, and found to have hypercalcemia with left psoas/Retroperitoneal mass concerning for LAD/malignancy and compression of the left ureter resulting in hydronephrosis. CT A/P Large prostate, mild L hydro, groundglass opacities at bases, retroperitoneal LAD. 1. Acute Metabolic Encephalopathy secondary to Hypercalcemia - improving. s/p Calcitonin. IV hydration ongoing Bisphosphonates ordered given improving renal function. Nephrology following. 2. MIRACLE on CKD 3 sec to obstruction - improving POD 1 s/p Cystoscopy/TURP/TUVP/JJ Stent placement by Urology Torsemide and Hyzaar held. Continue CBI/IV hydration DC CBI in AM as per Urology. 3. Retroperitoneal Mass/Lymphadenopathy ?Lymphoma IR consulted for biopsy Hypercalcemia being managed by Nephrology s/p calcitonin, now bisphosphonate ordered. Elevated Uric Acid - placed on Allopurinol May need Bone Marrow Bx. Oncology following - recommend transferring to [facility] for further diagnostic work-up and treatment once cleared by Urology. 4. BPH - on Tamsulosin 5. HTN - Continue Clonidine. Hold Hyzaar. 6. DM 2 - A1C 8.3. Continue Levemir and Novolog sliding scale. 7. R Thyromegaly on CT Chest with mildly enlarged precarinal LNs - will need further imaging and possible Bx Will defer to Oncology re: further Ix DVT Px - will hold further Heparin SQ due to blood tinged urine.
[2020-05-31] MEDS: SODIUM CHLORIDE 1,000 ML IV SCH (16:00)
--- NOTE | 2020-05-31 16:12 | PN ---
Physical Exam: SUBJECTIVE: Patient seen and examined. Pt. states he is not in any pain. Pt. states that his doctors already knew what was going on with him. Pt. declined to answer any more questions and asked me to leave him alone so that he could rest. Pt. stable for transfer to [facility] once Rpt. Covid-19 test results as negative. Discussed with Primary team OBJECTIVE: Vital Signs Period Temp Pulse Resp BP Sys/Loredo Pulse Ox Last 24 Hr 98.0 F-98.5 F 77-122 18-20 119-138/54-75 96-98 Pt. refused. Pt. saturating at 99% on room monitor and did not appear in any physical distress. Laboratory Results - last 24 hr 05/28/20 05/29/20 05/30/20 05:30 08:13 17:16 WBC RBC Hgb Hct MCV MCH MCHC RDW Plt Count MPV Absolute Neuts (auto) Neutrophils % Lymphocytes % Monocytes % Eosinophils % Basophils % Nucleated RBC % Sodium Potassium Chloride Carbon Dioxide Anion Gap BUN Creatinine Est GFR (CKD-EPI)AfAm Est GFR (CKD-EPI)NonAf POC Glucometer 180 Random Glucose Calcium Phosphorus Magnesium Total Bilirubin AST ALT Alkaline Phosphatase Total Protein Total Protein (PEP) 6.3 Albumin Albumin (PEP) 2.9 Globulin 3.4 Albumin/Globulin Ratio 0.9 Beta Globulins 0.9 WONG M-Rigoberto Not observed HTLV I/II Antibody Negative 05/30/20 05/31/20 05/31/20 21:53 06:04 06:50 WBC 9.3 RBC 3.40 L Hgb 9.7 L Hct 28.9 L MCV 85.1 MCH 28.6 MCHC 33.7 RDW 14.2 Plt Count 273 MPV 7.8 Absolute Neuts (auto) 7.8 Neutrophils % 83.5 H Lymphocytes % 9.1 Monocytes % 6.7 Eosinophils % 0.3 D Basophils % 0.4 D Nucleated RBC % 0 Sodium Potassium Chloride Carbon Dioxide Anion Gap BUN Creatinine Est GFR (CKD-EPI)AfAm Est GFR (CKD-EPI)NonAf POC Glucometer 144 121 Random Glucose Calcium Phosphorus Magnesium Total Bilirubin AST ALT Alkaline Phosphatase Total Protein Total Protein (PEP) Albumin Albumin (PEP) Globulin Albumin/Globulin Ratio Beta Globulins WONG M-Rigoberto HTLV I/II Antibody 05/31/20 05/31/20 06:50 11:04 WBC RBC Hgb Hct MCV MCH MCHC RDW Plt Count MPV Absolute Neuts (auto) Neutrophils % Lymphocytes % Monocytes % Eosinophils % Basophils % Nucleated RBC % Sodium 141 Potassium 3.4 L Chloride 107 Carbon Dioxide 24 Anion Gap 10 BUN 33.4 H Creatinine 2.2 H Est GFR (CKD-EPI)AfAm 32.52 Est GFR (CKD-EPI)NonAf 28.06 POC Glucometer 208 Random Glucose 127 H Calcium 10.7 H Phosphorus 2.5 Magnesium 1.6 L Total Bilirubin 0.8 AST 23 ALT 10 L Alkaline Phosphatase 58 Total Protein 5.7 L Total Protein (PEP) Albumin 2.3 L Albumin (PEP) Globulin Albumin/Globulin Ratio Beta Globulins WONG M-Rigoberto HTLV I/II Antibody Active Medications Generic Name Dose Route Start Last Admin Trade Name Freq PRN Reason Stop Dose Admin Acetaminophen 650 mg 05/30/20 11:23 05/31/20 06:32 Tylenol - PO 650 mg Q6H PRN Administration PAIN 4-6 Allopurinol 100 mg 05/31/20 10:00 05/31/20 09:49 Zyloprim - PO 100 mg DAILY TAYLOR Administration Aspirin 81 mg 05/30/20 15:45 05/31/20 09:48 Asa - PO 81 mg DAILY TAYLOR Administration Atorvastatin Calcium 10 mg 05/30/20 22:00 05/30/20 21:50 Lipitor - PO 10 mg HS TAYLOR Administration Brimonidine Tartrate 1 drop 05/30/20 22:00 05/31/20 10:08 Alphagan 0.2% - OU 1 drop BID TAYLOR Administration Clonidine 0.1 mg 05/30/20 17:00 05/31/20 09:48 Catapres - PO 0.1 mg DAILY TAYLOR Administration Docusate Sodium 100 mg 05/30/20 11:23 Colace - PO Q8H PRN CONSTIPATION Heparin Sodium (Porcine) 5,000 unit 05/30/20 22:00 05/31/20 13:06 Heparin - SQ 5,000 unit TID TAYLOR Administration Sodium Chloride 1,000 mls @ 100 mls/hr 05/30/20 16:00 05/30/20 17:23 Normal Saline - IV 100 mls/hr ASDIR TAYLOR Administration Insulin Aspart 1 vial 05/30/20 16:30 05/31/20 11:27 Novolog Vial Sliding Scale - SQ 4 units ACHS TAYLOR Administration Protocol Insulin Detemir 10 units 05/30/20 22:00 05/30/20 21:56 Levemir Vial SQ Not Given HS TAYLOR Latanoprost 1 drop 05/30/20 22:00 05/30/20 21:50 Xalatan 0.005% Eye Drops - OU 1 drop HS TAYLOR Administration Pantoprazole Sodium 40 mg 05/30/20 15:45 05/31/20 09:48 Protonix Iv IVPUSH 40 mg DAILY TAYLOR Administration Promethazine HCl 12.5 mg 05/30/20 16:48 Phenergan Injection - IVPUSH Q6H PRN NAUSEA AND/OR VOMITING Tamsulosin HCl 0.4 mg 05/31/20 08:30 05/31/20 09:50 Flomax - PO 0.4 mg DAILY@0830 TAYLOR Administration ASSESSMENT/PLAN: Pt. is a 75-y.o. M w/ PMHx. of HTN, HLD, and DM2 presents with AMS and found to have symptomatic hypercalcemia with left psoas mass concerning for malignancy and compression of the left ureter resulting in hydronephrosis. We were called to assess for malignancy. #Altered Mental Status 2/2 Acute Metabolic Encephalopathy from Hypercalcemia? Head CT negative for metastases or acute pathology CT Abdomen Pelvis: positive for retroperitoneal mass with left hydronepphrosis, pelvic and inguinal LAD, markedly enlarged prostate, GGO in bibasilar lungs, CT Chest: positive for percarinal LAD Discussed with Dr. Hernandez and Pt. will need CT abd. and Pelvis w/ IV contrast prior to biopsy to assess vasculature in that area. 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 Prostate CA; HTLV1/II antibodies negative Ultrasound of lower extremities shows b/l lymphadenopathy L>R c/w Allopurinol(increased to 150mg daily) and IVF for hypercalcemia, s/p 48Hrs of calcitonin, not a candidate for Zometa at this time, will reassess in AM(risks vs. benefits) Pt. to be transferred to [facility] pending Covid-19 negative result. Pt. is accepted. Discussed with Primary team Daily Chemistries, Calcium, LDH and Uric Acid Visit type - Emergency Visit Emergency Visit: Yes ED Registration Date: 05/27/20 Care time: The patient presented to the Emergency Department on the above date and was hospitalized for further evaluation of their emergent condition. - New Patient This patient is new to me today: No - Critical Care Critical Care patient: No - Discharge Referral Referred to [facility] Med P.C.: No - Medication Review Med list reviewed for High Risk Meds patients 65 and older: Yes ATTENDING PHYSICIAN STATEMENT I saw and evaluated the patient. I reviewed the resident's note and discussed the case with the resident. I agree with the resident's findings and plan as documented. SUBJECTIVE: OBJECTIVE: ASSESSMENT AND PLAN:
--- NOTE | 2020-05-31 19:01 | PN ---
Physical Exam: SUBJECTIVE: NO overnight events. Patient seen and examined. Nursing reported blood at penile tip due to pt's continual tugging and attempts to remove weinberg. OBJECTIVE: Vital Signs Period Temp Pulse Resp BP Sys/Loredo Pulse Ox Last 24 Hr 98.0 F-98.5 F 77-120 18-20 119-138/65-75 96-98 GENERAL: The patient is awake, easily distracted, Oriented only to name. recognizes he's in a hospital, but thinks it's [facility]. HEENT: NT/NC. No ptosis. MMM LUNGS: Breath sounds equal, clear to auscultation bilaterally, no wheezes, no crackles, no accessory muscle use. HEART: Regular rate and rhythm, S1, S2 without murmur, rub or gallop. ABDOMEN: Soft, nontender, nondistended, normoactive bowel sounds EXTREMITIES: 2+ pulses, warm, well-perfused, no edema. NEUROLOGICAL: Normal speech, gait not observed. PSYCH: Normal mood, normal affect. : blood at penile meatus. Pt has CBI via [address] weinberg. Laboratory Results - last 24 hr 05/28/20 05/30/20 05/30/20 05:30 06:38 21:53 WBC RBC Hgb Hct MCV MCH MCHC RDW Plt Count MPV Absolute Neuts (auto) Neutrophils % Lymphocytes % Monocytes % Eosinophils % Basophils % Nucleated RBC % Sodium Potassium Chloride Carbon Dioxide Anion Gap BUN Creatinine Est GFR (CKD-EPI)AfAm Est GFR (CKD-EPI)NonAf POC Glucometer 144 Random Glucose Calcium Phosphorus Magnesium Total Bilirubin AST ALT Alkaline Phosphatase Total Protein Total Protein (PEP) 6.3 Albumin Albumin (PEP) 2.9 Globulin 3.4 Albumin/Globulin Ratio 0.9 Beta Globulins 0.9 Prostate Specific Ag 5.40 H WONG M-Rigoberto Not observed 05/31/20 05/31/20 05/31/20 06:04 06:50 06:50 WBC 9.3 RBC 3.40 L Hgb 9.7 L Hct 28.9 L MCV 85.1 MCH 28.6 MCHC 33.7 RDW 14.2 Plt Count 273 MPV 7.8 Absolute Neuts (auto) 7.8 Neutrophils % 83.5 H Lymphocytes % 9.1 Monocytes % 6.7 Eosinophils % 0.3 D Basophils % 0.4 D Nucleated RBC % 0 Sodium 141 Potassium 3.4 L Chloride 107 Carbon Dioxide 24 Anion Gap 10 BUN 33.4 H Creatinine 2.2 H Est GFR (CKD-EPI)AfAm 32.52 Est GFR (CKD-EPI)NonAf 28.06 POC Glucometer 121 Random Glucose 127 H Calcium 10.7 H Phosphorus 2.5 Magnesium 1.6 L Total Bilirubin 0.8 AST 23 ALT 10 L Alkaline Phosphatase 58 Total Protein 5.7 L Total Protein (PEP) Albumin 2.3 L Albumin (PEP) Globulin Albumin/Globulin Ratio Beta Globulins Prostate Specific Ag WONG M-Rigoberto 05/31/20 05/31/20 11:04 16:47 WBC RBC Hgb Hct MCV MCH MCHC RDW Plt Count MPV Absolute Neuts (auto) Neutrophils % Lymphocytes % Monocytes % Eosinophils % Basophils % Nucleated RBC % Sodium Potassium Chloride Carbon Dioxide Anion Gap BUN Creatinine Est GFR (CKD-EPI)AfAm Est GFR (CKD-EPI)NonAf POC Glucometer 208 115 Random Glucose Calcium Phosphorus Magnesium Total Bilirubin AST ALT Alkaline Phosphatase Total Protein Total Protein (PEP) Albumin Albumin (PEP) Globulin Albumin/Globulin Ratio Beta Globulins Prostate Specific Ag WONG M-Rigoberto Active Medications Generic Name Dose Route Start Last Admin Trade Name Freq PRN Reason Stop Dose Admin Acetaminophen 650 mg 05/30/20 11:23 05/31/20 06:32 Tylenol - PO 650 mg Q6H PRN Administration PAIN 4-6 Allopurinol 150 mg 05/31/20 18:40 Zyloprim - PO DAILY TAYLOR Aspirin 81 mg 05/30/20 15:45 05/31/20 09:48 Asa - PO 81 mg DAILY TAYLOR Administration Atorvastatin Calcium 10 mg 05/30/20 22:00 05/30/20 21:50 Lipitor - PO 10 mg HS TAYLOR Administration Clonidine 0.1 mg 05/30/20 17:00 05/31/20 09:48 Catapres - PO 0.1 mg DAILY TAYLOR Administration Docusate Sodium 100 mg 05/30/20 11:23 Colace - PO Q8H PRN CONSTIPATION Heparin Sodium (Porcine) 5,000 unit 05/30/20 22:00 05/31/20 13:06 Heparin - SQ 5,000 unit TID TAYLOR Administration Sodium Chloride 1,000 mls @ 100 mls/hr 05/30/20 16:00 05/31/20 16:00 Normal Saline - IV 100 mls/hr ASDIR TAYLOR Administration Insulin Aspart 1 vial 05/30/20 16:30 05/31/20 16:59 Novolog Vial Sliding Scale - SQ Not Given ACHS [facility] Protocol Insulin Detemir 10 units 05/30/20 22:00 05/30/20 21:56 Levemir Vial SQ Not Given HS TAYLOR Latanoprost 1 drop 05/30/20 22:00 05/30/20 21:50 Xalatan 0.005% Eye Drops - OU 1 drop HS TAYLOR Administration Pantoprazole Sodium 40 mg 05/30/20 15:45 05/31/20 09:48 Protonix Iv IVPUSH 40 mg DAILY TAYLOR Administration Promethazine HCl 12.5 mg 05/30/20 16:48 Phenergan Injection - IVPUSH Q6H PRN NAUSEA AND/OR VOMITING Tamsulosin HCl 0.4 mg 05/31/20 08:30 05/31/20 09:50 Flomax - PO 0.4 mg DAILY@0830 TAYLOR Administration ASSESSMENT/PLAN: 75 YO M PMH DM, HLD, HTN, GERD, gout, BPH p/w AMS. Admitted for hypercalcemia, and being managed for retroperitoneal mass, and hydronephrosis 2/2 this mass. #ACute metabolic encephalophathy 2/2 Hypercalcemia -Alert, Awake, Oriented to name #Hypercalcemia 2/2 malignancy -2/2 lymphoma (mass involving L psoas mass on CTAP) vs prostate cancer (markedly enlarged prostate). -renal c/s appreciated. s/p calcitonin. Cr clearance 31 ml/min. 3 mg Zometa given today. -monitor Ca2+ #MIRACLE on CKD -Baseline Cr 1.8. prerenal MIRACLE 2/2 dehydration, which improved. retroperitoneal mass compressing L ureter causing hydronephrosis. post-renal MIRACLE. -POD#1 cystoscopy. L ureteroscopy. jj stent and turp/tuvp. -c/w NS @ 100 ml/hr -Hold home torsemide -Urology c/s appreciated. DC CBI in AM & attach weinberg to leg bag #Malignancy -possibly evaluate for lytic lesion w/ bone scan -CTAP w/ IV contrast & PT/INR before lymph node biopsy - lymphoma (mass involving L psoas mass on CTAP) vs prostate cancer (markedly enlarged prostate). HTLV1/II antibodies negative -allopurinol 150 mg for increased uric acid Oncology c/s appreciated. Transfer to [facility] after another negative COVID #BPH c/w tamsulosin (home dose) #HTN Hold Hyzaar because of MIRACLE #DM HgbA1c 8.3 ISS -BGM -c/w Levemir 10 units at night #DVT PPX -Heparin SQ held due to blood in urine #FEN NS monitor lytes diabetic/Na controlled diet #DISPO maintain Tele Visit type - Emergency Visit Emergency Visit: Yes ED Registration Date: 05/27/20 Care time: The patient presented to the Emergency Department on the above date and was hospitalized for further evaluation of their emergent condition. - New Patient This patient is new to me today: No - Critical Care Critical Care patient: No - Medication Review Med list reviewed for High Risk Meds patients 65 and older: Yes ATTENDING PHYSICIAN STATEMENT I saw and evaluated the patient. I reviewed the resident's note and discussed the case with the resident. I agree with the resident's findings and plan as documented. SUBJECTIVE: OBJECTIVE: ASSESSMENT AND PLAN:
[2020-05-31] MEDS ORDERED: ARTIFICIAL TEARS (POLYVINYL ALCOHOL) OPTH DROPS OU PRN (20:02)
[2020-05-31] MEDS: ATORVASTATIN CA 10 MG TABLET (FP) PO SCH (21:43)
[2020-05-31] MEDS: LATANOPROST 0.005% OPHTH SOLN 2.5ML BOTTLE OU SCH (21:44)
[2020-05-31] MEDS: INSULIN (LEVEMIR) 100 UNITS/ML UNITS SQ SCH (22:18)
--- NOTE | 2020-05-31 22:56 | PN.HO ---
Progress Note (short form) - Note Progress Note: Patient seen and examined Oriented in place nad person. answering questions but still mildly confused more alert c/o left leg pain/ hematuria Last Vital Signs Temp Pulse Resp BP Pulse Ox 99.2 F 90 20 152/76 96 05/30/20 05:52 05/30/20 05:52 05/30/20 05:52 05/30/20 05:52 05/30/20 05:52 AFVSS Cor: RSR, No murmurs, No gallops Lungs: Clear to P&A Abd: Soft, Normal bowel sounds, No organomegaly Ext:No significant edema LLE 4/5 strength Abnormal Lab Results 05/28/20 05/29/20 05/29/20 05:30 08:13 08:13 Hgb 11.5 L Hct 34.2 L Anion Gap 7 L BUN 32.5 H Creatinine 2.8 H Random Glucose 142 H Calcium 11.7 H Magnesium 1.5 L Prostate Specific Ag 5.70 H Active Medications Generic Name Dose Route Start Last Admin Trade Name Derrickq PRN Reason Stop Dose Admin Allopurinol 150 mg 05/29/20 16:41 Zyloprim - PO DAILY TAYLOR Aspirin 81 mg 05/28/20 10:00 05/29/20 09:35 Asa - PO 81 mg DAILY TAYLOR Administration Atorvastatin Calcium 10 mg 05/27/20 22:00 05/29/20 22:04 Lipitor - PO 10 mg HS TAYLOR Administration Brimonidine Tartrate 1 drop 05/27/20 22:00 05/29/20 22:11 Alphagan 0.2% - OU 1 drop BID TAYLOR Administration Clonidine 0.01 mg 05/27/20 17:45 05/29/20 09:35 Catapres - PO 0.01 mg DAILY TAYLOR Administration Enoxaparin Sodium 30 mg 05/29/20 10:00 05/29/20 09:35 Lovenox - SQ 30 mg DAILY TAYLOR Administration Sodium Chloride 1,000 mls @ 125 mls/hr 05/28/20 18:19 05/29/20 18:40 Normal Saline - IV 125 mls/hr ASDIR TAYLOR Administration Insulin Aspart 1 vial 05/27/20 22:00 05/29/20 22:06 Novolog Vial Sliding Scale - SQ Not Given ACHS [facility] Protocol Insulin Detemir 10 units 05/27/20 22:00 05/29/20 22:06 Levemir Vial SQ Not Given HS TAYLOR Latanoprost 1 drop 05/27/20 22:00 05/29/20 22:11 Xalatan 0.005% Eye Drops - OU 1 drop HS TAYLOR Administration Pantoprazole Sodium 40 mg 05/30/20 10:00 Protonix Iv IVPB DAILY TAYLOR Polyethylene Glycol 17 gm 05/28/20 10:00 05/29/20 09:45 Miralax (For Daily Use) - PO 17 grams DAILY TAYLOR Administration Tamsulosin HCl 0.4 mg 05/27/20 17:45 05/29/20 09:35 Flomax - PO 0.4 mg DAILY TAYLOR Administration Timolol Maleate 1 drop 05/27/20 22:00 05/29/20 22:11 Timoptic 0.5% OU 1 drop BID TAYLOR Administration A/P 75 y/o patient with hypercalcemia/ retroperitoeal adenopathy/inguinal adenopathy Concern for ATLL HTLV serology/ peripheral flow pending Monitor LDH /uric aacid increase allopurinol to 150mg daily continue iv hydration protonix Inguinal u/S --b/l abnormal adenopathy ---- Will order biopsy of inguinal nodes hypercalcemia -- s/p calcitonin on iv fluids zometa once renal function improves further or denosumab if renal function still impaired Lt. hydronephrosis due to retroperitnoneal adenopathy/enlarged prostate -- s/p cystoscopy/stent check PSA LDH/PSA minimally elevated Repeat COVID pending prior to transfer to [facility] will get CT T/L spine non contrast once CBI is discontinued artificial tears
[2020-06-01 05:58] VITALS: TEMP 97.7
[2020-06-01] MEDS: SODIUM CHLORIDE 1,000 ML IV SCH (06:08)
[2020-06-01] MEDS: INSULIN SLIDING SCALE (NOVOLOG) 1 VIAL SQ SCH (06:09)
[2020-06-01 08:04] LABS: ALBUMIN 2.1 g/dl (3.4-5.0); BILIRUBIN,TOTAL 0.5 mg/dL (0.2-1); BLOOD UREA NITROGEN 25.7 mg/dL (7-18); CALCIUM 10.3 mg/dL (8.5-10.1); CREATININE 1.9 mg/dL (0.55-1.3); MAGNESIUM 1.7 mg/dL (1.8-2.4); POTASSIUM 3.3 mmol/L (3.5-5.1); TOT PROT 5.7 g/dl (6.4-8.2)
[2020-06-01 08:06] LABS: BASO % 0.3 % (0-2.0); EOS % 1.3 % (0-4.5); HEMATOCRIT 29.2 % (35.4-49); HEMOGLOBIN 9.6 GM/dL (11.7-16.9); LYMPH % 18.1 % (8-40); MCHC 33.1 g/dl (32.0-35.9); MEAN CELL VOLUME 84.6 fl (80-96); MONO % 6.3 % (3.8-10.2); PLATELET COUNT 282 K/MM3 (134-434); RBC 3.45 M/mm3 (4.00-5.60); RDW 14.2 % (11.9-15.9); WHITE BLOOD COUNT 7.2 K/mm3 (4.0-10.0)
[2020-06-01] MEDS ORDERED: MAGNESIUM 2GM/50ML STERILE WATER IVPB IVPB ONE (09:00)
[2020-06-01] MEDS ORDERED: POTASSIUM CHLORIDE TABS 20 MEQ TABLET.ER (FP) PO ONE (09:00)
[2020-06-01] MEDS ORDERED: POTASSIUM PHOSPHATE 30 MM in SODIUM CHLORIDE 500 ML IVPB ONE (09:00)
[2020-06-01] MEDS: PANTOPRAZOLE SODIUM 40 MG VIAL IVPUSH SCH (10:52)
[2020-06-01] MEDS: ASPIRIN 81 MG CHEWABLE TABLETS PO SCH (10:52)
[2020-06-01] MEDS: TAMSULOSIN HCL 0.4 MG CAP PO SCH (10:53)
[2020-06-01] MEDS: cloNIDine HCL 0.1 MG TABLET PO SCH (10:54)
[2020-06-01] MEDS ORDERED: oxyCODONE HCL 5 MG TABLET PO PRN (11:01)
--- NOTE | 2020-06-01 11:45 | PN ---
Physical Exam: SUBJECTIVE: Pt. refused. OBJECTIVE: Vital Signs Period Temp Pulse Resp BP Sys/Loredo Pulse Ox Last 24 Hr 97.7 F-98.6 F 77-109 18-20 124-148/66-80 96-99 Pt. refused Laboratory Results - last 24 hr 05/28/20 05/30/20 05/31/20 05:30 06:38 11:35 WBC RBC Hgb Hct MCV MCH MCHC RDW Plt Count MPV Absolute Neuts (auto) Neutrophils % Lymphocytes % Monocytes % Eosinophils % Basophils % Nucleated RBC % Sodium Potassium Chloride Carbon Dioxide Anion Gap BUN Creatinine Est GFR (CKD-EPI)AfAm Est GFR (CKD-EPI)NonAf POC Glucometer Random Glucose Calcium Phosphorus Magnesium Total Bilirubin AST ALT Alkaline Phosphatase Total Protein Total Protein (PEP) 6.3 Albumin Albumin (PEP) 2.9 Globulin 3.4 Albumin/Globulin Ratio 0.9 Beta Globulins 0.9 Prostate Specific Ag 5.40 H WONG M-Rigoberto Not observed COVID-19 (MARY ANNE) Not detected 05/31/20 05/31/20 06/01/20 16:47 21:47 05:41 WBC RBC Hgb Hct MCV MCH MCHC RDW Plt Count MPV Absolute Neuts (auto) Neutrophils % Lymphocytes % Monocytes % Eosinophils % Basophils % Nucleated RBC % Sodium Potassium Chloride Carbon Dioxide Anion Gap BUN Creatinine Est GFR (CKD-EPI)AfAm Est GFR (CKD-EPI)NonAf POC Glucometer 115 145 193 Random Glucose Calcium Phosphorus Magnesium Total Bilirubin AST ALT Alkaline Phosphatase Total Protein Total Protein (PEP) Albumin Albumin (PEP) Globulin Albumin/Globulin Ratio Beta Globulins Prostate Specific Ag WONG M-Rigoberto COVID-19 (MARY ANNE) 06/01/20 06/01/20 06:00 06:00 WBC 7.2 RBC 3.45 L Hgb 9.6 L Hct 29.2 L MCV 84.6 MCH 28.0 MCHC 33.1 RDW 14.2 Plt Count 282 MPV 8.0 Absolute Neuts (auto) 5.3 Neutrophils % 74.0 Lymphocytes % 18.1 D Monocytes % 6.3 Eosinophils % 1.3 D Basophils % 0.3 Nucleated RBC % 0 Sodium 140 Potassium 3.3 L Chloride 108 H Carbon Dioxide 24 Anion Gap 7 L BUN 25.7 H Creatinine 1.9 H Est GFR (CKD-EPI)AfAm 38.83 Est GFR (CKD-EPI)NonAf 33.50 POC Glucometer Random Glucose 172 H Calcium 10.3 H Phosphorus 2.0 L Magnesium 1.7 L Total Bilirubin 0.5 AST 29 ALT 11 L Alkaline Phosphatase 61 Total Protein 5.7 L Total Protein (PEP) Albumin 2.1 L Albumin (PEP) Globulin Albumin/Globulin Ratio Beta Globulins Prostate Specific Ag WONG M-Rigoberto COVID-19 ([facility] ANNE) Active Medications Generic Name Dose Route Start Last Admin Trade Name Freq PRN Reason Stop Dose Admin Acetaminophen 650 mg 05/30/20 11:23 05/31/20 23:36 Tylenol - PO 650 mg Q6H PRN Administration PAIN 4-6 Allopurinol 150 mg 05/31/20 18:40 06/01/20 10:52 Zyloprim - PO 150 mg DAILY TAYLOR Administration Artificial Tears 1 drop 05/31/20 20:02 06/01/20 06:09 Artificial Tears OU 1 drop QID PRN Administration DRY EYES Aspirin 81 mg 05/30/20 15:45 06/01/20 10:52 Asa - PO 81 mg DAILY TAYLOR Administration Atorvastatin Calcium 10 mg 05/30/20 22:00 05/31/20 21:43 Lipitor - PO 10 mg HS TAYLOR Administration Clonidine 0.1 mg 05/30/20 17:00 06/01/20 10:54 Catapres - PO 0.1 mg DAILY TAYLOR Administration Docusate Sodium 100 mg 05/30/20 11:23 Colace - PO Q8H PRN CONSTIPATION Heparin Sodium (Porcine) 5,000 unit 05/30/20 22:00 05/31/20 13:06 Heparin - SQ 5,000 unit TID TAYLOR Administration Sodium Chloride 1,000 mls @ 100 mls/hr 05/30/20 16:00 06/01/20 06:08 Normal Saline - IV 100 mls/hr ASDIR TAYLOR Administration Potassium Phosphate 30 mm/ 510 mls @ 62.5 mls/hr 06/01/20 09:00 Sodium Chloride IVPB 06/01/20 17:09 ONCE ONE Insulin Aspart 1 vial 05/30/20 16:30 06/01/20 06:09 Novolog Vial Sliding Scale - SQ 2 units ACHS TAYLOR Administration Protocol Insulin Detemir 10 units 05/30/20 22:00 05/31/20 22:18 Levemir Vial SQ Not Given HS TAYLOR Latanoprost 1 drop 05/30/20 22:00 05/31/20 21:44 Xalatan 0.005% Eye Drops - OU 1 drop HS TAYLOR Administration Oxycodone HCl 5 mg 06/01/20 11:01 Roxicodone - PO Q6H PRN PAIN LEVEL 7 - 10 Pantoprazole Sodium 40 mg 05/30/20 15:45 06/01/20 10:52 Protonix Iv IVPUSH 40 mg DAILY TAYLOR Administration Promethazine HCl 12.5 mg 05/30/20 16:48 Phenergan Injection - IVPUSH Q6H PRN NAUSEA AND/OR VOMITING Tamsulosin HCl 0.4 mg 05/31/20 08:30 06/01/20 10:53 Flomax - PO 0.4 mg DAILY@0830 TAYLOR Administration ASSESSMENT/PLAN: Pt. is a 75-y.o. M w/ PMHx. of HTN, HLD, and DM2 presents with AMS and found to have symptomatic hypercalcemia with left psoas mass concerning for malignancy and compression of the left ureter resulting in hydronephrosis. We were called to assess for malignancy. #Altered Mental Status HTLV antibodies negative Transfer to [facility] to finish workup pending negative COVID-19 Pt. will need Echo, CT Thoracic and Lumbar Spine after CBI discontinued, biopsy of inguinal nodes? s/p calcitonin and Zometa (05/31/20) for hypercalcemia Visit type - Emergency Visit Emergency Visit: Yes ED Registration Date: 05/27/20 Care time: The patient presented to the Emergency Department on the above date and was hospitalized for further evaluation of their emergent condition. - New Patient This patient is new to me today: No - Critical Care Critical Care patient: No - Discharge Referral Referred to [facility] Med P.C.: No - Medication Review Med list reviewed for High Risk Meds patients 65 and older: Yes ATTENDING PHYSICIAN STATEMENT I saw and evaluated the patient. I reviewed the resident's note and discussed the case with the resident. I agree with the resident's findings and plan as documented. SUBJECTIVE: OBJECTIVE: ASSESSMENT AND PLAN:
[2020-06-01 12:50] VITALS: BP 140/80; PULSE 88
--- NOTE | 2020-06-01 13:02 | PN ---
Progress Note, Physician History of Present Illness: Pt seen and examined at bedside. He is awake and alert. He denies shortness of breath. He is being transferred to [facility]. - Objective Vital Signs: Vital Signs Temperature 97.7 F 06/01/20 10:00 Pulse Rate 88 06/01/20 10:00 Respiratory Rate 22 H 06/01/20 10:00 Blood Pressure 140/80 06/01/20 10:00 O2 Sat by Pulse Oximetry (%) 97 06/01/20 10:00 Constitutional: Yes: Calm Eyes: Yes: Conjunctiva Clear HENT: Yes: Atraumatic Neck: Yes: Supple Cardiovascular: Yes: S1, S2 Respiratory: Yes: CTA Bilaterally Gastrointestinal: Yes: Soft Genitourinary: Yes: Reed Present Musculoskeletal: Yes: WNL Edema: No Neurological: Yes: Oriented Labs: CBC, BMP 06/01/20 06:00 06/01/20 06:00 INR, PTT INR 1.03 (0.83-1.09) 05/27/20 14:03 Problem List - Problems (1) MRIACLE (acute kidney injury) Code(s): N17.9 - ACUTE KIDNEY FAILURE, UNSPECIFIED (2) Confusion Code(s): R41.0 - DISORIENTATION, UNSPECIFIED (3) Hydronephrosis Code(s): N13.30 - UNSPECIFIED HYDRONEPHROSIS Qualifiers: Hydronephrosis type: with other ureteral stricture Qualified Code(s): N13.1 - Hydronephrosis with ureteral stricture, not elsewhere classified (4) Hypercalcemia Code(s): E83.52 - HYPERCALCEMIA (5) Retroperitoneal mass Code(s): R19.00 - INTRA-ABD AND PELVIC SWELLING, MASS AND LUMP, UNSP SITE Assessment/Plan Current Medications Generic Name Dose Route Start Last Admin Trade Name Freq PRN Reason Stop Dose Admin Acetaminophen 650 mg 05/30/20 11:23 05/31/20 06:32 Tylenol - PO 650 mg Q6H PRN Administration PAIN 4-6 Allopurinol 100 mg 05/31/20 10:00 05/31/20 09:49 Zyloprim - PO 100 mg DAILY TAYLOR Administration Aspirin 81 mg 05/30/20 15:45 05/31/20 09:48 Asa - PO 81 mg DAILY ATYLOR Administration Atorvastatin Calcium 10 mg 05/30/20 22:00 05/30/20 21:50 Lipitor - PO 10 mg HS TAYLOR Administration Brimonidine Tartrate 1 drop 05/30/20 22:00 05/31/20 10:08 Alphagan 0.2% - OU 1 drop BID TAYLOR Administration Clonidine 0.1 mg 05/30/20 17:00 05/31/20 09:48 Catapres - PO 0.1 mg DAILY TAYLOR Administration Docusate Sodium 100 mg 05/30/20 11:23 Colace - PO Q8H PRN CONSTIPATION Heparin Sodium (Porcine) 5,000 unit 05/30/20 22:00 05/31/20 06:31 Heparin - SQ 5,000 unit TID TAYLOR Administration Sodium Chloride 1,000 mls @ 100 mls/hr 05/30/20 16:00 05/30/20 17:23 Normal Saline - IV 100 mls/hr ASDIR TAYLOR Administration Zoledronic Acid 3 mg/ Sodium 103.75 mls @ 100 mls/hr 05/31/20 11:43 Chloride IVPB 05/31/20 12:45 ONCE ONE Insulin Aspart 1 vial 05/30/20 16:30 05/31/20 11:27 Novolog Vial Sliding Scale - SQ 4 units ACHS TAYLOR Administration Protocol Insulin Detemir 10 units 05/30/20 22:00 05/30/20 21:56 Levemir Vial SQ Not Given HS TAYLOR Latanoprost 1 drop 05/30/20 22:00 05/30/20 21:50 Xalatan 0.005% Eye Drops - OU 1 drop HS TAYLOR Administration Magnesium Sulfate 2 gm 05/31/20 11:42 Magnesium Sulfate IVPB 05/31/20 11:43 ONCE ONE Pantoprazole Sodium 40 mg 05/30/20 15:45 05/31/20 09:48 Protonix Iv IVPUSH 40 mg DAILY TAYLOR Administration Promethazine HCl 12.5 mg 05/30/20 16:48 Phenergan Injection - IVPUSH Q6H PRN NAUSEA AND/OR VOMITING Tamsulosin HCl 0.4 mg 05/31/20 08:30 05/31/20 09:50 Flomax - PO 0.4 mg DAILY@0830 TAYLOR Administration Laboratory Tests 06/01/20 06:00 Creatinine 1.9 H Calcium 10.3 H Impression 1. CKD 2. MIRACLE 3. hypercalcemia 4. htn 5. dm 6. retroperitoneal lymphadenopathy 7. prostate enlargement 8. left hydro 9. left retroperitoneal mass Plan - calcium improving - renal function is improving - pt is being transferred to [facility] - pt did get a dose of Zometa - calcium remains elevated - will need biopsy of mass - cont to monitor lytes
--- NOTE | 2020-06-01 17:09 | PN ---
Teaching Attending Note Name of Resident: Joel Ritchie ATTENDING PHYSICIAN STATEMENT I saw and evaluated the patient. I reviewed the resident's note and discussed the case with the resident. I agree with the resident's findings and plan as documented. SUBJECTIVE: Intermittent abdominal/suprapubic pain/spasms. No fevers/chills. OBJECTIVE: Afebrile, Hemodynamically Stable. Last Vital Signs Temp Pulse Resp BP Pulse Ox 97.7 F 88 22 H 140/80 97 06/01/20 10:00 06/01/20 10:00 06/01/20 10:00 06/01/20 10:06/01/20 10:00 Heart - S1, S2, RRR Lungs - clear to auscultation Abdomen - soft, non-tender. Bowel Sounds normal. - Reed in situ with CBI and blood tinged urine. Extremities - No edema, no calf tenderness. Neuro - AAO x 3. Tone/Power normal all extremities. Laboratory Results - last 24 hr 05/30/20 05/31/20 05/31/20 06:38 11:35 21:47 WBC RBC Hgb Hct MCV MCH MCHC RDW Plt Count MPV Absolute Neuts (auto) Neutrophils % Lymphocytes % Monocytes % Eosinophils % Basophils % Nucleated RBC % Sodium Potassium Chloride Carbon Dioxide Anion Gap BUN Creatinine Est GFR (CKD-EPI)AfAm Est GFR (CKD-EPI)NonAf POC Glucometer 145 Random Glucose Calcium Phosphorus Magnesium Total Bilirubin AST ALT Alkaline Phosphatase Total Protein Albumin Prostate Specific Ag 5.40 H COVID-19 (MARY ANNE) Not detected 06/01/20 06/01/20 06/01/20 05:41 06:00 06:00 WBC 7.2 RBC 3.45 L Hgb 9.6 L Hct 29.2 L MCV 84.6 MCH 28.0 MCHC 33.1 RDW 14.2 Plt Count 282 MPV 8.0 Absolute Neuts (auto) 5.3 Neutrophils % 74.0 Lymphocytes % 18.1 D Monocytes % 6.3 Eosinophils % 1.3 D Basophils % 0.3 Nucleated RBC % 0 Sodium 140 Potassium 3.3 L Chloride 108 H Carbon Dioxide 24 Anion Gap 7 L BUN 25.7 H Creatinine 1.9 H Est GFR (CKD-EPI)AfAm 38.83 Est GFR (CKD-EPI)NonAf 33.50 POC Glucometer 193 Random Glucose 172 H Calcium 10.3 H Phosphorus 2.0 L Magnesium 1.7 L Total Bilirubin 0.5 AST 29 ALT 11 L Alkaline Phosphatase 61 Total Protein 5.7 L Albumin 2.1 L Prostate Specific Ag COVID-19 (MARY ANNE) ASSESSMENT AND PLAN: 75 year old male with past medical history of hypertension, hyperlipidemia, DM 2 presents with AMS, and found to have hypercalcemia with left psoas/Retroperitoneal mass concerning for LAD/malignancy and compression of the left ureter resulting in hydronephrosis. CT A/P Large prostate, mild L hydro, groundglass opacities at bases, retroperitoneal LAD. 1. Acute Metabolic Encephalopathy secondary to Hypercalcemia - improving. s/p Calcitonin. s/p Zometa. IV hydration ongoing Nephrology following. 2. MIRACLE on CKD 3 sec to obstruction - improved POD 2 s/p Cystoscopy/TURP/TUVP/JJ Stent placement by Urology Torsemide and Hyzaar held. Continue CBI/IV hydration Further management as per Urology. 3. Retroperitoneal Mass/Lymphadenopathy ?Lymphoma Hypercalcemia being managed by Nephrology s/p calcitonin, bisphosphonate. Elevated Uric Acid - placed on Allopurinol Needs biopsy of mass/LNs Oncology service recommended and arranged transfer to [facility] for further diagnostic work-up and treatment. 4. BPH - on Tamsulosin 5. HTN - Continue Clonidine. Hyzaar held. 6. DM 2 - A1C 8.3. Continue Levemir and Novolog sliding scale. 7. R Thyromegaly on CT Chest with mildly enlarged precarinal LNs - will need further imaging and possible Bx Will defer to Oncology at [facility] re: further Ix 8. Hypokalemia/Hypomagnesemia/Hypophosphatemia - repletion ordered. DVT Px - will hold further Heparin SQ due to blood tinged urine. Accepted for transfer to Oncology service at [facility] for further work- up/management of likely underlying Ca.
--- NOTE | 2020-06-01 22:42 | DS ---
Physical Exam: SUBJECTIVE: No overnight events. Patient seen. Pt did not want to be examined by physicians. OBJECTIVE: Vital Signs Period Temp Pulse Resp BP Sys/Loredo Pulse Ox Last 24 Hr 97.7 F-98.2 F 88-109 20-22 131-148/80-80 97-98 PHYSICAL EXAM GENERAL: The patient is awake, alert, and oriented to name and place. Pt refused physical exam. LABS Laboratory Results - last 24 hr 05/31/20 06/01/20 06/01/20 11:35 05:41 06:00 WBC 7.2 RBC 3.45 L Hgb 9.6 L Hct 29.2 L MCV 84.6 MCH 28.0 MCHC 33.1 RDW 14.2 Plt Count 282 MPV 8.0 Absolute Neuts (auto) 5.3 Neutrophils % 74.0 Lymphocytes % 18.1 D Monocytes % 6.3 Eosinophils % 1.3 D Basophils % 0.3 Nucleated RBC % 0 Sodium Potassium Chloride Carbon Dioxide Anion Gap BUN Creatinine Est GFR (CKD-EPI)AfAm Est GFR (CKD-EPI)NonAf POC Glucometer 193 Random Glucose Calcium Phosphorus Magnesium Total Bilirubin AST ALT Alkaline Phosphatase Total Protein Albumin COVID-19 ([facility] ANNE) Not detected 06/01/20 06:00 WBC RBC Hgb Hct MCV MCH MCHC RDW Plt Count MPV Absolute Neuts (auto) Neutrophils % Lymphocytes % Monocytes % Eosinophils % Basophils % Nucleated RBC % Sodium 140 Potassium 3.3 L Chloride 108 H Carbon Dioxide 24 Anion Gap 7 L BUN 25.7 H Creatinine 1.9 H Est GFR (CKD-EPI)AfAm 38.83 Est GFR (CKD-EPI)NonAf 33.50 POC Glucometer Random Glucose 172 H Calcium 10.3 H Phosphorus 2.0 L Magnesium 1.7 L Total Bilirubin 0.5 AST 29 ALT 11 L Alkaline Phosphatase 61 Total Protein 5.7 L Albumin 2.1 L COVID-19 (MARY ANNE) HOSPITAL COURSE: 75 YO M PMH DM, HLD, HTN, GERD, gout, BPH p/w AMS and found to have a calcium of 14.6 and a BUN/Cr of 30.4/2.9. Admitted to ACute metabolic encephalophathy 2/2 Hypercalcemia. Pt was evaluated by a microstrategy bi developer, and he was given IV fluids, calcitonin, and once his creatinine clearance was sufficient, he was given zometa. Renal status was managed by IVF to address his dehydration. However, CT abd showed a retroperitoenal mass compressing L ureter causing hydronephrosis. To improve his renal function, a L ureteroscopy, jj stent insertion, and turp/tuvp were performed. While the mass on the Left psoas on CTAP suggested lymphoma, the enlarged prostate PSA of 5.7 supported prostate cancer. HTLV1/II antibodies negative. Allopurinol 150 mg was given for increased uric acid . Pt is stable for discharge to [facility]. Date of Admission:05/27/20 CTH: diffuse cerebral atrophy w/ sulcal widening & ventricular dilatation; hypodense changes c/w chronic small vessel ischemia CTAP: (1) ground glass opacification of lung bases. COVID 19. (2) bulky retroperitoneal lymphadenopathy involving L psoas msuclature. Possibility of lymphoma (3) moderate L sided hydronephrosis 2/2 obstruction from L retroperitoneal mass(4) additional L pelvic & inguinal lymphadenopahty, (5) enlarged prostate gland &X5.8X6.[address]: (1) R thyroid lobe enlargementSonographic f/u recommended. (2) mildly enlarged precarinal lymph node. (3) ground glass opacification. COVID 19 pneumonitis to be considered (4) no evidence of metastatic disease within chest R inguinal ultrasound: oval shaped hypoechoic mass-like density compatible w/ lymph node measuring 3.2 X 1.4 cm w/ distorted architecture. L inguinal ultrasound: large oval shaped mass 3.8X2.2 cm likelya lymph node w/ distorted architecture. 3 adjacent hypoechoic densities/lymph nodes measuring 1.9X1.4, 2X1.2, 2.2 X 2.1 cm. HgbA1c: 8.3 Prostate Specific Antigen: 5.70, beta 2 microglobulin 4.9. Date of Discharge: 06/01/20 Minutes to complete discharge: 48 Discharge Summary Problems reviewed: Yes Reason For Visit: ACUTE KIDNEY INJURY URINARY RETENTION DUE TO BENIG Condition: Stable - Instructions Diet, Activity, Other Instructions: right thyromegaly NO overnight events. Patient seen and examined. C/o pain in R wrist/hand. Referrals: Beverly Schofield MD [Primary Care Provider] - Disposition: TRANSFER ACUTE CARE/OTHER HOSP - Home Medications Comprehensive Discharge Medication List: Ambulatory Orders Latanoprost 0.005% Eye Drops [Xalatan 0.005% Eye Drops -] 1 drop OU HS 10/19/15 Tamsulosin HCl [Flomax -] 0.4 mg PO DAILY 10/19/15 Torsemide [Demadex -] 20 mg PO DAILY 06/06/18 Atorvastatin Ca [Lipitor] 10 mg PO HS #30 tablet 03/28/20 Gabapentin [Neurontin -] 100 mg PO TID 05/31/20 Insulin (Levemir) [Levemir Vial] 20 units SQ HS 05/31/20 Insulin Lispro [Humalog] 10 units SQ AC 05/31/20 Linagliptin [Tradjenta] 5 mg PO DAILY 05/31/20 This patient is new to me today: No Emergency Visit: Yes ED Registration Date: 05/27/20 Care time: The patient presented to the Emergency Department on the above date and was hospitalized for further evaluation of their emergent condition. Critical Care patient: No - Discharge Referral Referred to [facility] Med P.C.: No ATTENDING PHYSICIAN STATEMENT I saw and evaluated the patient. I reviewed the resident's note and discussed the case with the resident. I agree with the resident's findings and plan as documented. SUBJECTIVE: OBJECTIVE: ASSESSMENT AND PLAN:
--- NOTE | 2020-06-02 16:59 | PATH ---
Surgical Pathology Report Patient Name: RANJIT PINON Med. Rec. #: [id number] /Age/Gender: 1945 (Age: 75) / M Account: [id number] Location: 4 W TELEMETRY U Taken: 05/30/2020 Received: 05/30/2020 Reported: 06/02/2020 Physicians: Oscar Zhu M.D. Specimen(s) Received PROSTATE CHIPS Clinical History Acute kidney injury, urinary retention Final Diagnosis PROSTATE CHIPS, TRANSURETHRAL RESECTION OF PROSTATE: BENIGN PROSTATIC TISSUE WITH PATCHY CHRONIC FOCAL ACUTE INFLAMMATION, ACINAR ATROPHY, CYSTIC CHANGES, GLANDULAR, BASAL CELL, AND STROMAL HYPERPLASIA. BENIGN UROTHELIAL MUCOSA WITH CYSTITIS CYSTICA AND GLANDULARIS. Comment: Immunohistochemical stains performed and interpreted at [facility] show p63 highlights basal cells. Positive and negative controls (internal if applicable) show appropriate results. Electronically Signed Lyssa Alexis M.D. Gross Description Received in formalin labeled "prostate chips" is a 10 g, 4.2 x 3 x 0.7 cm aggregate of ortiz, firm to rubbery portions of tissue, consistent with prostate chips. Director Public Service portions are submitted in 3 cassettes.
--- NOTE | 2020-06-07 16:50 | PATH ---
Surgical Pathology Report Patient Name: RANJIT PINON [facility]. Rec. #: [id number] /Age/Gender: 1945 (Age: 75) / M Account: [id number] Location: 4 W TELEMETRY U Taken: 05/29/2020 Received: 05/30/2020 Reported: 06/07/2020 Physicians: Jean Claude Almanza M.D. Specimen(s) Received PERIPHERAL BLOOD 2 GREEN 2 LAVENDER Clinical History Hypercalcemia, rule out ATLL Final Diagnosis COMPREHENSIVE FLOW PANEL performed and interpreted at [facility], [place], [place] ([id number]) shows the following: INTERPRETATION: In the sample analyzed, there is no evidence of B or T-cell proliferative disorders. COMMENT: Correlation with clinical data is suggested. If there is any evidence of cutaneous lesions, skin biopsy is suggested to rule out ATLL. PHENOTYPE: Lymphocytes include polyclonal B cells, NK cells and immunophenotypically normal CD4+ and CD8+ T cells in normal proportions. No evidence of a clonal lymphoid expansion. T- cells account for 5% of the analyzed WBCs with no loss or aberrant expression of a dunham-T cell antigen. Granulocytes are immunophenotypically mature. ADDITIONAL TESTS: Cytogenetics See [facility] for additional details. Electronically Signed Carroll Ford M.D. Addendum Reported: 06/09/2020 Addendum Diagnosis CYTOGENETIC KARYOTYPE ANALYSIS performed and interpreted at [facility] ([id number]) shows the following: RESULTS: 46,XY[20] INTERPRETATION: Normal Karyotype The unstimulated culture initiated from this specimen did not produce any analyzable metaphase cells. Analysis was performed on cells from a culture that was stimulated with lymphoid mitogens only. No consistent numerical or structural chromosome abnormalities were observed. This normal result does not rule out a neoplasm. .Subtle rearrangements or the presence of an aberrant clone in a low proportion of cells cannot be ruled out. . Correlation with other clinical and hematologic data is suggested. See [facility] report for additional details. Carroll Ford M.D. Gross Description Received peripheral blood in two green top and two purple top tubes. Sent to [facility] for analysis.
== END 2020-06-01 12:00 | disposition short-term general hospital (02) | DRG 823 ==
LOC: JER 13:19 → SUPCPDRO 13:19 → UNDOADMIN 15:15 → JERBED 15:15 → J4W 20:31
PROVIDERS: ADMIT Internal Medicine
PROC: BT1FZZZ Fluoroscopy of Left Kidney, Ureter and Bladder (ICD-10-PCS; 2020-05-30)
PROC: 0T778DZ Dilation of Left Ureter with Intraluminal Device, Via Natural or Artificial Opening Endoscopic (ICD-10-PCS; principal; 2020-05-30 16:00)
PROC: 0VT08ZZ Resection of Prostate, Via Natural or Artificial Opening Endoscopic (ICD-10-PCS; 2020-05-30 16:00)
PROC: 0V508ZZ Destruction of Prostate, Via Natural or Artificial Opening Endoscopic (ICD-10-PCS; 2020-05-30 16:00)
DX: C85.90 Non-Hodgkin lymphoma, unspecified, unspecified site (principal); G93.41 Metabolic encephalopathy; N17.9 Acute kidney failure, unspecified; N13.1 Hydronephrosis with ureteral stricture, not elsewhere classified; E11.9 Type 2 diabetes mellitus without complications; E78.5 Hyperlipidemia, unspecified; E83.52 Hypercalcemia; N40.1 Benign prostatic hyperplasia with lower urinary tract symptoms; R33.8 Other retention of urine; R41.0 Disorientation, unspecified; R19.00 Intra-abdominal and pelvic swelling, mass and lump, unspecified site; R59.0 Localized enlarged lymph nodes; E11.65 Type 2 diabetes mellitus with hyperglycemia; I12.9 Hypertensive chronic kidney disease with stage 1 through stage 4 chronic kidney disease, or unspecified chronic kidney disease; E11.22 Type 2 diabetes mellitus with diabetic chronic kidney disease; N18.3 Chronic kidney disease, stage 3 (moderate); E01.0 Iodine-deficiency related diffuse (endemic) goiter; E87.6 Hypokalemia; E83.42 Hypomagnesemia; E83.39 Other disorders of phosphorus metabolism
CPT/HCPCS: 36415; 70450-TC; 71045-TC-FY; 71250-TC; 74176-TC; 76000-TC-FY; 76882-TC-RT-FY; 80048; 80053; 80061; 81003; 82232; 82397; 82550; 82728; 82962; 83036; 83615; 83721; 83735; 83970; 84100; 84153; 84155; 84165; 84443; 84484; 84550; 85025; 85027; 85610; 85730; 86140; 86790; 86850; 86900; 86901; 87086; 88300-TC; 88305-TC; 93005; 93010; 93306-TC; 94760; 97161-GP; 99285-25; J0735; J1644; J3489; U0003

== ENCOUNTER 2020-07-09 15:59 | Inpatient (IN) | payer OTHER ==
--- NOTE | 2020-07-09 16:47 | PDOC ---
Attending Attestation - Resident Resident Name: EpsteinTrisha - ED Attending Attestation I have performed the following: I have examined & evaluated the patient, The case was reviewed & discussed with the resident, I agree w/resident's findings & plan, Exceptions are as noted - HPI HPI: 75 yo M history B cell lymphoma, HTN, DM, BPH presents with lightheadedness, weakness, and hypotension. He states that he feels fine as long as he remains re cumbent, but feels weak and lightheaded when he sits up or tries to ambulate. As per family member at bedside, he recently had to stop his torsemide as per his physician, suspected too much fluid loss. He has had changes in appetite and PO intake of both solids and liquids since starting chemo, had one cycle so far. Has been forgetful, which is not his baseline. - Physicial Exam PE: GENERAL: Awake, alert, and fully oriented, in no acute distress. Mentating well HEAD: No signs of trauma EYES: PERRLA, EOMI, sclera anicteric, conjunctiva clear ENT: Auricles normal inspection, hearing grossly normal, nares patent, oropharynx clear without exudates. Dry mucosa NECK: Normal ROM, supple, no lymphadenopathy, JVD, or masses LUNGS: Breath sounds equal, clear to auscultation bilaterally. No wheezes, and no crackles HEART: Regular rate and rhythm, normal S1 and S2, no murmurs, rubs or gallops ABDOMEN: Soft, nontender, normoactive bowel sounds. No guarding, no rebound. No masses EXTREMITIES: Normal range of motion, no edema. No clubbing or cyanosis. No cords, erythema, or tenderness NEUROLOGICAL: Cranial nerves II through XII grossly intact. Normal speech. Motor and sensation intact. Gait not tested due to orthostatic hypotension SKIN: Warm, dry, normal turgor, no rashes or lesions noted. - Medical Decision Making 07/09/20 17:35 Urine appears very cloudy, suspect UTI with sepsis vs dehydration. Sepsis labs pending. Will give IV fluids, f/u labs, and plan for admission. Discharge - Discharge Information Problems reviewed: Yes Clinical Impression/Diagnosis: UTI (urinary tract infection) Qualifiers: Urinary tract infection type: site unspecified Hematuria presence: without hematuria Qualified Code(s): N39.0 - Urinary tract infection, site not specified Sepsis Qualifiers: Sepsis type: sepsis due to unspecified organism Sepsis acute organ dysfunction status: without acute organ dysfunction Qualified Code(s): A41.9 - Sepsis, unspecified organism - Follow up/Referral Referrals: Beverly Schofield MD [Primary Care Provider] - - Patient Discharge Instructions - Post Discharge Activity
[2020-07-09] MEDS ORDERED: SODIUM CHLORIDE 2,245 ML IV ONE (16:56)
[2020-07-09 17:09] LABS: BASO % 1.5 % (0-2.0); EOS % 0.2 % (0-4.5); HEMATOCRIT 31.8 % (35.4-49); HEMOGLOBIN 10.5 GM/dL (11.7-16.9); MCH 27.5 pg (25.7-33.7); MEAN CELL VOLUME 83.3 fl (80-96); MEAN PLT VOLUME 8.1 fl (7.5-11.1); MONO % 8.7 % (3.8-10.2); NEUT % 75.6 % (42.8-82.8); PLATELET COUNT 443 K/MM3 (134-434); RBC 3.82 M/mm3 (4.00-5.60); RDW 14.6 % (11.9-15.9); WHITE BLOOD COUNT 14.4 K/mm3 (4.0-10.0)
--- NOTE | 2020-07-09 17:13 | PDOC ---
History of Present Illness - General Chief Complaint: Weakness Stated Complaint: LOW BP Time Seen by Provider: 07/09/20 16:44 - History of Present Illness Initial Comments: Pt is a 75yo M with PMH diffuse large B cell lymphoma, HTN, DM, BPH who presents with lightheadedness, weakness, and low blood pressure. Daughter Cristin at [facility] states that he has had positional lightheadedness and generalized weakness over the past week. States that he feels lightheaded and SOB upon standing; described as feeling like he is going to faint. Denies any fevers, chills, chest pain, syncope, abdominal pain, n/v, diarrhea/constipation, dy suria. PCP: Chandu ([facility]) PMH: see above PSH: see chart Meds: allopurinol, 81mg ASA, clonidine, insulin, oxycodone, finasteride, flomax, tenofovir, valacyclovir, valsartan, HCTZ Allergies: metformin, doxazosin Review of Systems CONSTITUTIONAL:reports generalized weakness, loss of appetite; denies fever, chills, diaphoresis, malaise, HEENT:denies rhinorrhea, nasal congestion, sore throat, visual changes CARDIOVASCULAR:reports fast HR, lightheadedness; denies chest pain, syncope, peripheral edema RESPIRATORY:denies cough, shortness of breath, wheezing, hemoptysis GASTROINTESTINAL: denies abdominal pain, nausea, vomiting, diarrhea, constipation, melena, hematochezia GENITOURINARY:denies dysuria, frequency, hematuria, flank pain MUSCULOSKELETAL:denies myalgia, arthralgia HEMATOLOGIC/IMMUNOLOGIC:denies easy bleeding, easy bruising NEUROLOGIC:denies headache, loss of consciousness, mental status changes, incontinence SKIN:denies rash, itching, pallor Physical Exam General: awake, alert, fully oriented, in no acute distress, well developed, well nourished, appears tired Head: normocephalic, atraumatic Eyes: PERRL, EOMI, anicteric sclera, conjunctiva clear ENT: hard of hearing, nares patent, oropharynx clear without exudates, no nasal congestion, moist mucous membranes Neck: supple, normal ROM, no LAD, JVD or masses Lung: equal breath sounds b/l, CTA b/l, no crackles, wheezes Heart: tachycardic, normal S1, S2, no murmurs appreciated Abdomen: soft, non tender, normoactive bowel sounds, no guarding, rebound, masses Extremities: no edema, no erythema or tenderness, DP/PT pulses 2+ and symmetric Neuro: CN2-12 grossly intact, moves all extremities, normal speech, sensation intact Skin: warm, dry, no rashes or lesions noted MDM Pt is a 75yo M with PMH diffuse large B cell lymphoma, HTN, DM, BPH who presents with lightheadedness, weakness, and low blood pressure. DDx including but not limited to: sepsis, medication adverse effect Workup: sepsis labs, cxr, ekg TX: IV fluids EKG: normal sinus rhythm, HR 99bpm, NC 132ms, QRS 82ms, QTc 449ms, T wave flattening in leads I, V2 CXR: no pneumothorax or pleural effusion. midline airway, appropriate vascular markings, no blunting of costophrenic angle, no cardiomegaly, as read by ED staff Labs: leukocytosis, anemia, thrombocytosis, electrolytes WNL, BUN/Cr elevated (@baseline), lactate 2.8 07/09/20 17:44 Call placed to pt's Oncologist at [facility] - Dr. Portia Rosen ([phone]) 07/09/20 18:55 Urine Test Results Urine Color Yellow 07/09/20 17:15 Urine Appearance Turbid 07/09/20 17:15 Urine pH 7.0 (5.0-8.0) 07/09/20 17:15 Ur Specific [place] 1.014 (1.010-1.035) 07/09/20 17:15 Urine Protein 3+ (NEGATIVE) H 07/09/20 17:15 Urine Glucose (UA) Negative (NEGATIVE) 07/09/20 17:15 Urine Ketones Negative (NEGATIVE) 07/09/20 17:15 Urine Blood 2+ (NEGATIVE) H 07/09/20 17:15 Urine Nitrite Negative (NEGATIVE) 07/09/20 17:15 Urine Bilirubin Negative (NEGATIVE) 07/09/20 17:15 Ur Leukocyte Esterase 3+ (NEGATIVE) H 07/09/20 17:15 Will order 1g Rocephin Discussed admission with patient who agreed to plan Disposition Admit 07/09/20 20:33 call or contact centre operator oncologist at [facility] is on tenofovir and valacyclovir as prophylaxis. Tested + for Hep B core antibody Past History - Medical History Allergies/Adverse Reactions: Allergies Allergy/AdvReac Type Severity Reaction Status Date / Time doxazosin Allergy Severe "CHEST Verified 07/09/20 16:08 PAIN" metformin AdvReac "INDIGESTIO Verified 07/09/20 16:08 N" Home Medications: Ambulatory Orders Latanoprost 0.005% Eye Drops [Xalatan 0.005% Eye Drops -] 1 drop OU HS 10/19/15 Tamsulosin HCl [Flomax -] 0.4 mg PO DAILY 10/19/15 Insulin Lispro [Humalog] 10 units SQ AC 05/31/20 Linagliptin [Tradjenta] 5 mg PO DAILY 05/31/20 Allopurinol 300 mg PO DAILY 07/10/20 Aspirin [Aspirin EC] 81 mg PO DAILY 07/10/20 Brimonidine Tartrate [Alphagan P 0.1% -] 1 drop OU TID 07/10/20 Finasteride [Proscar] 5 mg PO DAILY 07/10/20 Oxycodone HCl [Roxicodone] 5 mg PO Q6H PRN 07/10/20 Polyethylene Glycol 3350 [Miralax (For Daily Use) -] 17 gm PO DAILY 07/10/20 Tenofovir Disoproxil Fumarate [Viread] 300 mg PO Q48H 07/10/20 Timolol 0.5% [Timoptic 0.5%] 1 drop OU DAILY 07/10/20 Valacyclovir HCl [Valtrex] 2 tab PO BID 07/10/20 Valsartan/Hydrochlorothiazide [Valsartan-Hctz 320-25 mg Tab] 1 each PO DAILY 07/10/20 cloNIDine HCL [Catapres -] 0.1 mg PO DAILY 07/10/20 Anemia: No Asthma: No Cancer: Yes (lymphoma) Cardiac Disorders: No CVA: No COPD: No CHF: No Dementia: No Diabetes: Yes GI Disorders: Yes ("HEARTBURN") Disorders: Yes (ENLARGED PROSTATE) HTN: Yes Hypercholesterolemia: Yes Liver Disease: No Seizures: No Thyroid Disease: No - Surgical History Abdominal Surgery: No Appendectomy: No Cardiac Surgery: No Cholecystectomy: No Lung Surgery: No Neurologic Surgery: No Orthopedic Surgery: Yes (TENDON REPAIR LEFT FOREFINGER) - Immunization History Immunization Up to Date: Yes - Psycho-Social/Smoking History Smoking History: Never smoked Have you smoked in the past 12 months: No - Substance Abuse Hx (Audit-C & DAST Scrn) How often the patient has a drink containing alcohol: Never Score: In Men: 4 or > Positive; In Women: 3 or > Positive: 0 Screen Result (Pos requires Nsg. Audit-10AR): Negative In the last yr the pt used illegal drug/Rx for NonMed reason: No Score: Yes response is considered Positive: 0 Screen Result (Positive result requires Nsg. DAST-10): Negative *Physical Exam - Vital Signs Last Vital Signs Temp Pulse Resp BP Pulse Ox 98 F 117 H 20 76/50 L 99 07/09/20 16:08 07/09/20 16:08 07/09/20 16:08 07/09/20 16:08 07/09/20 16:08 ED Treatment Course - LABORATORY CBC & Chemistry Diagram: 07/18/20 09:37 07/18/20 09:37 Discharge - Discharge Information Problems reviewed: Yes Clinical Impression/Diagnosis: UTI (urinary tract infection) Qualifiers: Urinary tract infection type: site unspecified Hematuria presence: without hematuria Qualified Code(s): N39.0 - Urinary tract infection, site not specified Sepsis Qualifiers: Sepsis type: sepsis due to unspecified organism Sepsis acute organ dysfunction status: without acute organ dysfunction Qualified Code(s): A41.9 - Sepsis, unspecified organism Condition: Stable - Admission Yes - Follow up/Referral - Patient Discharge Instructions - Post Discharge Activity
[2020-07-09 17:38] LABS: ALBUMIN 3.2 g/dl (3.4-5.0); ALK PHOS 91 U/L (45-117); ANION GAP 10 MMOL/L (8-16); BILIRUBIN,TOTAL 0.3 mg/dL (0.2-1); BLOOD UREA NITROGEN 18.7 mg/dL (7-18); CALCIUM 8.5 mg/dL (8.5-10.1); CHLORIDE 96 mmol/L (98-107); CO2 28 mmol/L (21-32); GLUCOSE,RANDOM 181 mg/dL (74-106); POTASSIUM 3.9 mmol/L (3.5-5.1); SGOT/AST 15 U/L (15-37); SGPT/ALT 16 U/L (13-61); SODIUM 134 mmol/L (136-145); TOT PROT 6.9 g/dl (6.4-8.2)
[2020-07-09 17:54] LABS: ANISOCYTOSIS 0; MACROCYTOSIS 0; PLATELET ESTIMATE NORMAL
[2020-07-09 18:40] LABS: URINE APPEARANCE TURBID; URINE COLOR YELLOW
[2020-07-09 18:41] LABS: URINE BILIRUBIN NEGATIVE (NEGATIVE); URINE GLUCOSE (UA) NEGATIVE (NEGATIVE); URINE KETONE NEGATIVE (NEGATIVE); URINE NITRITE NEGATIVE (NEGATIVE); URINE PROTEIN 3+ (NEGATIVE)
[2020-07-09 18:42] LABS: EPI CELLS 11.7 /uL (0-25.1); HYALINE CASTS 303.46 /uL (0-3.1); URINE BACTERIA 2996.3 /uL (0-1359); URINE LEUK ESTERASE 3+ (NEGATIVE); URINE WBC 28987.4 /uL (0-25.8)
[2020-07-09] MEDS ORDERED: CEFTRIAXONE 1,000 MG in DEXTROSE 5%-WATER - 50 ML IVPB ONE (18:53)
[2020-07-09] MEDS ORDERED: CEFTRIAXONE 1 GM/50 ML BAG ONE (18:56)
[2020-07-09 20:04] LABS: URINE RBC 557.7 /uL (0-23.9); YEAST NEGATIVE (NEGATIVE)
--- NOTE | 2020-07-09 20:25 | PN ---
Teaching Attending Note Name of Resident: Matt Banuelos ATTENDING PHYSICIAN STATEMENT I saw and evaluated the patient. I reviewed the resident's note and discussed the case with the resident. I agree with the resident's findings and plan as documented. SUBJECTIVE: 75yoM with B cell lymphoma, HTN, DM, and BPH s/p TURP who presents with lighthea dedness, weakness, and low blood pressure. Patient was recently admitted here for AMS, found to have hypercalcemia, MIRACLE, and a retroperitoneal mass compressing the left ureter and causing hydronephrosis and underwent ureteroscopy with stent placement and TURP. He was subsequently transferred to [facility] for ongoing work up for the mass and states he recently started chemotherapy. He was discharged home about a week and a half ago. Notes for the past week he has been dizzy with standing and feeling generally weak. He saw his [employer] 3 days prior to presentation and was told to stop his diuretic, although patient is unsure that he was ever on a diuretic. Denies fever, chills, chest pain, palpitations, syncope, nausea, vomiting, diarrhea, dysuria. He is not aware if the ureteral stents were removed. Patient was hypotensive to 76/50 on arrival to the ED, heart rate 117. Labs notable for WBC 14.4, creatinine 2.0, unchanged from prior hospitlization. Lactic acid 2.8 and UA grossly positive for infection. Patient received 2L NS with improvement in blood pressure and ceftriaxone and is admitted for further management. Orthostatic vitals were obtained after fludis were given, notable for increase in heart rate from 93 to 130 from supine to standing, BP difficult to detect when standing and patient complained of lightheadedness. OBJECTIVE: Vital Signs - 24 hr 07/09/20 07/09/20 07/09/20 16:08 16:20 20:03 Temperature 98 F Pulse Rate 117 H Pulse Rate [ 92 H Left] Respiratory 20 20 18 Rate Blood Pressure 76/50 L Blood Pressure 121/74 [Left Arm] O2 Sat by Pulse 98 98 100 Oximetry (%) EXAM Gen: awake, alert, NAD. Hard of hearing HEENT: NC/AT CV: RRR, no MRG Resp: CTAB Abd: Soft, NT, ND. +BS Ext: No edema Neuro: CN II-XII grossly intact, moving all extremities Psych: AOx3, appropriate mood/affect Laboratory Results - last 24 hr 07/09/20 07/09/20 07/09/20 16:52 16:52 16:52 WBC 14.4 H RBC 3.82 L Hgb 10.5 L Hct 31.8 L MCV 83.3 MCH 27.5 MCHC 33.0 RDW 14.6 Plt Count 443 H D MPV 8.1 Absolute Neuts (auto) 10.9 H Neutrophils % 75.6 Neutrophils % (Manual) 73.0 Band Neutrophils % 0.0 Lymphocytes % 14.0 D Lymphocytes % (Manual) 15.0 Monocytes % 8.7 Monocytes % (Manual) 8 Eosinophils % 0.2 D Eosinophils % (Manual) 2.0 Basophils % 1.5 D Basophils % (Manual) 0.0 Myelocytes % (Man) 1 Promyelocytes % (Man) 0 Blast Cells % (Manual) 0 Nucleated RBC % 0 Metamyelocytes 0 Hypochromia 0 Platelet Estimate Normal Polychromasia 0 Poikilocytosis 0 Anisocytosis 0 Microcytosis 0 Macrocytosis 0 Sodium 134 L Potassium 3.9 Chloride 96 L Carbon Dioxide 28 Anion Gap 10 BUN 18.7 H Creatinine 2.0 H Est GFR (CKD-EPI)AfAm 36.49 Est GFR (CKD-EPI)NonAf 31.48 Random Glucose 181 H Lactic Acid 2.8 H* Calcium 8.5 Total Bilirubin 0.3 AST 15 ALT 16 Alkaline Phosphatase 91 Total Protein 6.9 Albumin 3.2 L Urine Color Urine Appearance Urine pH Ur Specific [place] Urine Protein Urine Glucose (UA) Urine Ketones Urine Blood Urine Nitrite Urine Bilirubin Urine Urobilinogen Ur Leukocyte Esterase Urine WBC (Auto) Urine RBC (Auto) Urine Casts (Auto) U Pathogenic Cast Auto U Epithel Cells (Auto) Urine Bacteria (Auto) Urine Yeast (Auto) 07/09/20 17:15 WBC RBC Hgb Hct MCV MCH MCHC RDW Plt Count MPV Absolute Neuts (auto) Neutrophils % Neutrophils % (Manual) Band Neutrophils % Lymphocytes % Lymphocytes % (Manual) Monocytes % Monocytes % (Manual) Eosinophils % Eosinophils % (Manual) Basophils % Basophils % (Manual) Myelocytes % (Man) Promyelocytes % (Man) Blast Cells % (Manual) Nucleated RBC % Metamyelocytes Hypochromia Platelet Estimate Polychromasia Poikilocytosis Anisocytosis Microcytosis Macrocytosis Sodium Potassium Chloride Carbon Dioxide Anion Gap BUN Creatinine Est GFR (CKD-EPI)AfAm Est GFR (CKD-EPI)NonAf Random Glucose Lactic Acid Calcium Total Bilirubin AST ALT Alkaline Phosphatase Total Protein Albumin Urine Color Yellow Urine Appearance Turbid Urine pH 7.0 Ur Specific [place] 1.014 Urine Protein 3+ H Urine Glucose (UA) Negative Urine Ketones Negative Urine Blood 2+ H Urine Nitrite Negative Urine Bilirubin Negative Urine Urobilinogen 1.0 Ur Leukocyte Esterase 3+ H Urine WBC (Auto) 07389.4 Urine RBC (Auto) 557.7 Urine Casts (Auto) 303.46 U Pathogenic Cast Auto Negative U Epithel Cells (Auto) 11.7 Urine Bacteria (Auto) 2996.3 Urine Yeast (Auto) Negative ASSESSMENT AND PLAN: 75yoM with B cell lymphoma, HTN, DM, and BPH s/p TURP who presents with lightheadedness, weakness, and low blood pressure found to be in severe sepsis secondary to acute complicated UTI. Severe sepsis secondary to UTI Leukocytosis, tachycardia, elevated lactic acid Urinalysis grossly positive s/p ceftriaxone in ED; given patient is now on chemotherapy, will broaden empirically - rpt lactic - Empiric Zosyn - f/u urine and blood cultures Orthostatic hypotension Initial BP 76/50, responsive to fluids Orthostatic hypotension despite 2L fluids in ED; asymptomatic while supine - hold home diuretic, antihypertensive medications - continue IVF, encourage PO hydration - repeat orthostatic vitals in AM Renal dysfunction Creatinine 2.0, stable from the time of transfer to [facility] - continue hydration as above - renal B-cell lymphoma, prostate cancer Recent diagnosis this May Reports he started chemotherapy, next due on 07/14; unsure of what agents he is on - consult oncology HTN: hold antihypertensives in setting of low BP, severe sepsis DM: ISS BPH s/p TURP: Prostate biopsy last hospitalization showed benign tissue DVT ppx: heparin subq
[2020-07-09] MEDS: SODIUM CHLORIDE 1,000 ML IV SCH (21:07)
[2020-07-09] MEDS ORDERED: HEPARIN NA (PORCINE) 5,000 UNITS/ML 1ML VIAL ONE (22:18)
[2020-07-09] MEDS ORDERED: PIPERACILLIN/TAZOB 3.375 GM 3.375 GM/50 ML BAG IVPB ONE (22:18)
[2020-07-09] MEDS: HEPARIN NA (PORCINE) 5,000 UNITS/ML 1ML VIAL SQ SCH (22:33)
[2020-07-09] MEDS: INSULIN SLIDING SCALE (NOVOLOG) 1 VIAL SQ SCH (22:33)
--- NOTE | 2020-07-10 01:25 | HP ---
CHIEF COMPLAINT: Lightheadedness when standing PCP: Dr. Beverly Schofield HISTORY OF PRESENT ILLNESS: 75 year old male patient with past medical history that includes B Cell Lymphoma, HLD, HTN, DM, and BPH s/p TURP, who presented to the emergency room with lightheadedness, weakness, and shortness of breath on standing. The patient was recently here at [facility] with acute encephalopathy secondary to hypercalcemia. CT abdomen showed a retroperitoenal mass compressing the left ureter causing hydronephrosis. A L ureteroscopy, jj stent insertion, and turp/tuvp were performed. The patient was transferred to [facility] on 06/01. The patient reported being at [facility] until 06/29. He had a right inguinal lymph node biopsy at [facility], where he was diagnosed with cancer. He was started on chemotherapy on discharge and received one cycle of chemotherapy so far. The Oncologist Dr. Portia Rosen ([phone]) at [facility] was called and she explained that the patient is on Tenofovir and Valacyclovir as prophylaxis because the patient tested positive for Hep B Core A b. The patient's legal executive 3 days ago stopped his Torsemide. In the emergency room, the patient was SIRS+, the urinalysis was suggestive of a UTI, and lactic acid was 2.8 with blood pressure of 76/50, so the patient had severe sepsis. ER course was notable for: (1) 2 Liters Normal Saline, Ceftriaxone (2) ECG (99 bpm, NH 132ms, QTc 449ms, Normal Sinus Rhythm) (3) Orthostatics after fluid bolus (lying down: 117/73 & 93bpm feeling normal, sittin/85 & 106 bpm feeling lightheadedness, standin bpm feeling lightheadedness) (4) Urinalysis showed 3+ Protein, 2+ Blood, 3+ Leuk Est (5) Vitals on admission: 98F, 117bpm, 76/50, 20 resp rate, 99% RA (6) WBC count 14.4 Recent Travel: PAST MEDICAL HISTORY: B Cell Lymphoma, HLD, HTN, DM, BPH s/p TURP PAST SURGICAL HISTORY: TURP, Right Inguinal Lymph Node Biopsy, Left forefinger tendon repair Social History: Smoking: Denies Alcohol: Denies Drugs: Denies Allergies doxazosin Allergy (Severe, Verified 07/09/20 16:08) "CHEST PAIN" chest pain metformin Adverse Reaction (Verified 07/09/20 16:08) "INDIGESTION" HOME MEDICATIONS: Home Medications Medication Instructions Recorded Latanoprost 0.005% Eye Drops 1 drop OU HS 10/19/15 [Xalatan 0.005% Eye Drops -] Tamsulosin HCl [Flomax -] 0.4 mg PO DAILY 10/19/15 Torsemide [Demadex -] 20 mg PO DAILY 06/06/18 Atorvastatin Ca [Lipitor] 10 mg PO HS #30 tablet 03/28/20 Gabapentin [Neurontin -] 100 mg PO TID 05/31/20 Insulin (Levemir) [Levemir Vial] 20 units SQ HS 05/31/20 Insulin Lispro [Humalog] 10 units SQ AC 05/31/20 Linagliptin [Tradjenta] 5 mg PO DAILY 05/31/20 REVIEW OF SYSTEMS CONSTITUTIONAL: 20 pound weight loss Absent: no fever/chills, no night sweats HEENT: Absent: no vision changes RESPIRATORY: shortness of breath on standing Absent: GASTROINTESTINAL: constipation with relief using Miralax Absent: no blood in stool GENITOURINARY: Absent: no dysuria, no blood in urine MUSCULOSKELETAL: weakness on standing Absent: NEUROLOGIC: lightheadedness on standing Absent: no numbness PHYSICAL EXAMINATION Vital Signs - 24 hr 07/09/20 07/09/20 07/09/20 16:08 16:20 20:03 Temperature 98 F Pulse Rate 117 H Pulse Rate [ 92 H Left] Respiratory 20 20 18 Rate Blood Pressure 76/50 L Blood Pressure 121/74 [Left Arm] O2 Sat by Pulse 98 98 100 Oximetry (%) 07/10/20 00:08 Temperature Pulse Rate Pulse Rate [ 94 H Left] Respiratory 13 Rate Blood Pressure Blood Pressure 110/67 [Left Arm] O2 Sat by Pulse 99 Oximetry (%) GENERAL: Awake, alert, and fully oriented, in no acute distress. HEAD: Normal with no signs of trauma. EYES: Pupils equal, round and reactive to light, extraocular movements intact. No lid lag. EARS, NOSE, THROAT: Ears normal, nares patent, oropharynx clear without e xudates. Mildly moist mucous membranes. NECK: Normal range of motion, supple without lymphadenopathy, JVD, or masses. LUNGS: Breath sounds equal, clear to auscultation bilaterally. No wheezes, and no crackles. No accessory muscle use. HEART: Regular rate and rhythm, normal S1 and S2 without murmur, rub or gallop. ABDOMEN: Soft, nontender, not distended, normoactive bowel sounds, no guarding, no rebound, no masses. MUSCULOSKELETAL: Normal range of motion at all joints. No bony deformities or tenderness. UPPER EXTREMITIES: 2+ pulses, warm, well-perfused. No cyanosis. No clubbing. No peripheral edema. LOWER EXTREMITIES: 2+ pulses, warm, well-perfused. No calf tenderness. No peripheral edema. NEUROLOGICAL: Normal speech. PSYCHIATRIC: Cooperative. Good eye contact. Appropriate mood and affect. SKIN: Warm, dry, normal turgor, no rashes or lesions noted, normal capillary refill. Right inguinal fold surgical scar from lymph node biopsy. Hard mobile mass palpated in right inguinal fold. Laboratory Results - last 24 hr 07/09/20 07/09/20 07/09/20 16:52 16:52 16:52 WBC 14.4 H RBC 3.82 L Hgb 10.5 L Hct 31.8 L MCV 83.3 MCH 27.5 MCHC 33.0 RDW 14.6 Plt Count 443 H D MPV 8.1 Absolute Neuts (auto) 10.9 H Neutrophils % 75.6 Neutrophils % (Manual) 73.0 Band Neutrophils % 0.0 Lymphocytes % 14.0 D Lymphocytes % (Manual) 15.0 Monocytes % 8.7 Monocytes % (Manual) 8 Eosinophils % 0.2 D Eosinophils % (Manual) 2.0 Basophils % 1.5 D Basophils % (Manual) 0.0 Myelocytes % (Man) 1 Promyelocytes % (Man) 0 Blast Cells % (Manual) 0 Nucleated RBC % 0 Metamyelocytes 0 Hypochromia 0 Platelet Estimate Normal Polychromasia 0 Poikilocytosis 0 Anisocytosis 0 Microcytosis 0 Macrocytosis 0 Sodium 134 L Potassium 3.9 Chloride 96 L Carbon Dioxide 28 Anion Gap 10 BUN 18.7 H Creatinine 2.0 H Est GFR (CKD-EPI)AfAm 36.49 Est GFR (CKD-EPI)NonAf 31.48 POC Glucometer Random Glucose 181 H Lactic Acid 2.8 H* Calcium 8.5 Total Bilirubin 0.3 AST 15 ALT 16 Alkaline Phosphatase 91 Total Protein 6.9 Albumin 3.2 L Urine Color Urine Appearance Urine pH Ur Specific [place] Urine Protein Urine Glucose (UA) Urine Ketones Urine Blood Urine Nitrite Urine Bilirubin Urine Urobilinogen Ur Leukocyte Esterase Urine WBC (Auto) Urine RBC (Auto) Urine Casts (Auto) U Pathogenic Cast Auto U Epithel Cells (Auto) Urine Bacteria (Auto) Urine Yeast (Auto) 07/09/20 07/09/20 07/09/20 17:15 21:00 22:13 WBC RBC Hgb Hct MCV MCH MCHC RDW Plt Count MPV Absolute Neuts (auto) Neutrophils % Neutrophils % (Manual) Band Neutrophils % Lymphocytes % Lymphocytes % (Manual) Monocytes % Monocytes % (Manual) Eosinophils % Eosinophils % (Manual) Basophils % Basophils % (Manual) Myelocytes % (Man) Promyelocytes % (Man) Blast Cells % (Manual) Nucleated RBC % Metamyelocytes Hypochromia Platelet Estimate Polychromasia Poikilocytosis Anisocytosis Microcytosis Macrocytosis Sodium Potassium Chloride Carbon Dioxide Anion Gap BUN Creatinine Est GFR (CKD-EPI)AfAm Est GFR (CKD-EPI)NonAf POC Glucometer 171 Random Glucose Lactic Acid 2.0 Calcium Total Bilirubin AST ALT Alkaline Phosphatase Total Protein Albumin Urine Color Yellow Urine Appearance Turbid Urine pH 7.0 Ur Specific [place] 1.014 Urine Protein 3+ H Urine Glucose (UA) Negative Urine Ketones Negative Urine Blood 2+ H Urine Nitrite Negative Urine Bilirubin Negative Urine Urobilinogen 1.0 Ur Leukocyte Esterase 3+ H Urine WBC (Auto) 36262.4 Urine RBC (Auto) 557.7 Urine Casts (Auto) 303.46 U Pathogenic Cast Auto Negative U Epithel Cells (Auto) 11.7 Urine Bacteria (Auto) 2996.3 Urine Yeast (Auto) Negative ASSESSMENT/PLAN: 75 year old male patient with past medical history that includes B Cell Lymphoma, HLD, HTN, DM, and BPH s/p TURP, who presented to the emergency room with lightheadedness, weakness, and shortness of breath on standing. 1. Orthostatic lightheadedness secondary to severe sepsis secondary to UTI - Orthostatics positive - Elevated lactic acid - Urinalysis suggestive of a UTI - Elevated heart rate and white blood cell count - Lactic acid repeated - IV Zosyn TID - IV Fluids - Repeat morning orthostatic vital signs 2. MIRACLE - Creatinine 2.0 - IV Fluids 3. B-cell lymphoma - Started on chemotherapy recently - Onco consult 4. HTN - HTN medications on hold due to severe sepsis with orthostatic hypotension 5. DM - Novolog Sliding Scale - BGMs #FEN - Normal Saline at 60ml/hr. Monitoring Electrolytes. Diabetic Diet. DVT PPx - Heparin SQ Family Medical History Family History: As Documented Other Family History: Aunt had diabetes. No cancer in the family besides for himself. Visit type - Medication Review Med list reviewed for High Risk Meds patients 65 and older: Yes - Emergency Visit Emergency Visit: Yes ED Registration Date: 07/09/20 Care time: The patient presented to the Emergency Department on the above date and was hospitalized for further evaluation of their emergent condition. - New Patient This patient is new to me today: Yes Date on this admission: 07/10/20 - Critical Care Critical Care patient: No ATTENDING PHYSICIAN STATEMENT I saw and evaluated the patient. I reviewed the resident's note and discussed the case with the resident. I agree with the resident's findings and plan as documented. SUBJECTIVE: OBJECTIVE: ASSESSMENT AND PLAN:
[2020-07-10] MEDS ORDERED: PIPERACILLIN/TAZOB 3.375 GM 3.375 GM in DEXTROSE 5%-WATER - 50 ML IVPB SCH (02:00)
[2020-07-10] MEDS: PIPERACILLIN/TAZOB 3.375 GM 3.375 GM in DEXTROSE 5%-WATER - 50 ML IVPB SCH ×3 (02:35→19:00)
[2020-07-10] MEDS ORDERED: HEPARIN NA (PORCINE) 5,000 UNITS/ML 1ML VIAL ONE (06:05)
[2020-07-10] MEDS: HEPARIN NA (PORCINE) 5,000 UNITS/ML 1ML VIAL SQ SCH ×3 (06:15→21:31)
[2020-07-10] MEDS: INSULIN SLIDING SCALE (NOVOLOG) 1 VIAL SQ SCH ×4 (06:17→21:52)
[2020-07-10 07:19] LABS: BASO % 0.6 % (0-2.0); EOS % 0.2 % (0-4.5); HEMATOCRIT 29.8 % (35.4-49); HEMOGLOBIN 9.8 GM/dL (11.7-16.9); LYMPH % 12.3 % (8-40); MCH 27.4 pg (25.7-33.7); MCHC 32.9 g/dl (32.0-35.9); MEAN CELL VOLUME 83.2 fl (80-96); MEAN PLT VOLUME 7.7 fl (7.5-11.1); MONO % 7.1 % (3.8-10.2); NEUT % 79.8 % (42.8-82.8); PLATELET COUNT 429 K/MM3 (134-434); RBC 3.59 M/mm3 (4.00-5.60); RDW 14.3 % (11.9-15.9); WHITE BLOOD COUNT 12.4 K/mm3 (4.0-10.0)
[2020-07-10 07:51] LABS: BLOOD UREA NITROGEN 13.4 mg/dL (7-18); CREATININE 1.5 mg/dL (0.55-1.3); MAGNESIUM 1.2 mg/dL (1.8-2.4); PHOSPHOROUS 3.4 mg/dL (2.5-4.9); POTASSIUM 3.8 mmol/L (3.5-5.1)
--- NOTE | 2020-07-10 10:41 | CONSULT ---
Consult - text type - Consultation Consultation Note: Patient seen and examined Admitted for weakness/ hypotension, presumed urosepsis Last Vital Signs Temp Pulse Resp BP Pulse Ox 97.8 F 93 H 24 H 126/67 100 07/10/20 05:51 07/10/20 05:51 07/10/20 05:51 07/10/20 05:51 07/10/20 05:51 Cor: RSR, No murmurs, No gallops Lungs: Clear to P&A Abd: Soft, Normal bowel sounds, No organomegaly Ext:No significant edema Labs/Meds reviewed A/P 75 y/o male with PMHx of HTN, HLD, DM, BPH,with recently dx DLBCL GCB types/p DA-REPOCH at [facility]. Plan was to change to [facility] starting 07/14 Patient was recently hospitalized to [facility] May 2020with AMS, hypercalcemia, MIRACLE. CT scan of the abdomen with evidence of retroperitoneal lymphadenopathy, causing a moderate left hydroureteronephrosis. Patient underwent left kidney stent placement and TURP at [facility]. Lymph Node,Right groin, ExcisionalBiopsy06/08/20: - Diffuse large B-cell lymphoma, compatible with Germinal center [id number] (WHO Classification 2016). Comment: The neoplastic cells are positive for CD20 and Bcl-6, negative for MUM- 1. The neoplastic cells are negative for CD5 and CD10 by flow cytometry study. Ki67 is 80-90%. Admitted with weakness/ hypotension. Has urosepsis Empiric antibiotics ID consult will foloow
[2020-07-10 11:38] LABS: ANISOCYTOSIS 1+; MACROCYTOSIS 1+; PLATELET ESTIMATE NORMAL
--- NOTE | 2020-07-10 12:45 | EKG ---
Test Reason : Blood Pressure : / mmHG Vent. Rate : 099 BPM Atrial Rate : 099 BPM P-R Int : 132 ms QRS Dur : 082 ms QT Int : 350 ms P-R-T Axes : 057 -23 076 degrees QTc Int : 449 ms NORMAL SINUS RHYTHM NORMAL ECG WHEN COMPARED WITH ECG OF 27-MAY-2020 14:02, NO SIGNIFICANT CHANGE WAS FOUND Confirmed by Lucius Contreras ([id number]) on 07/10/2020 12:45:10 PM Referred By: Confirmed By:Lucius Contreras
[2020-07-10] MEDS ORDERED: oxyCODONE HCL 5 MG TABLET PO PRN ×2 (13:00→14:18)
--- NOTE | 2020-07-10 14:22 | PN ---
Physical Exam: SUBJECTIVE: Patient seen and examined, c/o room being cold, causing him to urinate more denies chest pain, sob, cough, abd pain OBJECTIVE: Vital Signs Period Temp Pulse Resp BP Sys/[place] Pulse Ox Last 24 Hr 97 F-98 F 82-117 13-24 76-133/50-78 98-100 GENERAL: The patient is awake, alert, and fully oriented, in no acute distress. HEAD: Normal with no signs of trauma. EYES: PERRL, extraocular movements intact, sclera anicteric, conjunctiva clear. No ptosis. ENT: Ears normal, nares patent, oropharynx clear without exudates, moist mucous membranes. NECK: Trachea midline, full range of motion, supple. LUNGS: Breath sounds equal, clear to auscultation bilaterally, no wheezes, no crackles, no accessory muscle use. HEART: Regular rate and rhythm, S1, S2 without murmur, rub or gallop. ABDOMEN: Soft, nontender, nondistended, normoactive bowel sounds, no guarding, no rebound, no hepatosplenomegaly, no masses. EXTREMITIES: 2+ pulses, warm, well-perfused, no edema. NEUROLOGICAL: Cranial nerves II through XII grossly intact. Normal speech, gait not observed. PSYCH: Normal mood, normal affect. SKIN: Warm, dry, normal turgor, no rashes or lesions noted Laboratory Results - last 24 hr 07/09/20 07/09/20 07/09/20 16:52 16:52 16:52 WBC 14.4 H RBC 3.82 L Hgb 10.5 L Hct 31.8 L MCV 83.3 MCH 27.5 MCHC 33.0 RDW 14.6 Plt Count 443 H D MPV 8.1 Absolute Neuts (auto) 10.9 H Neutrophils % 75.6 Neutrophils % (Manual) 73.0 Band Neutrophils % 0.0 Lymphocytes % 14.0 D Lymphocytes % (Manual) 15.0 Monocytes % 8.7 Monocytes % (Manual) 8 Eosinophils % 0.2 D Eosinophils % (Manual) 2.0 Basophils % 1.5 D Basophils % (Manual) 0.0 Myelocytes % (Man) 1 Promyelocytes % (Man) 0 Blast Cells % (Manual) 0 Nucleated RBC % 0 Metamyelocytes 0 Hypochromia 0 Platelet Estimate Normal Polychromasia 0 Poikilocytosis 0 Anisocytosis 0 Microcytosis 0 Macrocytosis 0 [place] Cells Sodium 134 L Potassium 3.9 Chloride 96 L Carbon Dioxide 28 Anion Gap 10 BUN 18.7 H Creatinine 2.0 H Est GFR (CKD-EPI)AfAm 36.49 Est GFR (CKD-EPI)NonAf 31.48 POC Glucometer Random Glucose 181 H Lactic Acid 2.8 H* Calcium 8.5 Phosphorus Magnesium Total Bilirubin 0.3 AST 15 ALT 16 Alkaline Phosphatase 91 Troponin I < 0.02 Total Protein 6.9 Albumin 3.2 L Urine Color Urine Appearance Urine pH Ur Specific [place] Urine Protein Urine Glucose (UA) Urine Ketones Urine Blood Urine Nitrite Urine Bilirubin Urine Urobilinogen Ur Leukocyte Esterase Urine WBC (Auto) Urine RBC (Auto) Urine Casts (Auto) U Pathogenic Cast Auto U Epithel Cells (Auto) Urine Bacteria (Auto) Urine Yeast (Auto) 07/09/20 07/09/20 07/09/20 17:15 21:00 22:13 WBC RBC Hgb Hct MCV MCH MCHC RDW Plt Count MPV Absolute Neuts (auto) Neutrophils % Neutrophils % (Manual) Band Neutrophils % Lymphocytes % Lymphocytes % (Manual) Monocytes % Monocytes % (Manual) Eosinophils % Eosinophils % (Manual) Basophils % Basophils % (Manual) Myelocytes % (Man) Promyelocytes % (Man) Blast Cells % (Manual) Nucleated RBC % Metamyelocytes Hypochromia Platelet Estimate Polychromasia Poikilocytosis Anisocytosis Microcytosis Macrocytosis [place] Cells Sodium Potassium Chloride Carbon Dioxide Anion Gap BUN Creatinine Est GFR (CKD-EPI)AfAm Est GFR (CKD-EPI)NonAf POC Glucometer 171 Random Glucose Lactic Acid 2.0 Calcium Phosphorus Magnesium Total Bilirubin AST ALT Alkaline Phosphatase Troponin I Total Protein Albumin Urine Color Yellow Urine Appearance Turbid Urine pH 7.0 Ur Specific [place] 1.014 Urine Protein 3+ H Urine Glucose (UA) Negative Urine Ketones Negative Urine Blood 2+ H Urine Nitrite Negative Urine Bilirubin Negative Urine Urobilinogen 1.0 Ur Leukocyte Esterase 3+ H Urine WBC (Auto) 71674.4 Urine RBC (Auto) 557.7 Urine Casts (Auto) 303.46 U Pathogenic Cast Auto Negative U Epithel Cells (Auto) 11.7 Urine Bacteria (Auto) 2996.3 Urine Yeast (Auto) Negative 07/10/20 07/10/20 07/10/20 06:14 06:49 06:49 WBC 12.4 H RBC 3.59 L Hgb 9.8 L Hct 29.8 L MCV 83.2 MCH 27.4 MCHC 32.9 RDW 14.3 Plt Count 429 MPV 7.7 Absolute Neuts (auto) 9.9 H Neutrophils % 79.8 Neutrophils % (Manual) 84.0 H Band Neutrophils % 0.0 Lymphocytes % 12.3 Lymphocytes % (Manual) 10.0 D Monocytes % 7.1 Monocytes % (Manual) 5 Eosinophils % 0.2 Eosinophils % (Manual) 1.0 Basophils % 0.6 Basophils % (Manual) 0.0 Myelocytes % (Man) 0 D Promyelocytes % (Man) 0 Blast Cells % (Manual) 0 Nucleated RBC % 0 Metamyelocytes 0 Hypochromia 0 Platelet Estimate Normal Polychromasia 0 Poikilocytosis 0 Anisocytosis 1+ Microcytosis 1+ Macrocytosis 1+ [place] Cells 1+ Sodium Potassium Chloride Carbon Dioxide Anion Gap BUN Creatinine Est GFR (CKD-EPI)AfAm Est GFR (CKD-EPI)NonAf POC Glucometer 141 Random Glucose Lactic Acid 2.1 H Calcium Phosphorus Magnesium Total Bilirubin AST ALT Alkaline Phosphatase Troponin I Total Protein Albumin Urine Color Urine Appearance Urine pH Ur Specific [place] Urine Protein Urine Glucose (UA) Urine Ketones Urine Blood Urine Nitrite Urine Bilirubin Urine Urobilinogen Ur Leukocyte Esterase Urine WBC (Auto) Urine RBC (Auto) Urine Casts (Auto) U Pathogenic Cast Auto U Epithel Cells (Auto) Urine Bacteria (Auto) Urine Yeast (Auto) 07/10/20 07/10/20 06:49 11:55 WBC RBC Hgb Hct MCV MCH MCHC RDW Plt Count MPV Absolute Neuts (auto) Neutrophils % Neutrophils % (Manual) Band Neutrophils % Lymphocytes % Lymphocytes % (Manual) Monocytes % Monocytes % (Manual) Eosinophils % Eosinophils % (Manual) Basophils % Basophils % (Manual) Myelocytes % (Man) Promyelocytes % (Man) Blast Cells % (Manual) Nucleated RBC % Metamyelocytes Hypochromia Platelet Estimate Polychromasia Poikilocytosis Anisocytosis Microcytosis Macrocytosis [place] Cells Sodium 137 Potassium 3.8 Chloride 103 Carbon Dioxide 24 Anion Gap 9 BUN 13.4 Creatinine 1.5 H Est GFR (CKD-EPI)AfAm 51.67 Est GFR (CKD-EPI)NonAf 44.58 POC Glucometer 210 Random Glucose 173 H Lactic Acid Calcium 8.0 L Phosphorus 3.4 Magnesium 1.2 L Total Bilirubin AST ALT Alkaline Phosphatase Troponin I Total Protein Albumin Urine Color Urine Appearance Urine pH Ur Specific [place] Urine Protein Urine Glucose (UA) Urine Ketones Urine Blood Urine Nitrite Urine Bilirubin Urine Urobilinogen Ur Leukocyte Esterase Urine WBC (Auto) Urine RBC (Auto) Urine Casts (Auto) U Pathogenic Cast Auto U Epithel Cells (Auto) Urine Bacteria (Auto) Urine Yeast (Auto) Active Medications Generic Name Dose Route Start Last Admin Trade Name Freq PRN Reason Stop Dose Admin Allopurinol 300 mg 07/11/20 10:00 Zyloprim - PO DAILY [facility] Aspirin 81 mg 07/11/20 10:00 Ecotrin - PO DAILY [facility] Atorvastatin Calcium 10 mg 07/10/20 22:00 Lipitor - PO HS [facility] Brimonidine Tartrate 1 drop 07/10/20 14:00 Alphagan P 0.1% - OU TID TAYLOR Finasteride 5 mg 07/10/20 13:00 Proscar - PO DAILY TAYLOR Heparin Sodium (Porcine) 5,000 unit 07/09/20 22:00 07/10/20 06:15 Heparin - SQ 5,000 unit TID TAYLOR Administration Hydrochlorothiazide 25 mg 07/11/20 10:00 Hctz - PO DAILY TAYLOR Sodium Chloride 1,000 mls @ 60 mls/hr 07/09/20 21:00 07/09/20 21:07 Normal Saline - IV 60 mls/hr ASDIR TAYLOR Administration Piperacillin Sod/Tazobactam 50 mls @ 100 mls/hr 07/10/20 02:00 Sod 3.375 gm/ Dextrose IVPB Q8H-IV TAYLOR Protocol Piperacillin Sod/Tazobactam 50 mls @ 100 mls/hr 07/10/20 02:00 07/10/20 11:00 Sod 3.375 gm/ Dextrose IVPB 07/10/20 18:29 100 mls/hr Q8H-IV TAYLOR Administration Protocol Insulin Aspart 0 vial 07/09/20 22:00 07/10/20 12:04 Novolog Vial Sliding Scale - SQ 4 units ACHS TAYLOR Administration Protocol Insulin Detemir 20 units 07/10/20 22:00 Levemir Vial SQ HS [facility] Latanoprost 1 drop 07/10/20 22:00 Xalatan 0.005% Eye Drops - OU HS [facility] Oxycodone HCl 5 mg 07/10/20 14:18 Roxicodone - PO Q6H PRN PAIN LEVEL 6-10 Polyethylene Glycol 17 gm 07/11/20 10:00 Miralax (For Daily Use) - PO DAILY [facility] Tamsulosin HCl 0.4 mg 07/10/20 12:30 Flomax - PO DAILY@0830 [facility] Tenofovir Disoproxil Fumarate 300 mg 07/10/20 13:00 Viread - PO Q48H [facility] Timolol Maleate 1 drop 07/10/20 15:00 Timoptic 0.5% OU DAILY [facility] Valacyclovir HCl 1,000 mg 07/10/20 13:00 Valtrex - PO BID TAYLOR Valsartan 320 mg 07/11/20 10:00 Diovan - PO DAILY [facility] ASSESSMENT/PLAN: 75yoM with B cell lymphoma, HTN, DM, and BPH s/p TURP who presents with lightheadedness, weakness, and low blood pressure found to be in severe sepsis secondary to acute complicated UTI. Severe sepsis secondary to UTI -Leukocytosis, tachycardia, elevated lactic acid - Empiric Zosyn - f/u urine and blood cultures #Orthostatic hypotension -Initial BP 76/50, responsive to fluids -Orthostatic hypotension despite 2L fluids in ED; asymptomatic while supine - hold home diuretic, antihypertensive medications - continue IVF, encourage PO hydration #Renal dysfunction -Creatinine 2.0, stable from the time of transfer to [facility] - continue hydration as above - renal US mild hydronephrosis #B-cell lymphoma, prostate cancer -Recent diagnosis this May -Reports he started chemotherapy, next due on 07/14; unsure of what agents he is on - consult oncology #HTN -BP meds on hold, normotensive today -monitor BP #DM -ISC -diabetic diet -Levemir Qhs #BPH s/p TURP #Left ureteral stent - Prostate biopsy last hospitalization showed benign tissue DVT ppx: heparin subq Visit type - Emergency Visit Emergency Visit: Yes ED Registration Date: 07/09/20 Care time: The patient presented to the Emergency Department on the above date and was hospitalized for further evaluation of their emergent condition. - New Patient This patient is new to me today: Yes Date on this admission: 07/10/20 - Critical Care Critical Care patient: No - Medication Review Med list reviewed for High Risk Meds patients 65 and older: No
[2020-07-10] MEDS: TAMSULOSIN HCL 0.4 MG CAP PO SCH (14:30)
[2020-07-10] MEDS: valACYclovir HCL 500 MG TABLET (FP) PO SCH ×2 (14:30→21:32)
[2020-07-10] MEDS ORDERED: TAMSULOSIN HCL 0.4 MG CAP ONE (14:34)
[2020-07-10] MEDS ORDERED: valACYclovir HCL 500 MG TABLET (FP) ONE (14:34)
[2020-07-10] MEDS: FINASTERIDE 5 MG TABLET (FP) PO SCH (16:00)
[2020-07-10] MEDS: TENOFOVIR DISOPROXIL FUMARATE 300 MG TABLET PO SCH (16:00)
[2020-07-10] MEDS: BRIMONIDINE TARTRATE 0.1% OPHTHALMIC 5 ML BOTTLE OU SCH ×2 (16:00→21:31)
[2020-07-10] MEDS: TIMOLOL 0.5% OPHTHALMIC SOL 5 ML BOTTLE OU SCH (16:00)
[2020-07-10] MEDS ORDERED: PIPERACILLIN/TAZOB 3.375 GM 3.375 GM/50 ML BAG IVPB ONE (18:08)
[2020-07-10 18:51] VITALS: BMI 24.2
[2020-07-10] MEDS ORDERED: PIPERACILLIN/TAZOBACTAM 3.375 GM VIAL IVPB ONE (18:54)
[2020-07-10] MEDS ORDERED: DEXTROSE 5%-WATER - 50 ML IVPB ONE (18:54)
[2020-07-10] MEDS: SODIUM CHLORIDE 1,000 ML IV SCH (21:30)
[2020-07-10] MEDS: ATORVASTATIN CA 10 MG TABLET (FP) PO SCH (21:31)
[2020-07-10] MEDS: LATANOPROST 0.005% OPHTH SOLN 2.5ML BOTTLE OU SCH ×2 (21:36→22:00)
[2020-07-10] MEDS: INSULIN (LEVEMIR) 100 UNITS/ML UNITS SQ SCH (21:51)
[2020-07-11] MEDS ORDERED: PIPERACILLIN/TAZOB 3.375 GM 3.375 GM in DEXTROSE 5%-WATER - 50 ML IVPB SCH (02:00)
[2020-07-11] MEDS ORDERED: DEXTROSE 5%-WATER - 50 ML IVPB ONE ×3 (02:21→17:48)
[2020-07-11] MEDS ORDERED: PIPERACILLIN/TAZOBACTAM 3.375 GM VIAL IVPB ONE ×3 (02:21→17:48)
[2020-07-11] MEDS: BRIMONIDINE TARTRATE 0.1% OPHTHALMIC 5 ML BOTTLE OU SCH ×3 (06:04→21:26)
[2020-07-11] MEDS: INSULIN SLIDING SCALE (NOVOLOG) 1 VIAL SQ SCH ×4 (06:04→21:29)
[2020-07-11] MEDS: HEPARIN NA (PORCINE) 5,000 UNITS/ML 1ML VIAL SQ SCH ×3 (06:04→21:23)
[2020-07-11] MEDS: TAMSULOSIN HCL 0.4 MG CAP PO SCH (08:31)
[2020-07-11] MEDS ORDERED: PT OWN MED DRAWER 7, Y5N ONE (08:59)
[2020-07-11] MEDS: ALLOPURINOL 300 MG TABLET (FP) PO SCH (09:08)
[2020-07-11] MEDS: valACYclovir HCL 500 MG TABLET (FP) PO SCH ×2 (09:08→21:24)
[2020-07-11] MEDS: ASPIRIN COATED 81 MG TABLET.EC PO SCH (09:09)
[2020-07-11] MEDS: POLYETHYLENE GLYCOL 3350 119 GM BTL PO SCH (09:09)
[2020-07-11] MEDS: FINASTERIDE 5 MG TABLET (FP) PO SCH (09:10)
[2020-07-11] MEDS: TIMOLOL 0.5% OPHTHALMIC SOL 5 ML BOTTLE OU SCH ×3 (09:11→21:24)
[2020-07-11] MEDS ORDERED: VALSARTAN 160 MG TABLET (UD) PO SCH (10:00)
[2020-07-11] MEDS ORDERED: HYDROCHLOROTHIAZIDE 25 MG TABLET (FP) PO SCH (10:00)
[2020-07-11] MEDS ORDERED: PIPERACILLIN/TAZOB 3.375 GM 3.375 GM in DEXTROSE 5%-WATER - 50 ML IVPB ONE (10:00)
[2020-07-11 12:23] LABS: BASO % 1.1 % (0-2.0); EOS % 0.2 % (0-4.5); HEMATOCRIT 27.7 % (35.4-49); HEMOGLOBIN 9.3 GM/dL (11.7-16.9); LYMPH % 12.5 % (8-40); MCHC 33.4 g/dl (32.0-35.9); MEAN CELL VOLUME 83.7 fl (80-96); MEAN PLT VOLUME 7.7 fl (7.5-11.1); MONO % 9.7 % (3.8-10.2); NEUT % 76.5 % (42.8-82.8); PLATELET COUNT 419 K/MM3 (134-434); RBC 3.31 M/mm3 (4.00-5.60); RDW 14.1 % (11.9-15.9); WHITE BLOOD COUNT 9.1 K/mm3 (4.0-10.0)
[2020-07-11 12:59] LABS: ALBUMIN 2.7 g/dl (3.4-5.0); BILIRUBIN,TOTAL 0.4 mg/dL (0.2-1); BLOOD UREA NITROGEN 9.5 mg/dL (7-18); CALCIUM 7.9 mg/dL (8.5-10.1); CREATININE 1.2 mg/dL (0.55-1.3); MAGNESIUM 1.4 mg/dL (1.8-2.4); POTASSIUM 4.2 mmol/L (3.5-5.1); TOT PROT 6.1 g/dl (6.4-8.2)
[2020-07-11] MEDS: SODIUM CHLORIDE 1,000 ML IV SCH (14:12)
[2020-07-11] MEDS ORDERED: MAGNESIUM 2GM/50ML STERILE WATER IVPB IVPB ONE (14:34)
[2020-07-11] MEDS ORDERED: PANTOPRAZOLE 20 MG TABLET PO ONE (17:06)
[2020-07-11] MEDS ORDERED: MAG HYDROX/AL HYDROX/SIMETH 30 ML UNIT-DOSE CUP PO ONE (17:06)
--- NOTE | 2020-07-11 17:10 | PN ---
Progress Note (short form) - Note Progress Note: ID CONSULT DICTATED UTI R/O SEPSIS SECONDARY TO UTI B CELL LYMPHOMA DIABETES MELLITUS AWAIT C/S CONTINUE ZOSYN
[2020-07-11] MEDS: PIPERACILLIN/TAZOB 3.375 GM 3.375 GM in DEXTROSE 5%-WATER - 50 ML IVPB SCH (17:51)
[2020-07-11] MEDS ORDERED: INSULIN (NOVOLOG) ASPART 100 UNITS/ML 10ML VIAL ONE (21:02)
[2020-07-11] MEDS: INSULIN (LEVEMIR) 100 UNITS/ML UNITS SQ SCH (21:21)
[2020-07-11] MEDS: ATORVASTATIN CA 10 MG TABLET (FP) PO SCH (21:24)
[2020-07-11] MEDS: LATANOPROST 0.005% OPHTH SOLN 2.5ML BOTTLE OU SCH (21:25)
--- NOTE | 2020-07-11 21:52 | PN ---
Physical Exam: SUBJECTIVE: Patient seen and examined. Voices no complaints. Hard of hearing. OBJECTIVE: Vital Signs Period Temp Pulse Resp BP Sys/Loredo Pulse Ox Last 24 Hr 97.5 F-98.7 F 75-97 18-18 97-112/58-73 97-100 GENERAL: The patient is awake, alert, and fully oriented, in no acute distress. HEAD: Normal with no signs of trauma. LUNGS: Breath sounds equal, clear to auscultation bilaterally, no wheezes, no crackles, no accessory muscle use. HEART: Regular rate and rhythm, S1, S2 ABDOMEN: Soft, nontender, nondistended EXTREMITIES: 2+ pulses, warm, well-perfused, no edema. NEUROLOGICAL: Cranial nerves II through XII grossly intact. Normal speech, gait not observed. Laboratory Results - last 24 hr 07/09/20 07/10/20 07/11/20 18:15 21:50 05:47 WBC RBC Hgb Hct MCV MCH MCHC RDW Plt Count MPV Absolute Neuts (auto) Neutrophils % Lymphocytes % Monocytes % Eosinophils % Basophils % Nucleated RBC % Sodium Potassium Chloride Carbon Dioxide Anion Gap BUN Creatinine Est GFR (CKD-EPI)AfAm Est GFR (CKD-EPI)NonAf POC Glucometer 158 72 Random Glucose Calcium Magnesium Total Bilirubin AST ALT Alkaline Phosphatase Total Protein Albumin COVID-19 (MARY ANNE) Not detected 07/11/20 07/11/20 07/11/20 10:32 11:50 11:50 WBC 9.1 RBC 3.31 L Hgb 9.3 L Hct 27.7 L MCV 83.7 MCH 28.0 MCHC 33.4 RDW 14.1 Plt Count 419 MPV 7.7 Absolute Neuts (auto) 7.0 Neutrophils % 76.5 Lymphocytes % 12.5 Monocytes % 9.7 Eosinophils % 0.2 Basophils % 1.1 Nucleated RBC % 0 Sodium 139 Potassium 4.2 Chloride 105 Carbon Dioxide 30 Anion Gap 5 L BUN 9.5 Creatinine 1.2 Est GFR (CKD-EPI)AfAm 67.67 Est GFR (CKD-EPI)NonAf 58.39 POC Glucometer 82 Random Glucose 78 Calcium 7.9 L Magnesium 1.4 L Total Bilirubin 0.4 AST 11 L ALT 10 L Alkaline Phosphatase 75 Total Protein 6.1 L Albumin 2.7 L COVID-19 (MARY ANNE) 07/11/20 21:09 WBC RBC Hgb Hct MCV MCH MCHC RDW Plt Count MPV Absolute Neuts (auto) Neutrophils % Lymphocytes % Monocytes % Eosinophils % Basophils % Nucleated RBC % Sodium Potassium Chloride Carbon Dioxide Anion Gap BUN Creatinine Est GFR (CKD-EPI)AfAm Est GFR (CKD-EPI)NonAf POC Glucometer 159 Random Glucose Calcium Magnesium Total Bilirubin AST ALT Alkaline Phosphatase Total Protein Albumin COVID-19 ([facility] ANNE) Active Medications Generic Name Dose Route Start Last Admin Trade Name Freq PRN Reason Stop Dose Admin Allopurinol 300 mg 07/11/20 10:00 07/11/20 09:08 Zyloprim - PO 300 mg DAILY TAYLOR Administration Aspirin 81 mg 07/11/20 10:00 07/11/20 09:09 Ecotrin - PO 81 mg DAILY TAYLOR Administration Atorvastatin Calcium 10 mg 07/10/20 22:00 07/11/20 21:24 Lipitor - PO 10 mg HS TAYLOR Administration Brimonidine Tartrate 1 drop 07/11/20 10:00 07/11/20 21:26 Alphagan P 0.1% - OU 1 drop BID TAYLOR Administration Finasteride 5 mg 07/10/20 13:00 07/11/20 09:10 Proscar - PO 5 mg DAILY TAYLOR Administration Heparin Sodium (Porcine) 5,000 unit 07/09/20 22:00 07/11/20 21:23 Heparin - SQ Not Given TID TAYLOR Sodium Chloride 1,000 mls @ 60 mls/hr 07/09/20 21:00 07/11/20 14:12 Normal Saline - IV 60 mls/hr ASDIR TAYLOR Administration Piperacillin Sod/Tazobactam 50 mls @ 100 mls/hr 07/11/20 18:00 07/11/20 17:51 Sod 3.375 gm/ Dextrose IVPB 100 mls/hr Q8H-IV TAYLOR Administration Protocol Insulin Aspart 0 vial 07/09/20 22:00 07/11/20 21:29 Novolog Vial Sliding Scale - SQ Not Given ACHS TAYLOR Protocol Insulin Detemir 20 units 07/10/20 22:00 07/11/20 21:21 Levemir Vial SQ Not Given HS TAYLOR Latanoprost 1 drop 07/10/20 22:00 07/11/20 21:25 Xalatan 0.005% Eye Drops - OU 1 drop HS TAYLOR Administration Oxycodone HCl 5 mg 07/10/20 14:18 07/11/20 09:08 Roxicodone - PO 5 mg Q6H PRN Administration PAIN LEVEL 6-10 Polyethylene Glycol 17 gm 07/11/20 10:00 07/11/20 09:09 Miralax (For Daily Use) - PO 17 gm DAILY TAYLOR Administration Tamsulosin HCl 0.4 mg 07/10/20 12:30 07/11/20 08:31 Flomax - PO 0.4 mg DAILY@0830 TAYLOR Administration Tenofovir Disoproxil Fumarate 300 mg 07/10/20 13:00 07/10/20 16:00 Viread - PO 300 mg Q2D@0800 TAYLOR Administration Timolol Maleate 1 drop 07/11/20 10:00 07/11/20 21:24 Timoptic 0.5% OU 1 drop BID TAYLOR Administration Valacyclovir HCl 1,000 mg 07/10/20 13:00 07/11/20 21:24 Valtrex - PO 1,000 mg BID TAYLOR Administration ASSESSMENT/PLAN: 75 year-old male with a PMH significant for HTN, HLD, B Cell Lymphoma, Type II IDDM, BPH s/p TURP. Admitted for severe sepsis secondary to UTI and MIRACLE. Severe sepsis secondary to UTI --WBC 14.4k, p117, lactic acid 2.0, pyuria present on admission --urine culture (+) [id number] --start Zosyn --ID to follow MIRACLE --Cr 2.0 on admission, 1.2 today --IV fluids B-cell lymphoma --follows [facility] Dr. Atkins at [facility], cell [phone] --next chemo session 07/14 --oncology following Hypertension --hold anti-hypertensives due to sepsis Hyperlipidemia --continue Lipitor Gout --continue allopurinol BPH --continue finasteride, tamsulosin Type II IDDM --Levemir 20U qhs --Novolog sliding scale coverage Hypomagnesemia --repleted FEN Fluids: NS @ 60mL/hr Electrolytes: replete as indicated Nutrition: low sodium, diabetic Physical therapy DVT prophylaxis: subq heparin Dispo: continues to require inpatient care. Full code. Visit type - Emergency Visit Emergency Visit: Yes ED Registration Date: 07/09/20 Care time: The patient presented to the Emergency Department on the above date and was hospitalized for further evaluation of their emergent condition. - New Patient This patient is new to me today: Yes Date on this admission: 07/12/20 - Critical Care Critical Care patient: No - Medication Review Med list reviewed for High Risk Meds patients 65 and older: Yes
[2020-07-12] MEDS ORDERED: DEXTROSE 5%-WATER - 50 ML IVPB ONE ×3 (01:35→17:08)
[2020-07-12] MEDS ORDERED: PIPERACILLIN/TAZOBACTAM 3.375 GM VIAL IVPB ONE ×3 (01:35→17:07)
[2020-07-12] MEDS: PIPERACILLIN/TAZOB 3.375 GM 3.375 GM in DEXTROSE 5%-WATER - 50 ML IVPB SCH ×3 (01:56→17:10)
[2020-07-12] MEDS: HEPARIN NA (PORCINE) 5,000 UNITS/ML 1ML VIAL SQ SCH ×3 (06:11→23:22)
[2020-07-12] MEDS: INSULIN SLIDING SCALE (NOVOLOG) 1 VIAL SQ SCH ×4 (06:12→23:10)
[2020-07-12] MEDS ORDERED: PT OWN MED DRAWER 7, Y5N ONE (08:54)
--- NOTE | 2020-07-12 09:05 | CONS ---
INFECTIOUS DISEASE CONSULTATION DATE OF CONSULTATION: DATE OF DICTATION: 07/11/2020 HISTORY: The patient is a 75-year-old male with a history of B-cell lymphoma who is evaluated for sepsis. He was admitted to the hospital on July 09, 2020, with reports of shortness of breath and lightheadedness. In the emergency room he was noted to be hypotensive with blood pressures of 76/50. He was also noted to have an elevated white blood cell count and a lactic acidosis. He was empirically treated with Zosyn. Urine analysis obtained was reported as cloudy. The patient recently underwent a left ureteral stent for obstructive uropathy. He has a history of B-cell lymphoma and retroperitoneal mass resulting in hydronephrosis. A ureteral catheter was placed. The patient was admitted to the hospital and empirically treated with Zosyn. At the present time he is awake and alert. He is in no acute distress. He has no focal complaint. He is not acutely toxic appearing. PAST MEDICAL HISTORY: Positive for recently diagnosed B-cell lymphoma. He is status post first cycle of chemotherapy. He has a history of retroperitoneal mass with hydronephrosis requiring ureteral stent; diabetes mellitus, hypertension, hyperlipidemia, BPH. PAST SURGICAL HISTORY: Status post TURP. ALLERGIES: To METFORMIN and DOXAZOSIN. MEDICATIONS: Include Zosyn, tenofovir, valacyclovir, Flomax, Lipitor, aspirin, Zyloprim, Proscar. SOCIAL HISTORY: Patient resides at home. He is a nonsmoker, nondrinker. SYSTEMS REVIEW: Neurologic: No loss of consciousness, seizure activity, focal weakness. Cardiac: Negative chest pain or palpitations. Respiratory: Negative cough or sputum production. Gastrointestinal: Negative vomiting or diarrhea. Genitourinary: As per HPI. LABORATORY DATA: White count 9.1, neutrophils 76, lymphocytes 12, monocytes 9, hematocrit 27.7, platelet count 419, absolute neutrophil count 7.0. Urine analysis 28,987 white cells. Total bilirubin 0.4, alkaline phosphatase 75, AST 11. COVID-19 negative. Blood cultures pending. Urine culture growing a nonlactose staff respiratory therapist. PHYSICAL EXAMINATION: General: He is awake. He is in no acute distress. Vital Signs: Temperature 97.5, blood pressure 97/69, pulse 75 regular, respirations 18 per minute. HEENT: Sclerae are anicteric. Heart: Sounds S1, S2. Lungs: Clear. Abdomen: Soft, nontender. No suprapubic or flank tenderness. Extremities: Negative for edema. IMPRESSION: 1. Urinary tract infection, rule out sepsis secondary to urinary tract infection. 2. Obstructive uropathy, status post ureteral stent. 3. B-cell lymphoma. 4. Diabetes mellitus. Await culture results. Empiric antibiotic coverage pending culture results with Zosyn. Further recommendations pending culture results. Will follow. Thank you for the kind referral. ZOIE MAZARIEGOS M.D. [id number]
[2020-07-12] MEDS: valACYclovir HCL 500 MG TABLET (FP) PO SCH ×2 (09:16→23:10)
[2020-07-12] MEDS: ALLOPURINOL 300 MG TABLET (FP) PO SCH (09:17)
[2020-07-12] MEDS: ASPIRIN COATED 81 MG TABLET.EC PO SCH (09:17)
[2020-07-12] MEDS: TIMOLOL 0.5% OPHTHALMIC SOL 5 ML BOTTLE OU SCH ×2 (09:17→23:10)
[2020-07-12] MEDS: TENOFOVIR DISOPROXIL FUMARATE 300 MG TABLET PO SCH (09:17)
[2020-07-12] MEDS: FINASTERIDE 5 MG TABLET (FP) PO SCH (09:17)
[2020-07-12] MEDS: TAMSULOSIN HCL 0.4 MG CAP PO SCH (09:17)
[2020-07-12] MEDS: BRIMONIDINE TARTRATE 0.1% OPHTHALMIC 5 ML BOTTLE OU SCH ×2 (09:19→23:22)
[2020-07-12] MEDS: POLYETHYLENE GLYCOL 3350 119 GM BTL PO SCH (09:21)
--- NOTE | 2020-07-12 14:05 | PN ---
Physical Exam: SUBJECTIVE: Patient seen and examined OBJECTIVE: Vital Signs Period Temp Pulse Resp BP Sys/Loredo Pulse Ox Last 24 Hr 97.6 F-98.2 F 86-102 18-18 96-117/67-79 96-100 GENERAL: The patient is awake, alert, and fully oriented, in no acute distress. HEAD: Normal with no signs of trauma. LUNGS: Breath sounds equal, clear to auscultation bilaterally, no wheezes, no crackles, no accessory muscle use. HEART: Regular rate and rhythm, S1, S2 ABDOMEN: Soft, nontender, nondistended EXTREMITIES: 2+ pulses, warm, well-perfused, no edema. NEUROLOGICAL: Cranial nerves II through XII grossly intact. Normal speech, gait not observed. Laboratory Results - last 24 hr 07/11/20 07/12/20 07/12/20 21:09 06:09 07:35 POC Glucometer 159 160 Lactic Acid 1.0 Active Medications Generic Name Dose Route Start Last Admin Trade Name Freq PRN Reason Stop Dose Admin Allopurinol 300 mg 07/11/20 10:00 07/12/20 09:17 Zyloprim - PO 300 mg DAILY TAYLOR Administration Aspirin 81 mg 07/11/20 10:00 07/12/20 09:17 Ecotrin - PO 81 mg DAILY TAYLOR Administration Atorvastatin Calcium 10 mg 07/10/20 22:00 07/11/20 21:24 Lipitor - PO 10 mg HS TAYLOR Administration Brimonidine Tartrate 1 drop 07/11/20 10:00 07/12/20 09:19 Alphagan P 0.1% - OU 1 drop BID TAYLOR Administration Finasteride 5 mg 07/10/20 13:00 07/12/20 09:17 Proscar - PO 5 mg DAILY TAYLOR Administration Heparin Sodium (Porcine) 5,000 unit 07/09/20 22:00 07/12/20 13:09 Heparin - SQ Not Given TID TAYLOR Sodium Chloride 1,000 mls @ 60 mls/hr 07/09/20 21:00 07/11/20 14:12 Normal Saline - IV 60 mls/hr ASDIR TAYLOR Administration Piperacillin Sod/Tazobactam 50 mls @ 100 mls/hr 07/11/20 18:00 07/12/20 09:16 Sod 3.375 gm/ Dextrose IVPB 100 mls/hr Q8H-IV TAYLOR Administration Protocol Insulin Aspart 0 vial 07/09/20 22:00 07/12/20 10:49 Novolog Vial Sliding Scale - SQ Not Given ACHS TAYLOR Protocol Insulin Detemir 20 units 07/10/20 22:00 07/11/20 21:21 Levemir Vial SQ Not Given HS TAYLOR Latanoprost 1 drop 07/10/20 22:00 07/11/20 21:25 Xalatan 0.005% Eye Drops - OU 1 drop HS TAYLOR Administration Oxycodone HCl 5 mg 07/10/20 14:18 07/11/20 09:08 Roxicodone - PO 5 mg Q6H PRN Administration PAIN LEVEL 6-10 Polyethylene Glycol 17 gm 07/11/20 10:00 07/12/20 09:21 Miralax (For Daily Use) - PO 17 gm DAILY TAYLOR Administration Tamsulosin HCl 0.4 mg 07/10/20 12:30 07/12/20 09:17 Flomax - PO 0.4 mg DAILY@0830 TAYLOR Administration Tenofovir Disoproxil Fumarate 300 mg 07/10/20 13:00 07/12/20 09:17 Viread - PO 300 mg Q2D@0800 TAYLOR Administration Timolol Maleate 1 drop 07/11/20 10:00 07/12/20 09:17 Timoptic 0.5% OU 1 drop BID TAYLOR Administration Valacyclovir HCl 1,000 mg 07/10/20 13:00 07/12/20 09:16 Valtrex - PO 1,000 mg BID TAYLOR Administration Microbiology 07/09/20 17:15 Urine - Urine Clean Catch Urine Culture - Final Morganella Morganii 07/09/20 17:15 Blood - Peripheral Venous Blood Culture - Preliminary NO GROWTH OBTAINED AFTER 48 HOURS, INCUBATION TO CONTINUE FOR 3 DAYS. 07/09/20 17:15 Blood - Peripheral Venous Blood Culture - Preliminary NO GROWTH OBTAINED AFTER 48 HOURS, INCUBATION TO CONTINUE FOR 3 DAYS. ASSESSMENT/PLAN: 75 year-old male with a PMH significant for HTN, HLD, B Cell Lymphoma, Type II IDDM, BPH s/p TURP. Admitted for severe sepsis secondary to UTI and MIRACLE. Severe sepsis secondary to UTI --WBC 14.4k, p117, lactic acid 2.0, pyuria present on admission --urine culture (+) Morganella, sensitive to Zosyn (day #2) --ID following MIRACLE --Cr 2.0 on admission, now 1.2 --IV fluids B-cell lymphoma --follows wt Dr. Atkins at [facility], cell [phone] --next chemo session 07/14; Dr. Foster advised Dr. Atkins would like patient to receive chemo infusion on 07/14 if still inpatient here Hypertension --continue hold anti-hypertensives due to sepsis Hyperlipidemia --continue Lipitor Gout --continue allopurinol BPH --continue finasteride, tamsulosin Type II IDDM --Levemir 20U qhs --Novolog sliding scale coverage Hypomagnesemia --repleted FEN Fluids: NS @ 60mL/hr Electrolytes: replete as indicated Nutrition: low sodium, diabetic Physical therapy DVT prophylaxis: subq heparin Dispo: continues to require inpatient care. Full code. Visit type - Emergency Visit Emergency Visit: Yes ED Registration Date: 07/09/20 Care time: The patient presented to the Emergency Department on the above date and was hospitalized for further evaluation of their emergent condition. - New Patient This patient is new to me today: No - Critical Care Critical Care patient: No - Medication Review Med list reviewed for High Risk Meds patients 65 and older: Yes
[2020-07-12 16:07] LABS: BLOOD UREA NITROGEN 6.2 mg/dL (7-18); CALCIUM 7.7 mg/dL (8.5-10.1); CREATININE 1.2 mg/dL (0.55-1.3); MAGNESIUM 1.8 mg/dL (1.8-2.4); POTASSIUM 4.1 mmol/L (3.5-5.1)
[2020-07-12] MEDS: SODIUM CHLORIDE 1,000 ML IV SCH (16:38)
--- NOTE | 2020-07-12 22:25 | PN ---
Progress Note, Physician Chief Complaint: AWAKE, ALERT IN BED NO COMPLAINTS AFEBRILE WBC IMPROVED WNL BC (-) URINE C/S MORGANELLA - Current Medication List Current Medications: Active Medications Allopurinol (Zyloprim -) 300 mg PO DAILY [facility] Last Admin: 07/12/20 09:17 Dose: 300 mg Documented by: Aspirin (Ecotrin -) 81 mg PO DAILY [facility] Last Admin: 07/12/20 09:17 Dose: 81 mg Documented by: Atorvastatin Calcium (Lipitor -) 10 mg PO HS [facility] Last Admin: 07/11/20 21:24 Dose: 10 mg Documented by: Brimonidine Tartrate (Alphagan P 0.1% -) 1 drop OU BID [facility] Last Admin: 07/12/20 09:19 Dose: 1 drop Documented by: Finasteride (Proscar -) 5 mg PO DAILY [facility] Last Admin: 07/12/20 09:17 Dose: 5 mg Documented by: Heparin Sodium (Porcine) (Heparin -) 5,000 unit SQ TID [facility] Last Admin: 07/12/20 13:09 Dose: Not Given Documented by: Sodium Chloride (Normal Saline -) 1,000 mls @ 60 mls/hr IV ASDIR [facility] Last Admin: 07/12/20 16:38 Dose: 60 mls/hr Documented by: Piperacillin Sod/Tazobactam (Sod 3.375 gm/ Dextrose) 50 mls @ 100 mls/hr IVPB Q8H-IV [facility]; Protocol Last Admin: 07/12/20 17:10 Dose: 100 mls/hr Documented by: Insulin Aspart (Novolog Vial Sliding Scale -) 0 vial SQ [facility]; Protocol Last Admin: 07/12/20 17:10 Dose: 4 units Documented by: Insulin Detemir (Levemir Vial) 20 units SQ [facility] Last Admin: 07/11/20 21:21 Dose: Not Given Documented by: Latanoprost (Xalatan 0.005% Eye Drops -) 1 drop OU [facility] Last Admin: 07/11/20 21:25 Dose: 1 drop Documented by: Oxycodone HCl (Roxicodone -) 5 mg PO Q6H PRN PRN Reason: PAIN LEVEL 6-10 Last Admin: 07/11/20 09:08 Dose: 5 mg Documented by: Polyethylene Glycol (Miralax (For Daily Use) -) 17 gm PO DAILY [facility] Last Admin: 07/12/20 09:21 Dose: 17 gm Documented by: Tamsulosin HCl (Flomax -) 0.4 mg PO DAILY@0830 [facility] Last Admin: 07/12/20 09:17 Dose: 0.4 mg Documented by: Tenofovir Disoproxil Fumarate (Viread -) 300 mg PO Q2D@0800 [facility] Last Admin: 07/12/20 09:17 Dose: 300 mg Documented by: Timolol Maleate (Timoptic 0.5%) 1 drop OU BID [facility] Last Admin: 07/12/20 09:17 Dose: 1 drop Documented by: Valacyclovir HCl (Valtrex -) 1,000 mg PO BID [facility] Last Admin: 07/12/20 09:16 Dose: 1,000 mg Documented by: - Objective Vital Signs: Vital Signs Temperature 98.4 F 07/12/20 18:56 Pulse Rate 87 07/12/20 18:56 Respiratory Rate 18 07/12/20 14:00 Blood Pressure 109/65 07/12/20 18:56 O2 Sat by Pulse Oximetry (%) 98 07/12/20 18:56 Constitutional: Yes: No Distress Eyes: Yes: Conjunctiva Clear Cardiovascular: Yes: Regular Rate and Rhythm, S1, S2 Respiratory: Yes: CTA Bilaterally Gastrointestinal: Yes: Normal Bowel Sounds, Soft Edema: No Labs: CBC, BMP 07/11/20 11:50 07/12/20 15:22 Assessment/Plan UTI R/O SEPSIS SECONDARY TO UTI B CELL LYMPHOMA DIABETES MELLITUS CONTINUE ZOSYN
[2020-07-12] MEDS: ATORVASTATIN CA 10 MG TABLET (FP) PO SCH (23:10)
[2020-07-12] MEDS: LATANOPROST 0.005% OPHTH SOLN 2.5ML BOTTLE OU SCH (23:10)
[2020-07-12] MEDS: INSULIN (LEVEMIR) 100 UNITS/ML UNITS SQ SCH (23:10)
[2020-07-13] MEDS ORDERED: DEXTROSE 5%-WATER - 50 ML IVPB ONE ×3 (02:32→17:18)
[2020-07-13] MEDS ORDERED: PIPERACILLIN/TAZOBACTAM 3.375 GM VIAL IVPB ONE ×3 (02:32→17:18)
[2020-07-13] MEDS: PIPERACILLIN/TAZOB 3.375 GM 3.375 GM in DEXTROSE 5%-WATER - 50 ML IVPB SCH ×3 (02:39→17:19)
[2020-07-13] MEDS: HEPARIN NA (PORCINE) 5,000 UNITS/ML 1ML VIAL SQ SCH ×3 (05:45→21:09)
[2020-07-13] MEDS: INSULIN SLIDING SCALE (NOVOLOG) 1 VIAL SQ SCH ×4 (06:02→21:08)
[2020-07-13] MEDS ORDERED: INSULIN (NOVOLOG) ASPART 100 UNITS/ML 10ML VIAL ONE ×2 (07:56→21:10)
[2020-07-13] MEDS ORDERED: PT OWN MED DRAWER 7, Y5N ONE (09:11)
[2020-07-13] MEDS: ASPIRIN COATED 81 MG TABLET.EC PO SCH (09:19)
[2020-07-13] MEDS: valACYclovir HCL 500 MG TABLET (FP) PO SCH ×2 (09:19→21:11)
[2020-07-13] MEDS: FINASTERIDE 5 MG TABLET (FP) PO SCH (09:19)
[2020-07-13] MEDS: TAMSULOSIN HCL 0.4 MG CAP PO SCH (09:19)
[2020-07-13] MEDS: TIMOLOL 0.5% OPHTHALMIC SOL 5 ML BOTTLE OU SCH ×2 (09:20→21:09)
[2020-07-13] MEDS: BRIMONIDINE TARTRATE 0.1% OPHTHALMIC 5 ML BOTTLE OU SCH ×2 (09:20→21:52)
[2020-07-13] MEDS: POLYETHYLENE GLYCOL 3350 119 GM BTL PO SCH (09:20)
[2020-07-13] MEDS: ALLOPURINOL 300 MG TABLET (FP) PO SCH (09:20)
--- NOTE | 2020-07-13 09:28 | PN ---
Teaching Attending Note Name of Resident: Laney Hoffmann ATTENDING PHYSICIAN STATEMENT I saw and evaluated the patient. I reviewed the resident's note and discussed the case with the resident. I agree with the resident's findings and plan as documented. ASSESSMENT AND PLAN: 75 y/o male with PMHx of HTN, HLD, DM, BPH,with recently dx DLBCL GCB types/p DA-REPOCH at [facility]. Plan was to change to [facility] starting 07/14 Patient was recently hospitalized to [facility] May 2020with AMS, hypercalcemia, MIRACLE. CT scan of the abdomen with evidence of retroperitoneal lymphadenopathy, causing a moderate left hydroureteronephrosis. Patient underwent left kidney stent placement and TURP at [facility]. Lymph Node,Right groin, ExcisionalBiopsy06/08/20: - Diffuse large B-cell lymphoma, compatible with [facility] [id number] (WHO Classification 2016). Comment: The neoplastic cells are positive for CD20 and Bcl-6, negative for MUM- 1. The neoplastic cells are negative for CD5 and CD10 by flow cytometry study. Ki67 is 80-90%. Admitted with weakness/ hypotension. Clinically much improved Will discuss with primary oncologist Dr. Atkins at [facility] and schedule [facility] transfer to 7
[2020-07-13 10:14] LABS: BASO % 2.9 % (0-2.0); EOS % 0.4 % (0-4.5); HEMATOCRIT 28.4 % (35.4-49); HEMOGLOBIN 9.4 GM/dL (11.7-16.9); LYMPH % 14.1 % (8-40); MCH 27.6 pg (25.7-33.7); MCHC 33.1 g/dl (32.0-35.9); MEAN CELL VOLUME 83.3 fl (80-96); MEAN PLT VOLUME 7.3 fl (7.5-11.1); MONO % 8.5 % (3.8-10.2); NEUT % 74.1 % (42.8-82.8); PLATELET COUNT 478 K/MM3 (134-434); RBC 3.41 M/mm3 (4.00-5.60); RDW 14.7 % (11.9-15.9); WHITE BLOOD COUNT 6.8 K/mm3 (4.0-10.0)
[2020-07-13 10:46] LABS: ALBUMIN 2.7 g/dl (3.4-5.0); BILIRUBIN,TOTAL 0.4 mg/dL (0.2-1); CALCIUM 7.5 mg/dL (8.5-10.1); CREATININE 1.2 mg/dL (0.55-1.3); MAGNESIUM 1.7 mg/dL (1.8-2.4); TOT PROT 6.2 g/dl (6.4-8.2)
[2020-07-13] MEDS ORDERED: MAGNESIUM 2GM/50ML STERILE WATER IVPB IVPB ONE (10:58)
[2020-07-13] MEDS: SODIUM CHLORIDE 1,000 ML IV SCH ×2 (14:38→21:04)
[2020-07-13] MEDS: LATANOPROST 0.005% OPHTH SOLN 2.5ML BOTTLE OU SCH (21:00)
[2020-07-13] MEDS: INSULIN (LEVEMIR) 100 UNITS/ML UNITS SQ SCH (21:11)
[2020-07-13] MEDS: ATORVASTATIN CA 10 MG TABLET (FP) PO SCH (21:11)
--- NOTE | 2020-07-13 22:34 | PN ---
Progress Note, Physician Chief Complaint: AWAKE, ALERT IN BED NO COMPLAINTS AFEBRILE WBC IMPROVED WNL BC (-) URINE C/S MORGANELLA - Current Medication List Current Medications: Active Medications Allopurinol (Zyloprim -) 300 mg PO DAILY [facility] Last Admin: 07/13/20 09:20 Dose: 300 mg Documented by: Aspirin (Ecotrin -) 81 mg PO DAILY [facility] Last Admin: 07/13/20 09:19 Dose: 81 mg Documented by: Atorvastatin Calcium (Lipitor -) 10 mg PO HS [facility] Last Admin: 07/13/20 21:11 Dose: 10 mg Documented by: Brimonidine Tartrate (Alphagan P 0.1% -) 1 drop OU BID [facility] Last Admin: 07/13/20 21:52 Dose: 1 drop Documented by: Finasteride (Proscar -) 5 mg PO DAILY [facility] Last Admin: 07/13/20 09:19 Dose: 5 mg Documented by: Heparin Sodium (Porcine) (Heparin -) 5,000 unit SQ TID [facility] Last Admin: 07/13/20 21:09 Dose: Not Given Documented by: Sodium Chloride (Normal Saline -) 1,000 mls @ 60 mls/hr IV ASDIR [facility] Last Admin: 07/13/20 21:04 Dose: Not Given Documented by: Piperacillin Sod/Tazobactam (Sod 3.375 gm/ Dextrose) 50 mls @ 100 mls/hr IVPB Q8H-IV [facility]; Protocol Last Admin: 07/13/20 17:19 Dose: 100 mls/hr Documented by: Insulin Aspart (Novolog Vial Sliding Scale -) 0 vial SQ [facility]; Protocol Last Admin: 07/13/20 21:08 Dose: Not Given Documented by: Insulin Detemir (Levemir Vial) 20 units SQ [facility] Last Admin: 07/13/20 21:11 Dose: 20 units Documented by: Latanoprost (Xalatan 0.005% Eye Drops -) 1 drop OU HS [facility] Last Admin: 07/13/20 21:00 Dose: 1 drop Documented by: Polyethylene Glycol (Miralax (For Daily Use) -) 17 gm PO DAILY [facility] Last Admin: 07/13/20 09:20 Dose: 17 gm Documented by: Tamsulosin HCl (Flomax -) 0.4 mg PO DAILY@0830 [facility] Last Admin: 07/13/20 09:19 Dose: 0.4 mg Documented by: Tenofovir Disoproxil Fumarate (Viread -) 300 mg PO Q2D@0800 [facility] Last Admin: 07/12/20 09:17 Dose: 300 mg Documented by: Timolol Maleate (Timoptic 0.5%) 1 drop OU BID [facility] Last Admin: 07/13/20 21:09 Dose: 1 drop Documented by: Valacyclovir HCl (Valtrex -) 1,000 mg PO BID [facility] Last Admin: 07/13/20 21:11 Dose: 1,000 mg Documented by: - Objective Vital Signs: Vital Signs Temperature 98.3 F 07/13/20 21:17 Pulse Rate 78 07/13/20 21:17 Respiratory Rate 18 07/13/20 21:17 Blood Pressure 112/69 07/13/20 21:17 O2 Sat by Pulse Oximetry (%) 98 07/13/20 21:17 Constitutional: Yes: No Distress Cardiovascular: Yes: Regular Rate and Rhythm, S1, S2 Respiratory: Yes: CTA Bilaterally Gastrointestinal: Yes: Normal Bowel Sounds, Soft Edema: No Labs: CBC, BMP 07/13/20 09:55 07/13/20 09:55 Assessment/Plan UTI R/O SEPSIS SECONDARY TO UTI B CELL LYMPHOMA DIABETES MELLITUS SUBSTITUTE CEFTRIAXONE
--- NOTE | 2020-07-14 05:36 | PN ---
Physical Exam: SUBJECTIVE: Patient seen and examined at bedside. OBJECTIVE: Vital Signs Period Temp Pulse Resp BP Sys/Loredo Pulse Ox Last 24 Hr 97.7 F-99.0 F 78-91 18-20 104-126/58-77 98-99 GENERAL: The patient is awake, alert, and fully oriented, in no acute distress. HEAD: Normal with no signs of trauma. LUNGS: Breath sounds equal, clear to auscultation bilaterally, no wheezes, no crackles, no accessory muscle use. HEART: Regular rate and rhythm, S1, S2 ABDOMEN: Soft, nontender, nondistended EXTREMITIES: 2+ pulses, warm, well-perfused, no edema. NEUROLOGICAL: Cranial nerves II through XII grossly intact. Normal speech, gait not observed. Laboratory Results - last 24 hr 07/13/20 07/13/20 07/13/20 06:01 09:55 09:55 WBC 6.8 RBC 3.41 L Hgb 9.4 L Hct 28.4 L MCV 83.3 MCH 27.6 MCHC 33.1 RDW 14.7 Plt Count 478 H MPV 7.3 L Absolute Neuts (auto) 5.0 Neutrophils % 74.1 Lymphocytes % 14.1 Monocytes % 8.5 Eosinophils % 0.4 D Basophils % 2.9 H Nucleated RBC % 0 Sodium 139 Potassium 4.0 Chloride 107 Carbon Dioxide 26 Anion Gap 5 L BUN 6.0 L Creatinine 1.2 Est GFR (CKD-EPI)AfAm 67.67 Est GFR (CKD-EPI)NonAf 58.39 POC Glucometer 108 Random Glucose 142 H Calcium 7.5 L Magnesium 1.7 L Total Bilirubin 0.4 AST 11 L ALT 11 L Alkaline Phosphatase 71 Total Protein 6.2 L Albumin 2.7 L 07/13/20 07/13/20 07/13/20 11:29 17:15 21:06 WBC RBC Hgb Hct MCV MCH MCHC RDW Plt Count MPV Absolute Neuts (auto) Neutrophils % Lymphocytes % Monocytes % Eosinophils % Basophils % Nucleated RBC % Sodium Potassium Chloride Carbon Dioxide Anion Gap BUN Creatinine Est GFR (CKD-EPI)AfAm Est GFR (CKD-EPI)NonAf POC Glucometer 147 103 147 Random Glucose Calcium Magnesium Total Bilirubin AST ALT Alkaline Phosphatase Total Protein Albumin Active Medications Generic Name Dose Route Start Last Admin Trade Name Freq PRN Reason Stop Dose Admin Allopurinol 300 mg 07/11/20 10:00 07/13/20 09:20 Zyloprim - PO 300 mg DAILY [facility]OR Administration Aspirin 81 mg 07/11/20 10:00 07/13/20 09:19 Ecotrin - PO 81 mg DAILY [facility] Administration Atorvastatin Calcium 10 mg 07/10/20 22:00 07/13/20 21:11 Lipitor - PO 10 mg HS [facility]OR Administration Brimonidine Tartrate 1 drop 07/11/20 10:00 07/13/20 21:52 Alphagan P 0.1% - OU 1 drop BID [facility] Administration Finasteride 5 mg 07/10/20 13:00 07/13/20 09:19 Proscar - PO 5 mg DAILY [facility] Administration Heparin Sodium (Porcine) 5,000 unit 07/09/20 22:00 07/13/20 21:09 Heparin - SQ Not Given TID [facility] Sodium Chloride 1,000 mls @ 60 mls/hr 07/09/20 21:00 07/13/20 21:04 Normal Saline - IV Not Given ASDIR [facility] Ceftriaxone Sodium 1 gm/ 50 mls @ 100 mls/hr 07/14/20 10:00 Dextrose IVPB DAILY [facility] Protocol Insulin Aspart 0 vial 07/09/20 22:00 07/13/20 21:08 Novolog Vial Sliding Scale - SQ Not Given ACHS [facility] Protocol Insulin Detemir 20 units 07/10/20 22:00 07/13/20 21:11 Levemir Vial SQ 20 units HS [facility] Administration Latanoprost 1 drop 07/10/20 22:00 07/13/20 21:00 Xalatan 0.005% Eye Drops - OU 1 drop HS [facility] Administration Polyethylene Glycol 17 gm 07/11/20 10:00 07/13/20 09:20 Miralax (For Daily Use) - PO 17 gm DAILY [facility] Administration Tamsulosin HCl 0.4 mg 07/10/20 12:30 07/13/20 09:19 Flomax - PO 0.4 mg DAILY@0830 [facility] Administration Tenofovir Disoproxil Fumarate 300 mg 07/10/20 13:00 07/12/20 09:17 Viread - PO 300 mg Q2D@0800 [facility] Administration Timolol Maleate 1 drop 07/11/20 10:00 07/13/20 21:09 Timoptic 0.5% OU 1 drop BID [facility] Administration Valacyclovir HCl 1,000 mg 07/10/20 13:00 07/13/20 21:11 Valtrex - PO 1,000 mg BID T[facility] Administration ASSESSMENT/PLAN 75 year-old male with a PMH significant for HTN, HLD, B Cell Lymphoma, Type II IDDM, BPH s/p TURP. Admitted for severe sepsis secondary to UTI and MIRACLE. Severe sepsis secondary to UTI --WBC 14.4k, p117, lactic acid 2.0, pyuria present on admission --urine culture (+) Morganella, switched to ceftriaxone (day #4 IV antibiotic therapy) --ID following MIRACLE, resolved --Cr 2.0 on admission, now 1.2 B-cell lymphoma --[facility] Atkins at [facility], cell [phone] --Dr. Foster making arrangements for inpatient chemo infusion, pending insurance approvals Hypertension --normotensive, continue hold anti-hypertensives; consider restarting home dose clonidine tomorrow if BP tolerates Hyperlipidemia --continue Lipitor Gout --continue allopurinol BPH --continue finasteride, tamsulosin Type II IDDM --Levemir 20U qhs --Novolog sliding scale coverage Hypomagnesemia --repleted FEN Fluids: NS @ 60mL/hr Electrolytes: replete as indicated Nutrition: low sodium, diabetic Physical therapy DVT prophylaxis: subq heparin Dispo: continues to require inpatient care. Full code. Visit type - Emergency Visit Emergency Visit: Yes ED Registration Date: 07/09/20 Care time: The patient presented to the Emergency Department on the above date and was hospitalized for further evaluation of their emergent condition. - New Patient This patient is new to me today: No - Critical Care Critical Care patient: No - Medication Review Med list reviewed for High Risk Meds patients 65 and older: Yes
--- NOTE | 2020-07-14 05:36 | PN ---
Physical Exam: SUBJECTIVE: Patient seen and examined at bedside. Voices no complaints. Worked with PT today. OBJECTIVE: Vital Signs Period Temp Pulse Resp BP Sys/Loredo Pulse Ox Last 24 Hr 97.7 F-99.0 F 78-91 18-20 104-126/58-77 98-99 GENERAL: The patient is awake, alert, and fully oriented, in no acute distress. HEAD: Normal with no signs of trauma. LUNGS: Breath sounds equal, clear to auscultation bilaterally, no wheezes, no crackles, no accessory muscle use. HEART: Regular rate and rhythm, S1, S2 ABDOMEN: Soft, nontender, nondistended EXTREMITIES: 2+ pulses, warm, well-perfused, no edema. NEUROLOGICAL: Cranial nerves II through XII grossly intact. Normal speech, gait not observed. Laboratory Results - last 24 hr 07/13/20 07/13/20 07/13/20 06:01 09:55 09:55 WBC 6.8 RBC 3.41 L Hgb 9.4 L Hct 28.4 L MCV 83.3 MCH 27.6 MCHC 33.1 RDW 14.7 Plt Count 478 H MPV 7.3 L Absolute Neuts (auto) 5.0 Neutrophils % 74.1 Lymphocytes % 14.1 Monocytes % 8.5 Eosinophils % 0.4 D Basophils % 2.9 H Nucleated RBC % 0 Sodium 139 Potassium 4.0 Chloride 107 Carbon Dioxide 26 Anion Gap 5 L BUN 6.0 L Creatinine 1.2 Est GFR (CKD-EPI)AfAm 67.67 Est GFR (CKD-EPI)NonAf 58.39 POC Glucometer 108 Random Glucose 142 H Calcium 7.5 L Magnesium 1.7 L Total Bilirubin 0.4 AST 11 L ALT 11 L Alkaline Phosphatase 71 Total Protein 6.2 L Albumin 2.7 L 07/13/20 07/13/20 07/13/20 11:29 17:15 21:06 WBC RBC Hgb Hct MCV MCH MCHC RDW Plt Count MPV Absolute Neuts (auto) Neutrophils % Lymphocytes % Monocytes % Eosinophils % Basophils % Nucleated RBC % Sodium Potassium Chloride Carbon Dioxide Anion Gap BUN Creatinine Est GFR (CKD-EPI)AfAm Est GFR (CKD-EPI)NonAf POC Glucometer 147 103 147 Random Glucose Calcium Magnesium Total Bilirubin AST ALT Alkaline Phosphatase Total Protein Albumin Active Medications Generic Name Dose Route Start Last Admin Trade Name Freq PRN Reason Stop Dose Admin Allopurinol 300 mg 07/11/20 10:00 07/13/20 09:20 Zyloprim - PO 300 mg DAILY TAYLOR Administration Aspirin 81 mg 07/11/20 10:00 07/13/20 09:19 Ecotrin - PO 81 mg DAILY [facility] Administration Atorvastatin Calcium 10 mg 07/10/20 22:00 07/13/20 21:11 Lipitor - PO 10 mg HS T[facility]OR Administration Brimonidine Tartrate 1 drop 07/11/20 10:00 07/13/20 21:52 Alphagan P 0.1% - OU 1 drop BID [facility] Administration Finasteride 5 mg 07/10/20 13:00 07/13/20 09:19 Proscar - PO 5 mg DAILY [facility] Administration Heparin Sodium (Porcine) 5,000 unit 07/09/20 22:00 07/13/20 21:09 Heparin - SQ Not Given TID [facility] Sodium Chloride 1,000 mls @ 60 mls/hr 07/09/20 21:00 07/13/20 21:04 Normal Saline - IV Not Given ASDIR [facility] Ceftriaxone Sodium 1 gm/ 50 mls @ 100 mls/hr 07/14/20 10:00 Dextrose IVPB DAILY [facility] Protocol Insulin Aspart 0 vial 07/09/20 22:00 07/13/20 21:08 Novolog Vial Sliding Scale - SQ Not Given ACHS [facility] Protocol Insulin Detemir 20 units 07/10/20 22:00 07/13/20 21:11 Levemir Vial SQ 20 units HS [facility] Administration Latanoprost 1 drop 07/10/20 22:00 07/13/20 21:00 Xalatan 0.005% Eye Drops - OU 1 drop HS [facility] Administration Polyethylene Glycol 17 gm 07/11/20 10:00 07/13/20 09:20 Miralax (For Daily Use) - PO 17 gm DAILY [facility] Administration Tamsulosin HCl 0.4 mg 07/10/20 12:30 07/13/20 09:19 Flomax - PO 0.4 mg DAILY@0830 [facility] Administration Tenofovir Disoproxil Fumarate 300 mg 07/10/20 13:00 07/12/20 09:17 Viread - PO 300 mg Q2D@0800 [facility] Administration Timolol Maleate 1 drop 07/11/20 10:00 07/13/20 21:09 Timoptic 0.5% OU 1 drop BID [facility] Administration Valacyclovir HCl 1,000 mg 07/10/20 13:00 07/13/20 21:11 Valtrex - PO 1,000 mg BID T[facility]OR Administration Microbiology 07/09/20 17:15 Blood - Peripheral Venous Blood Culture - Preliminary NO GROWTH OBTAINED AFTER 96 HOURS, INCUBATION TO CONTINUE FOR 1 DAYS. 07/09/20 17:15 Blood - Peripheral Venous Blood Culture - Preliminary NO GROWTH OBTAINED AFTER 96 HOURS, INCUBATION TO CONTINUE FOR 1 DAYS. 07/09/20 17:15 Urine - Urine Clean Catch Urine Culture - Final Morganella Morganii ASSESSMENT/PLAN 75 year-old male with a PMH significant for HTN, HLD, B Cell Lymphoma, Type II IDDM, BPH s/p TURP. Admitted for severe sepsis secondary to UTI and MIRACLE. Severe sepsis secondary to UTI --WBC 14.4k, p117, lactic acid 2.0, pyuria present on admission --urine culture (+) Morganella, switched to ceftriaxone (day #3 IV antibiotic therapy) --ID following MIRACLE, resolved --Cr 2.0 on admission, now 1.2 B-cell lymphoma --follows [facility] Dr. Atkins at [facility], cell [phone] --Dr. Foster advised Dr. Atkins would like patient to receive chemo infusion on 07/14 if still inpatient here Hypertension --continue hold anti-hypertensives due to sepsis Hyperlipidemia --continue Lipitor Gout --continue allopurinol BPH --continue finasteride, tamsulosin Type II IDDM --Levemir 20U qhs --Novolog sliding scale coverage Hypomagnesemia --repleted FEN Fluids: NS @ 60mL/hr Electrolytes: replete as indicated Nutrition: low sodium, diabetic Physical therapy DVT prophylaxis: subq heparin Dispo: continues to require inpatient care. Full code. Visit type - Emergency Visit Emergency Visit: Yes ED Registration Date: 07/09/20 Care time: The patient presented to the Emergency Department on the above date and was hospitalized for further evaluation of their emergent condition. - New Patient This patient is new to me today: No - Critical Care Critical Care patient: No - Medication Review Med list reviewed for High Risk Meds patients 65 and older: Yes
[2020-07-14] MEDS: HEPARIN NA (PORCINE) 5,000 UNITS/ML 1ML VIAL SQ SCH ×3 (06:05→22:01)
[2020-07-14] MEDS: INSULIN SLIDING SCALE (NOVOLOG) 1 VIAL SQ SCH ×4 (06:05→21:55)
[2020-07-14] MEDS ORDERED: DEXTROSE 5%-WATER - 50 ML IVPB ONE (10:52)
[2020-07-14] MEDS ORDERED: cefTRIAXone SODIUM 1 GM VIAL ONE (10:52)
[2020-07-14] MEDS ORDERED: PT OWN MED DRAWER 7, Y5N ONE (10:53)
[2020-07-14] MEDS: POLYETHYLENE GLYCOL 3350 119 GM BTL PO SCH (10:58)
[2020-07-14] MEDS: FINASTERIDE 5 MG TABLET (FP) PO SCH (10:58)
[2020-07-14] MEDS: valACYclovir HCL 500 MG TABLET (FP) PO SCH ×2 (10:58→21:55)
[2020-07-14] MEDS: ASPIRIN COATED 81 MG TABLET.EC PO SCH (10:58)
[2020-07-14] MEDS: TENOFOVIR DISOPROXIL FUMARATE 300 MG TABLET PO SCH (10:58)
[2020-07-14] MEDS: TAMSULOSIN HCL 0.4 MG CAP PO SCH (10:58)
[2020-07-14] MEDS: CEFTRIAXONE 1 GM in DEXTROSE 5%-WATER - 50 ML IVPB SCH (10:59)
[2020-07-14] MEDS: TIMOLOL 0.5% OPHTHALMIC SOL 5 ML BOTTLE OU SCH ×2 (11:01→21:56)
[2020-07-14] MEDS: BRIMONIDINE TARTRATE 0.1% OPHTHALMIC 5 ML BOTTLE OU SCH ×2 (11:01→21:53)
[2020-07-14] MEDS: ALLOPURINOL 300 MG TABLET (FP) PO SCH (11:01)
[2020-07-14] MEDS: LATANOPROST 0.005% OPHTH SOLN 2.5ML BOTTLE OU SCH (21:54)
[2020-07-14] MEDS: ATORVASTATIN CA 10 MG TABLET (FP) PO SCH (21:55)
[2020-07-14] MEDS: INSULIN (LEVEMIR) 100 UNITS/ML UNITS SQ SCH (21:59)
--- NOTE | 2020-07-14 22:48 | PN ---
Progress Note, Physician Chief Complaint: AWAKE, ALERT IN BED NO COMPLAINTS AFEBRILE WBC IMPROVED WNL BC (-) URINE C/S MORGANELLA - Current Medication List Current Medications: Active Medications Allopurinol (Zyloprim -) 300 mg PO DAILY [facility] Last Admin: 07/14/20 11:01 Dose: 300 mg Documented by: Aspirin (Ecotrin -) 81 mg PO DAILY [facility] Last Admin: 07/14/20 10:58 Dose: 81 mg Documented by: Atorvastatin Calcium (Lipitor -) 10 mg PO [facility] Last Admin: 07/14/20 21:55 Dose: 10 mg Documented by: Brimonidine Tartrate (Alphagan P 0.1% -) 1 drop OU BID [facility] Last Admin: 07/14/20 21:53 Dose: 1 drop Documented by: Finasteride (Proscar -) 5 mg PO DAILY [facility] Last Admin: 07/14/20 10:58 Dose: 5 mg Documented by: Heparin Sodium (Porcine) (Heparin -) 5,000 unit SQ TID [facility] Last Admin: 07/14/20 22:01 Dose: Not Given Documented by: Ceftriaxone Sodium 1 gm/ (Dextrose) 50 mls @ 100 mls/hr IVPB DAILY [facility]; Protocol Last Admin: 07/14/20 10:59 Dose: 100 mls/hr Documented by: Insulin Aspart (Novolog Vial Sliding Scale -) 0 vial SQ [facility]; Protocol Last Admin: 07/14/20 21:55 Dose: 2 units Documented by: Insulin Detemir (Levemir Vial) 20 units SQ [facility] Last Admin: 07/14/20 21:59 Dose: 20 units Documented by: Latanoprost (Xalatan 0.005% Eye Drops -) 1 drop OU [facility] Last Admin: 07/14/20 21:54 Dose: 1 drop Documented by: Polyethylene Glycol (Miralax (For Daily Use) -) 17 gm PO DAILY [facility] Last Admin: 07/14/20 10:58 Dose: 17 gm Documented by: Tamsulosin HCl (Flomax -) 0.4 mg PO DAILY@0830 [facility] Last Admin: 07/14/20 10:58 Dose: 0.4 mg Documented by: Tenofovir Disoproxil Fumarate (Viread -) 300 mg PO Q2D@0800 [facility] Last Admin: 07/14/20 10:58 Dose: 300 mg Documented by: Timolol Maleate (Timoptic 0.5%) 1 drop OU BID [facility] Last Admin: 07/14/20 21:56 Dose: 1 drop Documented by: Valacyclovir HCl (Valtrex -) 1,000 mg PO BID [facility] Last Admin: 07/14/20 21:55 Dose: 1,000 mg Documented by: - Objective Vital Signs: Vital Signs Temperature 98.4 F 07/14/20 21:51 Pulse Rate 95 H 07/14/20 21:51 Respiratory Rate 07/14/20 21:51 Blood Pressure 103/82 07/14/20 21:51 O2 Sat by Pulse Oximetry (%) 100 07/14/20 21:51 Constitutional: Yes: No Distress Eyes: Yes: Conjunctiva Clear Cardiovascular: Yes: Regular Rate and Rhythm, S1, S2 Respiratory: Yes: CTA Bilaterally Gastrointestinal: Yes: Normal Bowel Sounds, Soft. No: Tenderness Edema: No Labs: CBC, BMP 07/13/20 09:55 07/13/20 09:55 Assessment/Plan UTI R/O SEPSIS SECONDARY TO UTI B CELL LYMPHOMA DIABETES MELLITUS SUBSTITUTE VANTIN ( CEFPODOXIME)100MG PO BID X 7D DISCUSSED WITH HEMATOLOGY
[2020-07-15] MEDS: INSULIN SLIDING SCALE (NOVOLOG) 1 VIAL SQ SCH ×4 (07:07→21:24)
[2020-07-15] MEDS: HEPARIN NA (PORCINE) 5,000 UNITS/ML 1ML VIAL SQ SCH ×3 (07:07→21:23)
[2020-07-15] MEDS ORDERED: cefTRIAXone SODIUM 1 GM VIAL ONE (09:04)
[2020-07-15] MEDS ORDERED: DEXTROSE 5%-WATER - 50 ML IVPB ONE (09:04)
[2020-07-15] MEDS: BRIMONIDINE TARTRATE 0.1% OPHTHALMIC 5 ML BOTTLE OU SCH ×2 (09:17→21:22)
[2020-07-15] MEDS: TAMSULOSIN HCL 0.4 MG CAP PO SCH (09:18)
[2020-07-15] MEDS: ALLOPURINOL 300 MG TABLET (FP) PO SCH (09:18)
[2020-07-15] MEDS: ASPIRIN COATED 81 MG TABLET.EC PO SCH (09:18)
[2020-07-15] MEDS: FINASTERIDE 5 MG TABLET (FP) PO SCH (09:18)
[2020-07-15] MEDS: CEFTRIAXONE 1 GM in DEXTROSE 5%-WATER - 50 ML IVPB SCH (09:19)
[2020-07-15] MEDS: POLYETHYLENE GLYCOL 3350 119 GM BTL PO SCH (09:19)
[2020-07-15] MEDS: TIMOLOL 0.5% OPHTHALMIC SOL 5 ML BOTTLE OU SCH ×2 (09:19→21:23)
[2020-07-15] MEDS ORDERED: PT OWN MED DRAWER 7, Y5N ONE ×2 (09:22→12:06)
--- NOTE | 2020-07-15 09:23 | PN ---
Progress Note, Physician Chief Complaint: doing well, no new c/o. - Current Medication List Current Medications: Active Medications Allopurinol (Zyloprim -) 300 mg PO DAILY [facility] Last Admin: 07/15/20 09:18 Dose: 300 mg Documented by: Aspirin (Ecotrin -) 81 mg PO DAILY [facility] Last Admin: 07/15/20 09:18 Dose: 81 mg Documented by: Atorvastatin Calcium (Lipitor -) 10 mg PO HS [facility] Last Admin: 07/14/20 21:55 Dose: 10 mg Documented by: Brimonidine Tartrate (Alphagan P 0.1% -) 1 drop OU BID [facility] Last Admin: 07/15/20 09:17 Dose: 1 drop Documented by: Finasteride (Proscar -) 5 mg PO DAILY [facility] Last Admin: 07/15/20 09:18 Dose: 5 mg Documented by: Heparin Sodium (Porcine) (Heparin -) 5,000 unit SQ TID [facility] Last Admin: 07/15/20 07:07 Dose: Not Given Documented by: Ceftriaxone Sodium 1 gm/ (Dextrose) 50 mls @ 100 mls/hr IVPB DAILY [facility]; Protocol Last Admin: 07/15/20 09:19 Dose: 100 mls/hr Documented by: Insulin Aspart (Novolog Vial Sliding Scale -) 0 vial SQ ACHS [facility]; Protocol Last Admin: 07/15/20 07:07 Dose: Not Given Documented by: Insulin Detemir (Levemir Vial) 20 units SQ [facility] Last Admin: 07/14/20 21:59 Dose: 20 units Documented by: Latanoprost (Xalatan 0.005% Eye Drops -) 1 drop OU [facility] Last Admin: 07/14/20 21:54 Dose: 1 drop Documented by: Polyethylene Glycol (Miralax (For Daily Use) -) 17 gm PO DAILY [facility] Last Admin: 07/15/20 09:19 Dose: 17 gm Documented by: Tamsulosin HCl (Flomax -) 0.4 mg PO DAILY@0830 [facility] Last Admin: 07/15/20 09:18 Dose: 0.4 mg Documented by: Tenofovir Disoproxil Fumarate (Viread -) 300 mg PO Q2D@0800 [facility] Last Admin: 07/14/20 10:58 Dose: 300 mg Documented by: Timolol Maleate (Timoptic 0.5%) 1 drop OU BID [facility] Last Admin: 07/15/20 09:19 Dose: 1 drop Documented by: Valacyclovir HCl (Valtrex -) 1,000 mg PO BID [facility] Last Admin: 07/14/20 21:55 Dose: 1,000 mg Documented by: - Objective Vital Signs: Vital Signs Temperature 97.9 F 07/15/20 06:00 Pulse Rate 83 07/15/20 06:00 Respiratory Rate 18 07/15/20 06:00 Blood Pressure 121/78 07/15/20 06:00 O2 Sat by Pulse Oximetry (%) 100 07/15/20 06:00 Constitutional: Yes: Well Nourished, Other Eyes: Yes: Conjunctiva Clear HENT: Yes: Atraumatic, Normocephalic Neck: Yes: Supple, Trachea Midline Cardiovascular: Yes: Regular Rate and Rhythm Respiratory: Yes: Regular, CTA Bilaterally Gastrointestinal: Yes: Normal Bowel Sounds, Soft Musculoskeletal: Yes: WNL Extremities: Yes: WNL Edema: No ...Motor Strength: WNL Labs: CBC, BMP 07/13/20 09:55 07/13/20 09:55 Impression/Plan Impression/Plan: 75 year-old male with a PMH significant for HTN, HLD, B Cell Lymphoma, Type II IDDM, BPH s/p TURP. Admitted for severe sepsis secondary to UTI and MIRACLE. Severe sepsis secondary to UTI --urine culture (+) Morganella, switched to ceftriaxone. ID fu B-cell lymphoma --follows [facility] Dr. Atkins at [facility], cell [phone] --Dr. Foster making arrangements for inpatient chemo infusion, will get on friday Hypertension --normotensive, continue hold anti-hypertensives; doing well. Type II IDDM --Levemir 20U qhs --Novolog sliding scale coverage dm controlled, FEN encourage po fluids, Electrolytes: replete as indicated Nutrition: low sodium, diabetic Physical therapy DVT prophylaxis: subq heparin Dispo: continues to require inpatient care. Full code. Visit type - Emergency Visit Emergency Visit: No - New Patient This patient is new to me today: Yes Date on this admission: 07/15/20 - Critical Care Critical Care patient: No - Discharge Referral Referred to [facility] Med P.C[facility] No - Medication Review Med list reviewed for High Risk Meds patients 65 and older: Yes
[2020-07-15] MEDS: valACYclovir HCL 500 MG TABLET (FP) PO SCH ×2 (10:18→21:23)
[2020-07-15] MEDS: TETRAHYDROZOLINE HCL EYE DROPS OU PRN ×2 (10:40→21:24)
--- NOTE | 2020-07-15 17:44 | PN ---
Progress Note (short form) - Note Progress Note: Patient seen in follow up. No new complaints. No significant events overnight. Inpatient Meds reviewed. Current Medications Generic Name Dose Route Start Last Admin Trade Name Orlando PRCatherine Reason Stop Dose Admin Allopurinol 300 mg 07/11/20 10:00 07/15/20 09:18 Zyloprim - PO 300 mg DAILY [facility] Administration Aspirin 81 mg 07/11/20 10:00 07/15/20 09:18 Ecotrin - PO 81 mg DAILY [facility] Administration Atorvastatin Calcium 10 mg 07/10/20 22:00 07/14/20 21:55 Lipitor - PO 10 mg HS [facility]OR Administration Brimonidine Tartrate 1 drop 07/11/20 10:00 07/15/20 09:17 Alphagan P 0.1% - OU 1 drop BID [facility] Administration Finasteride 5 mg 07/10/20 13:00 07/15/20 09:18 Proscar - PO 5 mg DAILY [facility] Administration Heparin Sodium (Porcine) 5,000 unit 07/09/20 22:00 07/15/20 13:30 Heparin - SQ 5,000 unit TID [facility] Administration Ceftriaxone Sodium 1 gm/ 50 mls @ 100 mls/hr 07/14/20 10:00 07/15/20 09:19 Dextrose IVPB 100 mls/hr DAILY [facility] Administration Protocol Insulin Aspart 0 vial 07/09/20 22:00 07/15/20 16:53 Novolog Vial Sliding Scale - SQ Not Given ACHS [facility] Protocol Insulin Detemir 20 units 07/10/20 22:00 07/14/20 21:59 Levemir Vial SQ 20 units HS [facility] Administration Latanoprost 1 drop 07/10/20 22:00 07/14/20 21:54 Xalatan 0.005% Eye Drops - OU 1 drop HS [facility] Administration Polyethylene Glycol 17 gm 07/11/20 10:00 07/15/20 09:19 Miralax (For Daily Use) - PO 17 gm DAILY [facility] Administration Tamsulosin HCl 0.4 mg 07/10/20 12:30 07/15/20 09:18 Flomax - PO 0.4 mg DAILY@0830 [facility] Administration Tenofovir Disoproxil Fumarate 300 mg 07/10/20 13:00 07/14/20 10:58 Viread - PO 300 mg Q2D@0800 [facility] Administration Tetrahydrozoline HCl 1 drop 07/15/20 09:52 07/15/20 10:40 Visine - OU 1 drop BID PRN Administration DRY EYES Timolol Maleate 1 drop 07/11/20 10:00 07/15/20 09:19 Timoptic 0.5% OU 1 drop BID [facility] Administration Valacyclovir HCl 1,000 mg 07/10/20 13:00 07/15/20 10:18 Valtrex - PO 1,000 mg BID [facility]OR Administration On Examination: Last Vital Signs Temp Pulse Resp BP Pulse Ox 98.6 F 68 17 139/80 100 07/15/20 17:08 07/15/20 17:08 07/15/20 17:08 07/15/20 17:08 07/15/20 10:00 General: In no acute distress, lying comfortably in bed. Extremities: No pallor or icterus. No pedal edema. No palpable lymphadenopathy. CVS: S1, S2, regular, no gallop or murmur. Chest: good air entry bilaterally, clear Abdomen: Non-distended, non-tender, no palpable organomegaly. Neuro: Alert, oriented, non-focal. Labs: CBC, BMP 07/13/20 09:55 07/13/20 09:55 Assessment. DLBCL GCB-type - presented initially May 2020 with hypercalcemia - received 1st cycle DA-REPOCH (C1D1 - 06/15) at [facility] - reportedly well-tolerated. Presented her on 07/09 with UTI, now improved. Plan was to administer 2nd cycle chemotherapy as inpatient (will change to R- [facility]). Likely Friday.
[2020-07-15] MEDS: LATANOPROST 0.005% OPHTH SOLN 2.5ML BOTTLE OU SCH (21:22)
[2020-07-15] MEDS: ATORVASTATIN CA 10 MG TABLET (FP) PO SCH (21:23)
[2020-07-15] MEDS: INSULIN (LEVEMIR) 100 UNITS/ML UNITS SQ SCH (21:24)
[2020-07-16] MEDS: INSULIN SLIDING SCALE (NOVOLOG) 1 VIAL SQ SCH ×4 (06:14→21:29)
[2020-07-16] MEDS: HEPARIN NA (PORCINE) 5,000 UNITS/ML 1ML VIAL SQ SCH ×2 (06:14→13:00)
[2020-07-16] MEDS ORDERED: cefTRIAXone SODIUM 1 GM VIAL ONE (08:51)
[2020-07-16] MEDS ORDERED: DEXTROSE 5%-WATER - 50 ML IVPB ONE (08:51)
--- NOTE | 2020-07-16 09:19 | PN ---
Physical Exam: SUBJECTIVE: Patient seen and examined OBJECTIVE: Vital Signs Period Temp Pulse Resp BP Sys/Loredo Pulse Ox Last 24 Hr 97.7 F-98.7 F 68-99 17-20 109-139/65-80 99-100 GENERAL: seen awake, laying in bed, not in any distress HEAD: Normal with no signs of trauma. EYES: PERRL, extraocular movements intact, sclera anicteric, conjunctiva clear. No ptosis. ENT: oropharynx clear without exudates, moist mucous membranes. NECK: Trachea midline, full range of motion, supple. LUNGS: Breath sounds equal, clear to auscultation bilaterally, no wheezes, no crackles, no accessory muscle use. HEART: Regular rate and rhythm, S1, S2 without murmur, rub or gallop. ABDOMEN: Soft, nontender, nondistended, normoactive bowel sounds, no guarding, no rebound, no hepatosplenomegaly, no masses. EXTREMITIES: 2+ pulses, warm, well-perfused, no edema. NEUROLOGICAL: Cranial nerves II through XII grossly intact. Normal speech, gait not observed. PSYCH: Normal mood, normal affect. SKIN: Warm, dry, normal turgor, no rashes or lesions noted Laboratory Results - last 24 hr 07/15/20 07/15/20 07/15/20 10:42 16:51 21:19 POC Glucometer 92 138 152 07/16/20 05:40 POC Glucometer 103 Active Medications Generic Name Dose Route Start Last Admin Trade Name Freq PRN Reason Stop Dose Admin Allopurinol 300 mg 07/11/20 10:00 07/15/20 09:18 Zyloprim - PO 300 mg DAILY TAYLOR Administration Aspirin 81 mg 07/11/20 10:00 07/15/20 09:18 Ecotrin - PO 81 mg DAILY TAYLOR Administration Atorvastatin Calcium 10 mg 07/10/20 22:00 07/15/20 21:23 Lipitor - PO 10 mg HS TAYLOR Administration Brimonidine Tartrate 1 drop 07/11/20 10:00 07/15/20 21:22 Alphagan P 0.1% - OU 1 drop BID TAYLOR Administration Finasteride 5 mg 07/10/20 13:00 07/15/20 09:18 Proscar - PO 5 mg DAILY TAYLOR Administration Heparin Sodium (Porcine) 5,000 unit 07/09/20 22:00 07/16/20 06:14 Heparin - SQ Not Given TID TAYLOR Ceftriaxone Sodium 1 gm/ 50 mls @ 100 mls/hr 07/14/20 10:00 07/15/20 09:19 Dextrose IVPB 100 mls/hr DAILY TAYLOR Administration Protocol Insulin Aspart 0 vial 07/09/20 22:00 07/16/20 06:14 Novolog Vial Sliding Scale - SQ Not Given ACHS TAYLOR Protocol Insulin Detemir 20 units 07/10/20 22:00 07/15/20 21:24 Levemir Vial SQ 20 units HS TAYLOR Administration Latanoprost 1 drop 07/10/20 22:00 07/15/20 21:22 Xalatan 0.005% Eye Drops - OU 1 drop HS TAYLOR Administration Polyethylene Glycol 17 gm 07/11/20 10:00 07/15/20 09:19 Miralax (For Daily Use) - PO 17 gm DAILY TAYLOR Administration Tamsulosin HCl 0.4 mg 07/10/20 12:30 07/15/20 09:18 Flomax - PO 0.4 mg DAILY@0830 TAYLOR Administration Tenofovir Disoproxil Fumarate 300 mg 07/10/20 13:00 07/14/20 10:58 Viread - PO 300 mg Q2D@0800 TAYLOR Administration Tetrahydrozoline HCl 1 drop 07/15/20 09:52 07/15/20 21:24 Visine - OU 1 drop BID PRN Administration DRY EYES Timolol Maleate 1 drop 07/11/20 10:00 07/15/20 21:23 Timoptic 0.5% OU 1 drop BID TAYLOR Administration Valacyclovir HCl 1,000 mg 07/10/20 13:00 07/15/20 21:23 Valtrex - PO 1,000 mg BID TAYLOR Administration ASSESSMENT/PLAN: 75 year old male patient with past medical history that includes B Cell Lymphoma, HLD, HTN, DM, and BPH s/p TURP, who presented to the emergency room with lightheadedness, weakness, and shortness of breath on standing. The patient was recently here at [facility] with acute encephalopathy secondary to hypercalcemia. CT abdomen showed a retroperitoenal mass compressing the left ureter causing hydronephrosis. -Patient now sp left ureteroscopy, JJ stent insertion, and TURP -Was at [facility] from 06/01- 06/29. - Inguinal node biopsy revealed DLBCL. He was started on chemotherapy on discharge and received one cycle of chemotherapy so far. - Oncologist Dr. Portia Rosen ([phone]) at [facility] who attended to patient while there explained that the patient is on Tenofovir and Valacyclovir as prophylaxis as Hep B Core Ab positive At the ED, found to be meeting severe sepsis criteria secondary to UTI 1. sepsis sec Morganella Morganii UTI - cont ceftriaxone - ID- Dr Cano 2. DLBCL - per veterinary medical officer, another chemo scheduled 3. cont tenofovir/Valacyclovir for hepatitis B 4. DM2 - cont Levemir, SSI 5. cont flomax/finasteride for BPH 6. cont Heparin SQ for DVT prophylaxis Visit type - Emergency Visit Emergency Visit: Yes ED Registration Date: 07/09/20 Care time: The patient presented to the Emergency Department on the above date and was hospitalized for further evaluation of their emergent condition. - New Patient This patient is new to me today: Yes Date on this admission: 07/16/20 - Critical Care Critical Care patient: No - Discharge Referral Referred to [facility] Med P.C.: No - Medication Review Med list reviewed for High Risk Meds patients 65 and older: Yes
[2020-07-16] MEDS: TENOFOVIR DISOPROXIL FUMARATE 300 MG TABLET PO SCH (09:48)
[2020-07-16] MEDS: TAMSULOSIN HCL 0.4 MG CAP PO SCH (09:49)
[2020-07-16] MEDS: valACYclovir HCL 500 MG TABLET (FP) PO SCH ×2 (09:49→21:20)
[2020-07-16] MEDS: ASPIRIN COATED 81 MG TABLET.EC PO SCH (09:49)
[2020-07-16] MEDS: FINASTERIDE 5 MG TABLET (FP) PO SCH (09:49)
[2020-07-16] MEDS: ALLOPURINOL 300 MG TABLET (FP) PO SCH (09:50)
[2020-07-16] MEDS: CEFTRIAXONE 1 GM in DEXTROSE 5%-WATER - 50 ML IVPB SCH (09:50)
[2020-07-16] MEDS: POLYETHYLENE GLYCOL 3350 119 GM BTL PO SCH (09:52)
[2020-07-16] MEDS: TIMOLOL 0.5% OPHTHALMIC SOL 5 ML BOTTLE OU SCH ×2 (09:52→21:19)
[2020-07-16] MEDS: BRIMONIDINE TARTRATE 0.1% OPHTHALMIC 5 ML BOTTLE OU SCH ×2 (09:52→21:17)
[2020-07-16] MEDS ORDERED: INSULIN (NOVOLOG) ASPART 100 UNITS/ML 10ML VIAL ONE ×2 (10:43→19:53)
--- NOTE | 2020-07-16 13:29 | PN ---
Progress Note (short form) - Note Progress Note: Patient seen in follow up. No new complaints. No significant events overnight. Inpatient Meds reviewed. Current Medications Generic Name Dose Route Start Last Admin Trade Name [place] PRN Reason Stop Dose Admin Allopurinol 300 mg 07/11/20 10:00 07/16/20 09:50 Zyloprim - PO 300 mg DAILY TAYLOR Administration Aspirin 81 mg 07/11/20 10:00 07/16/20 09:49 Ecotrin - PO 81 mg DAILY TAYLOR Administration Atorvastatin Calcium 10 mg 07/10/20 22:00 07/15/20 21:23 Lipitor - PO 10 mg HS TAYLOR Administration Brimonidine Tartrate 1 drop 07/11/20 10:00 07/16/20 09:52 Alphagan P 0.1% - OU 1 drop BID TAYLOR Administration Finasteride 5 mg 07/10/20 13:00 07/16/20 09:49 Proscar - PO 5 mg DAILY TAYLOR Administration Heparin Sodium (Porcine) 5,000 unit 07/09/20 22:00 07/16/20 13:00 Heparin - SQ Not Given TID [facility] Ceftriaxone Sodium 1 gm/ 50 mls @ 100 mls/hr 07/14/20 10:00 07/16/20 09:50 Dextrose IVPB 100 mls/hr DAILY TAYLOR Administration Protocol Insulin Aspart 0 vial 07/09/20 22:00 07/16/20 10:40 Novolog Vial Sliding Scale - SQ 2 units ACHS TAYLOR Administration Protocol Insulin Detemir 20 units 07/10/20 22:00 07/15/20 21:24 Levemir Vial SQ 20 units HS TAYLOR Administration Latanoprost 1 drop 07/10/20 22:00 07/15/20 21:22 Xalatan 0.005% Eye Drops - OU 1 drop HS TAYLOR Administration Polyethylene Glycol 17 gm 07/11/20 10:00 07/16/20 09:52 Miralax (For Daily Use) - PO 17 gm DAILY TAYLOR Administration Tamsulosin HCl 0.4 mg 07/10/20 12:30 07/16/20 09:49 Flomax - PO 0.4 mg DAILY@0830 TAYLOR Administration Tenofovir Disoproxil Fumarate 300 mg 07/10/20 13:00 07/16/20 09:48 Viread - PO 300 mg Q2D@0800 TAYLOR Administration Tetrahydrozoline HCl 1 drop 07/15/20 09:52 09/12/20 21:24 Visine - OU 1 drop BID PRN Administration DRY EYES Timolol Maleate 1 drop 07/11/20 10:00 07/16/20 09:52 Timoptic 0.5% OU 1 drop BID TAYLOR Administration Valacyclovir HCl 1,000 mg 07/10/20 13:00 07/16/20 09:49 Valtrex - PO 1,000 mg BID TAYLOR Administration On Examination: Last Vital Signs Temp Pulse Resp BP Pulse Ox 98.2 F 79 20 122/76 99 07/16/20 10:00 07/16/20 10:00 07/16/20 10:00 07/16/20 10:00 07/16/20 10:00 General: In no acute distress, lying comfortably in bed. Extremities: No pallor or icterus. No pedal edema. No palpable lymphadenopathy. CVS: S1, S2, regular, no gallop or murmur. Chest: good air entry bilaterally, clear Abdomen: Non-distended, non-tender, no palpable organomegaly. Neuro: Alert, oriented, non-focal. Labs: CBC, BMP 07/13/20 09:55 07/13/20 09:55 Assessment. DLBCL GCB-type - presented initially May 2020 with hypercalcemia - received 1st cycle DA-REPOCH (C1D1 - 06/15) at [facility] - reportedly well-tolerated. Presented her on 07/09 with UTI, now improved. Plan was to administer 2nd cycle chemotherapy as inpatient (will change to R- CHOP). Likely Friday.
[2020-07-16 16:53] LABS: EOS % 0.8 % (0-4.5); HEMATOCRIT 27.8 % (35.4-49); HEMOGLOBIN 9.4 GM/dL (11.7-16.9); LYMPH % 20.5 % (8-40); MCH 28.5 pg (25.7-33.7); MCHC 33.8 g/dl (32.0-35.9); MEAN CELL VOLUME 84.3 fl (80-96); MEAN PLT VOLUME 8.3 fl (7.5-11.1); MONO % 9.3 % (3.8-10.2); NEUT % 68.4 % (42.8-82.8); PLATELET COUNT 429 K/MM3 (134-434); RDW 14.9 % (11.9-15.9); WHITE BLOOD COUNT 6.8 K/mm3 (4.0-10.0)
[2020-07-16 17:17] LABS: ALBUMIN 2.7 g/dl (3.4-5.0); BILIRUBIN,TOTAL 0.2 mg/dL (0.2-1); BLOOD UREA NITROGEN 10.2 mg/dL (7-18); CALCIUM 8.3 mg/dL (8.5-10.1); POTASSIUM 4.3 mmol/L (3.5-5.1); TOT PROT 6.1 g/dl (6.4-8.2)
[2020-07-16] MEDS: LATANOPROST 0.005% OPHTH SOLN 2.5ML BOTTLE OU SCH (21:20)
[2020-07-16] MEDS: ATORVASTATIN CA 10 MG TABLET (FP) PO SCH (21:20)
[2020-07-16] MEDS: INSULIN (LEVEMIR) 100 UNITS/ML UNITS SQ SCH (21:21)
[2020-07-17] MEDS: TETRAHYDROZOLINE HCL EYE DROPS OU PRN (06:07)
[2020-07-17] MEDS: INSULIN SLIDING SCALE (NOVOLOG) 1 VIAL SQ SCH ×4 (06:36→22:01)
[2020-07-17] MEDS ORDERED: DEXTROSE 5%-WATER - 50 ML IVPB ONE (08:55)
[2020-07-17] MEDS ORDERED: cefTRIAXone SODIUM 1 GM VIAL ONE (08:55)
[2020-07-17] MEDS: ALLOPURINOL 300 MG TABLET (FP) PO SCH (09:24)
[2020-07-17] MEDS: ASPIRIN COATED 81 MG TABLET.EC PO SCH (09:24)
[2020-07-17] MEDS: valACYclovir HCL 500 MG TABLET (FP) PO SCH ×2 (09:24→22:01)
[2020-07-17] MEDS: TAMSULOSIN HCL 0.4 MG CAP PO SCH (09:24)
[2020-07-17] MEDS: FINASTERIDE 5 MG TABLET (FP) PO SCH (09:24)
[2020-07-17] MEDS: TIMOLOL 0.5% OPHTHALMIC SOL 5 ML BOTTLE OU SCH ×2 (09:25→22:06)
[2020-07-17] MEDS: BRIMONIDINE TARTRATE 0.1% OPHTHALMIC 5 ML BOTTLE OU SCH ×2 (09:25→22:06)
[2020-07-17] MEDS: POLYETHYLENE GLYCOL 3350 119 GM BTL PO SCH (09:25)
[2020-07-17] MEDS: CEFTRIAXONE 1 GM in DEXTROSE 5%-WATER - 50 ML IVPB SCH (09:25)
--- NOTE | 2020-07-17 14:19 | PN ---
Progress Note (short form) - Note Progress Note: Interval hx: Patient seen and examined at bedside. Reports feeling well and offers no acute complaints. Continues on ceftriaxone. Remains afebrile Abnormal Lab Results 07/16/20 07/16/20 15:29 15:29 RBC 3.30 L Hgb 9.4 L Hct 27.8 L Anion Gap 6 L Random Glucose 117 H Calcium 8.3 L AST 11 L Total Protein 6.1 L Albumin 2.7 L Physical Exam: General: in NAD, A&Ox3 HEENT; NCAT, anciteric sclera CVS: S1, S2, no m/r/g Resp: cta abd: +bs, soft, nt, nd Ext no ll edema A/P: 75M with DLBCL s/p DA-R EPOCH at [facility], now hospitalized for hypercalcemia and MIRACLE (requiring stent for left sided hydronephrosis; now resolved. c/b by MDR UTI) plan for in house mini R CHOP -will plan to receive Rituxan 07/18 -mini CHOP chemo infusion plan for 07/19 -patient will then need to return to OUTPATIENT clinic on Friday07/21/20 to receive Neulasta rescue. Patient must be outpatient in order to receive this medication.
[2020-07-17] MEDS: INSULIN (LEVEMIR) 100 UNITS/ML UNITS SQ SCH (22:01)
[2020-07-17] MEDS: ATORVASTATIN CA 10 MG TABLET (FP) PO SCH (22:01)
[2020-07-17] MEDS: LATANOPROST 0.005% OPHTH SOLN 2.5ML BOTTLE OU SCH (22:06)
[2020-07-18] MEDS: INSULIN SLIDING SCALE (NOVOLOG) 1 VIAL SQ SCH ×4 (06:55→22:12)
[2020-07-18] MEDS ORDERED: cefTRIAXone SODIUM 1 GM VIAL ONE (08:50)
[2020-07-18] MEDS ORDERED: DEXTROSE 5%-WATER - 50 ML IVPB ONE (08:50)
[2020-07-18] MEDS ORDERED: PT OWN MED DRAWER 7, Y5N ONE (08:55)
[2020-07-18] MEDS: TENOFOVIR DISOPROXIL FUMARATE 300 MG TABLET PO SCH (08:59)
[2020-07-18] MEDS: TAMSULOSIN HCL 0.4 MG CAP PO SCH (08:59)
[2020-07-18] MEDS: FINASTERIDE 5 MG TABLET (FP) PO SCH (09:00)
[2020-07-18] MEDS: BRIMONIDINE TARTRATE 0.1% OPHTHALMIC 5 ML BOTTLE OU SCH ×2 (09:00→22:13)
[2020-07-18] MEDS: ALLOPURINOL 300 MG TABLET (FP) PO SCH (09:00)
[2020-07-18] MEDS: ASPIRIN COATED 81 MG TABLET.EC PO SCH (09:00)
[2020-07-18] MEDS: valACYclovir HCL 500 MG TABLET (FP) PO SCH ×2 (09:00→22:13)
[2020-07-18] MEDS: TIMOLOL 0.5% OPHTHALMIC SOL 5 ML BOTTLE OU SCH ×2 (09:01→22:13)
[2020-07-18] MEDS: CEFTRIAXONE 1 GM in DEXTROSE 5%-WATER - 50 ML IVPB SCH (09:01)
[2020-07-18] MEDS: POLYETHYLENE GLYCOL 3350 119 GM BTL PO SCH (09:39)
[2020-07-18] MEDS ORDERED: SODIUM CHLORIDE IVPB ONE ×2 (10:00→10:30)
[2020-07-18] MEDS ORDERED: DEXAMETHASONE IVPB ONE (10:00)
[2020-07-18] MEDS ORDERED: DIPHENHYDRAMINE IVPB ONE (10:00)
[2020-07-18] MEDS ORDERED: ACETAMINOPHEN 325 MG TABLET (FP) PO ONE (10:00)
[2020-07-18] MEDS ORDERED: RITUXIMAB IVPB ONE (10:30)
[2020-07-18 10:33] LABS: BASO % 1.1 % (0-2.0); EOS % 1.2 % (0-4.5); HEMATOCRIT 29.7 % (35.4-49); LYMPH % 18.4 % (8-40); MCH 28.7 pg (25.7-33.7); MCHC 33.5 g/dl (32.0-35.9); MEAN CELL VOLUME 85.5 fl (80-96); MEAN PLT VOLUME 7.7 fl (7.5-11.1); MONO % 7.7 % (3.8-10.2); NEUT % 71.6 % (42.8-82.8); PLATELET COUNT 410 K/MM3 (134-434); RBC 3.47 M/mm3 (4.00-5.60); RDW 15.3 % (11.9-15.9); WHITE BLOOD COUNT 5.6 K/mm3 (4.0-10.0)
[2020-07-18 10:53] LABS: ALBUMIN 2.8 g/dl (3.4-5.0); BILIRUBIN,TOTAL 0.2 mg/dL (0.2-1); CALCIUM 8.2 mg/dL (8.5-10.1); CREATININE 1.1 mg/dL (0.55-1.3); MAGNESIUM 1.5 mg/dL (1.8-2.4); POTASSIUM 4.1 mmol/L (3.5-5.1)
[2020-07-18] MEDS ORDERED: MAGNESIUM SULF 50% (8.12 MEQ/2 ML-1 GM VIAL) IVPB ONE (11:51)
[2020-07-18] MEDS ORDERED: MAGNESIUM 1GM/D5W - 1 GM/100 ML IVPB IVPB ONE (12:15)
--- NOTE | 2020-07-18 13:24 | PN ---
Physical Exam: SUBJECTIVE: Patient seen and examined at the bedside. He denies any pain or discomfort. OBJECTIVE: Patient is a 75 year old male patient with past medical history that includes B Cell Lymphoma, HLD, HTN, DM, and BPH s/p TURP, who presented to the emergency room with lightheadedness, weakness, and shortness of breath on standing. The patient was recently here at [facility] with acute encephalopathy secondary to hypercalcemia. CT abdomen showed a retroperitoenal mass compressing the left ureter causing hydronephrosis. A L ureteroscopy, jj stent insertion, and turp/tuvp were performed. The patient was transferred to [facility] on 06/01. The patient reported being at [facility] until 06/29. He had a right inguinal lymph node biopsy at [facility], where he was diagnosed with cancer. He was started on chemotherapy on discharge and received one cycle of chemotherapy so far. The Oncologist Dr. Portia Rosen ([phone]) at [facility] was called and she explained that the patient is on Tenofovir and Valacyclovir as prophylaxis because the patient tested positive for Hep B Core Ab. The patient's clipper and turner 3 days ago stopped his Torsemide. In the emergency room, the patient was SIRS+, the urinalysis was suggestive of a UTI, and lactic acid was 2.8 with blood pressure of 76/50 and was started on Ceftriaxone. He is to receive Rituxin today and chemotherapy tomorrow. Vital Signs Period Temp Pulse Resp BP Sys/Loredo Pulse Ox Last 24 Hr 97.4 F-98.0 F 67-101 16-18 100-144/53-76 98-100 GENERAL: seen awake, laying in bed, not in any distress HEAD: Normal with no signs of trauma. EYES: PERRL, extraocular movements intact, sclera anicteric, conjunctiva clear. No ptosis. ENT: oropharynx clear without exudates, moist mucous membranes. NECK: Trachea midline, full range of motion, supple. LUNGS: Breath sounds equal, clear to auscultation bilaterally, no wheezes, no crackles, no accessory muscle use. HEART: Regular rate and rhythm, S1, S2 without murmur, rub or gallop. ABDOMEN: Soft, nontender, nondistended, normoactive bowel sounds, no guarding, no rebound, no hepatosplenomegaly, no masses. EXTREMITIES: 2+ pulses, warm, well-perfused, no edema. NEUROLOGICAL: Cranial nerves II through XII grossly intact. Normal speech, gait not observed. PSYCH: Normal mood, normal affect. SKIN: Warm, dry, normal turgor, no rashes or lesions noted Laboratory Results - last 24 hr 07/17/20 07/17/20 07/18/20 17:02 22:00 06:51 WBC RBC Hgb Hct MCV MCH MCHC RDW Plt Count MPV Absolute Neuts (auto) Neutrophils % Lymphocytes % Monocytes % Eosinophils % Basophils % Nucleated RBC % Sodium Potassium Chloride Carbon Dioxide Anion Gap BUN Creatinine Est GFR (CKD-EPI)AfAm Est GFR (CKD-EPI)NonAf POC Glucometer 116 164 67 Random Glucose Calcium Magnesium Total Bilirubin AST ALT Alkaline Phosphatase Total Protein Albumin 07/18/20 07/18/20 07/18/20 09:37 09:37 11:32 WBC 5.6 RBC 3.47 L Hgb 10.0 L Hct 29.7 L MCV 85.5 MCH 28.7 MCHC 33.5 RDW 15.3 Plt Count 410 MPV 7.7 Absolute Neuts (auto) 4.0 Neutrophils % 71.6 Lymphocytes % 18.4 Monocytes % 7.7 Eosinophils % 1.2 Basophils % 1.1 Nucleated RBC % 0 Sodium 138 Potassium 4.1 Chloride 106 Carbon Dioxide 23 Anion Gap 8 BUN 13.0 Creatinine 1.1 Est GFR (CKD-EPI)AfAm 75.18 Est GFR (CKD-EPI)NonAf 64.86 POC Glucometer 156 Random Glucose 158 H Calcium 8.2 L Magnesium 1.5 L Total Bilirubin 0.2 AST 15 ALT 11 L Alkaline Phosphatase 65 Total Protein 6.0 L Albumin 2.8 L Active Medications Generic Name Dose Route Start Last Admin Trade Name Freq PRN Reason Stop Dose Admin Allopurinol 300 mg 07/11/20 10:07/18/20 09:00 Zyloprim - PO 300 mg DAILY TAYLOR Administration Aspirin 81 mg 07/11/20 10:00 07/18/20 09:00 Ecotrin - PO 81 mg DAILY TAYLOR Administration Atorvastatin Calcium 10 mg 07/10/20 22:00 07/17/20 22:01 Lipitor - PO 10 mg HS TAYLOR Administration Brimonidine Tartrate 1 drop 07/11/20 10:00 07/18/20 09:00 Alphagan P 0.1% - OU 1 drop BID TAYLOR Administration Finasteride 5 mg 07/10/20 13:00 07/18/20 09:00 Proscar - PO 5 mg DAILY TAYLOR Administration Ceftriaxone Sodium 1 gm/ 50 mls @ 100 mls/hr 07/14/20 10:00 07/18/20 09:01 Dextrose IVPB 100 mls/hr DAILY TAYLOR Administration Protocol Rituximab 500 mg/ Rituximab 653 mls @ 50 mls/hr 07/18/20 10:30 153 mg/ Sodium Chloride IVPB 07/18/20 23:33 ONCE ONE Insulin Aspart 0 vial 07/09/20 22:00 07/18/20 11:50 Novolog Vial Sliding Scale - SQ 2 units ACHS TAYLOR Administration Protocol Insulin Detemir 20 units 07/10/20 22:00 07/17/20 22:01 Levemir Vial SQ 20 units HS TAYLOR Administration Latanoprost 1 drop 07/10/20 22:00 07/17/20 22:06 Xalatan 0.005% Eye Drops - OU 1 drop HS TAYLOR Administration Polyethylene Glycol 17 gm 07/11/20 10:00 07/18/20 09:39 Miralax (For Daily Use) - PO 17 gm DAILY TAYLOR Administration Tamsulosin HCl 0.4 mg 07/10/20 12:30 07/18/20 08:59 Flomax - PO 0.4 mg DAILY@0830 TAYLOR Administration Tenofovir Disoproxil Fumarate 300 mg 07/10/20 13:00 07/18/20 08:59 Viread - PO 300 mg Q2D@0800 TAYLOR Administration Tetrahydrozoline HCl 1 drop 07/15/20 09:52 07/17/20 06:07 Visine - OU 1 drop BID PRN Administration DRY EYES Timolol Maleate 1 drop 07/11/20 10:00 07/18/20 09:01 Timoptic 0.5% OU 1 drop BID TAYLOR Administration Valacyclovir HCl 1,000 mg 07/10/20 13:00 07/18/20 09:00 Valtrex - PO 1,000 mg BID TAYLOR Administration ASSESSMENT/PLAN: Problem List - Problems (1) Sepsis Assessment/Plan: sepis on admission in the setting of UTI now resolved on Ceftriaxone to be converted to Vantin on d/c Code(s): A41.9 - SEPSIS, UNSPECIFIED ORGANISM Qualifiers: Sepsis type: sepsis due to unspecified organism Sepsis acute organ dysfunction status: without acute organ dysfunction Qualified Code(s): A41.9 - Sepsis, unspecified organism (2) UTI (urinary tract infection) Assessment/Plan: On ceftriaxone. As of 07/14, Id recommended Vantin x 7 days but NF inpatient. If patient d/c tomorrow will order vantin for the remaining days to complete therapy Code(s): N39.0 - URINARY TRACT INFECTION, SITE NOT SPECIFIED Qualifiers: Urinary tract infection type: site unspecified Hematuria presence: without hematuria Qualified Code(s): N39.0 - Urinary tract infection, site not specified (3) Diffuse large B cell lymphoma Assessment/Plan: Patient to receive Rituxan 07/18 per oncologist and start mini CHOP chemo infusion tomorrow 07/19. Patient to return to outpatient clinic on Saturday 07/21 to receive neulasta. Code(s): C83.30 - DIFFUSE LARGE B-CELL LYMPHOMA, UNSPECIFIED SITE (4) MIRACLE (acute kidney injury) Assessment/Plan: MIRACLE in the setting of sepsis, now resolved. monitor kidney function daily Code(s): N17.9 - ACUTE KIDNEY FAILURE, UNSPECIFIED (5) Altered mental status Assessment/Plan: resolved mentation at baseline Code(s): R41.82 - ALTERED MENTAL STATUS, UNSPECIFIED Qualifiers: Altered mental status type: unspecified Qualified Code(s): R41.82 - Altered mental status, unspecified (6) Diabetes Assessment/Plan: monitor BGMs with novolog SS Code(s): E11.9 - TYPE 2 DIABETES MELLITUS WITHOUT COMPLICATIONS Qualifiers: Diabetes mellitus type: type 2 Diabetes mellitus intermodal dispatcher insulin use: unspecified intermodal dispatcher insulin use status Proliferative retinopathy type: unspecified Diabetes mellitus macular edema: macular edema presence unspecified Laterality: unspecified laterality (7) Hypercalcemia Assessment/Plan: resolved. corrected calcium 9.2 Code(s): E83.52 - HYPERCALCEMIA (8) DVT prophylaxis Assessment/Plan: lovenox 40mg daily Code(s): Z29.9 - ENCOUNTER FOR PROPHYLACTIC MEASURES, UNSPECIFIED Visit type - Emergency Visit Emergency Visit: Yes ED Registration Date: 07/09/20 Care time: The patient presented to the Emergency Department on the above date and was hospitalized for further evaluation of their emergent condition. - New Patient This patient is new to me today: Yes Date on this admission: 07/19/20 - Critical Care Critical Care patient: No - Discharge Referral Referred to [facility] Med P.C.: No - Medication Review Med list reviewed for High Risk Meds patients 65 and older: Yes
[2020-07-18] MEDS ORDERED: SODIUM CHLORIDE 1,000 ML IV SCH (14:45)
--- NOTE | 2020-07-18 15:19 | PN.HO ---
Progress Note (short form) - Note Progress Note: Progress Note: Interval hx: Patient seen and examined at bedside. Reports feeling well and offers no acute complaints. 07/18/20 09:37 07/18/20 09:37 Physical Exam: General: in NAD, A&Ox3 HEENT; NCAT, anciteric sclera CVS: S1, S2, no m/r/g Resp: cta abd: +bs, soft, nt, nd Ext no edema A/P: 75 y/o gentleman with DLBCL s/p DA-R EPOCH at [facility], now hospitalized for hypercalcemia and MIRACLE (requiring stent for left sided hydronephrosis; now resolved. c/b by MDR UTI) plan for in house mini R CHOP -will plan to receive Rituxan today 07/18 -mini CHOP chemo infusion plan for 07/19 -patient will then need to return to OUTPATIENT clinic on Friday07/21/20 to receive Neulasta rescue. Patient must be outpatient in order to receive this medication.
[2020-07-18] MEDS ORDERED: INSULIN (NOVOLOG) ASPART 100 UNITS/ML 10ML VIAL ONE (22:07)
[2020-07-18] MEDS: INSULIN (LEVEMIR) 100 UNITS/ML UNITS SQ SCH (22:13)
[2020-07-18] MEDS: ATORVASTATIN CA 10 MG TABLET (FP) PO SCH (22:13)
[2020-07-18] MEDS: MAGNESIUM OXIDE 400 MG TABLET (FP) PO SCH (22:13)
[2020-07-18] MEDS: LATANOPROST 0.005% OPHTH SOLN 2.5ML BOTTLE OU SCH (22:13)
[2020-07-19] MEDS: INSULIN SLIDING SCALE (NOVOLOG) 1 VIAL SQ SCH ×4 (06:52→21:44)
[2020-07-19] MEDS ORDERED: cefTRIAXone SODIUM 1 GM VIAL ONE (09:24)
[2020-07-19] MEDS ORDERED: DEXTROSE 5%-WATER - 50 ML IVPB ONE (09:25)
[2020-07-19] MEDS ORDERED: PALONOSETRON HCL 0.25 MG/5 ML VIAL IVPUSH ONE (09:30)
[2020-07-19] MEDS ORDERED: DEXAMETHASONE SODIUM PHOSPHATE 16 MG in SODIUM CHLORIDE 50 ML IVPB ONE (09:30)
[2020-07-19] MEDS: valACYclovir HCL 500 MG TABLET (FP) PO SCH ×2 (09:41→21:43)
[2020-07-19] MEDS: MAGNESIUM OXIDE 400 MG TABLET (FP) PO SCH ×2 (09:41→21:44)
[2020-07-19] MEDS: FINASTERIDE 5 MG TABLET (FP) PO SCH (09:41)
[2020-07-19] MEDS: TAMSULOSIN HCL 0.4 MG CAP PO SCH (09:41)
[2020-07-19] MEDS: ASPIRIN COATED 81 MG TABLET.EC PO SCH (09:42)
[2020-07-19] MEDS: TIMOLOL 0.5% OPHTHALMIC SOL 5 ML BOTTLE OU SCH ×2 (09:42→21:49)
[2020-07-19] MEDS: BRIMONIDINE TARTRATE 0.1% OPHTHALMIC 5 ML BOTTLE OU SCH ×2 (09:42→21:50)
[2020-07-19] MEDS: ALLOPURINOL 300 MG TABLET (FP) PO SCH (09:42)
[2020-07-19] MEDS: CEFTRIAXONE 1 GM in DEXTROSE 5%-WATER - 50 ML IVPB SCH (09:42)
[2020-07-19] MEDS: POLYETHYLENE GLYCOL 3350 119 GM BTL PO SCH (09:43)
[2020-07-19] MEDS ORDERED: CYCLOPHOSPHAMIDE IVPB ONE (10:00)
[2020-07-19] MEDS ORDERED: SODIUM CHLORIDE IVPB ONE (10:00)
[2020-07-19] MEDS ORDERED: DOXOrubicin HCL 50 MG/25 ML VIAL IV ONE (10:30)
[2020-07-19] MEDS ORDERED: INSULIN (NOVOLOG) ASPART 100 UNITS/ML 10ML VIAL ONE (10:59)
[2020-07-19] MEDS ORDERED: vinCRIStine SULFATE 1 MG in SODIUM CHLORIDE 25 ML IVPB ONE (11:00)
--- NOTE | 2020-07-19 14:56 | PN ---
Physical Exam: SUBJECTIVE: Patient seen and examined OBJECTIVE: Patient is a 75 year old male patient with past medical history that includes B Cell Lymphoma, HLD, HTN, DM, and BPH s/p TURP, who presented to the emergency room with lightheadedness, weakness, and shortness of breath on standing. The patient was recently here at [facility] with acute encephalopathy secondary to hypercalcemia. CT abdomen showed a retroperitoenal mass compressing the left ureter causing hydronephrosis. A L ureteroscopy, jj stent insertion, and turp/tuvp were performed. The patient was transferred to [facility] on 06/01. The patient reported being at [facility] until 06/29. He had a right inguinal lymph node biopsy at [facility], where he was diagnosed with cancer. He was started on chemotherapy on discharge and received one cycle of chemotherapy so far. The Oncologist Dr. Portia Rosen ([phone]) at [facility] was called and she explained that the patient is on Tenofovir and Valacyclovir as prophylaxis because the patient tested positive for Hep B Core Ab. 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 In the emergency room, the patient was SIRS+, the urinalysis was suggestive of a UTI, and lactic acid was 2.8 with blood pressure of 76/50 and was started on Ceftriaxone. Vital Signs Period Temp Pulse Resp BP Sys/Loredo Pulse Ox Last 24 Hr 97.7 F-98.4 F 64-96 16-18 111-143/62-85 95-97 GENERAL: seen awake, laying in bed, not in any distress HEAD: Normal with no signs of trauma. EYES: PERRL, extraocular movements intact, sclera anicteric, conjunctiva clear. No ptosis. ENT: oropharynx clear without exudates, moist mucous membranes. NECK: Trachea midline, full range of motion, supple. LUNGS: Breath sounds equal, clear to auscultation bilaterally, no wheezes, no crackles, no accessory muscle use. HEART: Regular rate and rhythm, S1, S2 without murmur, rub or gallop. ABDOMEN: Soft, nontender, nondistended, normoactive bowel sounds, no guarding, no rebound, no hepatosplenomegaly, no masses. EXTREMITIES: 2+ pulses, warm, well-perfused, no edema. NEUROLOGICAL: Cranial nerves II through XII grossly intact. Normal speech, gait not observed. PSYCH: Normal mood, normal affect. SKIN: Warm, dry, normal turgor, no rashes or lesions noted Laboratory Results - last 24 hr 07/18/20 07/18/20 07/19/20 16:28 22:10 06:49 POC Glucometer 108 291 228 07/19/20 10:55 POC Glucometer 213 Active Medications Generic Name Dose Route Start Last Admin Trade Name [place] PRN Reason Stop Dose Admin Allopurinol 300 mg 07/11/20 10:00 07/19/20 09:42 Zyloprim - PO 300 mg DAILY TAYLOR Administration Aspirin 81 mg 07/11/20 10:00 07/19/20 09:42 Ecotrin - PO 81 mg DAILY TAYLOR Administration Atorvastatin Calcium 10 mg 07/10/20 22:00 07/18/20 22:13 Lipitor - PO 10 mg HS TAYLOR Administration Brimonidine Tartrate 1 drop 07/11/20 10:00 07/19/20 09:42 Alphagan P 0.1% - OU 1 drop BID TAYLOR Administration Enoxaparin Sodium 40 mg 07/19/20 21:00 Lovenox - SQ DAILY TAYLOR Finasteride 5 mg 07/10/20 13:00 07/19/20 09:41 Proscar - PO 5 mg DAILY TAYLOR Administration Ceftriaxone Sodium 1 gm/ 50 mls @ 100 mls/hr 07/14/20 10:00 07/19/20 09:42 Dextrose IVPB 100 mls/hr DAILY TAYLOR Administration Protocol Insulin Aspart 0 vial 07/09/20 22:00 07/19/20 11:00 Novolog Vial Sliding Scale - SQ 4 units ACHS TAYLOR Administration Protocol Insulin Detemir 20 units 07/10/20 22:00 07/18/20 22:13 Levemir Vial SQ Not Given HS TAYLOR Latanoprost 1 drop 07/10/20 22:00 07/18/20 22:13 Xalatan 0.005% Eye Drops - OU 1 drop HS TAYLOR Administration Magnesium Oxide 400 mg 07/18/20 22:00 07/19/20 09:41 Mag-Ox - PO 400 mg BID TAYLOR Administration Pegfilgrastim 6 mg 07/21/20 10:00 Neulasta - SQ 07/21/20 10:01 ONCE ONE Polyethylene Glycol 17 gm 07/11/20 10:00 07/19/20 09:43 Miralax (For Daily Use) - PO Not Given DAILY [facility] Tamsulosin HCl 0.4 mg 07/10/20 12:30 07/19/20 09:41 Flomax - PO 0.4 mg DAILY@0830 TAYLOR Administration Tenofovir Disoproxil Fumarate 300 mg 07/10/20 13:00 07/18/20 08:59 Viread - PO 300 mg Q2D@0800 TAYLOR Administration Tetrahydrozoline HCl 1 drop 07/15/20 09:52 07/17/20 06:07 Visine - OU 1 drop BID PRN Administration DRY EYES Timolol Maleate 1 drop 07/11/20 10:00 07/19/20 09:42 Timoptic 0.5% OU 1 drop BID TAYLOR Administration Valacyclovir HCl 1,000 mg 07/10/20 13:00 07/19/20 09:41 Valtrex - PO 1,000 mg BID TAYLOR Administration ASSESSMENT/PLAN: Problem List - Problems (1) Sepsis Assessment/Plan: sepis on admission in the setting of UTI now resolved on Ceftriaxone to be converted to Vantin on d/c Code(s): A41.9 - SEPSIS, UNSPECIFIED ORGANISM Qualifiers: Sepsis type: sepsis due to unspecified organism Sepsis acute organ dysfunction status: without acute organ dysfunction Qualified Code(s): A41.9 - Sepsis, unspecified organism (2) UTI (urinary tract infection) Assessment/Plan: On ceftriaxone. As of 07/14, Id recommended Vantin x 7 days but NF inpatient. If patient d/c tomorrow will order vantin for the remaining days to complete therapy Code(s): N39.0 - URINARY TRACT INFECTION, SITE NOT SPECIFIED Qualifiers: Urinary tract infection type: site unspecified Hematuria presence: without hematuria Qualified Code(s): N39.0 - Urinary tract infection, site not spec ified (3) Diffuse large B cell lymphoma Assessment/Plan: Patient to received Rituxan 07/18 per oncologist and start mini CHOP chemo infusion today. Patient to return to outpatient clinic on Saturday 07/21 to receive neulasta. Code(s): C83.30 - DIFFUSE LARGE B-CELL LYMPHOMA, UNSPECIFIED SITE (4) MIRACLE (acute kidney injury) Assessment/Plan: MIRACLE in the setting of sepsis, now resolved. monitor kidney function daily Code(s): N17.9 - ACUTE KIDNEY FAILURE, UNSPECIFIED (5) Altered mental status Assessment/Plan: resolved mentation at baseline Code(s): R41.82 - ALTERED MENTAL STATUS, UNSPECIFIED Qualifiers: Altered mental status type: unspecified Qualified Code(s): R41.82 - Altered mental status, unspecified (6) Diabetes Assessment/Plan: monitor BGMs with novolog SS Code(s): E11.9 - TYPE 2 DIABETES MELLITUS WITHOUT COMPLICATIONS Qualifiers: Diabetes mellitus type: type 2 Diabetes mellitus usp insulin use: unspecified usp insulin use status Proliferative retinopathy type: unspecified Diabetes mellitus macular edema: macular edema presence unspecified Laterality: unspecified laterality (7) Hypercalcemia Assessment/Plan: resolved. corrected calcium 9.2 Code(s): E83.52 - HYPERCALCEMIA (8) DVT prophylaxis Assessment/Plan: lovenox 40mg daily Code(s): Z29.9 - ENCOUNTER FOR PROPHYLACTIC MEASURES, UNSPECIFIED Visit type - Emergency Visit Emergency Visit: Yes ED Registration Date: 07/09/20 Care time: The patient presented to the Emergency Department on the above date and was hospitalized for further evaluation of their emergent condition. - New Patient This patient is new to me today: No - Critical Care Critical Care patient: No - Discharge Referral Referred to [facility] Med P.C.: No - Medication Review Med list reviewed for High Risk Meds patients 65 and older: Yes
--- NOTE | 2020-07-19 17:22 | PN ---
Progress Note (short form) - Note Progress Note: Mr Castillo has no complaint Eating lunch completed ritux yest Imp: DLCL, hypercalcemia w RF (resolved) Plan is for miniCHOP today f/u labs in AM
[2020-07-19] MEDS: ENOXAPARIN NA (PORCINE) 40 MG/0.4 ML DISP.SYRIN SQ SCH (21:40)
[2020-07-19] MEDS: INSULIN (LEVEMIR) 100 UNITS/ML UNITS SQ SCH (21:42)
[2020-07-19] MEDS: ATORVASTATIN CA 10 MG TABLET (FP) PO SCH (21:44)
[2020-07-19] MEDS: LATANOPROST 0.005% OPHTH SOLN 2.5ML BOTTLE OU SCH (21:49)
[2020-07-20] MEDS: INSULIN SLIDING SCALE (NOVOLOG) 1 VIAL SQ SCH ×4 (06:41→21:20)
[2020-07-20 07:49] LABS: BASO % 0.4 % (0-2.0); HEMATOCRIT 25.6 % (35.4-49); HEMOGLOBIN 8.5 GM/dL (11.7-16.9); LYMPH % 9.4 % (8-40); MCH 28.3 pg (25.7-33.7); MCHC 33.3 g/dl (32.0-35.9); MEAN PLT VOLUME 7.4 fl (7.5-11.1); MONO % 5.8 % (3.8-10.2); NEUT % 84.4 % (42.8-82.8); PLATELET COUNT 364 K/MM3 (134-434); RBC 3.01 M/mm3 (4.00-5.60); RDW 16.7 % (11.9-15.9); WHITE BLOOD COUNT 10.2 K/mm3 (4.0-10.0)
[2020-07-20 08:23] LABS: POTASSIUM 4.1 mmol/L (3.5-5.1)
[2020-07-20 08:28] LABS: ALBUMIN 2.7 g/dl (3.4-5.0); BILIRUBIN,TOTAL 0.2 mg/dL (0.2-1); BLOOD UREA NITROGEN 19.5 mg/dL (7-18); CALCIUM 7.5 mg/dL (8.5-10.1); CREATININE 1.1 mg/dL (0.55-1.3); MAGNESIUM 1.5 mg/dL (1.8-2.4); TOT PROT 5.7 g/dl (6.4-8.2)
[2020-07-20] MEDS ORDERED: DEXTROSE 5%-WATER - 50 ML IVPB ONE (08:47)
[2020-07-20] MEDS ORDERED: cefTRIAXone SODIUM 1 GM VIAL ONE (08:47)
[2020-07-20] MEDS: TENOFOVIR DISOPROXIL FUMARATE 300 MG TABLET PO SCH ×2 (08:51→08:56)
[2020-07-20] MEDS: TAMSULOSIN HCL 0.4 MG CAP PO SCH (08:52)
[2020-07-20] MEDS ORDERED: PT OWN MED DRAWER 7, Y5N ONE ×2 (08:55→17:34)
[2020-07-20] MEDS: FINASTERIDE 5 MG TABLET (FP) PO SCH (09:00)
[2020-07-20] MEDS: ALLOPURINOL 300 MG TABLET (FP) PO SCH (09:00)
[2020-07-20] MEDS: ENOXAPARIN NA (PORCINE) 40 MG/0.4 ML DISP.SYRIN SQ SCH (09:00)
[2020-07-20] MEDS: CEFTRIAXONE 1 GM in DEXTROSE 5%-WATER - 50 ML IVPB SCH (09:00)
[2020-07-20] MEDS: valACYclovir HCL 500 MG TABLET (FP) PO SCH ×2 (09:00→21:14)
[2020-07-20] MEDS: MAGNESIUM OXIDE 400 MG TABLET (FP) PO SCH ×2 (09:01→21:15)
[2020-07-20] MEDS: ASPIRIN COATED 81 MG TABLET.EC PO SCH (09:01)
[2020-07-20] MEDS: BRIMONIDINE TARTRATE 0.1% OPHTHALMIC 5 ML BOTTLE OU SCH ×2 (09:03→21:24)
[2020-07-20] MEDS: TIMOLOL 0.5% OPHTHALMIC SOL 5 ML BOTTLE OU SCH ×2 (09:04→21:24)
[2020-07-20] MEDS: POLYETHYLENE GLYCOL 3350 119 GM BTL PO SCH (09:10)
[2020-07-20] MEDS ORDERED: INSULIN (NOVOLOG) ASPART 100 UNITS/ML 10ML VIAL ONE ×2 (10:50→21:06)
[2020-07-20] MEDS ORDERED: MIDODRINE HCL 2.5 MG TABLET PO ONE (12:45)
--- NOTE | 2020-07-20 14:48 | PN.HO ---
Progress Note (short form) - Note Progress Note: 75yM with DLBCL s/p miniR chop (Rituxan 07/18, mini CHOP 07/19) ; patient is orthostatic today which may delay dc. -please start Prednisone 100mg once daily x 3 days (first dose today) to complete his chemo treatment. If he is discharged today, he will need an outpatient script for Prednisone 100mg once daily for Friday and Friday -He is due to receive Neulasta subq injection at 730am in the clinic tomorrow. If he is still here and not discharged; we can start daily subq neupogen 300mg on Friday (must be at least 24 hours after completion of chemo) while he remains in house to prevent neutropenia after chemotherapy We will continue to follow
--- NOTE | 2020-07-20 15:24 | PN ---
Physical Exam: SUBJECTIVE: Patient seen and examined. reports dizziness upon standing. it has been occurring at home intermittently per daughter. OBJECTIVE: patient completed rituxan and chemo. today has positive orthostatics, 121/60 sitting, 89/60 standing. feels dizzy. started on midodrine bid and will titrate until bp stable per heme/onc start on prednisone 100mg daily x 3 days. --- Patient is a 75 year old male patient with past medical history that includes B Cell Lymphoma, HLD, HTN, DM, and BPH s/p TURP, who presented to the emergency room with lightheadedness, weakness, and shortness of breath on standing. The patient was recently here at [facility] with acute encephalopathy secondary to hypercalcemia. Vital Signs Period Temp Pulse Resp BP Sys/Loredo Pulse Ox Last 24 Hr 97.6 F-98.5 F 53-62 18-19 103-141/61-73 98-100 GENERAL: seen awake, laying in bed, not in any distress HEAD: Normal with no signs of trauma. EYES: PERRL, extraocular movements intact, sclera anicteric, conjunctiva clear. No ptosis. ENT: oropharynx clear without exudates, moist mucous membranes. NECK: Trachea midline, full range of motion, supple. LUNGS: Breath sounds equal, clear to auscultation bilaterally, no wheezes, no crackles, no accessory muscle use. HEART: Regular rate and rhythm, S1, S2 without murmur, rub or gallop. ABDOMEN: Soft, nontender, nondistended, normoactive bowel sounds, no guarding, no rebound, no hepatosplenomegaly, no masses. EXTREMITIES: 2+ pulses, warm, well-perfused, no edema. NEUROLOGICAL: Cranial nerves II through XII grossly intact. Normal speech, gait not observed. PSYCH: Normal mood, normal affect. SKIN: Warm, dry, normal turgor, no rashes or lesions noted Laboratory Results - last 24 hr 07/19/20 07/19/20 07/20/20 17:07 21:39 06:38 WBC RBC Hgb Hct MCV MCH MCHC RDW Plt Count MPV Absolute Neuts (auto) Neutrophils % Lymphocytes % Monocytes % Eosinophils % Basophils % Nucleated RBC % Sodium Potassium Chloride Carbon Dioxide Anion Gap BUN Creatinine Est GFR (CKD-EPI)AfAm Est GFR (CKD-EPI)NonAf POC Glucometer 190 229 130 Random Glucose Calcium Magnesium Total Bilirubin AST ALT Alkaline Phosphatase Total Protein Albumin 07/20/20 07/20/20 07/20/20 07:05 07:05 10:47 WBC 10.2 H RBC 3.01 L Hgb 8.5 L Hct 25.6 L MCV 85.0 MCH 28.3 MCHC 33.3 RDW 16.7 H Plt Count 364 MPV 7.4 L Absolute Neuts (auto) 8.6 H Neutrophils % 84.4 H Lymphocytes % 9.4 D Monocytes % 5.8 Eosinophils % 0.0 D Basophils % 0.4 Nucleated RBC % 0 Sodium 138 Potassium 4.1 Chloride 110 H Carbon Dioxide 21 Anion Gap 7 L BUN 19.5 H Creatinine 1.1 Est GFR (CKD-EPI)AfAm 75.18 Est GFR (CKD-EPI)NonAf 64.86 POC Glucometer 159 Random Glucose 131 H Calcium 7.5 L Magnesium 1.5 L Total Bilirubin 0.2 AST 10 L ALT 11 L Alkaline Phosphatase 60 Total Protein 5.7 L Albumin 2.7 L Active Medications Generic Name Dose Route Start Last Admin Trade Name Freq PRN Reason Stop Dose Admin Allopurinol 300 mg 07/11/20 10:00 07/20/20 09:00 Zyloprim - PO 300 mg DAILY TAYLOR Administration Aspirin 81 mg 07/11/20 10:00 07/20/20 09:01 Ecotrin - PO 81 mg DAILY TAYLOR Administration Atorvastatin Calcium 10 mg 07/10/20 22:00 07/19/20 21:44 Lipitor - PO 10 mg HS TAYLOR Administration Brimonidine Tartrate 1 drop 07/11/20 10:00 07/20/20 09:03 Alphagan P 0.1% - OU 1 drop BID TAYLOR Administration Enoxaparin Sodium 40 mg 07/19/20 21:00 07/20/20 09:00 Lovenox - SQ 40 mg DAILY TAYLOR Administration Finasteride 5 mg 07/10/20 13:00 07/20/20 09:00 Proscar - PO 5 mg DAILY TAYLOR Administration Ceftriaxone Sodium 1 gm/ 50 mls @ 100 mls/hr 07/14/20 10:00 07/20/20 09:00 Dextrose IVPB 100 mls/hr DAILY TAYLOR Administration Protocol Insulin Aspart 0 vial 07/09/20 22:00 07/20/20 10:51 Novolog Vial Sliding Scale - SQ 2 units ACHS TAYLOR Administration Protocol Insulin Detemir 20 units 07/10/20 22:00 07/19/20 21:42 Levemir Vial SQ 20 units HS TAYLOR Administration Latanoprost 1 drop 07/10/20 22:00 07/19/20 21:49 Xalatan 0.005% Eye Drops - OU 1 drop HS TAYLOR Administration Magnesium Oxide 400 mg 07/18/20 22:00 07/20/20 09:01 Mag-Ox - PO 400 mg BID TAYLOR Administration Midodrine 2.5 mg 07/20/20 18:00 Proamatine - PO BID-MID TAYLOR Pegfilgrastim 6 mg 07/21/20 10:00 Neulasta - SQ 07/21/20 10:01 ONCE ONE Polyethylene Glycol 17 gm 07/11/20 10:00 07/20/20 09:10 Miralax (For Daily Use) - PO Not Given DAILY [facility] Prednisone 100 mg 07/20/20 15:15 Deltasone - PO 07/22/20 10:01 DAILY [facility] Tamsulosin HCl 0.4 mg 07/10/20 12:30 07/20/20 08:52 Flomax - PO 0.4 mg DAILY@0830 TAYLOR Administration Tenofovir Disoproxil Fumarate 300 mg 07/10/20 13:00 07/20/20 08:56 Viread - PO 300 mg Q2D@0800 TAYLOR Administration Tetrahydrozoline HCl 1 drop 07/15/20 09:52 07/17/20 06:07 Visine - OU 1 drop BID PRN Administration DRY EYES Timolol Maleate 1 drop 07/11/20 10:00 07/20/20 09:04 Timoptic 0.5% OU 1 drop BID TAYLOR Administration Valacyclovir HCl 1,000 mg 07/10/20 13:00 07/20/20 09:00 Valtrex - PO 1,000 mg BID TAYLOR Administration ASSESSMENT/PLAN: Problem List - Problems (1) Sepsis Assessment/Plan: sepis on admission in the setting of UTI now resolved on Ceftriaxone to be converted to Vantin on d/c Code(s): A41.9 - SEPSIS, UNSPECIFIED ORGANISM Qualifiers: Sepsis type: sepsis due to unspecified organism Sepsis acute organ dysfunction status: without acute organ dysfunction Qualified Code(s): A41.9 - Sepsis, unspecified organism (2) UTI (urinary tract infection) Assessment/Plan: On ceftriaxone. As of 07/14, Id recommended Vantin x 7 days but NF inpatient. If patient d/c tomorrow will order vantin for the remaining days to complete therapy Code(s): N39.0 - URINARY TRACT INFECTION, SITE NOT SPECIFIED Qualifiers: Urinary tract infection type: site unspecified Hematuria presence: without hematuria Qualified Code(s): N39.0 - Urinary tract infection, site not specified (3) Diffuse large B cell lymphoma Assessment/Plan: Patient to received Rituxan 07/18 and completed mini CHOP chemo infusion 07/19. Patient to to receive neulasta 07/31 per heme, give prednisone 100mg daily x 3 days Code(s): C83.30 - DIFFUSE LARGE B-CELL LYMPHOMA, UNSPECIFIED SITE (4) MIRACLE (acute kidney injury) Assessment/Plan: MIRACLE in the setting of sepsis, now resolved. 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 corrected calcium 9.2 Code(s): E83.52 - HYPERCALCEMIA (8) Orthostatic hypotension Assessment/Plan: echo 05/31/2020 showed mild asymmeteric left vent hypertropy. ef 70% bp sitting 120s/70s, standing 80/60 with symptoms of dizziness will monitor on midodrine and if bp more stable, will send home likely in a.m. Code(s): I95.1 - ORTHOSTATIC HYPOTENSION (9) DVT prophylaxis Assessment/Plan: lovenox 40mg daily Code(s): Z29.9 - ENCOUNTER FOR PROPHYLACTIC MEASURES, UNSPECIFIED Visit type - Emergency Visit Emergency Visit: Yes ED Registration Date: 07/09/20 Care time: The patient presented to the Emergency Department on the above date and was hospitalized for further evaluation of their emergent condition. - New Patient This patient is new to me today: No - Critical Care Critical Care patient: No - Discharge Referral Referred to [facility] Med P.C.: No - Medication Review Med list reviewed for High Risk Meds patients 65 and older: Yes
[2020-07-20] MEDS: predniSONE 20 MG TABLET (UD) PO SCH (16:13)
[2020-07-20] MEDS: MIDODRINE HCL 2.5 MG TABLET PO SCH (17:38)
[2020-07-20] MEDS: ATORVASTATIN CA 10 MG TABLET (FP) PO SCH (21:15)
[2020-07-20] MEDS: LATANOPROST 0.005% OPHTH SOLN 2.5ML BOTTLE OU SCH (21:24)
[2020-07-20] MEDS: INSULIN (LEVEMIR) 100 UNITS/ML UNITS SQ SCH (21:24)
[2020-07-21] MEDS: INSULIN SLIDING SCALE (NOVOLOG) 1 VIAL SQ SCH ×3 (06:54→17:56)
[2020-07-21] MEDS ORDERED: cefTRIAXone SODIUM 1 GM VIAL ONE (08:53)
[2020-07-21] MEDS ORDERED: DEXTROSE 5%-WATER - 50 ML IVPB ONE (08:53)
[2020-07-21] MEDS ORDERED: PT OWN MED DRAWER 7, Y5N ONE (08:54)
[2020-07-21] MEDS: TAMSULOSIN HCL 0.4 MG CAP PO SCH (09:05)
[2020-07-21] MEDS: ENOXAPARIN NA (PORCINE) 40 MG/0.4 ML DISP.SYRIN SQ SCH (09:05)
[2020-07-21] MEDS: MIDODRINE HCL 2.5 MG TABLET PO SCH (09:05)
[2020-07-21] MEDS: valACYclovir HCL 500 MG TABLET (FP) PO SCH (09:06)
[2020-07-21] MEDS: ALLOPURINOL 300 MG TABLET (FP) PO SCH (09:06)
[2020-07-21] MEDS: predniSONE 20 MG TABLET (UD) PO SCH (09:06)
[2020-07-21] MEDS: ASPIRIN COATED 81 MG TABLET.EC PO SCH (09:06)
[2020-07-21] MEDS: FINASTERIDE 5 MG TABLET (FP) PO SCH (09:06)
[2020-07-21] MEDS: MAGNESIUM OXIDE 400 MG TABLET (FP) PO SCH (09:07)
[2020-07-21] MEDS: CEFTRIAXONE 1 GM in DEXTROSE 5%-WATER - 50 ML IVPB SCH (09:07)
[2020-07-21] MEDS: TIMOLOL 0.5% OPHTHALMIC SOL 5 ML BOTTLE OU SCH (09:08)
[2020-07-21] MEDS: BRIMONIDINE TARTRATE 0.1% OPHTHALMIC 5 ML BOTTLE OU SCH (09:08)
[2020-07-21 09:13] LABS: HEMATOCRIT 29.7 % (35.4-49); MCH 28.7 pg (25.7-33.7); MCHC 33.7 g/dl (32.0-35.9); MEAN CELL VOLUME 85.1 fl (80-96); MEAN PLT VOLUME 7.5 fl (7.5-11.1); MONO % 5.5 % (3.8-10.2); NEUT % 87.5 % (42.8-82.8); PLATELET COUNT 371 K/MM3 (134-434); RBC 3.49 M/mm3 (4.00-5.60); RDW 18.1 % (11.9-15.9); WHITE BLOOD COUNT 8.7 K/mm3 (4.0-10.0)
[2020-07-21] MEDS: POLYETHYLENE GLYCOL 3350 119 GM BTL PO SCH (09:16)
[2020-07-21] MEDS ORDERED: TBO-FILGRASTIM 300 MCG/0.5 ML DISP.SYRINGE SQ ONE (09:26)
[2020-07-21 09:46] LABS: ALBUMIN 2.9 g/dl (3.4-5.0); BLOOD UREA NITROGEN 21.6 mg/dL (7-18); CREATININE 1.3 mg/dL (0.55-1.3); MAGNESIUM 1.9 mg/dL (1.8-2.4); POTASSIUM 4.4 mmol/L (3.5-5.1); TOT PROT 6.4 g/dl (6.4-8.2)
[2020-07-21] MEDS ORDERED: PEGFILGRASTIM (NEULASTA) 6 MG/0.6 ML DISP.SYRIN SQ ONE (10:00)
--- NOTE | 2020-07-21 11:27 | DS ---
Physical Exam: SUBJECTIVE: Patient seen and examined at the bedside. denies any further dizziness with position changes. OBJECTIVE: Patient is a 75 year old male patient with past medical history that includes B Cell Lymphoma, HLD, HTN, DM, and BPH s/p TURP, who presented to the emergency room with lightheadedness, weakness, and shortness of breath on standing. The patient was recently here at [facility] with acute encephalopathy secondary to hypercalcemia. CT abdomen showed a retroperitoenal mass compressing the left ureter causing hydronephrosis. A L ureteroscopy, jj stent insertion, and turp/tuvp were performed. The patient was transferred to [facility] on 06/01. The patient reported being at [facility] until 06/29. He had a right inguinal lymph node biopsy at [facility], where he was diagnosed with cancer. He was started on chemotherapy on discharge and received one cycle of chemotherapy so far. The Oncologist Dr. Portia Rosen ([phone]) at [facility] was called and she explained that the patient is on Tenofovir and Valacyclovir as prophylaxis because the patient tested positive for Hep B Core Ab. The patient's manager practice 3 days ago stopped his Torsemide. In the emergency room, the patient was SIRS+, the urinalysis was suggestive of a UTI, and lactic acid was 2.8 with blood pressure of 76/50 and was started on Ceftriaxone. Patient received Rituxan on 07/18 and chemo on 07/19. He was set for d/c home but noted to have orthostatic hypotension. He was started on Midodrine and kassandra tored overnight. BP improved with Midodrine but will increase to TID dosing for better orthostatic control. Patient to follow up with cardiology (referral sent) and can be followed outpatient. Period Temp Pulse Resp BP Sys/[place] Pulse Ox Last 24 Hr 97.9 F-98.5 F 56-97 18-20 100-143/60-74 98-100 PHYSICAL EXAM GENERAL: seen awake, laying in bed, not in any distress HEAD: Normal with no signs of trauma. EYES: PERRL, extraocular movements intact, sclera anicteric, conjunctiva clear. No ptosis. ENT: oropharynx clear without exudates, moist mucous membranes. NECK: Trachea midline, full range of motion, supple. LUNGS: Breath sounds equal, clear to auscultation bilaterally, no wheezes, no crackles, no accessory muscle use. HEART: Regular rate and rhythm, S1, S2 without murmur, rub or gallop. ABDOMEN: Soft, nontender, nondistended, normoactive bowel sounds, no guarding, no rebound, no hepatosplenomegaly, no masses. EXTREMITIES: 2+ pulses, warm, well-perfused, no edema. NEUROLOGICAL: Cranial nerves II through XII grossly intact. Normal speech, gait not observed. PSYCH: Normal mood, normal affect. SKIN: Warm, dry, normal turgor, no rashes or lesions noted LABS Laboratory Results - last 24 hr 07/20/20 07/20/20 07/21/20 16:16 21:12 06:53 WBC RBC Hgb Hct MCV MCH MCHC RDW Plt Count MPV Absolute Neuts (auto) Neutrophils % Lymphocytes % Monocytes % Eosinophils % Basophils % Nucleated RBC % Sodium Potassium Chloride Carbon Dioxide Anion Gap BUN Creatinine Est GFR (CKD-EPI)AfAm Est GFR (CKD-EPI)NonAf POC Glucometer 98 240 283 Random Glucose Calcium Magnesium Total Bilirubin AST ALT Alkaline Phosphatase Total Protein Albumin 07/21/20 07/21/20 07/21/20 08:45 08:45 11:03 WBC 8.7 RBC 3.49 L Hgb 10.0 L Hct 29.7 L D MCV 85.1 MCH 28.7 MCHC 33.7 RDW 18.1 H Plt Count 371 MPV 7.5 Absolute Neuts (auto) 7.7 Neutrophils % 87.5 H Lymphocytes % 7.0 L D Monocytes % 5.5 Eosinophils % 0.0 Basophils % 0.0 Nucleated RBC % 0 Sodium 136 Potassium 4.4 Chloride 105 Carbon Dioxide 23 Anion Gap 8 BUN 21.6 H Creatinine 1.3 Est GFR (CKD-EPI)AfAm 61.43 Est GFR (CKD-EPI)NonAf 53.00 POC Glucometer 247 Random Glucose 279 H Calcium 8.0 L Magnesium 1.9 Total Bilirubin 1.0 AST 23 ALT 21 Alkaline Phosphatase 79 Total Protein 6.4 Albumin 2.9 L HOSPITAL COURSE: Date of Admission:07/09/20 Date of Discharge: 07/21/20 Minutes to complete discharge: 60 Discharge Summary Problems reviewed: Yes Reason For Visit: URINARY TRACTR INFECTION SEPSIS Current Active Problems DVT prophylaxis (Acute) Diffuse large B cell lymphoma (Acute) Orthostatic hypotension (Acute) Sepsis (Acute) UTI (urinary tract infection) (Acute) Condition: Stable - Instructions Diet, Activity, Other Instructions: Mr. Castillo: You were admitted for weakness and UTI. During your hospital stay we administered antibiotics IV for the UTI and you have completed the full course. You received Rituxin and chemotherapy during your hospital stay and you will need to follow up with your oncologist for further chemotherapy. You have received Neulasta on 07/21/2020. Please follow up with your oncologist for determination of further Neulasta We also noted that your blood pressure drops when you stand up. This is called orthostatic hypotension and have started you on a medication called Midodrine that you should take three times per day. MEDICATION CHANGES: PLEASE TAKE prednisone 100mg (5 tabs of 20mg) Tomorrow 07/22/20, this is your last dose. You can take with food. STOP taking Diovan for blood pressure as our blood pressure is low when you stand up. We have started you on Midodrine THREE times per day. Please follow up with a line erector apprentice and your primary care doctor within 1 week. We have sent you referrals to a line erector apprentice on your discharge paperwork. Referrals: Beverly Schofield MD [Primary Care Provider] - Soren Irving MD [Staff Physician] - Disposition: HOME - Home Medications Comprehensive Discharge Medication List: Ambulatory Orders Latanoprost 0.005% Eye Drops [Xalatan 0.005% Eye Drops -] 1 drop OU HS 10/19/15 Tamsulosin HCl [Flomax -] 0.4 mg PO DAILY 10/19/15 Insulin Lispro [Humalog] 10 units SQ AC 05/31/20 Linagliptin [Tradjenta] 5 mg PO DAILY 05/31/20 Allopurinol 300 mg PO DAILY 07/10/20 Aspirin [Aspirin EC] 81 mg PO DAILY 07/10/20 Brimonidine Tartrate [Alphagan P 0.1% -] 1 drop OU TID 07/10/20 Finasteride [Proscar] 5 mg PO DAILY 07/10/20 Oxycodone HCl [Roxicodone] 5 mg PO Q6H PRN 07/10/20 Polyethylene Glycol 3350 [Miralax 119 gm Btl -] 17 gm PO DAILY 07/10/20 Tenofovir Disoproxil Fumarate [Viread -] 300 mg PO Q48H 07/10/20 Timolol 0.5% [Timoptic 0.5%] 1 drop OU DAILY 07/10/20 Valacyclovir HCl [Valtrex] 2 tab PO BID 07/10/20 cloNIDine HCL [Catapres -] 0.1 mg PO DAILY 07/10/20 Midodrine HCl [Proamatine -] 2.5 mg PO TID #90 tablet 07/21/20 predniSONE [Deltasone -] 100 mg PO DAILY #5 tablet 07/21/20 Problem List - Problems (1) Sepsis Assessment/Plan: sepis on admission in the setting of UTI now resolved on Ceftriaxone to be converted to Vantin on d/c per ID recommendation on 07/14 however Vantin is NF here and patient kept on Ceftriaxone. He has completed a full course of Ceftriaxone. Code(s): A41.9 - SEPSIS, UNSPECIFIED ORGANISM Qualifiers: Sepsis type: sepsis due to unspecified organism Sepsis acute organ dysfunction status: without acute organ dysfunction Qualified Code(s): A41.9 - Sepsis, unspecified organism (2) UTI (urinary tract infection) Assessment/Plan: On ceftriaxone. As of 07/14, Id recommended Vantin x 7 days but NF inpatient. Patient was kept on ceftriaxone and has completed the full course. Code(s): N39.0 - URINARY TRACT INFECTION, SITE NOT SPECIFIED Qualifiers: Urinary tract infection type: site unspecified Hematuria presence: without hematuria Qualified Code(s): N39.0 - Urinary tract infection, site not specified (3) Diffuse large B cell lymphoma Assessment/Plan: Patient to received Rituxan 07/18 and completed mini [facility] chemo infusion 07/19. Patient received neulasta 07/31/20 per heme, give prednisone 100mg daily x 3 days to complete on 07/22/2020 Code(s): C83.30 - DIFFUSE LARGE B-CELL LYMPHOMA, UNSPECIFIED SITE (4) MIRACLE (acute kidney injury) Assessment/Plan: MIRACLE in the setting of sepsis, now resolved. monitor kidney function daily Code(s): N17.9 - ACUTE KIDNEY FAILURE, UNSPECIFIED (5) Altered mental status Assessment/Plan: resolved mentation at baseline Code(s): R41.82 - ALTERED MENTAL STATUS, UNSPECIFIED Qualifiers: Altered mental status type: unspecified Qualified Code(s): R41.82 - Altered mental status, unspecified (6) Diabetes Assessment/Plan: monitor BGMs with novolog SS Code(s): E11.9 - TYPE 2 DIABETES MELLITUS WITHOUT COMPLICATIONS Qualifiers: Diabetes mellitus type: type 2 Diabetes mellitus emt intermediate insulin use: unspecified skilled nursing insulin use status Proliferative retinopathy type: unspecified Diabetes mellitus macular edema: macular edema presence un specified Laterality: unspecified laterality (7) Hypercalcemia Assessment/Plan: resolved. corrected calcium 9.2 Code(s): E83.52 - HYPERCALCEMIA (8) Orthostatic hypotension Assessment/Plan: echo 05/31/2020 showed mild asymmeteric left vent hypertropy. ef 70% BP shows improvement of orthostatics on BID dosing of Midodrine. Will increased to TID dosing for better control. Patient agrees to follow up outpatient. Code(s): I95.1 - ORTHOSTATIC HYPOTENSION (9) DVT prophylaxis Code(s): Z29.9 - ENCOUNTER FOR PROPHYLACTIC MEASURES, UNSPECIFIED This patient is new to me today: No Emergency Visit: Yes ED Registration Date: 07/09/20 Care time: The patient presented to the Emergency Department on the above date and was hospitalized for further evaluation of their emergent condition. Critical Care patient: No - Discharge Referral Referred to [facility] Med P.[facility] No
[2020-07-21] MEDS ORDERED: MIDODRINE HCL 2.5 MG TABLET PO SCH (14:00)
[2020-07-21 15:02] VITALS: BP 145/76; PULSE 52; TEMP 98
== END 2020-07-21 18:15 | disposition home or self-care (01) | DRG 872 ==
LOC: JER 15:59 → JERBED 18:56 → J6S 07-10 18:28 → J7W 07-14 18:08
PROVIDERS: ADMIT Hospitalist; ATTEND Nurse Practitioner Family
DX: A41.89 Other specified sepsis (principal); N39.0 Urinary tract infection, site not specified; N17.9 Acute kidney failure, unspecified; C83.30 Diffuse large B-cell lymphoma, unspecified site; R65.20 Severe sepsis without septic shock; I10 Essential (primary) hypertension; N40.0 Benign prostatic hyperplasia without lower urinary tract symptoms; E11.9 Type 2 diabetes mellitus without complications; I95.9 Hypotension, unspecified; D72.829 Elevated white blood cell count, unspecified; R00.0 Tachycardia, unspecified; E78.5 Hyperlipidemia, unspecified; M10.9 Gout, unspecified; E83.42 Hypomagnesemia; R41.82 Altered mental status, unspecified
CPT/HCPCS: 36415; 71045-TC-FY; 76775-TC; 80048; 80053; 81003; 82962; 83605; 83735; 84100; 84484; 85025; 87040; 87086; 87186; 87517; 93005; 93010; 97116-GP; 97161-GP; 99285-25; J1100; J1447; J1644; J2469; J9070; J9312; J9370; U0003

== ENCOUNTER 2020-07-24 07:01 | Day surgery (SDC) | payer OTHER ==
--- OUTSIDE RECORDS SUMMARY | 2020-07-21 07:31 | XMS ---
:1945 Author Organization [facility] Care Team Providers Name Role Phone MAHENDRA GARCÍA Unavailable Unavailable Re-disclosure Warning The records that you are about to access may contain information from federally- assisted alcohol or drug abuse programs. If such information is present, then the following federally mandated warning applies: This information has been disclosed to you from records protected by federal confidentiality rules (42 CFR part 2). The federal rules prohibit you from making any further disclosure of this information unless further disclosure is expressly permitted by the written consent of the person to whom it pertains or as otherwise permitted by 42 CFR part 2. A general authorization for the release of medical or other information is NOT sufficient for this purpose. The Federal rules restrict any use of the information to criminally investigate or prosecute any alcohol or drug abuse patient.The records that you are about to access may contain highly sensitive health information, the redisclosure of which is protected by Article 27-F of the [place] [facility] Public Health law. If you continue you may haveaccess to information: Regarding HIV / AIDS; Provided by facilities licensed or operated by the [facility] Office of Mental Health; or Provided by the [facility] Office for People With Developmental Disabilities. If such information is present, then the following [facility] mandated warning applies: This information has been disclosed to you from confidential records which are protected by state law. State law prohibits you from making any further disclosure of this information without the specific written consent of the person to whom it pertains, or as otherwise permitted by law. Any unauthorized further disclosure in violation of state law may result in a fine or correction sentence or both. A general authorization for the release of medical or other information is NOT sufficient authorization for further disclosure. Allergies and Adverse Reactions Type Description Substance Reaction Status Data Source(s ) Food allergy No Known Food No Known Food [facility] Drug allergy No Known Drug No Known Drug [facility] Encounters Encounter Providers Location Date Indications Data Source(s ) Inpatient Attender: MAHNEDRA [id number]-HAL6 05/04/2019 [facility] FLORENCIO MCCRAY 06:10:00 AM EDT [facility] OAdmitter: MAHENDRA - 05/15/2019 [facility] 11:15:00 AM EDT OReferrer: MAHENDRA MCRCAY O Emergency H 01/23/2019 [facility] 04:10:00 PM EDT Medical C enter Medications Medication Brand Start Product Dose Route Administrative Pharmacy [facility] Indications Reaction Description Data Name Date Form Instructions Instructions Source(s) Prednisone predni 1 complet [place]wey t 20 MG Oral SONE ed Heriberto Tablet 20 mg Medical predniSONE Tablet Center 20 mg , Tablet, Ordere Ordered By: d By: Sonido Kim MDDirection , s: 1 tablet MDDire oral daily ctions : 1 tablet oral daily Prednisone predni 1 complet [place]wey t 20 MG Oral SONE ed Heriberto Tablet 20 mg Medical predniSONE Tablet Center 20 mg , Tablet, Ordere Ordered By: d By: radha Merritt s: 1 tablet , oral daily MDDire ctions : 1 tablet oral daily Amoxicillin amoxic 1 complet Deejay nt 875 MG / illin- ed Heriberto Clavulanate pot Medical 125 MG Oral clavul Center Tablet anate amoxicillin 875 -pot mg-125 clavulanate mg 875 mg-125 Tablet mg Tablet, , Ordered By: Teri muñoz By: Cecilio Nowak l s: 1 tablet She oral every , twelve MDDire hours with ctions or after : 1 food tablet oral every twelve hours with or after food Simvastatin simvas 1 complet Deejay nt 20 MG Oral tatin ed Heriberto Tablet 20 mg Medical simvastatin Tablet Center 20 mg , Tablet, Ordere Ordered By: d By: radha Merrittirection She s: 1 tablet , oral daily MDDire at bedtime ctions : 1 tablet oral daily at bedtim e Tamsulosin tamsuL 1 complet [place] t hydrochlori OSIN ed Heriberto de 0.4 MG 0.4 mg Medical Oral Capsul Center Capsule e, tamsuLOSIN Ordere 0.4 mg d By: Cecilio Guardado Ordered By: radha Nowak, CARMENirection MDDire s: 1 ctions capsule : 1 oral daily capsul e oral daily torsemide complet Saint 20 mg ed Heriberto Tablet Medical [place] timolol 1 complet Saint maleate 0.5 ed Heriberto % Drops, Medical Ordered By: Davidson Adam s: 1 drop ophthalmic twice a day Furosemide furose 1 complet LaSIX Deejay nt 20 MG Oral mide ed Heriberto Tablet (LaSIX Medical [Lasix] ) 20 Center furosemide mg (LaSIX) 20 Tablet mg Tablet, , Ordered By: Teri muñoz By: Cecilio Nowak s: 1 tablet [place] oral daily , MDDire ctions : 1 tablet oral daily Finasteride finast 1 complet Deejay nt 5 MG Oral eride ed [facility] Tablet 5 mg Medical finasteride Tablet [place] 5 mg , Tablet, Ordere Ordered By: d By: radha Merritt s: 1 tablet , oral daily MDDire ctions : 1 tablet oral daily Ergocalcife ergoca 1 complet Vitamin D2 [place]l [address] lcifer ed Heriberto UNT Oral ol Medical Capsule (vitam Center ergocalcife in D2) rol (Vitam (vitamin in D2) D2) 50,000 (Vitamin unit D2) 50,000 Capsul unit e, Capsule, Ordere Ordered By: d By: radha Merritt s: 1 , capsule MDDire oral every ctions Friday : 1 capsul e oral every Friday fluticasone 2 complet [facility] propionate ed [place]erto 50 Medical [facility] on spray,suspe nsion, Ordered By: CARMEN Kumarirection s: 2 spray nasal twice a day 3 ML insuli complet HumaLOG Mix Deejay nt Insulin n ed 50-50 Heriberto Lispro 50 lispro KwikPen Medic al UNT/ML / protam Center Insulin, in-lis Protamine pro Lispro, (HumaL Human 50 OG Mix UNT/ML Pen 50-50 Injector KwikPe [Humalog n) 100 Mix] unit/m insulin L lispro (50-50 protamin-li ) spro Insuli (HumaLOG n Pen, Mix 50-50 Ordere KwikPen) d By: 100 unit/mL Michae (50-50) l Insulin [place] Pen, , Ordered By: Gil Nowak, : 60U MDDirection in the s: 60U in AM and the AM and 55U in 55U in the the PM PM subcut subcutaneou aneous s twice a twice day a day Allopurinol allopu 1 complet Deejay nt 100 MG Oral rinol ed Heribetro Tablet 100 mg [facility] allopurinol [facility] 100 mg , Tablet, Ordere Ordered By: d By: radha Merritt MDDirection Hse s: 1 tablet , oral daily CARMENire ctions : 1 tablet oral daily Insurance Providers Payer name Policy type Policy ID Covered Covered alliance party's Policy P kaylie / Coverage alliance party ID relationship to [facility] ormation type earl LOCAL [id number] - [id number] OT [id number] [facility] LOCAL 1199 O [id number] 01 [id number] O LOCAL 1199 O [id number] 01 [id number] LOCAL [id number] O [id number] 02 [id number] LOCAL 1199 O [id number] 26 LOCAL 1199 - [id number] [place] [id number] [facility] LOCAL [id number] - [id number] [place] [id number] [facility] [place] S [id number] S [id number] Medicaid Medicaid [id number] S [id number] Regular Clinic Visit (DO NOT USE) [id number] S [id number] [facility] Care Auth PCP Not MVNHC/YHC/GH C Problems, Conditions, and Diagnoses Code Display Name Description Problem Type Effective Data Sour ce(s) Dates E78.5 Hyperlipidemia, HYPERLIPIDEMIA, Diagnosis 05/15/2019 [place] unspecified UNSPECIFIED 11:15:[address] EDT M10.9 Gout, unspecified GOUT, UNSPECIFIED Diagnosis 05/15/2019 [place] 11:15:00 AM Medical Cente r EDT R33.8 Other retention of OTHER RETENTION OF Diagnosis 9 [place] urine URINE 11:15:00 AM Medical [place] r EDT N40.1 Benign prostatic BENIGN PROSTATIC Diagnosis 05/15/2019 Sa [place] hyperplasia with HYPERPLASIA WITH 11:15:00 AM [facility] lower urinary tract LOWER URINARY EDT symptoms TRACT SYMP N18.9 Chronic kidney CHRONIC KIDNEY Diagnosis 05/15/2019 [place] disease, DISEASE, 11:15:00 AM Medical Haydee wilkinson unspecified UNSPECIFIED EDT E11.65 Type 2 diabetes TYPE 2 DIABETES Diagnosis 05/15/2019 [place] mellitus with MELLITUS WITH 11:15:00 AM [facility] hyperglycemia HYPERGLYCEMIA EDT E11.22 Type 2 diabetes TYPE 2 DIABETES Diagnosis 05/15/2019 [place] mellitus with MELLITUS W 11:15:00 AM Medical Ce nter diabetic chronic DIABETIC CHRONIC EDT kidney disease KIDNEY DISEASE N13.8 Other obstructive OTHER OBSTRUCTIVE Diagnosis 05/15/2019 [place] and reflux uropathy AND REFLUX 11:15:00 AM [facility] UROPATHY EDT I50.30 Unspecified UNSPECIFIED Diagnosis 05/15/2019 [place] Oswaldo craig diastolic DIASTOLIC 11:15:00 AM Medical Haydee wilkinson (congestive) heart (CONGESTIVE) HEART EDT failure FAILURE I13.0 Hypertensive heart HYP HRT and CHR Diagnosis 05/15/2019 S aint Heriberto and chronic kidney KDNY DIS W HRT 11:15:00 AM [facility] disease with heart FAIL AND STG EDT failure and stage 1 1-4/UNSP CHR KDNY through stage 4 chronic kidney disease, or unspecified chronic kidney disease N17.9 Acute kidney ACUTE KIDNEY Diagnosis 05/15/2019 [place] Herrera phs failure, FAILURE, 11:15:00 AM Medical Haydee r unspecified UNSPECIFIED EDT M62.82 Rhabdomyolysis RHABDOMYOLYSIS Diagnosis 05/15/2019 [place] 11:15:00 AM Medical Haydee r EDT J18.9 Pneumonia, PNEUMONIA, Diagnosis 05/15/2019 [place] unspecified UNSPECIFIED 11:15:[address] organism ORGANISM EDT A41.9 Sepsis, unspecified SEPSIS, Diagnosis 05/15/2019 [place] organism UNSPECIFIED 11:15:00 AM Medical Cent er ORGANISM EDT 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 05/15/2019 [place] use of insulin (CURRENT) USE OF 11:15:00 AM [facility] INSULIN EDT E11.00 Type 2 diabetes TYPE 2 DIAB W Diagnosis 05/04/2019 [place] mellitus with HYPROSM W/O NONKET 06:10:00 AM Il dical Center hyperosmolarity HYPRGLY-HYPROS EDT without nonketotic COMA ([facility]) hyperglycemic-hyper osmolar coma ([facility]) I10 Essential (primary) ESSENTIAL Diagnosis 01/23/2019 [place] hypertension (PRIMARY) 04:10:[address] HYPERTENSION EDT E11.9 Type 2 diabetes TYPE 2 DIABETES Diagnosis 01/23/2019 [place] mellitus without MELLITUS WITHOUT 04:10:00 PM edical Center complications COMPLICATIONS EDT G50.1 Atypical facial ATYPICAL FACIAL Diagnosis 01/23/2019 [place] pain PAIN 04:10:00 PM Medical Cente r EDT M79.2 Neuralgia and NEURALGIA AND Diagnosis 01/23/2019 [facility] Scarlett castellanos neuritis, NEURITIS, 04:10:00 PM Medical Cente r unspecified UNSPECIFIED EDT H53.8 Other visual OTHER VISUAL Diagnosis 01/23/2019 [place] Herrera phs disturbances DISTURBANCES 04:10:00 PM Medical C enter EDT 709.09 OTHER DYSCHROMIA Other disorder of Diagnosis 01/05/2019 Robin SHEIKH ([place] 05:49:47 PM [facility]) Results ID Date Data Source [id number] 07/09/2020 06:15:00 PM EDT [facility] Name Value Range Interpretation Description Data Sup porting Code Source(s) Document(s ) SARS [facility] coronavirus 2 RNA This lab was ordered by [facility] and reported by [facility]. ID Date Data Source [id number] 06/15/2020 09:56:00 AM EDT [facility] Name Value Range Interpretation Code Description Data Lien rce(s) Supporting Document(s ) SARS-CoV-2 [facility] RNA [facility] Ql MARYA NNE+probe This lab was ordered by [facility] a nd reported by [facility]. ID Date Data Source [id number] 06/07/2020 09:37:00 AM EDT [facility] Name Value Range Interpretation Code Description Data Lien rce(s) Supporting Document(s ) SARS-CoV-2 [facility] Ql MARY ANNE+probe This lab was ordered by [facility] a nd reported by [facility]. ID Date Data Source [id number] 05/31/2020 11:35:00 AM EDT [facility] Name Value Range Interpretation Description Data Sup porting Code Source(s) Document(s ) SARS [facility] coronavirus 2 RNA This lab was ordered by [facility] and reported by [facility]. ID Date Data Source [id number] 05/27/2020 06:00:00 PM EDT [facility] Name Value Range Interpretation Description Data Sup porting Code Source(s) Document(s ) SARS [facility] coronavirus 2 RNA This lab was ordered by [facility] and reported by [facility]. ID Date Data Source [id number] 03/25/2020 07:30:00 AM EDT [facility] Name Value Range Interpretation Description Data Sup porting Code Source(s) Document(s ) SARS [facility] CORONAVIRUS 2 RNA This lab was ordered by [facility] and reported by [facility]. ID Date Data Source Liver 05/15/2019 05:00:00 AM EDT [facility] Profile.[id number] Name Value Range Interpretation Description Data Sup porting Code Source(s) Document(s ) Aspartate 17-59 <content Saint aminotransferase styleCode="Bold"> Krishna hs [Enzymatic Aspartate Medical activity/volume] Aminotransferase Center in Serum or Plasma (AST) </content>18 IU/L<content styleCode="Italic s"> (17-59 IU/L)</content> Alanine 7-50 <content [facility] aminotransferase styleCode="Bold"> Krishna hs [Enzymatic Alanine Medical activity/volume] Aminotransferase Center in Serum or Plasma (ALT) </content>27 IU/L<content styleCode="Italic s"> (7-50 IU/L)</content> Alkaline 38-126 <content [facility] phosphatase styleCode="Bold"> Her[place] [Enzymatic Alkaline Medical activity/volume] Phosphatase (ALP) Cente r in Serum or Plasma </content>73 IU/L<content styleCode="Italic s"> (38-126 IU/L)</content> Albumin 3.5-5.0 Below low <content Saint [Mass/volume] in normal styleCode="Bold"> Krishna hs Serum or Plasma Albumin Medical </content>2.9 Center G/DL L<content styleCode="Italic s"> (3.5-5.0 G/DL)</content> Bilirubin.total 0.2-1.3 <content Saint [Mass/volume] in styleCode="Bold"> Krishna hs Serum or Plasma Bilirubin Total Medical </content>0.3 Center MG/DL<content styleCode="Italic s"> (0.2-1.3 MG/DL)</content> ID Date Data Source HematologyRou.[id number] 05/15/2019 05:00:00 AM EDT [facility] 0400 Name Value Range Interpretation Description Data Sup porting Code Source(s) Document(s ) Erythrocytes 4.4-5.9 Below low normal <content Saint [#/volume] in styleCode="Bold Her[place] Blood by ">Red Blood Medical Automated count Cell Count Center </content>2.99 MCUMM L<content styleCode="Ital ics"> (4.4-5.9 MCUMM)</content > Leukocytes 4.4-11.0 <content Saint [#/volume] in styleCode="Bold Her[place] Blood by ">White Blood Medical Automated count Cell Count Center </content>10.97 KCUMM<content styleCode="Ital ics"> (4.4-11.0 KCUMM)</content > Hemoglobin 13.5-17. Below low normal <content Saint [Mass/volume] in 5 styleCode="Bold Heriberto Blood ">Hemoglobin Medical </content>8.8 Center G/DL L<content styleCode="Ital ics"> (13.5-17.5 G/DL)</content> Hematocrit 41.0-53. Below low normal <content Saint [Volume 0 styleCode="Bold Heriberto Fraction] of ">Hematocrit Medical Blood by </content>27.3 Center Automated count % L<content styleCode="Ital ics"> (41.0-53.0 %)</content> Erythrocyte mean 80.0-100 <content Saint corpuscular .0 styleCode="Bold Heriberto volume [Entitic ">Mean Medical volume] by Corpuscular Center Automated count Volume </content>91.3 FL<content styleCode="Ital ics"> (80.0-100.0 FL)</content> Erythrocyte mean 26.0-34. <content Saint corpuscular 0 styleCode="Bold Heriberto hemoglobin ">Mean Medical [Entitic mass] Corposcular Center by Automated Hemoglobin count </content>29.4 PG<content styleCode="Ital ics"> (26.0-34.0 PG)</content> Erythrocyte 11.5-14. <content Saint distribution 5 styleCode="Bold Heriberto width [Ratio] by ">Red Cell Medical Automated count Distribution Center Width </content>14.1 %<content styleCode="Ital ics"> (11.5-14.5 %)</content> Neutrophils 36-66 Above high <content Saint [#/volume] in normal styleCode="Bold [place] Blood by ">Neutrophil Medical Automated count </content>67.4 Center % H<content styleCode="Ital ics"> (36-66 %)</content> Platelet mean 8.0-11.0 <content Saint volume [Entitic styleCode="Bold Heriberto volume] in Blood ">Mean Platelet Medical by Automated Volume Center count </content>9.7 FL<content styleCode="Ital ics"> (8.0-11.0 FL)</content> Platelets 130-400 <content Saint [#/volume] in styleCode="Bold Her[place] Blood by ">Platelet Medical Automated count Count Center </content>364 KCUMM<content styleCode="Ital ics"> (130-400 KCUMM)</content > Erythrocyte mean 32.0-37. <content [facility] corpuscular 0 styleCode="Bold Heriberto hemoglobin ">Mean Corpus. Medical concentration Hgb Center [Mass/volume] by Concentration Automated count (MCHC) </content>32.2 G/DL<content styleCode="Ital ics"> (32.0-37.0 G/DL)</content> Monocytes 3.0-10.0 <content Saint [#/volume] in styleCode="Bold Her[place] Blood by ">Monocyte Medical Automated count </content>3.7 Center %<content styleCode="Ital ics"> (3.0-10.0 %)</content> UNK 1.0-4.8 <content Saint styleCode="Bold Heriberto ">Lymphocyte Medical Count Center </content>2.57 KCUMM<content styleCode="Ital ics"> (1.0-4.8 KCUMM)</content > UNK 1.6-7.3 Above high <content Saint normal styleCode="Bold Heriberto ">Neutrophil Medical Count Center </content>7.38 KCUMM H<content styleCode="Ital ics"> (1.6-7.3 KCUMM)</content > Lymphocytes 24.0-44. Below low normal <content Saint [#/volume] in 0 styleCode="Bold Her[place] Blood by ">Lymphocyte Medical Automated count </content>23.4 Center % L<content styleCode="Ital ics"> (24.0-44.0 %)</content> UNK 0.0-0.6 <content Saint styleCode="Bold Heriberto ">Eosinophil Medical Count Center </content>0.06 KCUMM<content styleCode="Ital ics"> (0.0-0.6 KCUMM)</content > UNK 0.2-0.9 <content Saint styleCode="Bold Heriberto ">Monocyte Medical Count Center </content>0.41 KCUMM<content styleCode="Ital ics"> (0.2-0.9 KCUMM)</content > Basophils 0.0-1.0 <content Saint [#/volume] in styleCode="Bold Her[place] Blood by ">Basophil Medical Automated count </content>0.2 Center %<content styleCode="Ital ics"> (0.0-1.0 %)</content> Eosinophils 0-5.0 <content Saint [#/volume] in styleCode="Bold [place] Blood by ">Eosinophil Medical Automated count </content>0.5 Center %<content styleCode="Ital ics"> (0-5.0 %)</content> UNK 0.0-0.3 <content Saint styleCode="Bold Heriberto ">Basophil Medical Count Center </content>0.02 KCUMM<content styleCode="Ital ics"> (0.0-0.3 KCUMM)</content > UNK 0.0 Above high <content Saint normal styleCode="Bold Heriberto ">Nucleated Red Medical Blood Cell Center Count </content>0.02 KCUMM H<content styleCode="Ital ics"> (0.0 KCUMM)</content > UNK 0-0.1 Above high <content Saint normal styleCode="Bold Heriberto ">Immature Medical Granulocyte Center Count </content>0.53 KCUMM H<content styleCode="Ital ics"> (0-0.1 KCUMM)</content > UNK 0 Above high <content Saint normal styleCode="Bold Heriberto ">Nucleated Red Medical Blood Cell Center </content>0.2 /100 H<content styleCode="Ital ics"> (0 /100)</content> UNK < 1 Above high <content Psychiatric normal styleCode="Bold Heriberto ">Immature Medical Granulocyte Center Ratio </content>4.8 % H<content styleCode="Ital ics"> (< 1 %)</content> ID Date Data Source GFR(Creatinine).[id number] 05/15/2019 05:00:00 AM EDT [facility] 0-0400 Name Value Range Interpretation Code Description Data Lien rce(s) Supporting Document(s ) UNK > 60 Below low normal <content [facility] styleCode="Bold"> Medical Cent er EGFR </content>38 GFR L<content styleCode="Italic s"> (> 60 GFR)</content> ID Date Data Source COLTONMROUTINECCDA.[id number] 05/15/2019 05:00:00 AM EDT [facility] -0400 Name Value Range Interpretation Description Data Sup porting Code Source(s) Document(s ) Magnesium 1.6-2.3 Below low normal <content Saint [Mass/volume] styleCode="Bryan Heriberto in Serum or d">Magnesium Medical Plasma </content>1.2 Center MG/DL L<content styleCode="Belle lics"> (1.6-2.3 MG/DL)</conten t> UNK 2.3-3.5 <content Saint styleCode="Bryan Heriberto d">Globulin Medical </content>2.6 Center G/DL<content styleCode="Belle lics"> (2.3-3.5 G/DL)</content > UNK >= 1.0 <content Saint styleCode="Bryan Heriberto d">AG Ratio Medical </content>1.1 Center <content styleCode="Belle lics"> (>= 1.0 )</content> Phosphate 2.5-4.5 <content Saint [Mass/volume] styleCode="Bryan Heriberto in Serum or d">Phosphorus Medical Plasma </content>4.3 Center MG/DL<content styleCode="Belle lics"> (2.5-4.5 MG/DL)</conten t> Protein 6.3-8.2 Below low normal <content Saint [Mass/volume] styleCode="Bryan Heriberto in Serum or d">Total Medical Plasma Protein Center </content>5.5 G/DL L<content styleCode="Belle lics"> (6.3-8.2 G/DL)</content > ID Date Data Source [facility].[id number] 05/15/2019 05:00:00 AM EDT [facility] Name Value Range Interpretation Description Data Sup porting Code Source(s) Document(s ) Carbon dioxide, 22-30 <content Saint total styleCode="Bold"> Heriberto [Moles/volume] in Carbon Dioxide Medical Serum or Plasma </content>24 Center MEQ/L<content styleCode="Italic s"> (22-30 MEQ/L)</content> Potassium 3.5-5.3 <content Saint [Moles/volume] in styleCode="Bold"> Javier phs Serum or Plasma Potassium Medical </content>3.5 Center MEQ/L<content styleCode="Italic s"> (3.5-5.3 MEQ/L)</content> Chloride 98-107 <content Saint [Moles/volume] in styleCode="Bold"> [facility] Serum or Plasma Chloride Medical </content>106 Center MEQ/L<content styleCode="Italic s"> (98-107 MEQ/L)</content> Sodium 137-145 <content Saint [Moles/volume] in styleCode="Bold"> [facility] Serum or Plasma Sodium Medical </content>138 Center MEQ/L<content styleCode="Italic s"> (137-145 MEQ/L)</content> Calcium 8.4-10. <content Saint [Mass/volume] in 2 styleCode="Bold"> Krishna hs Serum or Plasma Calcium Medical </content>9.0 Center MG/DL<content styleCode="Italic s"> (8.4-10.2 MG/DL)</content> UNK > 60 Below low <content Saint normal styleCode="Bold"> Her[place]erto EGFR </content>38 Medical GFR L<content Center styleCode="Italic s"> (> 60 GFR)</content> Creatinine 0.5-1.3 Above high <content Saint [Mass/volume] in normal styleCode="Bold"> Krishna hs Serum or Plasma Creatinine Medical </content>2.2 Center MG/DL H<content styleCode="Italic s"> (0.5-1.3 MG/DL)</content> Glucose 74-106 Above high <content Saint [Mass/volume] in normal styleCode="Bold"> Krishna hs Serum or Plasma Glucose Medical </content>163 Center MG/DL H<content styleCode="Italic s"> (74-106 MG/DL)</content> UNK 9-20 Above high <content Saint normal styleCode="Bold"> Heriberto BUN </content>29 Medical MG/DL H<content Center styleCode="Italic s"> (9-20 MG/DL)</content> Bilirubin.total 0.2-1.3 <content Saint [Mass/volume] in styleCode="Bold"> Krishna hs Serum or Plasma Bilirubin Total Medical </content>0.3 Center MG/DL<content styleCode="Italic s"> (0.2-1.3 MG/DL)</content> Alkaline 38-126 <content Saint phosphatase styleCode="Bold"> [facility] [Enzymatic Alkaline Medical activity/volume] Phosphatase (ALP) Cente r in Serum or Plasma </content>73 IU/L<content styleCode="Italic s"> (38-126 IU/L)</content> Alanine 7-50 <content Saint aminotransferase styleCode="Bold"> Krishna hs [Enzymatic Alanine Medical activity/volume] Aminotransferase Center in Serum or Plasma (ALT) </content>27 IU/L<content styleCode="Italic s"> (7-50 IU/L)</content> Aspartate 17-59 <content Saint aminotransferase styleCode="Bold"> Krishna hs [Enzymatic Aspartate Medical activity/volume] Aminotransferase Center in Serum or Plasma (AST) </content>18 IU/L<content styleCode="Italic s"> (17-59 IU/L)</content> Albumin 3.5-5.0 Below low <content Saint [Mass/volume] in normal styleCode="Bold"> Krishna hs Serum or Plasma Albumin Medical </content>2.9 Center G/DL L<content styleCode="Italic s"> (3.5-5.0 G/DL)</content> ID Date Data Source HematologyRou.[id number] 05/14/2019 05:20:00 AM EDT [facility] 0400 Name Value Range Interpretation Description Data Sup porting Code Source(s) Document(s ) Leukocytes 4.4-11.0 Above high <content Saint [#/volume] in normal styleCode="Bold [facility] Blood by ">White Blood Medical Automated count Cell Count Center </content>11.36 KCUMM H<content styleCode="Ital ics"> (4.4-11.0 KCUMM)</content > Hemoglobin 13.5-17. Below low normal <content [facility] [Mass/volume] in 5 styleCode="Bold Heriberto Blood ">Hemoglobin Medical </content>8.4 Center G/DL L<content styleCode="Ital ics"> (13.5-17.5 G/DL)</content> Erythrocytes 4.4-5.9 Below low normal <content [facility] [#/volume] in styleCode="Bold Heriberto Blood by ">Red Blood Medical Automated count Cell Count Center </content>2.91 MCUMM L<content styleCode="Ital ics"> (4.4-5.9 MCUMM)</content > Erythrocyte mean 80.0-100 <content [facility] corpuscular .0 styleCode="Bold Heriberto volume [Entitic ">Mean Medical volume] by Corpuscular Center Automated count Volume </content>92.4 FL<content styleCode="Ital ics"> (80.0-100.0 FL)</content> Hematocrit 41.0-53. Below low normal <content [facility] [Volume 0 styleCode="Bold Heriberto Fraction] of ">Hematocrit Medical Blood by </content>26.9 Center Automated count % L<content styleCode="Ital ics"> (41.0-53.0 %)</content> Erythrocyte mean 32.0-37. Below low normal <content [facility] corpuscular 0 styleCode="Bold Heriberto hemoglobin ">Mean Corpus. Medical concentration Hgb Center [Mass/volume] by Concentration Automated count (MCHC) </content>31.2 G/DL L<content styleCode="Ital ics"> (32.0-37.0 G/DL)</content> Erythrocyte 11.5-14. Above high <content [facility] distribution 5 normal styleCode="Bold Heriberto width [Ratio] by ">Red Cell Medical Automated count Distribution Center Width </content>14.6 % H<content styleCode="Ital ics"> (11.5-14.5 %)</content> Platelets 130-400 <content [facility] [#/volume] in styleCode="Bold Heriberto Blood by ">Platelet Medical Automated count Count Center </content>380 KCUMM<content styleCode="Ital ics"> (130-400 KCUMM)</content > Erythrocyte mean 26.0-34. <content [facility] corpuscular 0 styleCode="Bold Heriberto hemoglobin ">Mean Medical [Entitic mass] Corposcular Center by Automated Hemoglobin count </content>28.9 PG<content styleCode="Ital ics"> (26.0-34.0 PG)</content> Platelet mean 8.0-11.0 <content [facility] volume [Entitic styleCode="Bold Heriberto volume] in Blood ">Mean Platelet Medical by Automated Volume Center count </content>9.9 FL<content styleCode="Ital ics"> (8.0-11.0 FL)</content> UNK 1.6-7.3 Above high <content [facility] normal styleCode="Bold Heriberto ">Neutrophil Medical Count Center </content>7.58 KCUMM H<content styleCode="Ital ics"> (1.6-7.3 KCUMM)</content > Lymphocytes 24.0-44. Below low normal <content [facility] [#/volume] in 0 styleCode="Bold Heriberto Blood by ">Lymphocyte Medical Automated count </content>22.8 Center % L<content styleCode="Ital ics"> (24.0-44.0 %)</content> Neutrophils 36-66 Above high <content [facility] [#/volume] in normal styleCode="Bold Heriberto Blood by ">Neutrophil Medical Automated count </content>66.7 Center % H<content styleCode="Ital ics"> (36-66 %)</content> UNK 1.0-4.8 <content [facility] styleCode="Bold Heriberto ">Lymphocyte Medical Count Center </content>2.59 KCUMM<content styleCode="Ital ics"> (1.0-4.8 KCUMM)</content > Monocytes 3.0-10.0 <content [facility] [#/volume] in styleCode="Bold Heriberto Blood by ">Monocyte Medical Automated count </content>3.5 Center %<content styleCode="Ital ics"> (3.0-10.0 %)</content> UNK 0.2-0.9 <content [facility] styleCode="Bold Heriberto ">Monocyte Medical Count Center </content>0.40 KCUMM<content styleCode="Ital ics"> (0.2-0.9 KCUMM)</content > UNK 0.0-0.6 <content [facility] styleCode="Bold Heriberto ">Eosinophil Medical Count Center </content>0.06 KCUMM<content styleCode="Ital ics"> (0.0-0.6 KCUMM)</content > Eosinophils 0-5.0 <content [facility] [#/volume] in styleCode="Bold Heriberto Blood by ">Eosinophil Medical Automated count </content>0.5 Center %<content styleCode="Ital ics"> (0-5.0 %)</content> UNK 0 Above high <content [facility] normal styleCode="Bold Heriberto ">Nucleated Red Medical Blood Cell Center </content>0.2 /100 H<content styleCode="Ital ics"> (0 /100)</content> Basophils 0.0-1.0 <content [facility] [#/volume] in styleCode="Bold Heriberto Blood by ">Basophil Medical Automated count </content>0.4 Center %<content styleCode="Ital ics"> (0.0-1.0 %)</content> UNK 0.0-0.3 <content [facility] styleCode="Bold Heriberto ">Basophil Medical Count Center </content>0.04 KCUMM<content styleCode="Ital ics"> (0.0-0.3 KCUMM)</content > UNK 0.0 Above high <content [facility] normal styleCode="Bold Heriberto ">Nucleated Red Medical Blood Cell Center Count </content>0.02 KCUMM H<content styleCode="Ital ics"> (0.0 KCUMM)</content > UNK < 1 Above high <content [facility] normal styleCode="Bold Heriberto ">Immature Medical Granulocyte Center Ratio </content>6.1 % H<content styleCode="Ital ics"> (< 1 %)</content> UNK 0-0.1 Above high <content [facility] normal styleCode="Bold Heriberto ">Immature Medical Granulocyte Center Count </content>0.69 KCUMM H<content styleCode="Ital ics"> (0-0.1 KCUMM)</content > ID Date Data Source GFR(Creatinine).[id number] 05/14/2019 05:20:00 AM EDT [facility] Name Value Range Interpretation Code Description Data Lien rce(s) Supporting Document(s ) UNK > 60 Below low normal <content [facility] styleCode="Bold"> Medical Cent er EGFR </content>40 GFR L<content styleCode="Italic s"> (> 60 GFR)</content> ID Date Data Source BMP.[id number] 05/14/2019 05:20:00 AM EDT [facility] Name Value Range Interpretation Description Data Sup porting Code Source(s) Document(s ) Potassium 3.5-5.3 <content [facility] [Moles/volume] styleCode="Bryan Heriberto in Serum or d">Potassium Medical Plasma </content>3.6 Center MEQ/L<content styleCode="Belle lics"> (3.5-5.3 MEQ/L)</conten t> Carbon 22-30 Below low normal <content [facility] dioxide, total styleCode="Bryan Heriberto [Moles/volume] d">Carbon Medical in Serum or Dioxide Center Plasma </content>21 MEQ/L L<content styleCode="Belle lics"> (22-30 MEQ/L)</conten t> Sodium 137-145 <content [facility] [Moles/volume] styleCode="Bryan Heriberto in Serum or d">Sodium Medical Plasma </content>142 Center MEQ/L<content styleCode="Belle lics"> (137-145 MEQ/L)</conten t> Chloride 98-107 Above high normal <content [facility] [Moles/volume] styleCode="Bryan Heriberto in Serum or d">Chloride Medical Plasma </content>111 Center MEQ/L H<content styleCode="Belle lics"> (98-107 MEQ/L)</conten t> Glucose 74-106 <content [facility] [Mass/volume] styleCode="Bryan Chacons in Serum or d">Glucose Medical Plasma </content>104 Center MG/DL<content styleCode="Belle lics"> (74-106 MG/DL)</conten t> UNK 9-20 Above high normal <content [facility] styleCode="Bryan Chacons d">BUN Medical </content>32 Center MG/DL H<content styleCode="Belle lics"> (9-20 MG/DL)</conten t> UNK > 60 Below low normal <content [facility] styleCode="Bryan Chacons d">EGFR Medical </content>40 Center GFR L<content styleCode="Belle lics"> (> 60 GFR)</content> Calcium 8.4-10.2 <content [facility] [Mass/volume] styleCode="Bryan Chacons in Serum or d">Calcium Medical Plasma </content>9.1 Center MG/DL<content styleCode="Belle lics"> (8.4-10.2 MG/DL)</conten t> Creatinine 0.5-1.3 Above high normal <content [facility] [Mass/volume] styleCode="Bryan Chacons in Serum or d">Creatinine Medical Plasma </content>2.1 Center MG/DL H<content styleCode="Belle lics"> (0.5-1.3 MG/DL)</conten t> ID Date Data Source HematologyRou.[id number] 05/13/2019 05:30:00 AM EDT [facility] 0400 Name Value Range Interpretation Description Data Sup porting Code Source(s) Document(s ) Erythrocytes 4.4-5.9 Below low normal <content [facility] [#/volume] in styleCode="[place] Blood by ">Red Blood Medical Automated count Cell Count Center </content>3.13 MCUMM L<content styleCode="Ital ics"> (4.4-5.9 MCUMM)</content > Leukocytes 4.4-11.0 Above high <content [facility] [#/volume] in normal styleCode="Bold Heriberto Blood by ">White Blood Medical Automated count Cell Count Center </content>14.39 KCUMM H<content styleCode="Ital ics"> (4.4-11.0 KCUMM)</content > Hemoglobin 13.5-17. Below low normal <content [facility] [Mass/volume] in 5 styleCode="Bold Heriberto Blood ">Hemoglobin Medical </content>9.2 Center G/DL L<content styleCode="Ital ics"> (13.5-17.5 G/DL)</content> Erythrocyte mean 80.0-100 <content [facility] corpuscular .0 styleCode="Bold Heriberto volume [Entitic ">Mean Medical volume] by Corpuscular Center Automated count Volume </content>92.3 FL<content styleCode="Ital ics"> (80.0-100.0 FL)</content> Erythrocyte mean 26.0-34. <content [facility] corpuscular 0 styleCode="Bold Heriberto hemoglobin ">Mean Medical [Entitic mass] Corposcular Center by Automated Hemoglobin count </content>29.4 PG<content styleCode="Ital ics"> (26.0-34.0 PG)</content> Erythrocyte mean 32.0-37. Below low normal <content [facility] corpuscular 0 styleCode="Bold Heriberto hemoglobin ">Mean Corpus. Medical concentration Hgb Center [Mass/volume] by Concentration Automated count (MCHC) </content>31.8 G/DL L<content styleCode="Ital ics"> (32.0-37.0 G/DL)</content> Hematocrit 41.0-53. Below low normal <content [facility] [Volume 0 styleCode="Bold Heriberto Fraction] of ">Hematocrit Medical Blood by </content>28.9 Center Automated count % L<content styleCode="Ital ics"> (41.0-53.0 %)</content> Platelets 130-400 Above high <content [facility] [#/volume] in normal styleCode="Bold Heriberto Blood by ">Platelet Medical Automated count Count Center </content>430 KCUMM H<content styleCode="Ital ics"> (130-400 KCUMM)</content > Platelet mean 8.0-11.0 <content [facility] volume [Entitic styleCode="Bold Heriberto volume] in Blood ">Mean Platelet Medical by Automated Volume Center count </content>10.0 FL<content styleCode="Ital ics"> (8.0-11.0 FL)</content> Erythrocyte 11.5-14. <content [facility] distribution 5 styleCode="Bold Heriberto width [Ratio] by ">Red Cell Medical Automated count Distribution Center Width </content>14.5 %<content styleCode="Ital ics"> (11.5-14.5 %)</content> UNK 1.0-4.8 <content [facility] styleCode="Bold Heriberto ">Lymphocyte Medical Count Center </content>3.07 KCUMM<content styleCode="Ital ics"> (1.0-4.8 KCUMM)</content > Neutrophils 36-66 Above high <content [facility] [#/volume] in normal styleCode="Bold Heriberto Blood by ">Neutrophil Medical Automated count </content>67.7 Center % H<content styleCode="Ital ics"> (36-66 %)</content> Lymphocytes 24.0-44. Below low normal <content [facility] [#/volume] in 0 styleCode="Bold Heriberto Blood by ">Lymphocyte Medical Automated count </content>21.3 Center % L<content styleCode="Ital ics"> (24.0-44.0 %)</content> UNK 1.6-7.3 Above high <content [facility] normal styleCode="Bold Heriberto ">Neutrophil Medical Count Center </content>9.74 KCUMM H<content styleCode="Ital ics"> (1.6-7.3 KCUMM)</content > UNK 0.2-0.9 <content [facility] styleCode="Bold Heriberto ">Monocyte Medical Count Center </content>0.39 KCUMM<content styleCode="Ital ics"> (0.2-0.9 KCUMM)</content > Monocytes 3.0-10.0 Below low normal <content [facility] [#/volume] in styleCode="Bold Heriberto Blood by ">Monocyte Medical Automated count </content>2.7 % Center L<content styleCode="Ital ics"> (3.0-10.0 %)</content> Eosinophils 0-5.0 <content [facility] [#/volume] in styleCode="Bold Heriberto Blood by ">Eosinophil Medical Automated count </content>0.7 Center %<content styleCode="Ital ics"> (0-5.0 %)</content> Basophils 0.0-1.0 <content [facility] [#/volume] in styleCode="Bold Heriberto Blood by ">Basophil Medical Automated count </content>0.4 Center %<content styleCode="Ital ics"> (0.0-1.0 %)</content> UNK 0 Above high <content [facility] normal styleCode="Bold Heriberto ">Nucleated Red Medical Blood Cell Center </content>0.1 /100 H<content styleCode="Ital ics"> (0 /100)</content> UNK 0.0-0.6 <content [facility] styleCode="Bold Heriberto ">Eosinophil Medical Count Center </content>0.10 KCUMM<content styleCode="Ital ics"> (0.0-0.6 KCUMM)</content > UNK 0.0-0.3 <content [facility] styleCode="Bold Heriberto ">Basophil Medical Count Center </content>0.06 KCUMM<content styleCode="Ital ics"> (0.0-0.3 KCUMM)</content > UNK < 1 Above high <content [facility] normal styleCode="Bold Heriberto ">Immature Medical Granulocyte Center Ratio </content>7.2 % H<content styleCode="Ital ics"> (< 1 %)</content> UNK 0-0.1 Above high <content [facility] normal styleCode="Bold Heriberto ">Immature Medical Granulocyte Center Count </content>1.03 KCUMM H<content styleCode="Ital ics"> (0-0.1 KCUMM)</content > UNK 0.0 Above high <content [facility] normal styleCode="Bold Heriberto ">Nucleated Red Medical Blood Cell Center Count </content>0.02 KCUMM H<content styleCode="Ital ics"> (0.0 KCUMM)</content > ID Date Data Source GFR(Creatinine).[id number] 05/13/2019 05:30:00 AM EDT [facility] 0-0400 Name Value Range Interpretation Code Description Data Lien rce(s) Supporting Document(s ) UNK > 60 Below low normal <content [facility] styleCode="Bold"> Medical Cent er EGFR </content>34 GFR L<content styleCode="Italic s"> (> 60 GFR)</content> ID Date Data Source CardiacMarkers.[id number] 05/13/2019 05:30:00 AM EDT [facility] -0400 Name Value Range Interpretation Description Data Sup porting Code Source(s) Document(s ) Creatine 55-170 <content [facility] kinase styleCode="Bold Medical [Enzymatic ">CK Center activity/vol </content>65 ume] in IU/L<content Serum or styleCode="Ital Plasma ics"> (55-170 IU/L)</content> ID Date Data Source [facility].[id number] 05/13/2019 05:30:00 AM EDT [facility] Name Value Range Interpretation Description Data Sup porting Code Source(s) Document(s ) Sodium 137-145 <content [facility] [Moles/volume] styleCode="Bryan Heriberto in Serum or d">Sodium Medical Plasma </content>142 Center MEQ/L<content styleCode="Belle lics"> (137-145 MEQ/L)</conten t> Potassium 3.5-5.3 <content [facility] [Moles/volume] styleCode="Bryan Heriberto in Serum or d">Potassium Medical Plasma </content>4.1 Center MEQ/L<content styleCode="Belle lics"> (3.5-5.3 MEQ/L)</conten t> Chloride 98-107 Above high normal <content [facility] [Moles/volume] styleCode="Bryan Heriberto in Serum or d">Chloride Medical Plasma </content>110 Center MEQ/L H<content styleCode="Belle lics"> (98-107 MEQ/L)</conten t> Creatinine 0.5-1.3 Above high normal <content [facility] [Mass/volume] styleCode="Bryan Chacons in Serum or d">Creatinine Medical Plasma </content>2.4 Center MG/DL H<content styleCode="Belle lics"> (0.5-1.3 MG/DL)</conten t> Carbon 22-30 Below low normal <content [facility] dioxide, total styleCode="Bryan Chacons [Moles/volume] d">Carbon Medical in Serum or Dioxide Center Plasma </content>21 MEQ/L L<content styleCode="Belle lics"> (22-30 MEQ/L)</conten t> Glucose 74-106 Above high normal <content [facility] [Mass/volume] styleCode="Bryan Chacons in Serum or d">Glucose Medical Plasma </content>207 Center MG/DL H<content styleCode="Belle lics"> (74-106 MG/DL)</conten t> Calcium 8.4-10.2 <content [facility] [Mass/volume] styleCode="Bryan Chacons in Serum or d">Calcium Medical Plasma </content>9.5 Center MG/DL<content styleCode="Belle lics"> (8.4-10.2 MG/DL)</conten t> UNK 9-20 Above high normal <content [facility] styleCode="Bryan Chacons d">BUN Medical </content>34 Center MG/DL H<content styleCode="Belle lics"> (9-20 MG/DL)</conten t> UNK > 60 Below low normal <content [facility] styleCode="Bryan Chacons d">EGFR Medical </content>34 Center GFR L<content styleCode="Belle lics"> (> 60 GFR)</content> ID Date Data Source Urinalysis.[id number] 05/12/2019 10:45:00 PM EDT [facility] 0 Name Value Range Interpretation Description Data Sup porting Code Source(s) Document(s ) Color of Urine YELLOW <content [facility] styleCode="Bryan Chacons d">Color, Medical Urine Center </content>YELL OW <content styleCode="Belle lics"> (YELLOW )</content> UNK CLEAR <content [facility] styleCode="Bryan Heriberto d">Urine Medical Clarity Center </content>ANTHONY R <content styleCode="Belle lics"> (CLEAR )</content> Glucose NEGATIVE <content [facility] [Mass/volume] styleCode="Bryan Chacons in Urine by d">Urine Medical Test strip Glucose Center </content>500 MG/DL<content styleCode="Belle lics"> (NEGATIVE MG/DL)</conten t> UNK NEGATIVE <content [facility] styleCode="Bryan Heriberto d">Urine Medical Bilirubin Center </content>NEGA TIVE <content styleCode="Belle lics"> (NEGATIVE )</content> Hemoglobin NEGATIVE <content [facility] [Presence] in styleCode="Bryan Chacons Urine by Test d">Urine Blood Medical strip </content>LARG Center E <content styleCode="Belle lics"> (NEGATIVE )</content> Ketones NEGATIVE <content [facility] [Mass/volume] styleCode="Bryan Chacons in Urine by d">Urine Medical Test strip Ketone Center </content>NEGA TIVE MG/DL<content styleCode="Belle lics"> (NEGATIVE MG/DL)</conten t> Specific 1.015-1.02 <content [facility] gravity of 5 styleCode="Bryan Chacons Urine by Test d">Urine Medical strip Specific Center [place] </content>1.01 5 <content styleCode="Belle lics"> (1.015-1.025 )</content> Nitrite NEGATIVE <content [facility] [Presence] in styleCode="Bryan Chacons Urine by Test d">Urine Medical strip Nitrite Center </content>NEGA TIVE <content styleCode="Belle lics"> (NEGATIVE )</content> pH of Urine by 4.5-8.0 <content [facility] Test strip styleCode="Bryan Heriberto d">Urine pH Medical </content>6.0 Center <content styleCode="Belle lics"> (4.5-8.0 )</content> Protein NEGATIVE <content [facility] [Mass/volume] styleCode="Bryan Chacons in Urine by d">Urine Medical Test strip Protein Center </content>TRAC E MG/DL<content styleCode="Belle lics"> (NEGATIVE MG/DL)</conten t> Urobilinogen 0.2-1.0 <content [facility] [Units/volume] styleCode="Bryan Heriberto in Urine by d">Urine Medical Test strip Urobilinogen Center </content>0.2 MG/DL<content styleCode="Belle lics"> (0.2-1.0 MG/DL)</conten t> UNK 0-3 <content [facility] styleCode="Bryan Chacons d">Urine White Medical Blood Cell Center </content>10 - 20 HPF<content styleCode="Belle lics"> (0-3 HPF)</content> Leukocyte NEGATIVE <content [facility] esterase styleCode="[place] [Presence] in d">Urine Medical Urine by Test Leukocyte Center strip </content>TRAC E <content styleCode="Belle lics"> (NEGATIVE )</content> UNK 0-3 <content [facility] styleCode="Bryan Chacons d">Urine Red Medical Blood Cell Center </content>50 - 100 HPF<content styleCode="Belle lics"> (0-3 HPF)</content> UNK NEGATIVE <content [facility] styleCode="Bryan Chacons d">Urine Medical Bacteria Center </content>MODE RATE HPF<content styleCode="Belle lics"> (NEGATIVE HPF)</content> UNK NONE SEEN <content [facility] styleCode="Bryan Chacons d">Urine Mucus Medical </content>FEW Center LPF<content styleCode="Belle lics"> (NONE SEEN LPF)</content> UNK <content [facility] styleCode="Bryan Heriberto d">Epithelial Medical Cell Center </content>10 - 20 LPF (Reference Range: not available)<br/ > ID Date Data Source Microbiology.[id number] 05/12/2019 10:45:00 PM EDT [facility] 400 Name Value Range Interpretation Code Description Data Lien rce(s) Supporting Document(s ) UNK <item><content [facility] styleCode="Bold"> Medical Cent er Culture Report </content>
<t able><tbody><tr>< td>Specimen Number:</td><td>[id number]</td></tr ><tr><td>Sample Collection Date/Time: </td><td> 9 10:45 PM</td></tr><tr>< td>Specimen Source:</td><td>U RINE</td></tr><tr ><td>Urine Culture:</td><td> Collection Plate Date: 05/12/2019 22:50 </td></tr><tr><td >Culture Status:</td><td>F inal </td></tr><tr><td >Culture Report:</td><td>N O FURTHER WORKUP </td></tr><tr><td >Organism 1:</td><td>YEAST </td></tr></tbody ></table>
<ta ble border="2"><tbody ><tr><td></td><td >1</td></tr><tr>< td>Comment</td><t d></td></tr><tr>< td>Result Value</td><td>YEA ST </td></tr><tr><td >Result Status</td><td>Fi nal Result</td></tr>< tr><td></td><td>< /td></tr></tbody> </table></item> UNK <item><content [facility] styleCode="Bold"> Medical Cent er Culture Status </content>
<t able><tbody><tr>< td>Specimen Number:</td><td>[id number]</td></tr ><tr><td>Sample Collection Date/Time: </td><td> 9 10:45 PM</td></tr><tr>< td>Specimen Source:</td><td>U RINE</td></tr><tr ><td>Culture Status:</td><td>F inal </td></tr><tr><td >Culture Report:</td><td>N O FURTHER WORKUP </td></tr><tr><td >Urine Culture:</td><td> Collection Plate Date: 05/12/2019 22:50 </td></tr><tr><td >Organism 1:</td><td>YEAST </td></tr></tbody ></table>
<ta ble border="2"><tbody ><tr><td></td><td >1</td></tr><tr>< td>Comment</td><t d></td></tr><tr>< td>Result Value</td><td>YEA ST </td></tr><tr><td >Result Status</td><td>Fi nal Result</td></tr>< tr><td></td><td>< /td></tr></tbody> </table></item> ID Date Data Source HematologyRou.[id number] 05/12/2019 06:10:00 AM EDT [facility] 0400 Name Value Range Interpretation Description Data Sup porting Code Source(s) Document(s ) Erythrocytes 4.4-5.9 Below low normal <content [facility] [#/volume] in styleCode="Bold [facility] Blood by ">Red Blood Medical Automated count Cell Count Center </content>3.04 MCUMM L<content styleCode="Ital ics"> (4.4-5.9 MCUMM)</content > Leukocytes 4.4-11.0 Above high <content [facility] [#/volume] in normal styleCode="Bold Heriberto Blood by ">White Blood Medical Automated count Cell Count Center </content>15.58 KCUMM H<content styleCode="Ital ics"> (4.4-11.0 KCUMM)</content > Hematocrit 41.0-53. Below low normal <content [facility] [Volume 0 styleCode="Bold Heriberto Fraction] of ">Hematocrit Medical Blood by </content>27.3 Center Automated count % L<content styleCode="Ital ics"> (41.0-53.0 %)</content> Hemoglobin 13.5-17. Below low normal <content [facility] [Mass/volume] in 5 styleCode="Bold Heriberto Blood ">Hemoglobin Medical </content>9.1 Center G/DL L<content styleCode="Ital ics"> (13.5-17.5 G/DL)</content> Erythrocyte mean 80.0-100 <content [facility] corpuscular .0 styleCode="Bold Heriberto volume [Entitic ">Mean Medical volume] by Corpuscular Center Automated count Volume </content>89.8 FL<content styleCode="Ital ics"> (80.0-100.0 FL)</content> Erythrocyte mean 32.0-37. <content [facility] corpuscular 0 styleCode="Bold Heriberto hemoglobin ">Mean Corpus. Medical concentration Hgb Center [Mass/volume] by Concentration Automated count (MCHC) </content>33.3 G/DL<content styleCode="Ital ics"> (32.0-37.0 G/DL)</content> Erythrocyte 11.5-14. <content [facility] distribution 5 styleCode="Bold Heriberto width [Ratio] by ">Red Cell Medical Automated count Distribution Center Width </content>14.2 %<content styleCode="Ital ics"> (11.5-14.5 %)</content> Erythrocyte mean 26.0-34. <content [facility] corpuscular 0 styleCode="Bold Heriberto hemoglobin ">Mean Medical [Entitic mass] Corposcular Center by Automated Hemoglobin count </content>29.9 PG<content styleCode="Ital ics"> (26.0-34.0 PG)</content> Platelets 130-400 Above high <content [facility] [#/volume] in normal styleCode="Bold Heriberto Blood by ">Platelet Medical Automated count Count Center </content>418 KCUMM H<content styleCode="Ital ics"> (130-400 KCUMM)</content > Neutrophils 36-66 Above high <content [facility] [#/volume] in normal styleCode="Bold Heriberto Blood by ">Neutrophil Medical Automated count </content>73.6 Center % H<content styleCode="Ital ics"> (36-66 %)</content> Platelet mean 8.0-11.0 <content [facility] volume [Entitic styleCode="Bold Heriberto volume] in Blood ">Mean Platelet Medical by Automated Volume Center count </content>9.7 FL<content styleCode="Ital ics"> (8.0-11.0 FL)</content> Lymphocytes 24.0-44. Below low normal <content [facility] [#/volume] in 0 styleCode="Bold Heriberto Blood by ">Lymphocyte Medical Automated count </content>16.4 Center % L<content styleCode="Ital ics"> (24.0-44.0 %)</content> UNK 1.6-7.3 Above high <content [facility] normal styleCode="Bold Heriberto ">Neutrophil Medical Count Center </content>11.47 KCUMM H<content styleCode="Ital ics"> (1.6-7.3 KCUMM)</content > Monocytes 3.0-10.0 Below low normal <content [facility] [#/volume] in styleCode="Bold Heriberto Blood by ">Monocyte Medical Automated count </content>2.3 % Center L<content styleCode="Ital ics"> (3.0-10.0 %)</content> UNK 0.2-0.9 <content [facility] styleCode="Bold Heriberto ">Monocyte Medical Count Center </content>0.36 KCUMM<content styleCode="Ital ics"> (0.2-0.9 KCUMM)</content > UNK 1.0-4.8 <content [facility] styleCode="Bold Heriberto ">Lymphocyte Medical Count Center </content>2.55 KCUMM<content styleCode="Ital ics"> (1.0-4.8 KCUMM)</content > Eosinophils 0-5.0 <content [facility] [#/volume] in styleCode="Bold Heriberto Blood by ">Eosinophil Medical Automated count </content>0.3 Center %<content styleCode="Ital ics"> (0-5.0 %)</content> UNK 0.0-0.6 <content [facility] styleCode="Bold Heriberto ">Eosinophil Medical Count Center </content>0.05 KCUMM<content styleCode="Ital ics"> (0.0-0.6 KCUMM)</content > Basophils 0.0-1.0 <content [facility] [#/volume] in styleCode="Bold Heriberto Blood by ">Basophil Medical Automated count </content>0.3 Center %<content styleCode="Ital ics"> (0.0-1.0 %)</content> UNK 0.0-0.3 <content [facility] styleCode="Bold Heriberto ">Basophil Medical Count Center </content>0.05 KCUMM<content styleCode="Ital ics"> (0.0-0.3 KCUMM)</content > UNK 0 Above high <content [facility] normal styleCode="Bold Heriberto ">Nucleated Red Medical Blood Cell Center </content>0.2 /100 H<content styleCode="Ital ics"> (0 /100)</content> UNK 0-0.1 Above high <content [facility] normal styleCode="Bold Heriberto ">Immature Medical Granulocyte Center Count </content>1.10 KCUMM H<content styleCode="Ital ics"> (0-0.1 KCUMM)</content > UNK 0.0 Above high <content [facility] normal styleCode="Bold Heriberto ">Nucleated Red Medical Blood Cell Center Count </content>0.03 KCUMM H<content styleCode="Ital ics"> (0.0 KCUMM)</content > UNK < 1 Above high <content [facility] normal styleCode="Bold Ehriberto ">Immature Medical Granulocyte Center Ratio </content>7.1 % H<content styleCode="Ital ics"> (< 1 %)</content> ID Date Data Source GFR(Creatinine).[id number] 05/12/2019 06:10:00 AM EDT [facility] 0-0400 Name Value Range Interpretation Code Description Data Lien rce(s) Supporting Document(s ) UNK > 60 Below low normal <content [facility] styleCode="Bold"> Medical Cent er EGFR </content>31 GFR L<content styleCode="Italic s"> (> 60 GFR)</content> ID Date Data Source CardiacMarkers.[id number] 05/12/2019 06:10:00 AM EDT [facility] -0400 Name Value Range Interpretation Description Data Sup porting Code Source(s) Document(s ) Creatine 55-170 <content [facility] kinase styleCode="Bold Medical [Enzymatic ">CK Center activity/vol </content>80 ume] in IU/L<content Serum or styleCode="Ital Plasma ics"> (55-170 IU/L)</content> ID Date Data Source [facility].[id number] 05/12/2019 06:10:00 AM EDT [facility] Name Value Range Interpretation Description Data Sup porting Code Source(s) Document(s ) Potassium 3.5-5.3 <content [facility] [Moles/volume] styleCode="Bryan Heriberto in Serum or d">Potassium Medical Plasma </content>3.6 Center MEQ/L<content styleCode="Belle lics"> (3.5-5.3 MEQ/L)</conten t> Sodium 137-145 <content [facility] [Moles/volume] styleCode="Bryan Heriberto in Serum or d">Sodium Medical Plasma </content>141 Center MEQ/L<content styleCode="Belle lics"> (137-145 MEQ/L)</conten t> Chloride 98-107 Above high normal <content [facility] [Moles/volume] styleCode="Bryan Heriberto in Serum or d">Chloride Medical Plasma </content>111 Center MEQ/L H<content styleCode="Belle lics"> (98-107 MEQ/L)</conten t> Carbon 22-30 Below low normal <content [facility] dioxide, total styleCode="Bryan Heriberto [Moles/volume] d">Carbon Medical in Serum or Dioxide Center Plasma </content>18 MEQ/L L<content styleCode="Belle lics"> (22-30 MEQ/L)</conten t> UNK 9-20 Above high normal <content [facility] styleCode="Bryan Heriberto d">BUN Medical </content>33 Center MG/DL H<content styleCode="Belle lics"> (9-20 MG/DL)</conten t> Glucose 74-106 Above high normal <content [facility] [Mass/volume] styleCode="Bryan Heriberto in Serum or d">Glucose Medical Plasma </content>291 Center MG/DL H<content styleCode="Belle lics"> (74-106 MG/DL)</conten t> Creatinine 0.5-1.3 Above high normal <content [facility] [Mass/volume] styleCode="Bryan Heriberto in Serum or d">Creatinine Medical Plasma </content>2.6 Center MG/DL H<content styleCode="Belle lics"> (0.5-1.3 MG/DL)</conten t> Calcium 8.4-10.2 <content [facility] [Mass/volume] styleCode="Bryan Heriberto in Serum or d">Calcium Medical Plasma </content>8.8 Center MG/DL<content styleCode="Belle lics"> (8.4-10.2 MG/DL)</conten t> UNK > 60 Below low normal <content [facility] styleCode="Bryan Heriberto d">EGFR Medical </content>31 Center GFR L<content styleCode="Belle lics"> (> 60 GFR)</content> ID Date Data Source Liver 05/11/2019 05:38:00 AM EDT [facility] Profile.[id number] Name Value Range Interpretation Description Data Sup porting Code Source(s) Document(s ) Aspartate 17-59 <content [facility] aminotransferase styleCode="Bold"> Krishna hs [Enzymatic Aspartate Medical activity/volume] Aminotransferase Center in Serum or Plasma (AST) </content>27 IU/L<content styleCode="Italic s"> (17-59 IU/L)</content> Bilirubin.total 0.2-1.3 <content [facility] [Mass/volume] in styleCode="Bold"> Krishna hs Serum or Plasma Bilirubin Total Medical </content>0.4 Center MG/DL<content styleCode="Italic s"> (0.2-1.3 MG/DL)</content> Alkaline 38-126 <content [facility] phosphatase styleCode="Bold"> Heriberto [Enzymatic Alkaline Medical activity/volume] Phosphatase (ALP) Cente r in Serum or Plasma </content>62 IU/L<content styleCode="Italic s"> (38-126 IU/L)</content> Alanine 7-50 <content [facility] aminotransferase styleCode="Bold"> Krishna hs [Enzymatic Alanine Medical activity/volume] Aminotransferase Center in Serum or Plasma (ALT) </content>36 IU/L<content styleCode="Italic s"> (7-50 IU/L)</content> Albumin 3.5-5.0 Below low <content [facility] [Mass/volume] in normal styleCode="Bold"> Krishna hs Serum or Plasma Albumin Medical </content>2.5 Center G/DL L<content styleCode="Italic s"> (3.5-5.0 G/DL)</content> ID Date Data Source Immunofixation.[id number] 05/11/2019 05:38:00 AM EDT [facility] -0400 Name Value Range Interpretation Description Data Sup porting Code Source(s) Document(s ) UNK Not Detected <content [place] styleCode="Bold Medical ">Immunofixatio Center n, Serum </content>Not Detected <content styleCode="Ital ics"> (Not Detected )</content> ID Date Data Source HematologyRou.[id number] 05/11/2019 05:38:00 AM EDT [facility] 0400 Name Value Range Interpretation Description Data Sup porting Code Source(s) Document(s ) Erythrocytes 4.4-5.9 Below low normal <content [facility] [#/volume] in styleCode="Bold Heriberto Blood by ">Red Blood Medical Automated count Cell Count Center </content>2.79 MCUMM L<content styleCode="Ital ics"> (4.4-5.9 MCUMM)</content > Leukocytes 4.4-11.0 Above high <content [facility] [#/volume] in normal styleCode="Bold Heriberto Blood by ">White Blood Medical Automated count Cell Count Center </content>13.49 KCUMM H<content styleCode="Ital ics"> (4.4-11.0 KCUMM)</content > Hematocrit 41.0-53. Below low normal <content [facility] [Volume 0 styleCode="Bold Heriberto Fraction] of ">Hematocrit Medical Blood by </content>25.2 Center Automated count % L<content styleCode="Ital ics"> (41.0-53.0 %)</content> Hemoglobin 13.5-17. Below low normal <content [facility] [Mass/volume] in 5 styleCode="Bold Heriberto Blood ">Hemoglobin Medical </content>8.2 Center G/DL L<content styleCode="Ital ics"> (13.5-17.5 G/DL)</content> Erythrocyte mean 32.0-37. <content [facility] corpuscular 0 styleCode="Bold Heriberto hemoglobin ">Mean Corpus. Medical concentration Hgb Center [Mass/volume] by Concentration Automated count (MCHC) </content>32.5 G/DL<content styleCode="Ital ics"> (32.0-37.0 G/DL)</content> Erythrocyte mean 26.0-34. <content [facility] corpuscular 0 styleCode="Bold Heriberto hemoglobin ">Mean Medical [Entitic mass] Corposcular Center by Automated Hemoglobin count </content>29.4 PG<content styleCode="Ital ics"> (26.0-34.0 PG)</content> Erythrocyte mean 80.0-100 <content [facility] corpuscular .0 styleCode="Bold Heriberto volume [Entitic ">Mean Medical volume] by Corpuscular Center Automated count Volume </content>90.3 FL<content styleCode="Ital ics"> (80.0-100.0 FL)</content> Platelets 130-400 <content [facility] [#/volume] in styleCode="Bold Heriberto Blood by ">Platelet Medical Automated count Count Center </content>369 KCUMM<content styleCode="Ital ics"> (130-400 KCUMM)</content > Erythrocyte 11.5-14. <content [facility] distribution 5 styleCode="Bold Heriberto width [Ratio] by ">Red Cell Medical Automated count Distribution Center Width </content>14.3 %<content styleCode="Ital ics"> (11.5-14.5 %)</content> UNK 0 Above high <content [facility] normal styleCode="Bold Heriberto ">Nucleated Red Medical Blood Cell Center </content>0.1 /100 H<content styleCode="Ital ics"> (0 /100)</content> Platelet mean 8.0-11.0 <content [facility] volume [Entitic styleCode="Bold Heriberto volume] in Blood ">Mean Platelet Medical by Automated Volume Center count </content>9.8 FL<content styleCode="Ital ics"> (8.0-11.0 FL)</content> UNK 0.0 Above high <content [facility] normal styleCode="Bold Heriberto ">Nucleated Red Medical Blood Cell Center Count </content>0.02 KCUMM H<content styleCode="Ital ics"> (0.0 KCUMM)</content > UNK 42-75 Above high <content [facility] normal styleCode="Bold Heriberto ">Manual Medical Neutrophil Center count </content>81.0 % H<content styleCode="Ital ics"> (42-75 %)</content> UNK 2-9 <content [facility] styleCode="Bold Heriberto ">Monocyte-Manu Medical al Center </content>3.0 %<content styleCode="Ital ics"> (2-9 %)</content> UNK 21-51 Below low normal <content [facility] styleCode="Bold Heriberto ">Manual Medical Lymphocyte Center Count </content>10.0 % L<content styleCode="Ital ics"> (21-51 %)</content> UNK < 3 Above high <content [facility] normal styleCode="Bold Heriberto ">Band-Manual Medical </content>5.0 % Center H<content styleCode="Ital ics"> (< 3 %)</content> UNK 0-3 <content [facility] styleCode="Bold Heriberto ">Manual Medical Eosinophil Center Count </content>1.0 %<content styleCode="Ital ics"> (0-3 %)</content> UNK NORMAL <content [facility] styleCode="Bold Heriebrto ">Platelet Medical Estimate Center </content>JASON L <content styleCode="Ital ics"> (NORMAL )</content> UNK NORMAL <content [facility] styleCode="Bold Heriberto ">RBC Medical Morphology Center </content>JASON L <content styleCode="Ital ics"> (NORMAL )</content> ID Date Data Source GFR(Creatinine).[id number] 05/11/2019 05:38:00 AM EDT [facility] 0-0400 Name Value Range Interpretation Code Description Data Lien rce(s) Supporting Document(s ) UNK > 60 Below low normal <content [facility] styleCode="Bold"> Medical Cent er EGFR </content>29 GFR L<content styleCode="Italic s"> (> 60 GFR)</content> ID Date Data Source Genetics.[id number] 05/11/2019 05:38:00 AM EDT [facility] Name Value Range Interpretation Code Description Data Lien rce(s) Supporting Document(s ) UNK 82-185 <content [facility] styleCode="Bold"> Medical Cent er C3, Serum </content>173 mg/dL<content styleCode="Italic s"> (82-185 mg/dL)</content> UNK 15-53 <content [facility] styleCode="Bold"> Medical Cent er C4, Serum </content>41 mg/dL<content styleCode="Italic s"> (15-53 mg/dL)</content> ID Date Data Source Coagulation 05/11/2019 05:38:00 AM [facility] Rout.[id number] EDT Name Value Range Interpretation Description Data Sup porting Code Source(s) Document(s ) INR in 0.80-1.2 <content [facility] Platelet poor 0 styleCode="Bold" Heriberto plasma by >INR Medical Coagulation </content>1.14 Center assay #<content styleCode="Itali cs"> (0.80-1.20 #)</content> UNK 9.0-13.0 <content [facility] styleCode="Bold" Heriberto >Protime Medical </content>12.9 Center SEC<content styleCode="Itali cs"> (9.0-13.0 SEC)</content> aPTT in 25.1-36. Above high normal <content [facility] Platelet poor 5 styleCode="Bold" Heriberto plasma by >Partial Medical Coagulation Thromboplastin Center assay Time </content>50.8 SEC H<content styleCode="Itali cs"> (25.1-36.5 SEC)</content> ID Date Data Source CHMROUTINECCDA.[id number] 05/11/2019 05:38:00 AM EDT [facility] -0400 Name Value Range Interpretation Description Data Sup porting Code Source(s) Document(s ) Phosphate 2.5-4.5 <content [facility] [Mass/volume] styleCode="Bryan Heriberto in Serum or d">Phosphorus Medical Plasma </content>4.2 Center MG/DL<content styleCode="Belle lics"> (2.5-4.5 MG/DL)</conten t> UNK 2.3-3.5 <content [facility] styleCode="Bryan Heriberto d">Globulin Medical </content>2.5 Center G/DL<content styleCode="Belle lics"> (2.3-3.5 G/DL)</content > UNK >= 1.0 <content [facility] styleCode="Bryan Heriberto d">AG Ratio Medical </content>1.0 Center <content styleCode="Belle lics"> (>= 1.0 )</content> Magnesium 1.6-2.3 <content [facility] [Mass/volume] styleCode="Bryan [place] in Serum or d">Magnesium Medical Plasma </content>1.6 Center MG/DL<content styleCode="Belle lics"> (1.6-2.3 MG/DL)</conten t> Protein 6.3-8.2 Below low normal <content [facility] [Mass/volume] styleCode="Bryan Chacons in Serum or d">Total Medical Plasma Protein Center </content>5.0 G/DL L<content styleCode="Belle lics"> (6.3-8.2 G/DL)</content > ID Date Data Source [facility].[id number] 05/11/2019 05:38:00 AM EDT [facility] Name Value Range Interpretation Description Data Sup porting Code Source(s) Document(s ) Potassium 3.5-5.3 <content [facility] [Moles/volume] in styleCode="Bold"> [facility] Serum or Plasma Potassium Medical </content>3.9 Center MEQ/L<content styleCode="Italic s"> (3.5-5.3 MEQ/L)</content> Sodium 137-145 <content [facility] [Moles/volume] in styleCode="Bold"> [facility] Serum or Plasma Sodium Medical </content>142 Center MEQ/L<content styleCode="Italic s"> (137-145 MEQ/L)</content> Carbon dioxide, 22-30 Below low <content [facility] total normal styleCode="Bold"> Heriberto [Moles/volume] in Carbon Dioxide Medical Serum or Plasma </content>20 Center MEQ/L L<content styleCode="Italic s"> (22-30 MEQ/L)</content> Chloride 98-107 Above high <content [facility] [Moles/volume] in normal styleCode="Bold"> [facility] Serum or Plasma Chloride Medical </content>114 Center MEQ/L H<content styleCode="Italic s"> (98-107 MEQ/L)</content> UNK 9-20 Above high <content [facility] normal styleCode="Bold"> Heriberto BUN </content>33 Medical MG/DL H<content Center styleCode="Italic s"> (9-20 MG/DL)</content> Creatinine 0.5-1.3 Above high <content [facility] [Mass/volume] in normal styleCode="Bold"> Krishna hs Serum or Plasma Creatinine Medical </content>2.8 Center MG/DL H<content styleCode="Italic s"> (0.5-1.3 MG/DL)</content> Glucose 74-106 Above high <content [facility] [Mass/volume] in normal styleCode="Bold"> Krishna hs Serum or Plasma Glucose Medical </content>157 Center MG/DL H<content styleCode="Italic s"> (74-106 MG/DL)</content> UNK > 60 Below low <content [facility] normal styleCode="Bold"> Heriberto EGFR </content>29 Medical GFR L<content Center styleCode="Italic s"> (> 60 GFR)</content> Calcium 8.4-10. Below low <content [facility] [Mass/volume] in 2 normal styleCode="Bold"> Krishna hs Serum or Plasma Calcium Medical </content>8.0 Center MG/DL L<content styleCode="Italic s"> (8.4-10.2 MG/DL)</content> Bilirubin.total 0.2-1.3 <content [facility] [Mass/volume] in styleCode="Bold"> Krishna hs Serum or Plasma Bilirubin Total Medical </content>0.4 Center MG/DL<content styleCode="Italic s"> (0.2-1.3 MG/DL)</content> Albumin 3.5-5.0 Below low <content [facility] [Mass/volume] in normal styleCode="Bold"> Krishna hs Serum or Plasma Albumin Medical </content>2.5 Center G/DL L<content styleCode="Italic s"> (3.5-5.0 G/DL)</content> Alanine 7-50 <content [facility] aminotransferase styleCode="Bold"> Krishna hs [Enzymatic Alanine Medical activity/volume] Aminotransferase Center in Serum or Plasma (ALT) </content>36 IU/L<content styleCode="Italic s"> (7-50 IU/L)</content> Alkaline 38-126 <content Psychiatric phosphatase styleCode="Bold"> Heriberto [Enzymatic Alkaline Medical activity/volume] Phosphatase (ALP) Cente r in Serum or Plasma </content>62 IU/L<content styleCode="Italic s"> (38-126 IU/L)</content> Aspartate 17-59 <content Psych[facility] aminotransferase styleCode="Bold"> Krishna hs [Enzymatic Aspartate Medical activity/volume] Aminotransferase Center in Serum or Plasma (AST) </content>27 IU/L<content styleCode="Italic s"> (17-59 IU/L)</content> ID Date Data Source Immunofixation.[id number] 05/11/2019 03:35:00 AM EDT [facility] -0400 Name Value Range Interpretation Description Data Sup porting Code Source(s) Document(s ) UNK Not Detected <content [facility] styleCode="Bold Medical ">Immunofixatio Center n, Urine </content>Not Detected <content styleCode="Ital ics"> (Not Detected )</content> ID Date Data Source Coagulation 05/11/2019 12:15:00 AM [facility] ical Center Rout.[id number] EDT Name Value Range Interpretation Description Data Sup porting Code Source(s) Document(s ) UNK 9.0-13.0 Above high normal <content [facility] styleCode="Bold" Heriberto >Protime Medical </content>13.2 Center SEC H<content styleCode="Itali cs"> (9.0-13.0 SEC)</content> INR in 0.80-1.2 <content [facility] Platelet poor 0 styleCode="Bold" Heriberto plasma by >INR Medical Coagulation </content>1.16 Center assay #<content styleCode="Itali cs"> (0.80-1.20 #)</content> aPTT in 25.1-36. Above high normal <content [facility] Platelet poor 5 styleCode="Bold" Heriberto plasma by >Partial Medical Coagulation Thromboplastin Center assay Time </content>70.6 SEC H<content styleCode="Itali cs"> (25.1-36.5 SEC)</content> ID Date Data Source Coagulation 05/10/2019 03:30:00 PM [facility] Rout.[id number] EDT Name Value Range Interpretation Description Data Sup porting Code Source(s) Document(s ) UNK 9.0-13.0 Above high normal <content [facility] styleCode="Bold" Heriberto >Protime Medical </content>13.4 Center SEC H<content styleCode="Itali cs"> (9.0-13.0 SEC)</content> INR in 0.80-1.2 <content [facility] Platelet poor 0 styleCode="Bold" Heriberto plasma by >INR Medical Coagulation </content>1.18 Center assay #<content styleCode="Itali cs"> (0.80-1.20 #)</content> aPTT in 25.1-36. Above high normal <content [facility] Platelet poor 5 styleCode="Bold" Heriberto plasma by >Partial Medical Coagulation Thromboplastin Center assay Time </content>97.3 SEC H<content styleCode="Itali cs"> (25.1-36.5 SEC)</content> ID Date Data Source Coagulation 05/10/2019 01:30:00 PM [facility] Rout.[id number] EDT Name Value Range Interpretation Description Data Sup porting Code Source(s) Document(s ) UNK 9.0-13.0 Above high normal <content [facility] styleCode="Bold" Heriberto >Protime Medical </content>17.9 Center SEC H<content styleCode="Itali cs"> (9.0-13.0 SEC)</content> aPTT in 25.1-36. Above upper panic <content [facility] Platelet poor 5 limits styleCode="Bold" Heriberto plasma by >Partial Medical Coagulation Thromboplastin Center assay Time </content><avel nt styleCode="Bold" >> 200 SEC HH</content><con tent styleCode="Itali cs"> (25.1-36.5 SEC)</content> INR in 0.80-1.2 Above high normal <content [facility] Platelet poor 0 styleCode="Bold" Heriberto plasma by >INR Medical Coagulation </content>1.57 # Center assay H<content styleCode="Itali cs"> (0.80-1.20 #)</content> ID Date Data Source Liver 05/10/2019 05:28:00 AM EDT [facility] Profile.[id number] Name Value Range Interpretation Description Data Sup porting Code Source(s) Document(s ) Aspartate 17-59 <content [facility] aminotransferase styleCode="Bold"> Krishna hs [Enzymatic Aspartate Medical activity/volume] Aminotransferase Center in Serum or Plasma (AST) </content>37 IU/L<content styleCode="Italic s"> (17-59 IU/L)</content> Alkaline 38-126 <content [facility] phosphatase styleCode="Bold"> Heriberto [Enzymatic Alkaline Medical activity/volume] Phosphatase (ALP) Cente r in Serum or Plasma </content>62 IU/L<content styleCode="Italic s"> (38-126 IU/L)</content> Alanine 7-50 <content [facility] aminotransferase styleCode="Bold"> Krishna hs [Enzymatic Alanine Medical activity/volume] Aminotransferase Center in Serum or Plasma (ALT) </content>37 IU/L<content styleCode="Italic s"> (7-50 IU/L)</content> Albumin 3.5-5.0 Below low <content [facility] [Mass/volume] in normal styleCode="Bold"> Krishna hs Serum or Plasma Albumin Medical </content>2.2 Center G/DL L<content styleCode="Italic s"> (3.5-5.0 G/DL)</content> Bilirubin.total 0.2-1.3 <content [facility] [Mass/volume] in styleCode="Bold"> Krishna hs Serum or Plasma Bilirubin Total Medical </content>0.4 Center MG/DL<content styleCode="Italic s"> (0.2-1.3 MG/DL)</content> ID Date Data Source Coagulation 05/10/2019 05:28:00 AM [facility] ical Center Rout.[id number] EDT Name Value Range Interpretation Description Data Sup porting Code Source(s) Document(s ) INR in 0.80-1.2 <content [facility] Platelet poor 0 styleCode="Bold" Heriberto plasma by >INR Medical Coagulation </content>1.19 Center assay #<content styleCode="Itali cs"> (0.80-1.20 #)</content> aPTT in 25.1-36. Above high normal <content [facility] Platelet poor 5 styleCode="Bold" Heriberto plasma by >Partial Medical Coagulation Thromboplastin Center assay Time </content>46.5 SEC H<content styleCode="Itali cs"> (25.1-36.5 SEC)</content> UNK 9.0-13.0 Above high normal <content [facility] styleCode="Bold" Heriberto >Protime Medical </content>13.5 Center SEC H<content styleCode="Itali cs"> (9.0-13.0 SEC)</content> ID Date Data Source CHMROUTINECCDA.[id number] 05/10/2019 05:28:00 AM EDT [facility] -0400 Name Value Range Interpretation Description Data Sup porting Code Source(s) Document(s ) Magnesium 1.6-2.3 <content [facility] [Mass/volume] styleCode="Bryan Heriberto in Serum or d">Magnesium Medical Plasma </content>1.6 Center MG/DL<content styleCode="Belle lics"> (1.6-2.3 MG/DL)</conten t> UNK >= 1.0 Below low normal <content [facility] styleCode="Bryan Heriberto d">AG Ratio Medical </content>0.9 Center L<content styleCode="Belle lics"> (>= 1.0 )</content> UNK 2.3-3.5 <content [facility] styleCode="Bryan Heriberto d">Globulin Medical </content>2.4 Center G/DL<content styleCode="Belle lics"> (2.3-3.5 G/DL)</content > Protein 6.3-8.2 Below low normal <content [facility] [Mass/volume] styleCode="Bryan Chacons in Serum or d">Total Medical Plasma Protein Center </content>4.6 G/DL L<content styleCode="Belle lics"> (6.3-8.2 G/DL)</content > Phosphate 2.5-4.5 <content [facility] [Mass/volume] styleCode="Bryan Heriberto in Serum or d">Phosphorus Medical Plasma </content>3.4 Center MG/DL<content styleCode="Belle lics"> (2.5-4.5 MG/DL)</conten t> ID Date Data Source Liver 05/09/2019 06:20:00 AM EDT [facility] Profile.[id number] Name Value Range Interpretation Description Data Sup porting Code Source(s) Document(s ) Aspartate 17-59 <content [facility] aminotransferase styleCode="Bold"> Krishna hs [Enzymatic Aspartate Medical activity/volume] Aminotransferase Center in Serum or Plasma (AST) </content>53 IU/L<content styleCode="Italic s"> (17-59 IU/L)</content> Alanine 7-50 <content [facility] aminotransferase styleCode="Bold"> Krishna hs [Enzymatic Alanine Medical activity/volume] Aminotransferase Center in Serum or Plasma (ALT) </content>38 IU/L<content styleCode="Italic s"> (7-50 IU/L)</content> Alkaline 38-126 <content [facility] phosphatase styleCode="Bold"> Heriberto [Enzymatic Alkaline Medical activity/volume] Phosphatase (ALP) Cente r in Serum or Plasma </content>58 IU/L<content styleCode="Italic s"> (38-126 IU/L)</content> Bilirubin.total 0.2-1.3 <content [facility] [Mass/volume] in styleCode="Bold"> Krishna hs Serum or Plasma Bilirubin Total Medical </content>0.3 Center MG/DL<content styleCode="Italic s"> (0.2-1.3 MG/DL)</content> Albumin 3.5-5.0 Below low <content [facility] [Mass/volume] in normal styleCode="Bold"> Krishna hs Serum or Plasma Albumin Medical </content>2.1 Center G/DL L<content styleCode="Italic s"> (3.5-5.0 G/DL)</content> ID Date Data Source BHARTI.[id number] 05/09/2019 06:20:00 AM EDT [facility] -0400 Name Value Range Interpretation Description Data Sup porting Code Source(s) Document(s ) Magnesium 1.6-2.3 <content [facility] [Mass/volume] styleCode="Bryan Heriberto in Serum or d">Magnesium Medical Plasma </content>1.7 Center MG/DL<content styleCode="Belle lics"> (1.6-2.3 MG/DL)</conten t> UNK >= 1.0 Below low normal <content [facility] styleCode="Bryan Heriberto d">AG Ratio Medical </content>0.9 Center L<content styleCode="Belle lics"> (>= 1.0 )</content> UNK 2.3-3.5 <content [facility] styleCode="Bryan Heriberto d">Globulin Medical </content>2.3 Center G/DL<content styleCode="Belle lics"> (2.3-3.5 G/DL)</content > Phosphate 2.5-4.5 <content [facility] [Mass/volume] styleCode="Bryan Heriberto in Serum or d">Phosphorus Medical Plasma </content>3.5 Center MG/DL<content styleCode="Belle lics"> (2.5-4.5 MG/DL)</conten t> Protein 6.3-8.2 Below low normal <content [facility] [Mass/volume] styleCode="Bryan Heriberto in Serum or d">Total Medical Plasma Protein Center </content>4.4 G/DL L<content styleCode="Belle lics"> (6.3-8.2 G/DL)</content > ID Date Data Source [employer]ers.[id number] 05/09/2019 06:20:00 AM EDT [facility] -0400 Name Value Range Interpretation Description Data Sup porting Code Source(s) Document(s ) Creatine 55-170 Above high normal <content [facility] s kinase styleCode="Bold Medical [Enzymatic ">CK Center activity/vol </content>276 ume] in IU/L H<content Serum or styleCode="Ital Plasma ics"> (55-170 IU/L)</content> ID Date Data Source Liver 05/08/2019 06:45:00 AM EDT [facility] Profile.[id number] Name Value Range Interpretation Description Data Sup porting Code Source(s) Document(s ) Alkaline 38-126 <content [facility] phosphatase styleCode="Bold"> Heriberto [Enzymatic Alkaline Medical activity/volume] Phosphatase (ALP) Cente r in Serum or Plasma </content>80 IU/L<content styleCode="Italic s"> (38-126 IU/L)</content> Aspartate 17-59 <content [facility] aminotransferase styleCode="Bold"> Krishna hs [Enzymatic Aspartate Medical activity/volume] Aminotransferase Center in Serum or Plasma (AST) </content>50 IU/L<content styleCode="Italic s"> (17-59 IU/L)</content> Alanine 7-50 <content [facility] aminotransferase styleCode="Bold"> Krishna hs [Enzymatic Alanine Medical activity/volume] Aminotransferase Center in Serum or Plasma (ALT) </content>39 IU/L<content styleCode="Italic s"> (7-50 IU/L)</content> Albumin 3.5-5.0 Below low <content [facility] [Mass/volume] in normal styleCode="Bold"> Krishna hs Serum or Plasma Albumin Medical </content>2.3 Center G/DL L<content styleCode="Italic s"> (3.5-5.0 G/DL)</content> Bilirubin.total 0.2-1.3 <content [facility] [Mass/volume] in styleCode="Bold"> Krishna hs Serum or Plasma Bilirubin Total Medical </content>0.4 Center MG/DL<content styleCode="Italic s"> (0.2-1.3 MG/DL)</content> ID Date Data Source MROUTINECCDA.[id number] 05/08/2019 06:45:00 AM EDT [facility] -0400 Name Value Range Interpretation Description Data Sup porting Code Source(s) Document(s ) UNK 2.3-3.5 <content [facility] styleCode="Bryan Heriberto d">Globulin Medical </content>2.4 Center G/DL<content styleCode="Belle lics"> (2.3-3.5 G/DL)</content > Magnesium 1.6-2.3 <content [facility] [Mass/volume] styleCode="Bryan Heriberto in Serum or d">Magnesium Medical Plasma </content>1.8 Center MG/DL<content styleCode="Belle lics"> (1.6-2.3 MG/DL)</conten t> UNK >= 1.0 <content [facility] styleCode="Bryan Heriberto d">AG Ratio Medical </content>1.0 Center <content styleCode="Belle lics"> (>= 1.0 )</content> Phosphate 2.5-4.5 <content [facility] [Mass/volume] styleCode="Bryan Heriberto in Serum or d">Phosphorus Medical Plasma </content>3.9 Center MG/DL<content styleCode="Belle lics"> (2.5-4.5 MG/DL)</conten t> Protein 6.3-8.2 Below low normal <content [facility] [Mass/volume] styleCode="Bryan Heriberto in Serum or d">Total Medical Plasma Protein Center </content>4.7 G/DL L<content styleCode="Belle lics"> (6.3-8.2 G/DL)</content > ID Date Data Source [employer].[id number] 05/08/2019 06:45:00 AM EDT [facility] -0400 Name Value Range Interpretation Description Data Sup porting Code Source(s) Document(s ) Creatine 55-170 Above high normal <content [facility] s kinase styleCode="Bold Medical [Enzymatic ">CK Center activity/vol </content>482 ume] in IU/L H<content Serum or styleCode="Ital Plasma ics"> (55-170 IU/L)</content> ID Date Data Source [employer]ers.[id number] 05/07/2019 06:19:00 AM EDT [facility] -0400 Name Value Range Interpretation Description Data Sup porting Code Source(s) Document(s ) Creatine 55-170 Above high normal <content [facility] kinase styleCode="Bold Medical [Enzymatic ">CK Center activity/vol </content>762 ume] in IU/L H<content Serum or styleCode="Ital Plasma ics"> (55-170 IU/L)</content> ID Date Data Source BloodBank.[id number] 05/05/2019 05:00:00 PM EDT [facility] Name Value Range Interpretation Code Description Data Lien rce(s) Supporting Document(s ) UNK NEGATIVE <content [facility] styleCode="Bold" Medical Cente r >Antibody Screen </content>NEGATI VE <content styleCode="Itali cs"> (NEGATIVE )</content> UNK <content [facility] styleCode="Bold" Medical Cente r >RH Type </content>POSITI VE (Reference Range: not available)
UNK <content [facility] styleCode="Bold" Medical Cente r >Blood Type </content>GROUP O (Reference Range: not available)
ID Date Data Source LIPID.[id number] 05/05/2019 06:35:00 AM EDT [facility] Name Value Range Interpretation Description Data Sup porting Code Source(s) Document(s ) Cholesterol -<200 <content [facility] [Mass/volume] styleCode="Bold"> Heriberto in Serum or Cholesterol Medical Plasma </content>150 Center MG/DL<content styleCode="Italic s"> (-<200 MG/DL)</content> Triglyceride < 150 Above high normal <content [facility] [Mass/volume] styleCode="Bold"> Heriberto in Serum or Triglycerides Medical Plasma </content>282 Center MG/DL H<content styleCode="Italic s"> (< 150 MG/DL)</content> UNK <content [facility] styleCode="Bold"> [facility] LDL-Cholesterol Medical </content> Center (Reference Range: not available)
<c ontent styleCode="xLocal PreformattedText" >Triglycerides are >250 mg/dl; therefore, the LDL calculation is invalid.
Chol esterol electrophoresis is recommended if medically appropriate.</con tent> UNK > 60 Below low normal <content [facility] styleCode="Bold"> [facility] HDL- Cholesterol Medical </content>30 Center MG/DL L<content styleCode="Italic s"> (> 60 MG/DL)</content> ID Date Data Source GFR(Creatinine).[id number] 05/04/2019 09:19:00 PM EDT [facility] 0-0400 Name Value Range Interpretation Code Description Data Lien rce(s) Supporting Document(s ) UNK > 60 Below low normal <content [facility] styleCode="Bold"> Medical Cent er EGFR </content>45 GFR L<content styleCode="Italic s"> (> 60 GFR)</content> ID Date Data Source CHMROUTINECCDA.[id number] 05/04/2019 09:19:00 PM EDT [facility] -0400 Name Value Range Interpretation Description Data Sup porting Code Source(s) Document(s ) Lactate 0.7-2.0 Above upper panic <content [facility] [Mass/volum limits styleCode="Bold Medical e] in Serum ">Lactic Acid Center or Plasma </content><cont ent styleCode="Bold ">2.2 MMOLL HH</content><co ntent styleCode="Ital ics"> (0.7-2.0 MMOLL)</content > ID Date Data Source [facility].[id number] 05/04/2019 09:19:00 PM EDT [facility] Name Value Range Interpretation Description Data Sup porting Code Source(s) Document(s ) Sodium 137-145 <content [facility] [Moles/volume] styleCode="Bryan Heriberto in Serum or d">Sodium Medical Plasma </content>137 Center MEQ/L<content styleCode="Belle lics"> (137-145 MEQ/L)</conten t> Potassium 3.5-5.3 <content [facility] [Moles/volume] styleCode="Bryan Heriberto in Serum or d">Potassium Medical Plasma </content>3.9 Center MEQ/L<content styleCode="Belle lics"> (3.5-5.3 MEQ/L)</conten t> Chloride 98-107 <content [facility] [Moles/volume] styleCode="Bryan Heriberto in Serum or d">Chloride Medical Plasma </content>99 Center MEQ/L<content styleCode="Belle lics"> (98-107 MEQ/L)</conten t> UNK 9-20 Above high normal <content [facility] styleCode="Bryan Heriberto d">BUN Medical </content>40 Center MG/DL H<content styleCode="Belle lics"> (9-20 MG/DL)</conten t> Carbon 22-30 <content [facility] dioxide, total styleCode="Bryan Heriberto [Moles/volume] d">Carbon Medical in Serum or Dioxide Center Plasma </content>27 MEQ/L<content styleCode="Belle lics"> (22-30 MEQ/L)</conten t> Creatinine 0.5-1.3 Above high normal <content [facility] [Mass/volume] styleCode="Bryan Heriberto in Serum or d">Creatinine Medical Plasma </content>1.9 Center MG/DL H<content styleCode="Belle lics"> (0.5-1.3 MG/DL)</conten t> Calcium 8.4-10.2 Below low normal <content [facility] [Mass/volume] styleCode="Bryan Heriberto in Serum or d">Calcium Medical Plasma </content>8.3 Center MG/DL L<content styleCode="Belle lics"> (8.4-10.2 MG/DL)</conten t> UNK > 60 Below low normal <content [facility] styleCode="Bryan Heriberto d">EGFR Medical </content>45 Center GFR L<content styleCode="Belle lics"> (> 60 GFR)</content> Glucose 74-106 Above high normal <content [facility] [Mass/volume] styleCode="Bryan Heriberto in Serum or d">Glucose Medical Plasma </content>264 Center MG/DL H<content styleCode="Belle lics"> (74-106 MG/DL)</conten t> ID Date Data Source Urinalysis.[id number] 05/04/2019 05:10:00 PM EDT [facility] 0 Name Value Range Interpretation Code Description Data Lien rce(s) Supporting Document(s ) UNK 30-90 Below low normal <content [place] styleCode="Bold"> Medical Cent er Sodium, Random Urine </content>26 MEQ/L L<content styleCode="Italic s"> (30-90 MEQ/L)</content> UNK <content [facility] styleCode="Bold"> Medical Cent er Potassium, Random Urine </content>49.1 MEQ/L (Reference Range: not available)
UNK 20-320 <content [place] styleCode="Bold"> Medical Cent er Creatinine, Random UR </content>89 mg/dL<content styleCode="Italic s"> (20-320 mg/dL)</content> ID Date Data Source GFR(Creatinine).[id number] 05/04/2019 01:10:00 PM EDT [facility] 0-0400 Name Value Range Interpretation Code Description Data Lien rce(s) Supporting Document(s ) UNK > 60 Below low normal <content [place] styleCode="Bold"> Medical Cent er EGFR </content>40 GFR L<content styleCode="Italic s"> (> 60 GFR)</content> ID Date Data Source [employer]iacMarkers.[id number] 05/04/2019 01:10:00 PM EDT [facility] -0400 Name Value Range Interpretation Description Data Sup porting Code Source(s) Document(s ) Troponin < 0.034 Above upper panic <content [facility] I.cardiac limits styleCode="Bold Heriberto [Mass/volume ">Troponin I Medical ] in Serum </content><cont Center or Plasma ent styleCode="Bold ">0.064 NG/ML HH</content><co ntent styleCode="Ital ics"> (< 0.034 NG/ML)</content > ID Date Data Source [facility].[id number] 05/04/2019 01:10:00 PM EDT [facility] Name Value Range Interpretation Description Data Sup porting Code Source(s) Document(s ) Potassium <content [facility] [Moles/volume] styleCode="Bryan Chacons in Serum or d">Potassium Medical Plasma </content>Test Center not performed. MEQ/L (Reference Range: not available)<br/ > Sodium 137-145 <content [facility] [Moles/volume] styleCode="Bryan Chacons in Serum or d">Sodium Medical Plasma </content>137 Center MEQ/L<content styleCode="Belle lics"> (137-145 MEQ/L)</conten t> Chloride 98-107 Below low normal <content [facility] [Moles/volume] styleCode="Bryan Chacons in Serum or d">Chloride Medical Plasma </content>97 Center MEQ/L L<content styleCode="Belle lics"> (98-107 MEQ/L)</conten t> UNK > 60 Below low normal <content [facility] styleCode="Bryan Chacons d">EGFR Medical </content>40 Center GFR L<content styleCode="Belle lics"> (> 60 GFR)</content> Creatinine 0.5-1.3 Above high normal <content [facility] [Mass/volume] styleCode="Bryan Chacons in Serum or d">Creatinine Medical Plasma </content>2.1 Center MG/DL H<content styleCode="Belle lics"> (0.5-1.3 MG/DL)</conten t> UNK 9-20 Above high normal <content [facility] styleCode="Bryan Chacons d">BUN Medical </content>50 Center MG/DL H<content styleCode="Belle lics"> (9-20 MG/DL)</conten t> Glucose 74-106 Above high normal <content [facility] [Mass/volume] styleCode="Bryan Chacons in Serum or d">Glucose Medical Plasma </content>280 Center MG/DL H<content styleCode="Belle lics"> (74-106 MG/DL)</conten t> Carbon 22-30 <content [facility] dioxide, total styleCode="Bryan Heriberto [Moles/volume] d">Carbon Medical in Serum or Dioxide Center Plasma </content>27 MEQ/L<content styleCode="Belle lics"> (22-30 MEQ/L)</conten t> Calcium 8.4-10.2 <content [facility] [Mass/volume] styleCode="Bryan Heriberto in Serum or d">Calcium Medical Plasma </content>8.5 Center MG/DL<content styleCode="Belle lics"> (8.4-10.2 MG/DL)</conten t> ID Date Data Source Microbiology.[id number] 05/04/2019 01:05:00 PM EDT [facility] Name Value Range Interpretation Code Description Data Lien rce(s) Supporting Document(s ) UNK <item><content [facility] styleCode="Bold">C Medical [address] ter ulture Status </content>
<ta ble><tbody><tr><td >Specimen Number:</td><td>[id number]</td></tr>< tr><td>Sample Collection Date/Time: </td><td>05/04/2019 1:05 PM</td></tr><tr><t d>Specimen Source:</td><td>EX PECTORATE</td></tr ><tr><td>Culture Report:</td><td>NO FURTHER WORKUP. NORMAL RESPIRATORY NERY PRESENT WITH: </td></tr><tr><td> Gram Stain:</td><td>MAN Y GRAM POSITIVE COCCI IN CLUSTERS </td></tr><tr><td> Sputum Culture:</td><td>C ollection Plate Date: 05/04/2019 13:56 </td></tr><tr><td> Culture Status:</td><td>Fi nal </td></tr><tr><td> Organism 1:</td><td>FEW GROUP G STREPTOCOCCUS </td></tr><tr><td> Organism 2:</td><td>FEW YEAST </td></tr></tbody> </table>
<tabl e border="2"><tbody> <tr><td></td><td>1 </td><td>2</td></t r><tr><td>Comment< /td><td></td><td>< /td></tr><tr><td>R esult Value</td><td>FEW GROUP G STREPTOCOCCUS </td><td>FEW YEAST </td></tr><tr><td> Result Status</td><td>Fin al Result</td><td>Fin al Result</td></tr><t r><td></td><td></t d><td></td></tr></ tbody></table></it em> UNK <item><content [facility] styleCode="Bold">C [facility] Report </content>
<ta ble><tbody><tr><td >Specimen Number:</td><td>[id number]</td></tr>< tr><td>Sample Collection Date/Time: </td><td>05/04/2019 1:05 PM</td></tr><tr><t d>Specimen Source:</td><td>EX PECTORATE</td></tr ><tr><td>Sputum Culture:</td><td>C ollection Plate Date: 05/04/2019 13:56 </td></tr><tr><td> Culture Status:</td><td>Fi nal </td></tr><tr><td> Culture Report:</td><td>NO FURTHER WORKUP. NORMAL RESPIRATORY NERY PRESENT WITH: </td></tr><tr><td> Gram Stain:</td><td>MAN Y GRAM POSITIVE COCCI IN CLUSTERS </td></tr><tr><td> Organism 1:</td><td>FEW GROUP G STREPTOCOCCUS </td></tr><tr><td> Organism 2:</td><td>FEW YEAST </td></tr></tbody> </table>
<tabl e border="2"><tbody> <tr><td></td><td>1 </td><td>2</td></t r><tr><td>Comment< /td><td></td><td>< /td></tr><tr><td>R esult Value</td><td>FEW GROUP G STREPTOCOCCUS </td><td>FEW YEAST </td></tr><tr><td> Result Status</td><td>Fin al Result</td><td>Fin al Result</td></tr><t r><td></td><td></t d><td></td></tr></ tbody></table></it em> ID Date Data Source CHMROUTINECCDA.[id number] 05/04/2019 11:21:00 AM EDT [facility] -0400 Name Value Range Interpretation Code Description Data Lien rce(s) Supporting Document(s ) UNK 4.2-5.8 Above high normal <content [facility] styleCode="Bold" Medical Cente r >Hemoglobin A1C </content>9.1 % H<content styleCode="Itali cs"> (4.2-5.8 %)</content> ID Date Data Source [employer]iacMarkers.[id number] 05/04/2019 10:52:00 AM EDT [facility] -0400 Name Value Range Interpretation Description Data Sup porting Code Source(s) Document(s ) Troponin < 0.034 Above upper panic <content [facility] I.cardiac limits styleCode="Bold Heriberto [Mass/volume ">Troponin I Medical ] in Serum </content><cont Center or Plasma ent styleCode="Bold ">0.067 NG/ML HH</content><co ntent styleCode="Ital ics"> (< 0.034 NG/ML)</content > ID Date Data Source CHMROUTINECCDA.[id number] 05/04/2019 10:45:00 AM EDT [facility] -0400 Name Value Range Interpretation Code Description Data Lien rce(s) Supporting Document(s ) UNK 0.7-2.0 Above upper panic <content [facility] limits styleCode="Bold" Medical Cente r >Lactic Acid 4hr </content><avel nt styleCode="Bold" >4.3 MMOLL HH</content><con tent styleCode="Itali cs"> (0.7-2.0 MMOLL)</content> ID Date Data Source Urinalysis.[id number] 05/04/2019 08:10:00 AM EDT [facility] 0 Name Value Range Interpretation Description Data Sup porting Code Source(s) Document(s ) Glucose NEGATIVE <content [facility] [Mass/volume] styleCode="Bryan [place] in Urine by d">Urine Medical Test strip Glucose Center </content>>=10 00 MG/DL<content styleCode="Belle lics"> (NEGATIVE MG/DL)</conten t> Color of Urine YELLOW <content [facility] styleCode="Bryan Chacons d">Color, Medical Urine Center </content>YELL OW <content styleCode="Belle lics"> (YELLOW )</content> UNK CLEAR <content [facility] styleCode="Bryan Chacons d">Urine Medical Clarity Center </content>ANTHONY R <content styleCode="Belle lics"> (CLEAR )</content> Hemoglobin NEGATIVE <content [facility] [Presence] in styleCode="Bryan [place] Urine by Test d">Urine Blood Medical strip </content>MODE Center RATE <content styleCode="Belle lics"> (NEGATIVE )</content> Ketones NEGATIVE <content [facility] [Mass/volume] styleCode="Bryan Heriberto in Urine by d">Urine Medical Test strip Ketone Center </content>NEGA TIVE MG/DL<content styleCode="Belle lics"> (NEGATIVE MG/DL)</conten t> UNK NEGATIVE <content [facility] styleCode="Bryan Heriberto d">Urine Medical Bilirubin Center </content>NEGA TIVE <content styleCode="Belle lics"> (NEGATIVE )</content> Specific 1.015-1.02 Below low normal <content [facility] gravity of 5 styleCode="Bryan Heriberto Urine by Test d">Urine Medical strip Specific Center [place] </content>1.01 0 L<content styleCode="Belle lics"> (1.015-1.025 )</content> Urobilinogen 0.2-1.0 <content [facility] [Units/volume] styleCode="Bryan Heriberto in Urine by d">Urine Medical Test strip Urobilinogen Center </content>0.2 MG/DL<content styleCode="Belle lics"> (0.2-1.0 MG/DL)</conten t> Protein NEGATIVE <content [facility] [Mass/volume] styleCode="Bryan Heriberto in Urine by d">Urine Medical Test strip Protein Center </content>100 MG/DL<content styleCode="Belle lics"> (NEGATIVE MG/DL)</conten t> pH of Urine by 4.5-8.0 <content [facility] Test strip styleCode="Bryan Heriberto d">Urine pH Medical </content>7.0 Center <content styleCode="Belle lics"> (4.5-8.0 )</content> Leukocyte NEGATIVE <content [facility] esterase styleCode="Bryan Heriberto [Presence] in d">Urine Medical Urine by Test Leukocyte Center strip </content>NEGA TIVE <content styleCode="Belle lics"> (NEGATIVE )</content> UNK 0-3 <content [facility] styleCode="Bryan Heriberto d">Urine Red Medical Blood Cell Center </content>3-5 HPF<content styleCode="Belle lics"> (0-3 HPF)</content> Nitrite NEGATIVE <content [facility] [Presence] in styleCode="Bryan [place] Urine by Test d">Urine Medical strip Nitrite Center </content>NEGA TIVE <content styleCode="Belle lics"> (NEGATIVE )</content> UNK <content [facility] styleCode="Bryan [place] d">Epithelial Medical Cell Center </content>> 50 LPF (Reference Range: not available)<br/ > ID Date Data Source GFR(Creatinine).[id number] 05/04/2019 08:10:00 AM EDT [facility] 0-0400 Name Value Range Interpretation Code Description Data Lien rce(s) Supporting Document(s ) UNK > 60 Below low normal <content [facility] styleCode="Bold"> Medical Cent er EGFR </content>33 GFR L<content styleCode="Italic s"> (> 60 GFR)</content> ID Date Data Source CHMROUTINECCDA.[id number] 05/04/2019 08:10:00 AM EDT [facility] -0400 Name Value Range Interpretation Description Data Sup porting Code Source(s) Document(s ) Phosphate 2.5-4.5 <content [facility] [Mass/volume] styleCode="Bryan Chacons in Serum or d">Phosphorus Medical Plasma </content>2.8 Center MG/DL<content styleCode="Belle lics"> (2.5-4.5 MG/DL)</conten t> Magnesium 1.6-2.3 Below low normal <content [facility] [Mass/volume] styleCode="Bryan Heriberto in Serum or d">Magnesium Medical Plasma </content>1.1 Center MG/DL L<content styleCode="Belle lics"> (1.6-2.3 MG/DL)</conten t> ID Date Data Source [employer]iacMarkers.[id number] 05/04/2019 08:10:00 AM EDT [facility] -0400 Name Value Range Interpretation Description Data Sup porting Code Source(s) Document(s ) Creatine 55-170 Above high normal <content [facility] kinase styleCode="Bold Medical [Enzymatic ">CK Center activity/vol </content>1277 ume] in IU/L H<content Serum or styleCode="Ital Plasma ics"> (55-170 IU/L)</content> ID Date Data Source [facility].[id number] 05/04/2019 08:10:00 AM EDT [facility] Name Value Range Interpretation Description Data Sup porting Code Source(s) Document(s ) Potassium 3.5-5.3 <content [facility] [Moles/volume] styleCode="Bryan Heriberto in Serum or d">Potassium Medical Plasma </content>4.5 Center MEQ/L<content styleCode="Belle lics"> (3.5-5.3 MEQ/L)</conten t> Sodium 137-145 Below low normal <content [facility] [Moles/volume] styleCode="Bryan Heriberto in Serum or d">Sodium Medical Plasma </content>134 Center MEQ/L L<content styleCode="Belle lics"> (137-145 MEQ/L)</conten t> Carbon 22-30 <content [facility] dioxide, total styleCode="Bryan Heriberto [Moles/volume] d">Carbon Medical in Serum or Dioxide Center Plasma </content>25 MEQ/L<content styleCode="Belle lics"> (22-30 MEQ/L)</conten t> UNK 9-20 Above high normal <content [facility] styleCode="Bryan Heriberto d">BUN Medical </content>56 Center MG/DL H<content styleCode="Belle lics"> (9-20 MG/DL)</conten t> Creatinine 0.5-1.3 Above high normal <content [facility] [Mass/volume] styleCode="Bryan Heriberto in Serum or d">Creatinine Medical Plasma </content>2.5 Center MG/DL H<content styleCode="Belle lics"> (0.5-1.3 MG/DL)</conten t> Chloride 98-107 Below low normal <content [facility] [Moles/volume] styleCode="Bryan Heriberto in Serum or d">Chloride Medical Plasma </content>90 Center MEQ/L L<content styleCode="Belle lics"> (98-107 MEQ/L)</conten t> Calcium 8.4-10.2 <content [facility] [Mass/volume] styleCode="Bryan Chacons in Serum or d">Calcium Medical Plasma </content>9.0 Center MG/DL<content styleCode="Belle lics"> (8.4-10.2 MG/DL)</conten t> Glucose 74-106 Above upper panic <content [facility] [Mass/volume] limits styleCode="Bryan Heriberto in Serum or d">Glucose Medical Plasma </content><con Center tent styleCode="Bryan d">493 MG/DL HH</content><c ontent styleCode="Belle lics"> (74-106 MG/DL)</conten t> UNK > 60 Below low normal <content [facility] styleCode="Bryan Heriberto d">EGFR Medical </content>33 Center GFR L<content styleCode="Belle lics"> (> 60 GFR)</content> ID Date Data Source Microbiology.[id number] 05/04/2019 06:40:00 AM EDT [facility] 400 Name Value Range Interpretation Code Description Data Lien rce(s) Supporting Document(s ) UNK <item><content [facility] styleCode="Bold"> Medical Cent er Culture Status </content>
<t able><tbody><tr>< td>Specimen Number:</td><td>[id number]</td></tr ><tr><td>Sample Collection Date/Time: </td><td>05/04/2019 6:40 AM</td></tr><tr>< td>Specimen Source:</td><td>B LOOD</td></tr><tr ><td>Culture Report:</td><td>N O GROWTH 5 DAYS </td></tr><tr><td >Culture Status:</td><td>F inal </td></tr><tr><td >Blood Culture:</td><td> Collection Plate Date: 05/04/2019 06:57 </td></tr></tbody ></table></item> UNK <item><content [facility] styleCode="Bold"> Medical [facility] er Culture Report </content>
<t able><tbody><tr>< td>Specimen Number:</td><td>[id number]</td></tr ><tr><td>Sample Collection Date/Time: </td><td>05/04/2019 6:40 AM</td></tr><tr>< td>Specimen Source:</td><td>B LOOD</td></tr><tr ><td>Blood Culture:</td><td> Collection Plate Date: 05/04/2019 06:57 </td></tr><tr><td >Culture Status:</td><td>F inal </td></tr><tr><td >Culture Report:</td><td>N O GROWTH 5 DAYS </td></tr></tbody ></table></item> ID Date Data Source Microbiology.[id number] 05/04/2019 06:27:00 AM EDT [facility] 400 Name Value Range Interpretation Code Description Data Lien rce(s) Supporting Document(s ) UNK <item><content [facility] styleCode="Bold"> Medical [facility] Culture Report </content>
<t able><tbody><tr>< td>Specimen Number:</td><td>[id number]</td></tr ><tr><td>Sample Collection Date/Time: </td><td>05/04/2019 6:27 AM</td></tr><tr>< td>Specimen Source:</td><td>B LOOD</td></tr><tr ><td>Blood Culture:</td><td> Collection Plate Date: 05/04/2019 06:40 </td></tr><tr><td >Culture Status:</td><td>F inal </td></tr><tr><td >Culture Report:</td><td>N O GROWTH 5 DAYS </td></tr></tbody ></table></item> UNK <item><content [facility] styleCode="Bold"> Medical Cent er Culture Status </content>
<t able><tbody><tr>< td>Specimen Number:</td><td>[id number]</td></tr ><tr><td>Sample Collection Date/Time: </td><td>05/04/2019 6:27 AM</td></tr><tr>< td>Specimen Source:</td><td>B LOOD</td></tr><tr ><td>Culture Report:</td><td>N O GROWTH 5 DAYS </td></tr><tr><td >Culture Status:</td><td>F inal </td></tr><tr><td >Blood Culture:</td><td> Collection Plate Date: 05/04/2019 06:40 </td></tr></tbody ></table></item> ID Date Data Source Liver 05/04/2019 06:27:00 AM EDT [facility] Profile.[id number] Name Value Range Interpretation Description Data Sup porting Code Source(s) Document(s ) Aspartate 17-59 <content [facility] aminotransferase styleCode="Bold"> Krishna hs [Enzymatic Aspartate Medical activity/volume] Aminotransferase Center in Serum or Plasma (AST) </content>57 IU/L<content styleCode="Italic s"> (17-59 IU/L)</content> Alanine 7-50 <content [facility] aminotransferase styleCode="Bold"> Krishna hs [Enzymatic Alanine Medical activity/volume] Aminotransferase Center in Serum or Plasma (ALT) </content>45 IU/L<content styleCode="Italic s"> (7-50 IU/L)</content> Alkaline 38-126 <content [facility] phosphatase styleCode="Bold"> Heriberto [Enzymatic Alkaline Medical activity/volume] Phosphatase (ALP) Cente r in Serum or Plasma </content>124 IU/L<content styleCode="Italic s"> (38-126 IU/L)</content> UNK 0.0-0.3 <content [facility] styleCode="Bold"> Heriberto Bilirubin, Direct Medical </content>< 0.2 Center MG/DL<content styleCode="Italic s"> (0.0-0.3 MG/DL)</content> Bilirubin.total 0.2-1.3 Above high <content [facility] [Mass/volume] in normal styleCode="Bold"> Krishna hs Serum or Plasma Bilirubin Total Medical </content>2.0 Center MG/DL H<content styleCode="Italic s"> (0.2-1.3 MG/DL)</content> Albumin 3.5-5.0 <content [facility] [Mass/volume] in styleCode="Bold"> Krishna hs Serum or Plasma Albumin Medical </content>3.8 Center G/DL<content styleCode="Italic s"> (3.5-5.0 G/DL)</content> ID Date Data Source HematologyRou.[id number] 05/04/2019 06:27:00 AM EDT [facility] [facility] 0400 Name Value Range Interpretation Description Data Sup porting Code Source(s) Document(s ) Hematocrit 41.0-53. Below low normal <content [facility] [Volume 0 styleCode="Bold Heriberto Fraction] of ">Hematocrit Medical Blood by </content>38.4 Center Automated count % L<content styleCode="Ital ics"> (41.0-53.0 %)</content> Erythrocytes 4.4-5.9 <content [facility] [#/volume] in styleCode="Bold Heriberto Blood by ">Red Blood Medical Automated count Cell Count Center </content>4.40 MCUMM<content styleCode="Ital ics"> (4.4-5.9 MCUMM)</content > Leukocytes 4.4-11.0 Above high <content [facility] [#/volume] in normal styleCode="Bold Heriberto Blood by ">White Blood Medical Automated count Cell Count Center </content>18.05 KCUMM H<content styleCode="Ital ics"> (4.4-11.0 KCUMM)</content > Hemoglobin 13.5-17. Below low normal <content [facility] [Mass/volume] in 5 styleCode="Bold Heriberto Blood ">Hemoglobin Medical </content>13.0 Center G/DL L<content styleCode="Ital ics"> (13.5-17.5 G/DL)</content> Erythrocyte 11.5-14. <content [facility] distribution 5 styleCode="Bold Heriberto width [Ratio] by ">Red Cell Medical Automated count Distribution Center Width </content>13.1 %<content styleCode="Ital ics"> (11.5-14.5 %)</content> Erythrocyte mean 80.0-100 <content [facility] corpuscular .0 styleCode="Bold Heriberto volume [Entitic ">Mean Medical volume] by Corpuscular Center Automated count Volume </content>87.3 FL<content styleCode="Ital ics"> (80.0-100.0 FL)</content> Erythrocyte mean 26.0-34. <content [facility] corpuscular 0 styleCode="Bold Heriberto hemoglobin ">Mean Medical [Entitic mass] Corposcular Center by Automated Hemoglobin count </content>29.5 PG<content styleCode="Ital ics"> (26.0-34.0 PG)</content> Platelets 130-400 <content Saint [#/volume] in styleCode="Bold Heriberto Blood by ">Platelet Medical Automated count Count Center </content>187 KCUMM<content styleCode="Ital ics"> (130-400 KCUMM)</content > Erythrocyte mean 32.0-37. <content [facility] corpuscular 0 styleCode="Bold Heriberto hemoglobin ">Mean Corpus. Medical concentration Hgb Center [Mass/volume] by Concentration Automated count (MCHC) </content>33.9 G/DL<content styleCode="Ital ics"> (32.0-37.0 G/DL)</content> UNK 0.0 <content Saint styleCode="Bold Heriberto ">Nucleated Red Medical Blood Cell Center Count </content>0.00 KCUMM<content styleCode="Ital ics"> (0.0 KCUMM)</content > Platelet mean 8.0-11.0 <content Saint volume [Entitic styleCode="Bold Heriberto volume] in Blood ">Mean Platelet Medical by Automated Volume Center count </content>10.0 FL<content styleCode="Ital ics"> (8.0-11.0 FL)</content> UNK 0 <content Saint styleCode="Bold Heriberto ">Nucleated Red Medical Blood Cell Center </content>0.0 /100<content styleCode="Ital ics"> (0 /100)</content> ID Date Data Source GFR(Creatinine).[id number] 05/04/2019 06:27:00 AM EDT [facility] 0-0400 Name Value Range Interpretation Code Description Data Lien rce(s) Supporting Document(s ) UNK > 60 Below low normal <content [facility] Heriberto styleCode="Bold"> Medical Cent er EGFR </content>33 GFR L<content styleCode="Italic s"> (> 60 GFR)</content> ID Date Data Source CHMROUTINECCDA.[id number] 05/04/2019 06:27:00 AM EDT [facility] -0400 Name Value Range Interpretation Description Data Sup porting Code Source(s) Document(s ) Lipase 23-300 <content [facility] [Enzymatic styleCode="Bold Heriberto activity/vo ">Lipase Medical lume] in </content>69 Center Serum or IU/L<content Plasma styleCode="Ital ics"> (23-300 IU/L)</content> UNK NEGATIVE <content [facility] styleCode="Bold Heriberto ">Acetone Medical </content>NEGAT Center CLAUDY <content styleCode="Ital ics"> (NEGATIVE )</content> Lactate 0.7-2.0 Above upper panic <content Saint [Mass/volum limits styleCode="Bold Heriberto e] in Serum ">Lactic Acid Medical or Plasma </content><cont Center ent styleCode="Bold ">6.8 MMOLL HH</content><co ntent styleCode="Ital ics"> (0.7-2.0 MMOLL)</content > ID Date Data Source CardiacMarkers.[id number] 05/04/2019 06:27:00 AM EDT [facility] -0400 Name Value Range Interpretation Description Data Sup porting Code Source(s) Document(s ) Troponin < 0.034 Above upper panic <content Saint I.cardiac limits styleCode="Bold Heriberto [Mass/volume ">Troponin I Medical ] in Serum </content><cont Center or Plasma ent styleCode="Bold ">0.050 NG/ML HH</content><co ntent styleCode="Ital ics"> (< 0.034 NG/ML)</content > ID Date Data Source BMP.[id number] 05/04/2019 06:27:00 AM EDT [facility] Name Value Range Interpretation Description Data Sup porting Code Source(s) Document(s ) Sodium 137-145 Below low <content Saint [Moles/volume] in normal styleCode="Bold"> [facility] Serum or Plasma Sodium Medical </content>133 Center MEQ/L L<content styleCode="Italic s"> (137-145 MEQ/L)</content> Potassium 3.5-5.3 <content [facility] [Moles/volume] in styleCode="Bold"> [facility] Serum or Plasma Potassium Medical </content>4.5 Center MEQ/L<content styleCode="Italic s"> (3.5-5.3 MEQ/L)</content> Chloride 98-107 Below low <content Saint [Moles/volume] in normal styleCode="Bold"> [facility] Serum or Plasma Chloride Medical </content>89 Center MEQ/L L<content styleCode="Italic s"> (98-107 MEQ/L)</content> Creatinine 0.5-1.3 Above high <content [facility] [Mass/volume] in normal styleCode="Bold"> Krishna hs Serum or Plasma Creatinine Medical </content>2.5 Center MG/DL H<content styleCode="Italic s"> (0.5-1.3 MG/DL)</content> UNK 9-20 Above high <content [facility] normal styleCode="Bold"> Heriberto BUN </content>57 Medical MG/DL H<content Center styleCode="Italic s"> (9-20 MG/DL)</content> Glucose 74-106 Above upper <content Saint [Mass/volume] in panic limits styleCode="Bold"> Scarlett sephs Serum or Plasma Glucose Medical </content><conten Center t styleCode="Bold"> 526 MG/DL HH</content><cont ent styleCode="Italic s"> (74-106 MG/DL)</content> Carbon dioxide, 22-30 <content [facility] total styleCode="Bold"> Heriberto [Moles/volume] in Carbon Dioxide Medical Serum or Plasma </content>23 Center MEQ/L<content styleCode="Italic s"> (22-30 MEQ/L)</content> Calcium 8.4-10. <content [facility] [Mass/volume] in 2 styleCode="Bold"> Krishna hs Serum or Plasma Calcium Medical </content>9.1 Center MG/DL<content styleCode="Italic s"> (8.4-10.2 MG/DL)</content> Aspartate 17-59 <content [facility] aminotransferase styleCode="Bold"> Krishna hs [Enzymatic Aspartate Medical activity/volume] Aminotransferase Center in Serum or Plasma (AST) </content>57 IU/L<content styleCode="Italic s"> (17-59 IU/L)</content> Alanine 7-50 <content [facility] aminotransferase styleCode="Bold"> Krishna hs [Enzymatic Alanine Medical activity/volume] Aminotransferase Center in Serum or Plasma (ALT) </content>45 IU/L<content styleCode="Italic s"> (7-50 IU/L)</content> Alkaline 38-126 <content [facility] phosphatase styleCode="Bold"> Heriberto [Enzymatic Alkaline Medical activity/volume] Phosphatase (ALP) Cente r in Serum or Plasma </content>124 IU/L<content styleCode="Italic s"> (38-126 IU/L)</content> Bilirubin.total 0.2-1.3 Above high <content [facility] [Mass/volume] in normal styleCode="Bold"> Krishna hs Serum or Plasma Bilirubin Total Medical </content>2.0 Center MG/DL H<content styleCode="Italic s"> (0.2-1.3 MG/DL)</content> UNK > 60 Below low <content [facility] normal styleCode="Bold"> Heriberto EGFR </content>33 Medical GFR L<content Center styleCode="Italic s"> (> 60 GFR)</content> Albumin 3.5-5.0 <content [facility] [Mass/volume] in styleCode="Bold"> Krishna hs Serum or Plasma Albumin Medical </content>3.8 Center G/DL<content styleCode="Italic s"> (3.5-5.0 G/DL)</content> ID Date Data Source Urinalysis 01/23/2019 06:02:00 PM EDT [facility] Name Value Range Interpretation Description Data Sup porting Code Source(s) Document(s ) UNK CLEAR <content Saint styleCode="Byran Chacons d">Urine Medical Clarity Center </content>ANTHONY R <content styleCode="Belle lics"> (CLEAR )</content> UNK NEGATIVE <content Saint styleCode="Bryan Chacons d">Urine Medical Bilirubin Center </content>NEGA TIVE <content styleCode="Belle lics"> (NEGATIVE )</content> Color of Urine YELLOW <content Saint styleCode="Bryan Heriberto d">Color, Medical Urine Center </content>YELL OW <content styleCode="Belle lics"> (YELLOW )</content> Glucose NEGATIVE <content Saint [Mass/volume] styleCode="Bryan Louis in Urine by d">Urine Medical Test strip Glucose Center </content>NEGA TIVE MG/DL<content styleCode="Belle lics"> (NEGATIVE MG/DL)</conten t> pH of Urine by 4.5-8.0 <content Saint Test strip styleCode="Bryan Heriberto d">Urine pH Medical </content>7.0 Center <content styleCode="Belle lics"> (4.5-8.0 )</content> Specific 1.015-1.02 Below low normal <content Saint gravity of 5 styleCode="Bryan Heriberto Urine by Test d">Urine Medical strip Specific Center [place] </content><= 1.005 L<content styleCode="Belle lics"> (1.015-1.025 )</content> Protein NEGATIVE <content Saint [Mass/volume] styleCode="Bryan Heriberto in Urine by d">Urine Medical Test strip Protein Center </content>NEGA TIVE MG/DL<content styleCode="Belle lics"> (NEGATIVE MG/DL)</conten t> Hemoglobin NEGATIVE <content Saint [Presence] in styleCode="Bryan Heriberto Urine by Test d">Urine Blood Medical strip </content>NEGA Center TIVE <content styleCode="Belle lics"> (NEGATIVE )</content> Ketones NEGATIVE <content Saint [Mass/volume] styleCode="Bryan Heriberto in Urine by d">Urine Medical Test strip Ketone Center </content>NEGA TIVE MG/DL<content styleCode="Belle lics"> (NEGATIVE MG/DL)</conten t> Nitrite NEGATIVE <content Saint [Presence] in styleCode="Bryan Chacons Urine by Test d">Urine Medical strip Nitrite Center </content>NEGA TIVE <content styleCode="Belle lics"> (NEGATIVE )</content> Urobilinogen 0.2-1.0 <content Saint [Units/volume] styleCode="Bryan Heriberto in Urine by d">Urine Medical Test strip Urobilinogen Center </content>0.2 MG/DL<content styleCode="Belle lics"> (0.2-1.0 MG/DL)</conten t> Leukocyte NEGATIVE <content Saint esterase styleCode="Bryan Heriberto [Presence] in d">Urine Medical Urine by Test Leukocyte Center strip </content>NEGA TIVE <content styleCode="Belle lics"> (NEGATIVE )</content> ID Date Data Source HematologySpeci 01/23/2019 05:01:00 PM EDT [facility] Name Value Range Interpretation Description Data Sup porting Code Source(s) Document(s ) Erythrocyte < 30 Above high normal <content [facility] sedimentation styleCode="Bold" Heriberto rate by >Erythrocyte Medical [facility] Sedementation Center method Rate (ESR) </content>45 MM/hr H<content styleCode="Itali cs"> (< 30 MM/hr)</content> C reactive < 3.0 Above high normal <content [facility] protein styleCode="Bold" Heirberto [Mass/volume] in >C-Reactive Medical Serum or Plasma Protein Center </content>9.02 MG/L H<content styleCode="Itali cs"> (< 3.0 MG/L)</content> ID Date Data Source HematologyRou 01/23/2019 05:01:00 PM EDT [facility] Name Value Range Interpretation Description Data Sup porting Code Source(s) Document(s ) Hematocrit 41.0-53. Below low normal <content Saint [Volume 0 styleCode="Bold Heriberto Fraction] of ">Hematocrit Medical Blood by </content>37.6 Center Automated count % L<content styleCode="Ital ics"> (41.0-53.0 %)</content> Erythrocytes 4.4-5.9 <content Saint [#/volume] in styleCode="Bold Heriberto Blood by ">Red Blood Medical Automated count Cell Count Center </content>4.48 MCUMM<content styleCode="Ital ics"> (4.4-5.9 MCUMM)</content > Leukocytes 4.4-11.0 <content Saint [#/volume] in styleCode="Bold Heriberto Blood by ">White Blood Medical Automated count Cell Count Center </content>9.64 KCUMM<content styleCode="Ital ics"> (4.4-11.0 KCUMM)</content > Hemoglobin 13.5-17. Below low normal <content Saint [Mass/volume] in 5 styleCode="Bold Heriberto Blood ">Hemoglobin Medical </content>12.8 Center G/DL L<content styleCode="Ital ics"> (13.5-17.5 G/DL)</content> Erythrocyte mean 80.0-100 <content [facility] corpuscular .0 styleCode="Bold Heriberto volume [Entitic ">Mean Medical volume] by Corpuscular Center Automated count Volume </content>83.9 FL<content styleCode="Ital ics"> (80.0-100.0 FL)</content> Erythrocyte 11.5-14. <content Saint distribution 5 styleCode="Bold Heriberto width [Ratio] by ">Red Cell Medical Automated count Distribution Center Width </content>12.8 %<content styleCode="Ital ics"> (11.5-14.5 %)</content> Platelet mean 8.0-11.0 <content Saint volume [Entitic styleCode="Bold Heriberto volume] in Blood ">Mean Platelet Medical by Automated Volume Center count </content>9.0 FL<content styleCode="Ital ics"> (8.0-11.0 FL)</content> Erythrocyte mean 26.0-34. <content [facility] corpuscular 0 styleCode="Bold Heriberto hemoglobin ">Mean Medical [Entitic mass] Corposcular Center by Automated Hemoglobin count </content>28.6 PG<content styleCode="Ital ics"> (26.0-34.0 PG)</content> Platelets 130-400 <content Saint [#/volume] in styleCode="Bold Heriberto Blood by ">Platelet Medical Automated count Count Center </content>290 KCUMM<content styleCode="Ital ics"> (130-400 KCUMM)</content > Erythrocyte mean 32.0-37. <content [facility] corpuscular 0 styleCode="Bold Heriberto hemoglobin ">Mean Corpus. Medical concentration Hgb Center [Mass/volume] by Concentration Automated count (MCHC) </content>34.0 G/DL<content styleCode="Ital ics"> (32.0-37.0 G/DL)</content> UNK 0 <content Saint styleCode="Bold Heriberto ">Nucleated Red Medical Blood Cell Center </content>0.0 /100<content styleCode="Ital ics"> (0 /100)</content> UNK 0.0 <content Saint styleCode="Bold Heriberto ">Nucleated Red Medical Blood Cell Center Count </content>0.00 KCUMM<content styleCode="Ital ics"> (0.0 KCUMM)</content > ID Date Data Source GFR(Creatinine) 01/23/2019 05:01:00 PM EDT [facility] Name Value Range Interpretation Code Description Data Lien rce(s) Supporting Document(s ) UNK > 60 Below low normal <content [facility] styleCode="Bold"> Medical Cent er EGFR </content>39 GFR L<content styleCode="Italic s"> (> 60 GFR)</content> ID Date Data Source BMP 01/23/2019 05:01:00 PM EDT [facility] Name Value Range Interpretation Description Data Sup porting Code Source(s) Document(s ) Sodium 137-145 Below low normal <content Saint [Moles/volume] styleCode="Bryan Heriberto in Serum or d">Sodium Medical Plasma </content>136 Center MEQ/L L<content styleCode="Belle lics"> (137-145 MEQ/L)</conten t> Potassium 3.5-5.3 Below low normal <content Saint [Moles/volume] styleCode="Bryan Heriberto in Serum or d">Potassium Medical Plasma </content>3.4 Center MEQ/L L<content styleCode="Belle lics"> (3.5-5.3 MEQ/L)</conten t> Carbon 22-30 Above high normal <content Saint dioxide, total styleCode="Bryan Heriberto [Moles/volume] d">Carbon Medical in Serum or Dioxide Center Plasma </content>31 MEQ/L H<content styleCode="Belle lics"> (22-30 MEQ/L)</conten t> Chloride 98-107 Below low normal <content [facility] [Moles/volume] styleCode="Bryan Heriberto in Serum or d">Chloride Medical Plasma </content>91 Center MEQ/L L<content styleCode="Belle lics"> (98-107 MEQ/L)</conten t> Glucose 74-106 Above high normal <content Saint [Mass/volume] styleCode="Bryan Heriberto in Serum or d">Glucose Medical Plasma </content>166 Center MG/DL H<content styleCode="Belle lics"> (74-106 MG/DL)</conten t> Calcium 8.4-10.2 <content [facility] [Mass/volume] styleCode="Bryan Heriberto in Serum or d">Calcium Medical Plasma </content>9.7 Center MG/DL<content styleCode="Belle lics"> (8.4-10.2 MG/DL)</conten t> UNK > 60 Below low normal <content Saint styleCode="Bryan Heriberto d">EGFR Medical </content>39 Center GFR L<content styleCode="Belle lics"> (> 60 GFR)</content> Creatinine 0.5-1.3 Above high normal <content [facility] [Mass/volume] styleCode="Bryan Heriberto in Serum or d">Creatinine Medical Plasma </content>1.8 Center MG/DL H<content styleCode="Belle lics"> (0.5-1.3 MG/DL)</conten t> UNK 9-20 Above high normal <content [facility] styleCode="Bryan Heriberto d">BUN Medical </content>34 Center MG/DL H<content styleCode="Belle lics"> (9-20 MG/DL)</conten t> Procedure Social History Code Duration Value Status Description Data Source(s ) Smoking 05/06/2019 Denies Ever completed Denies Ever Smoked [facility] Her[facility]erto 10:05:00 AM EDT Smoked [facility] C enter Smoking 05/04/2019 Denies Ever completed Denies Ever Smoked [facility] Heriberto 02:12:00 PM EDT Smoked Medical C enter Smoking 05/04/2019 Denies Ever completed Denies Ever Smoked [facility] Her[facility]erto 12:31:00 PM EDT Smoked Medical C enter Smoking 05/04/2019 Denies Ever completed Denies Ever Smoked [facility] Heriberto 06:23:00 AM EDT Smoked Medical C enter Smoking 05/04/2019 Denies Ever completed Denies Ever Smoked [facility] Heriberto 06:22:00 AM EDT Smoked Medical C enter Smoking 01/23/2019 Denies Ever completed Denies Ever Smoked [facility] Heriberto 04:51:00 PM EDT Smoked Medical C enter Smoking 01/23/2019 Denies Ever completed Denies Ever Smoked [facility] Heriberto 04:31:00 PM EDT Smoked Medical C enter Smoking 01/23/2019 Denies Ever completed Denies Ever Smoked [facility] Heriberto 04:11:00 PM EDT Smoked Medical C enter Vital Signs ID Date Data Source UNK Name Value Range Interpretation Code Description Data Source(s) Body temperature 36.170839 36.355557 [facility] Respiratory rate 20 /min 20 /min [facility] Heart rate 63 /min 63 /min [facility] Diastolic blood 78 mm[Hg] 78 mm[Hg] [facility] Systolic blood 160 mm[Hg] 160 mm[Hg] [facility] Body weight 95.746984 kg 95.695475 kg [facility] Body temperature 37.512783 37.945403 [facility] Respiratory rate 20 /min 20 /min [facility] Heart rate 56 /min 56 /min [facility] Diastolic blood 75 mm[Hg] 75 mm[Hg] [facility] Systolic blood 147 mm[Hg] 147 mm[Hg] [facility] Body temperature 36.808725 36.247286 [facility] Respiratory rate 20 /min 20 /min [facility] Heart rate 54 /min 54 /min [facility] Diastolic blood 76 mm[Hg] 76 mm[Hg] [facility] Systolic blood 156 mm[Hg] 156 mm[Hg] [facility] Body temperature 36.277007 36.666210 [facility] Respiratory rate 20 /min 20 /min [facility] Heart rate 63 /min 63 /min [facility] Diastolic blood 82 mm[Hg] 82 mm[Hg] [facility] Systolic blood 159 mm[Hg] 159 mm[Hg] [facility] Body temperature 36.838609 36.857623 [facility] Respiratory rate 20 /min 20 /min [facility] Heart rate 62 /min 62 /min [facility] Diastolic blood 84 mm[Hg] 84 mm[Hg] [facility] [place] Systolic blood 139 mm[Hg] 139 mm[Hg] [facility] Body weight 95.578130 kg 95.229667 kg [facility] Measured Medical Center Oxygen saturation 98 % 98 % [facility] Arterial blood Medical Center by Pulse oximetry Oxygen saturation 98 % 98 % [facility] Arterial blood Medical Center by Pulse oximetry Oxygen saturation 99 % 99 % [facility] Arterial blood Medical Center by Pulse oximetry Oxygen saturation 100 % 100 % [facility] in Arterial blood Medical Center by Pulse oximetry Oxygen saturation 98 % 98 % [facility] Arterial blood Medical Center by Pulse oximetry Body weight 91.493378 kg 91.595463 kg [facility] Body weight 91.155240 kg 91.836488 kg [facility] Body weight 89.681644 kg 89.042685 kg [facility] Body temperature 36.900805 36.352462 [facility] Respiratory rate 29 /min 29 /min [facility] Heart rate 85 /min 85 /min [facility] Diastolic blood 74 mm[Hg] 74 mm[Hg] [facility] [place] Systolic blood 125 mm[Hg] 125 mm[Hg] [facility] Respiratory rate 31 /min 31 /min [facility] Heart rate 84 /min 84 /min [facility] Diastolic blood 65 mm[Hg] 65 mm[Hg] [facility] Systolic blood 109 mm[Hg] 109 mm[Hg] [facility] Body temperature 37.668458 37.237515 [facility] Respiratory rate 19 /min 19 /min [facility] Heart rate 95 /min 95 /min [facility] Diastolic blood 76 mm[Hg] 76 mm[Hg] [facility] Systolic blood 144 mm[Hg] 144 mm[Hg] [facility] Respiratory rate 30 /min 30 /min [facility] Oxygen saturation 98 % 98 % [facility] blood [facility] Center by Pulse oximetry Heart rate 88 /min 88 /min [facility] Diastolic blood 72 mm[Hg] 72 mm[Hg] [facility] Center Systolic blood 127 mm[Hg] 127 mm[Hg] [facility] Body temperature 37.809506 37.432431 [facility] Respiratory rate 27 /min 27 /min [facility] Heart rate 94 /min 94 /min [facility] Diastolic blood 73 mm[Hg] 73 mm[Hg] [facility] pressure Medical Center Systolic blood 137 mm[Hg] 137 mm[Hg] [facility] Body temperature 37.002168 37.859799 [facility] Body height 167.802257 167.725638 cm [facility] Body mass index 30.57 kg/m2 30.57 kg/m2 [facility] (BMI) [Ratio] Medical [address] Body weight 85.181439 kg 85.030965 kg [facility] Measured [facility] Center Oxygen saturation 96 % 96 % [facility] Arterial blood [facility] Center by Pulse oximetry Body temperature 37.847340 37.094179 [facility] Oxygen saturation 97 % 97 % [facility] [facility] Pulse oximetry Oxygen saturation 97 % 97 % [facility] by Pulse oximetry Oxygen saturation 95 % 95 % [facility] by Pulse oximetry Body temperature 36.539236 36.214170 [facility] Respiratory rate 18 /min 18 /min [facility] Oxygen saturation 97 % 97 % [facility] Arter[facility] blood [facility] by Pulse oximetry Heart rate 97 /min 97 /min [facility] Diastolic blood 85 mm[Hg] 85 mm[Hg] [facility] pressure Medical Center Systolic blood 129 mm[Hg] 129 mm[Hg] [facility] Body temperature 36.559003 36.352933 [facility] Respiratory rate 18 /min 18 /min [facility] Oxygen saturation 98 % 98 % [facility] Arterial blood [facility] Center by Pulse oximetry Heart rate 97 /min 97 /min [facility] Diastolic blood 84 mm[Hg] 84 mm[Hg] [facility] pressure Medical Center Systolic blood 126 mm[Hg] 126 mm[Hg] [facility] Body weight 85.712442 kg 85.607062 kg [facility] Measured [facility] Body temperature 36.834947 36.371092 [facility] Respiratory rate 17 /min 17 /min [facility] Oxygen saturation 99 % 99 % [facility] in Arterial blood [facility] by Pulse oximetry Heart rate 78 /min 78 /min [facility] Body height 160.407600 160.740100 cm [facility] Diastolic blood 78 mm[Hg] 78 mm[Hg] [facility] pressure Medical Center Systolic blood 122 mm[Hg] 122 mm[Hg] [facility] Body mass index 33.1 kg/m2 33.1 kg/m2 [facility] (BMI) [Ratio] Medical [facility] ter Body temperature 36.353893 36.994034 [facility] Respiratory rate 18 /min 18 /min [facility] Oxygen saturation 98 % 98 % [facility] in Arterial blood [facility] Center by Pulse oximetry Heart rate 96 /min 96 /min [facility] Diastolic blood 76 mm[Hg] 76 mm[Hg] [facility] pressure [facility] Systolic blood 129 mm[Hg] 129 mm[Hg] [facility] Patient Treatment Plan of Care Planned Activity Planned Date Details Description Data Source (s) torsemide 20 mg Tablet [facility] Finasteride 5 MG Oral Tablet [facility] Amoxicillin 875 MG / [facility] Clavulanate 125 MG Oral Cent er Tablet Furosemide 20 MG Oral Tablet [facility] [Lasix] [place] timolol maleate 0.5 % Drops, [facility] Ordered By: Roselyn Kumar MDDirections: 1 drop ophthalmic twice a day Tamsulosin hydrochloride 0.4 [facility] Oral Capsule [place] Simvastatin 20 MG Oral Tablet [facility] Prednisone 20 MG Oral Tablet [facility] 3 ML Insulin Lispro 50 UNT/ML [facility] / Insulin, Protamine Lispro, [place] Human 50 UNT/ML Pen Injector [Humalog Mix] fluticasone propionate 50 Sa [facility]/actuation Center spray,suspension, Ordered By: CARMEN Kumarirections: 2 spray nasal twice a day Ergocalciferol 89693 UNT Oral [facility] Allopurinol 100 MG Oral [facility] Prednisone 20 MG Oral Tablet [facility]
--- OUTSIDE RECORDS SUMMARY | 2020-07-24 07:08 | XMS ---
:1945 Author Organization [facility] Care Team Providers Name Role Phone [...] is protected by Article 27-F of the [place] State Public Health law. If you continue you may haveaccess to information: Regarding HIV / AIDS; Provided by facilities licensed or operated by the [facility] Office of Mental Health; or Provided by the [facility] Office for People With Developmental Disabilities. If such information is present, then the following [facility] mandated warning applies: This information has been [...] allergy No Known Food No Known Food [facility] Drug allergy No Known Drug No Known Drug [facility] Encounters Encounter Providers Location Date Indications Data Source(s ) Inpatient Attender: MAHENDRA [id number] 05/04/2019 [facility] FLORENCIO MCCRAY 06:10:00 AM EDT [facility] OAdmitter: MAHENDRA - 05/15/2019 FLORENCIO MCCRAY 11:15:00 AM EDT OReferrer: MAHENDRA MCCRAY O Emergency H 01/23/2019 [facility] 04:10:00 PM EDT Medical C enter Medications Medication Brand Start Product Dose Route Administrative Pharmacy [facility] Indications Reaction Description Data Name Date [...] Ordered By: d By: radha Merritt MDDirection She s: 1 tablet , oral daily MDDire ctions : 1 tablet oral daily Amoxicillin amoxic 1 complet Deejay nt 875 MG / illin- ed Heriberto Clavulanate pot Medical 125 MG Oral clavul Center Tablet anate amoxicillin 875 -pot mg-125 clavulanate mg 875 mg-125 Tablet mg Tablet, , Ordered By: Ordere Mike d By: Cecilio Nowakirection l s: 1 tablet She oral every [...] Saint 20 mg ed Heriberto Tablet Medical [place] timolol 1 complet Saint maleate 0.5 ed [facility] % Drops, Medical Ordered By: Davidson Adam s: 1 drop ophthalmic twice a day Furosemide furose 1 complet LaSIX Deejay nt 20 MG Oral mide ed Heriberto Tablet (LaSIX Medical [Lasix] ) 20 Center furosemide mg (LaSIX) 20 Tablet mg Tablet, , Ordered By: Teri muñoz By: Cecilio Nowak s: 1 tablet She oral daily , MDDire ctions : 1 tablet oral daily Finasteride finast 1 complet Deejay nt 5 MG Oral eride ed [facility] Tablet 5 mg Medical finasteride Tablet [place] 5 mg , Tablet, Ordere Ordered By: d By: radha Merritt s: 1 tablet , oral daily MDDire ctions : 1 tablet oral daily Ergocalcife ergoca 1 complet Vitamin D2 Saint rol 9[address] lcifer ed [facility] UNT Oral ol Medical Capsule (vitam Center ergocalcife in D2) rol (Vitam (vitamin in D2) D2) 50,000 (Vitamin unit D2) 50,000 Capsul unit e, Capsule, Ordere Ordered By: d By: radha Merritt s: 1 , capsule MDDire oral every ctions Friday : 1 capsul e oral every Friday fluticasone 2 complet Saint propionate ed [facility] 50 Medical mcg/actuati Center on spray,suspe nsion, Ordered By: CARMEN [...] By: 100 unit/mL Michae (50-50) l Insulin She Pen, , Ordered By: Gil Nowak, : 60U MDDirection in the s: 60U in AM and the AM and 55U in 55U in the the PM PM subcut subcutaneou aneous s twice a twice day a day Allopurinol allopu 1 complet Deejay nt 100 MG Oral rinol ed [facility] Tablet 100 mg [facility] allopurinol Tablet [place] 100 mg , Tablet, Ordere Ordered By: d By: radha Merritt MDDirection Avery s: 1 tablet , oral daily MDDire ctions : 1 tablet oral daily Insurance Providers Payer name Policy type Policy ID Covered Covered constitution party's Policy P kaylie / Coverage constitution party ID relationship to [facility] Inf ormation type earl LOCAL [id number] - [id number] OT [id number] [facility] [id number] O [id number] 01 [id number] O LOCAL 1199 O [id number] LOCAL 1199 O [id number] LOCAL 1199 O [id number] 26 LOCAL 1199 - [id number] [place] [id number] 1080 [facility] LOCAL 1199 - [id number] [place] [id number] [facility] [place] FFS [id number] S [id number] Medicaid Medicaid [id number] S [id number] Regular Clinic Visit (DO NOT USE) [id number] S [id number] Wade Care Auth PCP Not MVNHC/YHC/GH C Problems, Conditions, and Diagnoses Code Display Name Description Problem Type Effective Data Sour ce(s) Dates E78.5 Hyperlipidemia, HYPERLIPIDEMIA, Diagnosis 05/15/2019 [place] unspecified UNSPECIFIED 11:15:[address] EDT M10.9 Gout, unspecified GOUT, UNSPECIFIED Diagnosis 05/15/2019 [place] 11:15:00 AM Medical Haydee r EDT R33.8 Other retention of OTHER RETENTION OF Diagnosis 9 [place] urine URINE 11:15:00 AM Medical [place] r EDT N40.1 Benign prostatic BENIGN PROSTATIC Diagnosis 05/15/2019 Sa [place]ard [place] hyperplasia with HYPERPLASIA WITH 11:15:00 AM [facility] lower urinary tract LOWER URINARY EDT symptoms TRACT SYMP N18.9 Chronic kidney CHRONIC KIDNEY Diagnosis 05/15/2019 [place] disease, DISEASE, 11:15:00 AM Medical Haydee wilkinson unspecified UNSPECIFIED EDT E11.65 Type 2 diabetes TYPE 2 DIABETES Diagnosis 05/15/2019 [place] mellitus with MELLITUS WITH 11:15:00 AM [facility] hyperglycemia HYPERGLYCEMIA EDT E11.22 Type 2 diabetes TYPE 2 DIABETES Diagnosis 05/15/2019 [place] mellitus with MELLITUS W 11:15:00 AM Medical Ce nter diabetic chronic DIABETIC CHRONIC EDT kidney disease KIDNEY DISEASE N13.8 Other obstructive OTHER OBSTRUCTIVE Diagnosis 05/15/2019 [place] and reflux uropathy AND REFLUX 11:15:00 AM [facility] UROPATHY EDT I50.30 Unspecified UNSPECIFIED Diagnosis 05/15/2019 [facility] Oswaldo craig diastolic DIASTOLIC 11:15:00 AM Medical Haydee wilkinson (congestive) heart (CONGESTIVE) HEART EDT failure FAILURE I13.0 Hypertensive heart HYP HRT and CHR Diagnosis 05/15/2019 S aint Heriberto and chronic kidney KDNY DIS W HRT 11:15:00 AM [facility] disease with heart FAIL AND STG EDT [...] AM Medical Cent er ORGANISM EDT Z79.4 jail (current) ENGRAVER SEALS Diagnosis 05/15/2019 [place] use of insulin (CURRENT) USE OF 11:15:00 AM [facility] INSULIN EDT E11.00 Type 2 diabetes TYPE 2 DIAB W Diagnosis 05/04/2019 [place] mellitus with HYPROSM W/O NONKET 06:10:00 AM Fl dical Center hyperosmolarity HYPRGLY-HYPROS EDT without nonketotic COMA (N[facility]) hyperglycemic-hyper osmolar coma (NKHHC) I10 Essential (primary) ESSENTIAL Diagnosis 01/23/2019 [place] hypertension (PRIMARY) 04:10:[address] HYPERTENSION EDT E11.9 Type 2 diabetes TYPE 2 DIABETES Diagnosis 01/23/2019 [place] mellitus without MELLITUS WITHOUT 04:10:00 [facility] complications COMPLICATIONS EDT G50.1 Atypical facial [...] 01/05/2019 Robin SHEIKH ([place] 05:49:47 PM [facility]) Results ID Date Data Source [id number] 07/09/2020 06:15:00 PM EDT [facility] Name Value Range Interpretation Description Data Sup porting Code Source(s) Document(s ) SARS [facility] coronavirus 2 RNA This lab was ordered by [facility] and reported by [facility]. ID Date Data Source [id number] 06/15/2020 09:56:00 AM EDT [facility] Name Value Range Interpretation Code Description Data Lien rce(s) Supporting Document(s ) SARS-CoV-2 [facility] RNA [facility] Ql MARY ANNE+probe This lab was ordered by [facility] a nd reported by [facility]. ID Date Data Source [id number] 06/07/2020 09:37:00 AM EDT [facility] Name Value Range Interpretation Code Description Data Lien rce(s) Supporting Document(s ) SARS-CoV-2 [facility] RNA [facility] Ql MARY ANNE+probe This lab was ordered by [facility] a nd reported by [facility]. ID Date Data Source [id number] 05/31/2020 11:35:00 AM EDT [facility] Name Value Range Interpretation Description Data Sup porting Code Source(s) Document(s ) SARS [facility] coronavirus 2 RNA This lab was ordered by [facility] and reported by [facility]. ID Date Data Source [id number] 05/27/2020 06:00:00 PM EDT [facility] Name Value Range Interpretation Description Data Sup porting Code Source(s) Document(s ) SARS [facility] coronavirus 2 RNA This lab was ordered by [facility] and reported by [facility]. ID Date Data Source [id number] 03/25/2020 07:30:00 AM EDT [facility] Name Value Range Interpretation Description Data Sup porting Code Source(s) Document(s ) SARS [facility] CORONAVIRUS 2 RNA This lab was ordered by [facility] and reported by [facility]. ID Date Data Source Liver 05/15/2019 05:00:[address] [facility] Profile.[id number] Name Value Range Interpretation Description Data Sup [...] s"> (0.2-1.3 MG/DL)</content> ID Date Data Source HematologyRou.[id number] 05/15/2019 05:00:00 AM EDT Deejay [facility] 0400 Name Value Range Interpretation Description Data [...] /100)</content> UNK < 1 Above high <content Saint normal styleCode="Bold Heriberto ">Immature Medical Granulocyte Center Ratio </content>4.8 % H<content styleCode="Ital ics"> (< 1 %)</content> ID Date Data Source GFR(Creatinine).[id number] 05/15/2019 05:00:00 AM EDT Deejay [facility] 0-0400 Name Value Range Interpretation Code Description Data Lien rce(s) Supporting Document(s ) UNK > 60 Below low normal <content [facility] styleCode="Bold"> Medical Cent er EGFR </content>38 GFR L<content styleCode="Italic s"> (> 60 GFR)</content> ID Date Data Source [id number] 05/15/2019 05:00:00 AM EDT Deejay [facility] -0400 Name Value Range Interpretation Description Data [...] (6.3-8.2 G/DL)</content > ID Date Data Source [facility].[id number] 05/15/2019 05:00:00 AM EDT [facility] Name Value Range Interpretation Description Data [...] 98-107 <content Saint [Moles/volume] in styleCode="Bold"> Javier phs Serum or Plasma Chloride Medical </content>106 Center MEQ/L<content styleCode="Italic s"> (98-107 MEQ/L)</content> Sodium 137-145 <content Saint [Moles/volume] in styleCode="Bold"> Javier [facility] Serum or Plasma Sodium Medical [...] Bilirubin.total 0.2-1.3 <content Saint [Mass/volume] in styleCode="Bold"> Krsihna hs Serum or Plasma Bilirubin Total Medical [...] s"> (3.5-5.0 G/DL)</content> ID Date Data Source HematologyRou.[id number] 05/14/2019 05:20:00 AM EDT Deejay nt [facility] 0400 Name Value Range Interpretation Description Data Sup porting Code Source(s) Document(s ) Leukocytes 4.4-11.0 Above high <content Saint [#/volume] in normal styleCode="Bold [facility] Blood by ">White Blood Medical [...] (0-0.1 KCUMM)</content > ID Date Data Source GFR(Creatinine).[id number] 05/14/2019 05:20:00 AM EDT [facility] 0-0400 Name Value Range Interpretation Code Description Data Lien rce(s) Supporting Document(s ) UNK > 60 Below low normal <content [facility] styleCode="Bold"> Medical Cent er EGFR </content>40 GFR L<content styleCode="Italic s"> (> 60 GFR)</content> ID Date Data Source BMP.[id number] 05/14/2019 05:20:00 AM EDT [facility] Name Value Range Interpretation Description Data [...] (0.5-1.3 MG/DL)</conten t> ID Date Data Source HematologyRou.[id number] 05/13/2019 05:30:00 AM EDT Deejay [facility] 0400 Name Value Range Interpretation Description Data [...] (0.0 KCUMM)</content > ID Date Data Source GFR(Creatinine).[id number] 05/13/2019 05:30:00 AM EDT [facility] 0-0400 Name Value Range Interpretation Code Description Data Lien rce(s) Supporting Document(s ) UNK > 60 Below low normal <content [facility] styleCode="Bold"> Medical Cent er EGFR </content>34 GFR L<content styleCode="Italic s"> (> 60 GFR)</content> ID Date Data Source CardiacMarkers.[id number] 05/13/2019 05:30:00 AM EDT [facility] -0400 Name Value Range Interpretation Description Data Sup porting Code Source(s) Document(s ) Creatine 55-170 <content [facility] kinase styleCode="Bold Medical [Enzymatic ">CK Center activity/vol </content>65 ume] in IU/L<content Serum or styleCode="Ital Plasma ics"> (55-170 IU/L)</content> ID Date Data Source [facility].[id number] 05/13/2019 05:30:00 AM EDT [facility] Name Value Range Interpretation Description Data [...] (> 60 GFR)</content> ID Date Data Source Urinalysis.[id number] 05/12/2019 10:45:00 PM EDT Deejay [facility] 0 Name Value Range Interpretation Description Data [...] by Test d">Urine Medical strip Specific Center [place] </content>1.01 5 <content styleCode="Belle lics"> (1.015-1.025 )</content> [...] MG/DL)</conten t> UNK 0-3 <content Saint styleCode="Bryan Heriberto d">Urine White Medical Blood Cell Center </content>10 - 20 HPF<content styleCode="Belle lics"> (0-3 HPF)</content> Leukocyte NEGATIVE <content Saint esterase styleCode="Bryan Chacons [Presence] in d">Urine Medical Urine by Test Leukocyte Center strip </content>TRAC E <content styleCode="Belle lics"> (NEGATIVE )</content> UNK 0-3 <content Saint styleCode="Bryan Heriberto d">Urine Red Medical Blood Cell Center </content>50 - 100 HPF<content styleCode="Belle lics"> (0-3 HPF)</content> UNK NEGATIVE <content Saint styleCode="Bryan Heriberto d">Urine Medical Bacteria Center </content>MODE RATE HPF<content styleCode="Belle lics"> (NEGATIVE HPF)</content> UNK NONE SEEN <content Saint styleCode="Bryan Heriberto d">Urine Mucus Medical </content>FEW Center LPF<content styleCode="Belle lics"> (NONE SEEN LPF)</content> UNK <content Saint styleCode="Bryan Heriberto d">Epithelial Medical Cell Center </content>10 - 20 LPF (Reference Range: not available)<br/ > ID Date Data Source Microbiology.[id number] 05/12/2019 10:45:00 PM EDT Deejay [facility] 400 Name Value Range Interpretation Code Description Data Lien rce(s) Supporting Document(s ) UNK <item><content [facility] styleCode="Bold"> Medical Cent er Culture Report </content>
<t able><tbody><tr>< td>Specimen Number:</td><td>[id number]</td></tr ><tr><td>Sample Collection Date/Time: </td><td> 9 10:45 PM</td></tr><tr>< td>Specimen Source:</td><td>U RINE</td></tr><tr ><td>Urine Culture:</td><td> Collection Plate Date: 05/12/2019 22:50 </td></tr><tr><td >Culture Status:</td><td>F inal </td></tr><tr><td >Culture Report:</td><td>N O FURTHER WORKUP </td></tr><tr><td >Organism 1:</td><td>YEAST </td></tr></tbody ></table>
<ta ble border="2"><tbody ><tr><td></td><td >1</td></tr><tr>< td>Comment</td><t d></td></tr><tr>< td>Result Value</td><td>YEA ST </td></tr><tr><td >Result Status</td><td>Fi nal Result</td></tr>< tr><td></td><td>< /td></tr></tbody> </table></item> UNK <item><content [facility] styleCode="Bold"> Medical Cent er Culture Status </content>
<t able><tbody><tr>< td>Specimen Number:</td><td>[id number]</td></tr ><tr><td>Sample Collection Date/Time: </td><td> 9 10:45 PM</td></tr><tr>< td>Specimen Source:</td><td>U RINE</td></tr><tr ><td>Culture Status:</td><td>F inal </td></tr><tr><td >Culture Report:</td><td>N O FURTHER WORKUP </td></tr><tr><td >Urine Culture:</td><td> Collection Plate Date: 05/12/2019 22:50 </td></tr><tr><td >Organism 1:</td><td>YEAST </td></tr></tbody ></table>
<ta ble border="2"><tbody ><tr><td></td><td >1</td></tr><tr>< td>Comment</td><t d></td></tr><tr>< td>Result Value</td><td>YEA ST </td></tr><tr><td >Result Status</td><td>Fi nal Result</td></tr>< tr><td></td><td>< /td></tr></tbody> </table></item> ID Date Data Source HematologyRou.[id number] 05/12/2019 06:10:00 AM EDT Deejay [facility] 0400 Name Value Range Interpretation Description Data Sup porting Code Source(s) Document(s ) Erythrocytes 4.4-5.9 Below low normal <content Saint [#/volume] in styleCode="Bold [facility] Blood by ">Red Blood Medical [...] styleCode="Bold Heriberto ">Immature Medical Granulocyte Center Ratio </content>7.1 % H<content styleCode="Ital ics"> (< 1 %)</content> ID Date Data Source GFR(Creatinine).[id number] 05/12/2019 06:10:00 AM EDT [facility] 0-0400 Name Value Range Interpretation Code Description Data Lien rce(s) Supporting Document(s ) UNK > 60 Below low normal <content [facility] styleCode="Bold"> Medical Cent er EGFR </content>31 GFR L<content styleCode="Italic s"> (> 60 GFR)</content> ID Date Data Source CardiacMarkers.[id number] 05/12/2019 06:10:00 AM EDT [facility] -0400 Name Value Range Interpretation Description Data Sup porting Code Source(s) Document(s ) Creatine 55-170 <content [facility] kinase styleCode="Bold Medical [Enzymatic ">CK Center activity/vol </content>80 ume] in IU/L<content Serum or styleCode="Ital Plasma ics"> (55-170 IU/L)</content> ID Date Data Source [facility].[id number] 05/12/2019 06:10:00 AM EDT [facility] Name Value Range Interpretation Description Data [...] Data Source Liver 05/11/2019 05:38:[address] [facility] Profile.[id number] Name Value Range Interpretation Description Data Sup [...] s"> (3.5-5.0 G/DL)</content> ID Date Data Source Immunofixation.[id number] 05/11/2019 05:38:00 AM EDT [facility] -0400 Name Value Range Interpretation Description Data Sup porting Code Source(s) Document(s ) UNK Not Detected <content [place] styleCode="Bold Medical ">Immunofixatio Center n, Serum </content>Not Detected <content styleCode="Ital ics"> (Not Detected )</content> ID Date Data Source HematologyRou.[id number] 05/11/2019 05:38:00 AM EDT [facility] 0400 Name Value Range Interpretation Description [...] (0-3 %)</content> UNK NORMAL <content Saint styleCode="Bold Heriberto ">Platelet Medical Estimate Center </content>JASON L <content styleCode="Ital ics"> (NORMAL )</content> UNK NORMAL <content Saint styleCode="Bold Heriberto ">RBC Medical Morphology Center </content>JASON L <content styleCode="Ital ics"> (NORMAL )</content> ID Date Data Source GFR(Creatinine).[id number] 05/11/2019 05:38:00 AM EDT [facility] 0-0400 Name Value Range Interpretation Code Description Data Lien rce(s) Supporting Document(s ) UNK > 60 Below low normal <content [facility] styleCode="Bold"> Medical Cent er EGFR </content>29 GFR L<content styleCode="Italic s"> (> 60 GFR)</content> ID Date Data Source Genetics.[id number] 05/11/2019 05:38:00 AM EDT [facility] Name Value Range Interpretation Code Description Data Lien rce(s) Supporting Document(s ) UNK 82-185 <content Saint Heriberto styleCode="Bold"> Medical Cent er C3, Serum </content>173 mg/dL<content styleCode="Italic s"> (82-185 mg/dL)</content> UNK 15-53 <content Saint Heriberto styleCode="Bold"> Medical Cent er C4, Serum </content>41 mg/dL<content styleCode="Italic s"> (15-53 mg/dL)</content> ID Date Data Source Coagulation 05/11/2019 05:38:00 AM [facility] Rout.[id number] EDT Name Value Range Interpretation Description Data [...] cs"> (25.1-36.5 SEC)</content> ID Date Data Source CHMROUTINECCDA.[id number] 05/11/2019 05:38:00 AM EDT Deejay [facility] -0400 Name Value Range Interpretation Description Data Sup porting Code Source(s) Document(s ) Phosphate 2.5-4.5 <content Saint [Mass/volume] styleCode="Bryan Chacons in Serum or d">Phosphorus Medical Plasma </content>4.2 [...] Below low normal <content Saint [Mass/volume] styleCode="Bryan [place] in Serum or d">Total Medical Plasma Protein Center </content>5.0 G/DL L<content styleCode="Belle lics"> (6.3-8.2 G/DL)</content > ID Date Data Source [facility].[id number] 05/11/2019 05:38:00 AM EDT [facility] Name Value Range Interpretation Description Data Sup porting Code Source(s) Document(s ) Potassium 3.5-5.3 <content Saint [Moles/volume] in styleCode="Bold"> [facility] Serum or Plasma Potassium Medical </content>3.9 Center MEQ/L<content styleCode="Italic s"> (3.5-5.3 MEQ/L)</content> Sodium 137-145 <content Saint [Moles/volume] in styleCode="Bold"> [facility] Serum or Plasma Sodium Medical </content>142 Center MEQ/L<content styleCode="Italic s"> (137-145 MEQ/L)</content> Carbon dioxide, 22-30 Below low <content Saint total normal styleCode="Bold"> Heriebrto [Moles/volume] in Carbon Dioxide Medical Serum or Plasma </content>20 Center MEQ/L L<content styleCode="Italic s"> (22-30 MEQ/L)</content> Chloride 98-107 Above high <content Saint [Moles/volume] in normal styleCode="Bold"> [facility] Serum or Plasma Chloride Medical [...] styleCode="Italic s"> (7-50 IU/L)</content> Alkaline 38-126 <content phosphatase styleCode="Bold"> Heriberto [Enzymatic Alkaline Medical activity/volume] Phosphatase (ALP) Cente r in Serum or Plasma </content>62 IU/L<content styleCode="Italic s"> (38-126 IU/L)</content> Aspartate 17-59 <content aminotransferase styleCode="Bold"> Krishna hs [Enzymatic Aspartate Medical activity/volume] Aminotransferase Center in Serum or Plasma (AST) </content>27 IU/L<content styleCode="Italic s"> (17-59 IU/L)</content> ID Date Data Source Immunofixation.[id number] 05/11/2019 03:35:00 AM EDT Deejay [facility] -0400 Name Value Range Interpretation Description Data Sup porting Code Source(s) Document(s ) UNK Not Detected <content [facility] styleCode="Bold Medical ">Immunofixatio Center n, Urine </content>Not Detected <content styleCode="Ital ics"> (Not Detected )</content> ID Date Data Source Coagulation 05/11/2019 12:15:00 AM [facility] Rout.[id number] EDT Name Value Range Interpretation Description Data [...] Date Data Source Coagulation 05/10/2019 03:30:00 PM [facility] Rout.[id number] EDT Name Value Range Interpretation Description Data [...] Date Data Source Coagulation 05/10/2019 01:30:00 PM [facility] Rout.[id number] EDT Name Value Range Interpretation Description Data [...] normal <content Saint Platelet poor 0 styleCode="Bold" [facility] plasma by >INR Medical Coagulation </content>1.57 # Center assay H<content styleCode="Itali cs"> (0.80-1.20 #)</content> ID Date Data Source Liver 05/10/2019 05:28:[address] [facility] Profile.[id number] Name Value Range Interpretation Description Data Sup [...] Date Data Source Coagulation 05/10/2019 05:28:00 AM [facility] ical Center Rout.[id number] EDT Name Value Range Interpretation Description Data [...] cs"> (9.0-13.0 SEC)</content> ID Date Data Source CHMROUTINECCDA.[id number] 05/10/2019 05:28:00 AM EDT Deejay [facility] -0400 Name Value Range Interpretation Description Data [...] Data Source Liver 05/09/2019 06:20:[address] [facility] Profile.[id number] Name Value Range Interpretation Description Data Sup [...] s"> (3.5-5.0 G/DL)</content> ID Date Data Source BHARTI.[id number] 05/09/2019 06:20:00 AM EDT [facility] -0400 Name Value Range Interpretation Description [...] (6.3-8.2 G/DL)</content > ID Date Data Source CardiacMarkers.[id number] 05/09/2019 06:20:00 AM EDT [facility] -0400 Name Value Range Interpretation Description Data Sup porting Code Source(s) Document(s ) Creatine 55-170 Above high normal <content Doyle s kinase styleCode="Bold Medical [Enzymatic ">CK Center activity/vol </content>276 ume] in IU/L H<content Serum or styleCode="Ital Plasma ics"> (55-170 IU/L)</content> ID Date Data Source Liver 05/08/2019 06:45:[address] [facility] Profile.[id number] Name Value Range Interpretation Description Data Sup [...] s"> (0.2-1.3 MG/DL)</content> ID Date Data [id number] 05/08/2019 06:45:00 AM EDT [facility] -0400 Name Value Range Interpretation Description [...] (6.3-8.2 G/DL)</content > ID Date Data Source CardiacMarkers.[id number] 05/08/2019 06:45:00 AM EDT [facility] -0400 Name Value Range Interpretation Description Data Sup porting Code Source(s) Document(s ) Creatine 55-170 Above high normal <content Doyle s kinase styleCode="Bold Medical [Enzymatic ">CK Center activity/vol </content>482 ume] in IU/L H<content Serum or styleCode="Ital Plasma ics"> (55-170 IU/L)</content> ID Date Data Source CardiacMarkers.[id number] 05/07/2019 06:19:00 AM EDT [facility] -0400 Name Value Range Interpretation Description Data Sup porting Code Source(s) Document(s ) Creatine 55-170 Above high normal <content [facility] kinase styleCode="Bold Medical [Enzymatic ">CK Center activity/vol </content>762 ume] in IU/L H<content Serum or styleCode="Ital Plasma ics"> (55-170 IU/L)</content> ID Date Data Source BloodBank.[id number] 05/05/2019 05:00:00 PM EDT [facility] Name Value Range Interpretation Code Description Data Lien rce(s) Supporting Document(s ) UNK NEGATIVE <content [facility] styleCode="Bold" Medical Cente r >Antibody Screen </content>NEGATI VE <content styleCode="Itali cs"> (NEGATIVE )</content> UNK <content [facility] styleCode="Bold" Medical Cente r >RH Type </content>POSITI VE (Reference Range: not available)
UNK <content [facility] styleCode="Bold" Medical Cente r >Blood Type </content>GROUP O (Reference Range: not available)
ID Date Data Source LIPID.[id number] 05/05/2019 06:35:00 AM EDT [facility] Name [...] (< 150 MG/DL)</content> UNK <content Saint styleCode="Bold"> [facility] LDL-Cholesterol Medical </content> Center (Reference Range: not available)
<c ontent styleCode="xLocal PreformattedText" >Triglycerides are >250 mg/dl; therefore, the LDL calculation is invalid.
Chol esterol electrophoresis is recommended if medically appropriate.</con tent> UNK > 60 Below low normal <content Saint styleCode="Bold"> [facility] HDL- Cholesterol Medical </content>30 Center MG/DL L<content styleCode="Italic s"> (> 60 MG/DL)</content> ID Date Data Source GFR(Creatinine).[id number] 05/04/2019 09:19:00 PM EDT [facility] 0-0400 Name Value Range Interpretation Code Description Data Lien rce(s) Supporting Document(s ) UNK > 60 Below low normal <content [facility] styleCode="Bold"> Medical Cent er EGFR </content>45 GFR L<content styleCode="Italic s"> (> 60 GFR)</content> ID Date Data Source CHMROUTINECCDA.[id number] 05/04/2019 09:19:00 PM EDT [facility] -0400 Name Value Range Interpretation Description Data Sup porting Code Source(s) Document(s ) Lactate 0.7-2.0 Above upper panic <content Doyle s [Mass/volum limits styleCode="Bold Medical e] in Serum ">Lactic Acid Center or Plasma </content><cont ent styleCode="Bold ">2.2 MMOLL HH</content><co ntent styleCode="Ital ics"> (0.7-2.0 MMOLL)</content > ID Date Data Source BMP.[id number] 05/04/2019 09:19:00 PM EDT [facility] Name Value Range Interpretation Description Data [...] (74-106 MG/DL)</conten t> ID Date Data Source Urinalysis.[id number] 05/04/2019 05:10:00 PM EDT [facility] 0 Name Value Range Interpretation Code Description Data Lien rce(s) Supporting Document(s ) UNK 30-90 Below low normal <content [place] styleCode="Bold"> Medical Cent er Sodium, Random Urine </content>26 MEQ/L L<content styleCode="Italic s"> (30-90 MEQ/L)</content> UNK <content [place] styleCode="Bold"> Medical Cent er Potassium, Random Urine </content>49.1 MEQ/L (Reference Range: not available)
UNK 20-320 <content [place] styleCode="Bold"> Medical Cent er Creatinine, Random UR </content>89 mg/dL<content styleCode="Italic s"> (20-320 mg/dL)</content> ID Date Data Source GFR(Creatinine).[id number] 05/04/2019 01:10:00 PM EDT [facility] 0-0400 Name Value Range Interpretation Code Description Data Lien rce(s) Supporting Document(s ) UNK > 60 Below low normal <content [place] styleCode="Bold"> Medical Cent er EGFR </content>40 GFR L<content styleCode="Italic s"> (> 60 GFR)</content> ID Date Data Source CardiacMarkers.[id number] 05/04/2019 01:10:00 PM EDT [facility] -0400 Name Value Range Interpretation Description Data Sup porting Code Source(s) Document(s ) Troponin < 0.034 Above upper panic <content Saint I.cardiac limits styleCode="Bold Heriberto [Mass/volume ">Troponin I Medical ] in Serum </content><cont Center or Plasma ent styleCode="Bold ">0.064 NG/ML HH</content><co ntent styleCode="Ital ics"> (< 0.034 NG/ML)</content > ID Date Data Source [facility].[id number] 05/04/2019 01:10:00 PM EDT [facility] Name Value Range Interpretation Description Data Sup porting Code Source(s) Document(s ) Potassium <content Saint [Moles/volume] styleCode="Bryan Heriberto in Serum or d">Potassium Medical Plasma </content>Test Center not performed. MEQ/L (Reference Range: not available)<br/ > Sodium 137-145 <content Saint [Moles/volume] styleCode="Bryan Heriberto in Serum or d">Sodium Medical Plasma </content>137 Center MEQ/L<content styleCode="Belle lics"> (137-145 MEQ/L)</conten t> Chloride 98-107 Below low normal <content [facility] [Moles/volume] styleCode="Bryan Heriberto in Serum or d">Chloride Medical Plasma </content>97 Center MEQ/L L<content styleCode="Belle lics"> (98-107 MEQ/L)</conten t> UNK > 60 Below low normal <content Saint styleCode="Bryan Chacons d">EGFR Medical </content>40 Center GFR L<content styleCode="Belle lics"> (> 60 GFR)</content> Creatinine 0.5-1.3 Above high normal <content Saint [Mass/volume] styleCode="Bryan Heriberto in Serum or d">Creatinine Medical Plasma </content>2.1 Center MG/DL H<content styleCode="Belle lics"> (0.5-1.3 MG/DL)</conten t> UNK 9-20 Above high normal <content Saint styleCode="Bryan Heriberto d">BUN Medical </content>50 Center MG/DL H<content styleCode="Belle lics"> (9-20 MG/DL)</conten t> Glucose 74-106 Above high normal <content Saint [Mass/volume] styleCode="Bryan Heriberto in Serum or d">Glucose Medical Plasma </content>280 [...] (8.4-10.2 MG/DL)</conten t> ID Date Data Source Microbiology.[id number] 05/04/2019 01:05:00 PM EDT [facility] 400 Name Value Range Interpretation Code Description Data Lien rce(s) Supporting Document(s ) UNK <item><content Doyles styleCode="Bold">C Medical [address] ulture Status </content>
<ta ble><tbody><tr><td >Specimen Number:</td><td>[id number]</td></tr>< tr><td>Sample Collection Date/Time: </td><td>05/04/2019 1:05 PM</td></tr><tr><t d>Specimen [...] r><td></td><td></t d><td></td></tr></ tbody></table></it em> UNK <item><content [facility] styleCode="Bold">C [facility] Report </content>
<ta ble><tbody><tr><td >Specimen Number:</td><td>[id number]</td></tr>< tr><td>Sample Collection Date/Time: </td><td>05/04/2019 1:05 PM</td></tr><tr><t d>Specimen [...] d><td></td></tr></ tbody></table></it em> ID Date Data Source CHMROUTINECCDA.[id number] 05/04/2019 11:21:00 AM EDT [facility] -0400 Name Value Range Interpretation Code Description Data Lien rce(s) Supporting Document(s ) UNK 4.2-5.8 Above high normal <content Doyle s styleCode="Bold" Medical Cente r >Hemoglobin A1C </content>9.1 % H<content styleCode="Itali cs"> (4.2-5.8 %)</content> ID Date Data Source CardiacMarkers.[id number] 05/04/2019 10:52:00 AM EDT [facility] -0400 Name Value Range Interpretation Description Data Sup porting Code Source(s) Document(s ) Troponin < 0.034 Above upper panic <content [facility] I.cardiac limits styleCode="Bold Heriberto [Mass/volume ">Troponin I Medical ] in Serum </content><cont Center or Plasma ent styleCode="Bold ">0.067 NG/ML HH</content><co ntent styleCode="Ital ics"> (< 0.034 NG/ML)</content > ID Date Data Source CHMROUTINECCDA.[id number] 05/04/2019 10:45:00 AM EDT [facility] -0400 Name Value Range Interpretation Code Description Data Lien rce(s) Supporting Document(s ) UNK 0.7-2.0 Above upper panic <content Doyle s limits styleCode="Bold" Medical Cente r >Lactic Acid 4hr </content><avel nt styleCode="Bold" >4.3 MMOLL HH</content><con tent styleCode="Itali cs"> (0.7-2.0 MMOLL)</content> ID Date Data Source Urinalysis.[id number] 05/04/2019 08:10:00 AM EDT [facility] 0 Name Value Range Interpretation Description [...] by Test d">Urine Medical strip Specific Center [place] </content>1.01 0 L<content styleCode="Belle lics"> (1.015-1.025 )</content> [...] styleCode="Belle lics"> (0-3 HPF)</content> Nitrite NEGATIVE <content [Presence] in styleCode="[place]ryan [place] Urine by Test d">Urine Medical strip Nitrite Center </content>NEGA TIVE <content styleCode="Belle lics"> (NEGATIVE )</content> UNK <content Saint styleCode="[place]ryan [place] d">Epithelial Medical Cell Center </content>> 50 LPF (Reference Range: not available)<br/ > ID Date Data Source GFR(Creatinine).[id number] 05/04/2019 08:10:00 AM EDT [facility] 0-0400 Name Value Range Interpretation Code Description Data Lien rce(s) Supporting Document(s ) UNK > 60 Below low normal <content Heriberto styleCode="Bold"> Medical Cent er EGFR </content>33 GFR L<content styleCode="Italic s"> (> 60 GFR)</content> ID Date Data Source CHMROUTINECCDA.[id number] 05/04/2019 08:10:00 AM EDT [facility] -0400 Name Value Range Interpretation Description Data Sup porting Code Source(s) Document(s ) Phosphate 2.5-4.5 <content Saint [Mass/volume] styleCode="Bryan Heriberto in Serum or d">Phosphorus Medical Plasma </content>2.8 Center MG/DL<content styleCode="Belle lics"> (2.5-4.5 MG/DL)</conten t> Magnesium 1.6-2.3 Below low normal <content Saint [Mass/volume] styleCode="Bryan Heriberto in Serum or d">Magnesium Medical Plasma </content>1.1 Center MG/DL L<content styleCode="Belle lics"> (1.6-2.3 MG/DL)</conten t> ID Date Data Source CardiacMarkers.[id number] 05/04/2019 08:10:00 AM EDT [facility] -0400 Name Value Range Interpretation Description Data Sup porting Code Source(s) Document(s ) Creatine 55-170 Above high normal <content Doyle s kinase styleCode="Bold Medical [Enzymatic ">CK Center activity/vol </content>1277 ume] in IU/L H<content Serum or styleCode="Ital Plasma ics"> (55-170 IU/L)</content> ID Date Data Source [facility].[id number] 05/04/2019 08:10:00 AM EDT [facility] Name Value Range Interpretation Description [...] d">Chloride Medical Plasma </content>90 Center MEQ/L L<content styleCode="Blele lics"> (98-107 MEQ/L)</conten t> Calcium 8.4-10.2 <content Saint [Mass/volume] styleCode="Bryan Heriberto in Serum or d">Calcium Medical Plasma </content>9.0 [...] (> 60 GFR)</content> ID Date Data Source Microbiology.[id number] 05/04/2019 06:40:00 AM EDT [facility] 400 Name Value Range Interpretation Code Description Data Lien rce(s) Supporting Document(s ) UNK <item><content [facility] styleCode="Bold"> Medical Cent er Culture Status </content>
<t able><tbody><tr>< td>Specimen Number:</td><td>[id number]</td></tr ><tr><td>Sample Collection Date/Time: </td><td>05/04/2019 6:40 AM</td></tr><tr>< td>Specimen Source:</td><td>B LOOD</td></tr><tr ><td>Culture Report:</td><td>N O GROWTH 5 DAYS </td></tr><tr><td >Culture Status:</td><td>F inal </td></tr><tr><td >Blood Culture:</td><td> Collection Plate Date: 05/04/2019 06:57 </td></tr></tbody ></table></item> UNK <item><content [facility] styleCode="Bold"> Medical [facility] er Culture Report </content>
<t able><tbody><tr>< td>Specimen Number:</td><td>[id number]</td></tr ><tr><td>Sample Collection Date/Time: </td><td>05/04/2019 6:40 AM</td></tr><tr>< td>Specimen Source:</td><td>B LOOD</td></tr><tr ><td>Blood Culture:</td><td> Collection Plate Date: 05/04/2019 06:57 </td></tr><tr><td >Culture Status:</td><td>F inal </td></tr><tr><td >Culture Report:</td><td>N O GROWTH 5 DAYS </td></tr></tbody ></table></item> ID Date Data Source Microbiology.[id number] 05/04/2019 06:27:00 AM EDT [facility] 400 Name Value Range Interpretation Code Description Data Lien rce(s) Supporting Document(s ) UNK <item><content [facility] styleCode="Bold"> Medical [facility] Culture Report </content>
<t able><tbody><tr>< td>Specimen Number:</td><td>[id number]</td></tr ><tr><td>Sample Collection Date/Time: </td><td>05/04/2019 6:27 AM</td></tr><tr>< td>Specimen Source:</td><td>B LOOD</td></tr><tr ><td>Blood Culture:</td><td> Collection Plate Date: 05/04/2019 06:40 </td></tr><tr><td >Culture Status:</td><td>F inal </td></tr><tr><td >Culture Report:</td><td>N O GROWTH 5 DAYS </td></tr></tbody ></table></item> UNK <item><content [facility] styleCode="Bold"> Medical Cent er Culture Status </content>
<t able><tbody><tr>< td>Specimen Number:</td><td>[id number]</td></tr ><tr><td>Sample Collection Date/Time: </td><td>05/04/2019 6:27 AM</td></tr><tr>< td>Specimen Source:</td><td>B LOOD</td></tr><tr ><td>Culture Report:</td><td>N O GROWTH 5 DAYS </td></tr><tr><td >Culture Status:</td><td>F inal </td></tr><tr><td >Blood Culture:</td><td> Collection Plate Date: 05/04/2019 06:40 </td></tr></tbody ></table></item> ID Date Data Source Liver 05/04/2019 06:27:[address] [facility] Profile.[id number] Name Value Range Interpretation Description Data Sup [...] s"> (3.5-5.0 G/DL)</content> ID Date Data Source HematologyRou.[id number] 05/04/2019 06:27:00 AM EDT [facility] 0400 Name Value Range Interpretation Description [...] mean 80.0-100 <content Saint corpuscular .0 styleCode="Bold Heribreto volume [Entitic ">Mean Medical volume] by Corpuscular [...] ics"> (0 /100)</content> ID Date Data Source GFR(Creatinine).[id number] 05/04/2019 06:27:00 AM EDT [facility] 0-0400 Name Value Range Interpretation Code Description Data Lien rce(s) Supporting Document(s ) UNK > 60 Below low normal <content [facility] Heriberto styleCode="Bold"> Medical Cent er EGFR </content>33 GFR L<content styleCode="Italic s"> (> 60 GFR)</content> ID Date Data Source CHMROUTINECCDA.[id number] 05/04/2019 06:27:00 AM EDT [facility] -0400 Name Value Range Interpretation Description [...] (0.7-2.0 MMOLL)</content > ID Date Data Source CardiacMarkers.[id number] 05/04/2019 06:27:00 AM EDT [facility] -0400 Name Value Range Interpretation Description Data Sup porting Code Source(s) Document(s ) Troponin < 0.034 Above upper panic <content [facility] I.cardiac limits styleCode="Bold Heriberto [Mass/volume ">Troponin I Medical ] in Serum </content><cont Center or Plasma ent styleCode="Bold ">0.050 NG/ML HH</content><co ntent styleCode="Ital ics"> (< 0.034 NG/ML)</content > ID Date Data Source BMP.[id number] 05/04/2019 06:27:00 AM EDT [facility] Name Value Range Interpretation Description Data Sup porting Code Source(s) Document(s ) Sodium 137-145 Below low <content Saint [Moles/volume] in normal styleCode="Bold"> [facility] Serum or Plasma Sodium Medical </content>133 Center MEQ/L L<content styleCode="Italic s"> (137-145 MEQ/L)</content> Potassium 3.5-5.3 <content Saint [Moles/volume] in styleCode="Bold"> [facility] Serum or Plasma Potassium Medical </content>4.5 Center MEQ/L<content styleCode="Italic s"> (3.5-5.3 MEQ/L)</content> Chloride 98-107 Below low <content Saint [Moles/volume] in normal styleCode="Bold"> [facility] Serum or Plasma Chloride Medical [...] Data Source Urinalysis 01/23/2019 06:02:[address] [facility] Name Value Range Interpretation Description Data Sup porting Code Source(s) Document(s ) UNK CLEAR <content Saint styleCode="Bryan Chacons d">Urine [...] by 4.5-8.0 <content [facility] Test strip styleCode="Bryan Chacons d">Urine pH Medical </content>7.0 Center <content styleCode="Belle lics"> (4.5-8.0 )</content> Specific 1.015-1.02 Below low normal <content Saint gravity of 5 styleCode="Bryan Chacons Urine by Test d">Urine Medical strip Specific Center [place] </content><= 1.005 L<content styleCode="Belle lics"> (1.015-1.025 )</content> [...] )</content> Urobilinogen 0.2-1.0 <content Saint [Units/volume] styleCode="Bryan Chacons in Urine by d">Urine Medical Test strip Urobilinogen Center </content>0.2 MG/DL<content styleCode="Belle lics"> (0.2-1.0 MG/DL)</conten t> Leukocyte NEGATIVE <content [facility] esterase styleCode="Bryan Heriberto [Presence] in d">Urine Medical Urine by Test Leukocyte Center strip </content>NEGA TIVE <content styleCode="Belle lics"> (NEGATIVE )</content> ID Date Data Source HematologySpeci 01/23/2019 05:01:[address] [facility] Name Value Range Interpretation Description Data Sup porting Code Source(s) Document(s ) Erythrocyte < 30 Above high normal <content Saint sedimentation styleCode="Bold" Heriberto rate by >Erythrocyte Medical [facility] method Rate (ESR) </content>45 MM/hr H<content styleCode="Itali cs"> (< 30 MM/hr)</content> C reactive < 3.0 Above high normal <content [facility] protein styleCode="Bold" Heriberto [Mass/volume] in >C-Reactive Medical Serum or Plasma Protein Center </content>9.02 MG/L H<content styleCode="Itali cs"> (< 3.0 MG/L)</content> ID Date Data Source HematologyRou 01/23/2019 05:01:[address] [facility] Name Value Range Interpretation Description Data [...] Data Source GFR(Creatinine) 01/23/2019 05:01:[address] [facility] Name Value Range Interpretation Code Description Data Lien rce(s) Supporting Document(s ) UNK > 60 Below low normal <content [facility] styleCode="Bold"> Medical Cent er EGFR </content>39 GFR L<content styleCode="Italic s"> (> 60 GFR)</content> ID Date Data Source BMP 01/23/2019 05:01:[address] [facility] Name Value Range Interpretation Description Data [...] Interpretation Code Description Data Source(s) Body temperature 36.403563 36.621298 [facility] Respiratory rate 20 /min 20 /min [facility] Heart rate 63 /min 63 /min [facility] Diastolic blood 78 mm[Hg] 78 mm[Hg] [facility] [place] Systolic blood 160 mm[Hg] 160 mm[Hg] [facility] Body weight 95.888659 kg 95.933249 kg [facility] Body temperature 37.088504 37.801606 [facility] Respiratory rate 20 /min 20 /min [facility] Heart rate 56 /min 56 /min [facility] Diastolic blood 75 mm[Hg] 75 mm[Hg] [facility] Systolic blood 147 mm[Hg] 147 mm[Hg] [facility] Body temperature 36.843429 36.675179 [facility] Respiratory rate 20 /min 20 /min [facility] Heart rate 54 /min 54 /min [facility] Diastolic blood 76 mm[Hg] 76 mm[Hg] [facility] Systolic blood 156 mm[Hg] 156 mm[Hg] [facility] Body temperature 36.230628 36.562246 [facility] Respiratory rate 20 /min 20 /min [facility] Heart rate 63 /min 63 /min [facility] Diastolic blood 82 mm[Hg] 82 mm[Hg] [facility] Systolic blood 159 mm[Hg] 159 mm[Hg] [facility] Body temperature 36.075066 36.615745 [facility] Respiratory rate 20 /min 20 /min [facility] Heart rate 62 /min 62 /min [facility] Diastolic blood 84 mm[Hg] 84 mm[Hg] [facility] Systolic blood 139 mm[Hg] 139 mm[Hg] [facility] Body weight 95.520110 kg 95.569256 kg [facility] Oxygen saturation 98 % [...] Medical Center by Pulse oximetry Body weight 91.401134 kg 91.669303 kg [facility] Body weight 91.975777 kg 91.602182 kg [facility] Body weight 89.411731 kg 89.888169 kg [facility] Body temperature 36.559086 36.866309 [facility] Respiratory rate 29 /min 29 /min [facility] Heart rate 85 /min 85 /min [facility] Diastolic blood 74 mm[Hg] 74 mm[Hg] [facility] Systolic blood 125 mm[Hg] 125 mm[Hg] [facility] [place] Respiratory rate 31 /min 31 /min [facility] Heart rate 84 /min 84 /min [facility] Diastolic blood 65 mm[Hg] 65 mm[Hg] [facility] [place] Systolic blood 109 mm[Hg] 109 mm[Hg] [facility] Body temperature 37.810246 37.685333 [facility] Respiratory rate 19 /min 19 /min [facility] Heart rate 95 /min 95 /min [facility] Diastolic blood 76 mm[Hg] 76 mm[Hg] [facility] Systolic blood 144 mm[Hg] 144 mm[Hg] [facility] Respiratory rate 30 /min 30 /min [facility] Oxygen saturation 98 % 98 % [facility] blood [facility] Center by Pulse oximetry Heart rate 88 /min 88 /min [facility] Diastolic blood 72 mm[Hg] 72 mm[Hg] [facility] Systolic blood 127 mm[Hg] 127 mm[Hg] [facility] Body temperature 37.801309 37.735419 [facility] Respiratory rate 27 /min 27 /min [facility] Heart rate 94 /min 94 /min [facility] Diastolic blood 73 mm[Hg] 73 mm[Hg] [facility] Systolic blood 137 mm[Hg] 137 mm[Hg] [facility] Body temperature 37.592612 37.335209 [facility] Body height 167.908954 167.935406 cm [facility] Body mass index 30.57 kg/m2 30.57 kg/m2 [facility] (BMI) [Ratio] Medical [address] Body weight 85.552184 kg 85.111052 kg [facility] Oxygen saturation 96 % 96 % [facility] Arterial blood Medical Center by Pulse oximetry Body temperature 37.503872 37.016513 [facility] Oxygen saturation 97 % 97 % [facility] Arterial blood Medical Center by Pulse oximetry Oxygen saturation 97 % 97 % [facility] Arterial blood Medical Center by Pulse oximetry Oxygen saturation 95 % 95 % [facility] Arterial blood Medical Center by Pulse oximetry Body temperature 36.302366 36.085219 [facility] Respiratory rate 18 /min 18 /min [facility] Oxygen saturation 97 % 97 % [facility] Arterial blood Medical Center by Pulse oximetry Heart rate 97 /min 97 /min [facility] Diastolic blood 85 mm[Hg] 85 mm[Hg] [facility] Systolic blood 129 mm[Hg] 129 mm[Hg] [facility] Body temperature 36.229355 36.543352 [facility] Respiratory rate 18 /min 18 /min [facility] Oxygen saturation 98 % 98 % [facility] Arterial blood [facility] Center by Pulse oximetry Heart rate 97 /min 97 /min [facility] Diastolic blood 84 mm[Hg] 84 mm[Hg] [facility] Systolic blood 126 mm[Hg] 126 mm[Hg] [facility] Body weight 85.644442 kg 85.961845 kg [facility] Body temperature 36.073356 36.274861 [facility] Respiratory rate 17 /min 17 /min [facility] Oxygen saturation 99 % 99 % [facility] osep in Arterial blood [facility] by Pulse oximetry Heart rate 78 /min 78 /min [facility] Body height [id number] 160.765921 cm [facility] Diastolic blood 78 mm[Hg] 78 mm[Hg] [facility] Systolic blood 122 mm[Hg] 122 mm[Hg] [facility] Body mass index 33.1 kg/m2 33.1 kg/m2 [facility] (BMI) [Ratio] Medical [facility] Body temperature 36.849997 [id number] [facility] Respiratory rate 18 /min 18 /min [facility] Oxygen saturation 98 % 98 % [facility] by Pulse oximetry Heart rate 96 /min 96 /min [facility] Diastolic blood 76 mm[Hg] 76 mm[Hg] [facility] pressure [facility] Systolic blood 129 mm[Hg] 129 mm[Hg] [facility] Patient Treatment Plan of Care Planned Activity Planned Date Details Description Data Source (s) torsemide [address] [facility] Finasteride [address] [facility] Amoxicillin 875 MG / [facility] Clavulanate 125 [address] Oral [facility] Tablet Furosemide 20 MG Oral Tablet [facility] [Lasix] [place] timolol maleate 0.5 % Drops, [facility] Ordered By: Roselyn Kumar MDDirections: 1 drop ophthalmic twice a day Tamsulosin hydrochloride 0.4 [facility] Oral Capsule [place] Simvastatin [address] [facility] Prednisone [address] [facility] 3 ML Insulin Lispro 50 UNT/ML [facility] / Insulin, Protamine Lispro, [place] Human 50 UNT/ML Pen Injector [Humalog Mix] fluticasone propionate [address] [facility]/actuation Center spray,suspension, Ordered By: CARMEN Kumarirections: 2 spray nasal twice a day Ergocalciferol 41346 UNT Oral [facility] Allopurinol 100 MG Oral [facility] Tablet [place] Prednisone [address] [facility]
[2020-07-24] MEDS ORDERED: PEGFILGRASTIM-CBQV (UDENYCA) 6 MG/0.6 ML SYRINGE SQ ONE (10:00)
[2020-07-24 16:49] VITALS: BP 128/80; PULSE 91; TEMP 97.4
== END 2020-07-24 09:15 | disposition home or self-care (01) ==
LOC: JONCCHEMO 07:01
PROVIDERS: ATTEND Internal Medicine Hematology & Oncology
PROC: 3E013GC Introduction of Other Therapeutic Substance into Subcutaneous Tissue, Percutaneous Approach (ICD-10-PCS; principal; 2020-07-24)
DX: C85.90 Non-Hodgkin lymphoma, unspecified, unspecified site (principal); Z76.89 Persons encountering health services in other specified circumstances
CPT/HCPCS: 96372; Q5111